=== PATIENT | female | born 1930 | race Caucasian/White ===

== ENCOUNTER 2017-08-22 10:06 | Inpatient (IN) | payer MEDICARE, OTHER ==
--- NOTE | 2017-08-22 10:34 | ED ---
General Adult HPI - General Chief complaint: Weakness Stated complaint: Weakness Time Seen by Provider: 08/22/17 10:16 Source: patient, family, RN notes reviewed Mode of arrival: wheelchair Limitations: no limitations - History of Present Illness Initial comments: Patient is a pleasant 86-year-old female presenting to the emergency department with weakness. Patient has been having right hip problems for the past several weeks and did see a practitioner recently with x-rays concerning for arthritis. This morning daughter found patient lying on the floor. Patient has been unable to get up or bear weight on her own. There is question whether or not patient may have hit her head. Patient does complain of some discomfort in the back of her head and feels that she may have hit it. Patient does have mild bruising left eyebrow. Patient states her right hip only hurts a little bit at this time however during exam states it hurts to lift the right hip. No neck or back pain. No chest or abdominal pain. Patient does have some confusion however daughter states this is normal and unchanged for her. - Related Data Home Medications Medication Instructions Recorded Confirmed ALPRAZolam 0.5 mg PO TID PRN 06/06/15 08/22/17 Donepezil HCl 23 mg PO HS 06/06/15 08/22/17 Mirtazapine 30 mg PO HS 06/06/15 08/22/17 Omeprazole [PriLOSEC] 20 mg PO AC-BRKFST 06/06/15 08/22/17 Pravastatin Sodium 40 mg PO HS 06/06/15 08/22/17 Sertraline HCl 50 mg PO DAILY 06/06/15 08/22/17 traMADol HCL [Ultram] 50 mg PO BID PRN 08/22/17 08/22/17 Allergies Allergy/AdvReac Type Severity Reaction Status Date / Time No Known Allergies Allergy Verified 08/22/17 12:31 Review of Systems ROS Statement: Those systems with pertinent positive or pertinent negative responses have been documented in the HPI. ROS Other: All systems not noted in ROS Statement are negative. Constitutional: Denies: fever Eyes: Denies: eye pain ENT: Denies: ear pain Respiratory: Denies: cough Cardiovascular: Denies: chest pain Endocrine: Reports: fatigue Gastrointestinal: Denies: abdominal pain Genitourinary: Denies: urgency Musculoskeletal: Denies: back pain Skin: Denies: rash Neurological: Reports: weakness (Generalized) Past Medical History Past Medical History: Dementia Additional Past Medical History / Comment(s): stomach ulcer, per 2006 egd:small hiatal hernia ,mild gastritis, poor circulation, past colitis-had bowel resection. PER FAMILY PT'S APPETITE GOES UP AND DOWN CURRENTLY EATING GOOD BUT HAS LOST 30 POUNDS OVER THE COURSE OF A YEAR. History of Any Multi-Drug Resistant Organisms: None Reported Past Surgical History: Bladder Surgery, Hernia Repair, Hysterectomy Additional Past Surgical History / Comment(s): colonoscopy/egd,ileostomy , abd hernia repair Past Anesthesia/Blood Transfusion Reactions: No Reported Reaction Past Psychological History: Anxiety, Depression Smoking Status: Never smoker Past Alcohol Use History: None Reported Past Drug Use History: None Reported - Past Family History Father Additional Family Medical History / Comment(s): IN HIS 80'S NATURAL CAUSES Mother Family Medical History: Myocardial Infarction ([place]) Additional Family Medical History / Comment(s): AT AGE 58 FROM [place] General Exam Limitations: no limitations General appearance: alert, in no apparent distress Head exam: Present: normocephalic, other (Mild ecchymosis left eyebrow. Mild tenderness left posterior scalp without swelling.) Eye exam: Present: normal appearance, PERRL, EOMI ENT exam: Present: normal oropharynx Neck exam: Present: normal inspection. Absent: tenderness Respiratory exam: Present: normal lung sounds bilaterally Cardiovascular Exam: Present: tachycardia GI/Abdominal exam: Present: soft. Absent: tenderness Extremities exam: Present: tenderness (Right hip) Back exam: Present: normal inspection. Absent: tenderness Neurological exam: Present: alert, CN II-XII intact Expanded Patient oriented to: Present: person, place. Absent: time Speech: Present: fluid speech Cranial nerves: EOM's Intact: Normal Motor strength exam: RUE: 5, LUE: 5, RLE: 3 (Limited by right hip pain), LLE: 5 Eye Response: (4) open spontaneously Motor Response: (6) obeys commands Verbal Response: (4) confused conversation Psychiatric exam: Present: normal affect, normal mood Skin exam: Absent: rash Course Vital Signs 08/22/17 08/22/17 08/22/17 10:07 12:13 12:39 Temperature 100.9 F H Pulse Rate 123 H 87 91 Respiratory 20 18 18 Rate Blood Pressure 127/97 89/53 90/59 O2 Sat by Pulse 88 L 99 Oximetry - Reevaluation(s) Reevaluation #1: 08/22/17 12:08 Case was earlier discussed with Dr. Bah and from cardiology who recommends medical treatment including beta james and statins. Patient and family were updated. 08/22/17 13:10 Patient does meet sepsis criteria diagnosed at 1310 based on urinary tract infection. Lactic acid and blood cultures and antibiotics will be ordered. 08/22/17 13:10 Patient had a single episode of blood pressure at 89 and therefore meets criteria for severe sepsis. 30 mL/kg IV fluid bolus will be ordered. EKG Findings - EKG Comments: EKG Findings:: Normal sinus rhythm 96. For screening AV block with a DE of 206. QRS 72. QT 338. QTC 427. Normal axis. Low QRS voltage. Septal Q waves. No acute ST change. Procedures - Sepsis Sepsis Focused Exam #1 Time Sepsis Criteria Met: 13:04 Sepsis Focused Exam Date: 08/22/17 Sepsis Focused Exam Time: 13:16 Sepsis Focused Exam Complete: Yes Vital Signs & RN Notes Reviewed: Yes Capillary Refill: < 2 Seconds: Fingers, Toes Peripheral Pulses: Normal: Radial (R), Radial (L), Posterior Tibialis (R), Posterior Tibialis (L) Skin Color: Normal for Patient Respiratory Exam: normal lung sounds Cardiovascular Exam: regular rate, normal rhythm Medical Decision Making - Lab Data Result diagrams: 08/22/17 10:37 08/22/17 10:37 Lab Results 08/22/17 08/22/17 08/22/17 Range/Units 10:37 10:37 10:37 WBC 13.3 H (3.8-10.6) k/uL RBC 4.26 (3.80-5.40) m/uL Hgb 12.9 (11.4-16.0) gm/dL Hct 40.4 (34.0-46.0) % MCV 94.8 (80.0-100.0) fL MCH 30.3 (25.0-35.0) pg MCHC 31.9 (31.0-37.0) g/dL RDW 13.7 (11.5-15.5) % Plt Count 137 L (150-450) k/uL Neutrophils % (Manual) 75 % Band Neutrophils % 11 % Lymphocytes % (Manual) 6 % Monocytes % (Manual) 3 % Eosinophils % (Manual) 1 % Metamyelocytes % 5 % Neutrophils # (Manual) 11.40 H (1.3-7.7) k/uL Lymphocytes # (Manual) 0.80 L (1.0-4.8) k/uL Monocytes # (Manual) 0.40 (0-1.0) k/uL Eosinophils # (Manual) 0.13 (0-0.7) k/uL Metamyelocytes # (Man) 0.67 H (0) k/uL Nucleated RBCs 0 (0-0) /100 WBC Polychromasia Present PT (9.0-12.0) sec INR (<1.2) APTT (22.0-30.0) sec Sodium 135 L (137-145) mmol/L Potassium 3.9 (3.5-5.1) mmol/L Chloride 108 H (98-107) mmol/L Carbon Dioxide 11 L (22-30) mmol/L Anion Gap 16 mmol/L BUN 51 H (7-17) mg/dL Creatinine 4.96 H (0.52-1.04) mg/dL Est GFR (MDRD) Af Amer 10 (>60 ml/min/1.73 sqM) Est GFR (MDRD) Non-Af 8 (>60 ml/min/1.73 sqM) Glucose 116 H (74-99) mg/dL Calcium 8.7 (8.4-10.2) mg/dL Total Bilirubin 1.3 (0.2-1.3) mg/dL AST 75 H (14-36) U/L ALT 42 (9-52) U/L Alkaline Phosphatase 114 (38-126) U/L Total Creatine Kinase 2196 H (30-135) U/L CK-MB (CK-2) 37.5 H* (0.0-2.4) ng/mL CK-MB (CK-2) Rel Index Troponin I 11.200 H* (0.000-0.034) ng/mL Total Protein 6.9 (6.3-8.2) g/dL Albumin 3.8 (3.5-5.0) g/dL Urine Color Urine Appearance (Clear) Urine pH (5.0-8.0) Ur Specific [place] (1.001-1.035) Urine Protein (Negative) Urine Glucose (UA) (Negative) Urine Ketones (Negative) Urine Blood (Negative) Urine Nitrite (Negative) Urine Bilirubin (Negative) Urine Urobilinogen (<2.0) mg/dL Ur Leukocyte Esterase (Negative) Urine RBC (0-5) /hpf Urine WBC (0-5) /hpf Urine Bacteria (None) /hpf Urine Opiates Screen (NotDetected) Ur Oxycodone Screen (NotDetected) Urine Methadone Screen (NotDetected) Ur Propoxyphene Screen (NotDetected) Ur Barbiturates Screen (NotDetected) U Tricyclic Antidepress (NotDetected) Ur Phencyclidine Scrn (NotDetected) Ur Amphetamines Screen (NotDetected) U Methamphetamines Scrn (NotDetected) U Benzodiazepines Scrn (NotDetected) Urine Cocaine Screen (NotDetected) U Marijuana (THC) Screen (NotDetected) 08/22/17 08/22/17 08/22/17 Range/Units 10:37 12:19 12:19 WBC (3.8-10.6) k/uL RBC (3.80-5.40) m/uL Hgb (11.4-16.0) gm/dL Hct (34.0-46.0) % MCV (80.0-100.0) fL MCH (25.0-35.0) pg MCHC (31.0-37.0) g/dL RDW (11.5-15.5) % Plt Count (150-450) k/uL Neutrophils % (Manual) % Band Neutrophils % % Lymphocytes % (Manual) % Monocytes % (Manual) % Eosinophils % (Manual) % Metamyelocytes % % Neutrophils # (Manual) (1.3-7.7) k/uL Lymphocytes # (Manual) (1.0-4.8) k/uL Monocytes # (Manual) (0-1.0) k/uL Eosinophils # (Manual) (0-0.7) k/uL Metamyelocytes # (Man) (0) k/uL Nucleated RBCs (0-0) /100 WBC Polychromasia PT 12.3 H (9.0-12.0) sec INR 1.2 H (<1.2) APTT 27.3 (22.0-30.0) sec Sodium (137-145) mmol/L Potassium (3.5-5.1) mmol/L Chloride (98-107) mmol/L Carbon Dioxide (22-30) mmol/L Anion Gap mmol/L BUN (7-17) mg/dL Creatinine (0.52-1.04) mg/dL Est GFR (MDRD) Af Amer (>60 ml/min/1.73 sqM) Est GFR (MDRD) Non-Af (>60 ml/min/1.73 sqM) Glucose (74-99) mg/dL Calcium (8.4-10.2) mg/dL Total Bilirubin (0.2-1.3) mg/dL AST (14-36) U/L ALT (9-52) U/L Alkaline Phosphatase (38-126) U/L Total Creatine Kinase (30-135) U/L CK-MB (CK-2) (0.0-2.4) ng/mL CK-MB (CK-2) Rel Index Troponin I (0.000-0.034) ng/mL Total Protein (6.3-8.2) g/dL Albumin (3.5-5.0) g/dL Urine Color Red Urine Appearance Turbid H (Clear) Urine pH 6.0 (5.0-8.0) Ur Specific [place] 1.014 (1.001-1.035) Urine Protein 2+ H (Negative) Urine Glucose (UA) Negative (Negative) Urine Ketones Negative (Negative) Urine Blood Large H (Negative) Urine Nitrite Negative (Negative) Urine Bilirubin Negative (Negative) Urine Urobilinogen <2.0 (<2.0) mg/dL Ur Leukocyte Esterase Large H (Negative) Urine RBC >182 H (0-5) /hpf Urine WBC 109 H (0-5) /hpf Urine Bacteria Rare H (None) /hpf Urine Opiates Screen Detected H (NotDetected) Ur Oxycodone Screen Not Detected (NotDetected) Urine Methadone Screen Not Detected (NotDetected) Ur Propoxyphene Screen Not Detected (NotDetected) Ur Barbiturates Screen Not Detected (NotDetected) U Tricyclic Antidepress Not Detected (NotDetected) Ur Phencyclidine Scrn Not Detected (NotDetected) Ur Amphetamines Screen Not Detected (NotDetected) U Methamphetamines Scrn Not Detected (NotDetected) U Benzodiazepines Scrn Not Detected (NotDetected) Urine Cocaine Screen Not Detected (NotDetected) U Marijuana (THC) Screen Not Detected (NotDetected) Critical Care Time Critical Care Time: Yes Total Critical Care Time: 45 Disposition Clinical Impression: NSTEMI (non-ST elevated myocardial infarction), Urinary tract infection, Severe sepsis, Chronic renal failure Disposition: ADMITTED IP TO THIS HOSP Condition: Serious Referrals: Denise Carmona MD [Primary Care Provider] - 1-2 days Decision Time: 13:15
[2017-08-22 11:05] LABS: Calcium 8.7 mg/dL (8.4-10.2); HCT 40.4 % (34.0-46.0); HGB 12.9 gm/dL (11.4-16.0); Immature Gran Flag Marked; MCH 30.3 pg (25.0-35.0); MCHC 31.9 g/dL (31.0-37.0); MCV 94.8 fL (80.0-100.0); Mean Platelet Volume 7.5; Potassium 3.9 mmol/L (3.5-5.1); RBC 4.26 m/uL (3.80-5.40); RDW 13.7 % (11.5-15.5); Total Bilirubin 1.3 mg/dL (0.2-1.3); Total Protein 6.9 g/dL (6.3-8.2); WBC 13.3 k/uL (3.8-10.6); WBC (Perox) 13.81
[2017-08-22 11:14] LABS: Add Differential Manual Differential
--- NOTE | 2017-08-22 11:14 | CT ---
EXAMINATION TYPE: CT brain nancy wise DATE OF EXAM: 08/22/2017 COMPARISON: NONE HISTORY: confusion/fell this morning CT DLP: 1651.10 mGycm Automated exposure control for dose reduction was used. TECHNIQUE: CT scan of the head and cervical spine are performed without contrast. FINDINGS: BRAIN: There are generalized changes of sulcal prominence and ventriculomegaly, compatible with atrop hy. There is diffuse periventricular white matter lucency, compatible with small vessel ischemic house ge. There is no acute focal lesion, mass effect or midline shift identified. I do not see evidence of intracranial blood. There is mild, chronic mucoperiosteal thickening involving the ethmoid air cells. No depressed skull fracture is seen. IMPRESSION: 1. NO ACUTE INTRACRANIAL ABNORMALITY. 2. ATROPHIC CHANGE. 3. SMALL VESSEL ISCHEMIC CHANGE. 4. MINIMAL, CHRONIC MUCOPERIOSTEAL THICKENING INVOLVING THE ETHMOID SINUSES. CERVICAL SPINE: There are emphysematous changes throughout the visualized portions of the lungs. Prevertebral soft tissues are normal. Vertebral body height and alignment are maintained. Atlantoaxial relationships are normal. There is d iffuse degenerative disc disease, most marked at C5-6 and C6-7. There is mild uncovertebral joint dis ease at this level. There is facet arthropathy at C4-5 and C6-7. There is no definite protrusion iden tified. No fracture is identified. IMPRESSION: 1. NO ACUTE OSSEOUS LESION. 2. DEGENERATIVE CHANGE.
[2017-08-22 11:16] LABS: Band Neutrophils % 11 %; Metamyelocytes % 5 %; Nucleated Red Blood Cells 0 /100 WBC (0-0); Polychromasia Present; Total Cells Counted 200
[2017-08-22 11:22] LABS: INR 1.2 (<1.2); Partial Thromboplastin Time 27.3 sec (22.0-30.0); Prothrombin Time 12.3 sec (9.0-12.0)
[2017-08-22 11:33] LABS: Creatine Kinase MB 37.5 ng/mL (0.0-2.4)
[2017-08-22 11:34] LABS: Troponin I 11.2 ng/mL (0.000-0.034)
--- NOTE | 2017-08-22 11:41 | XR ---
EXAMINATION TYPE: XR Hip RT and AP Pelvis , 3 VIEWS DATE OF EXAM ORDERED: 08/22/2017 HISTORY: Pain. COMPARISON: None. FINDINGS: Osseous structures about the pelvis are normal. No fracture is seen. There are degenerativ e changes within the hips. No hip fracture is seen. IMPRESSION: 1. NO ACUTE OSSEOUS LESION. 2. DEGENERATIVE CHANGE.
--- NOTE | 2017-08-22 11:42 | XR ---
EXAMINATION TYPE: XR chest 2V DATE OF EXAM: 08/22/2017 HISTORY: altered mental status. REFERENCE: NONE. FINDINGS: Lung volumes are mildly prominent. Heart size upper limits of normal. There is atelectatic change present at both lung bases. There is blunting of the left CP angle. I could not exclude a smal l left effusion. IMPRESSION: 1. BORDERLINE CARDIOMEGALY. 2. BIBASILAR ATELECTASIS. 3. I CANNOT EXCLUDE A SMALL, LEFT EFFUSION.
[2017-08-22] MEDS ORDERED: HEPARIN SODIUM,PORCINE 5,000 UNIT/ML 1 ML VIAL IV ONE (12:11)
[2017-08-22] MEDS ORDERED: HEPARIN SODIUM,PORCINE 5,000 UNIT/ML 1 ML VIAL IV PRN (12:11)
[2017-08-22 12:37] LABS: Appearance,Urine Turbid (Clear); Bacteria,Urine Rare /hpf; Bilirubin,Urine Negative (Negative); Glucose,Urine (UA) Negative (Negative); Ketones,Urine Negative (Negative); Leukocyte Esterase,Urine Large (Negative); Nitrite,Urine Negative (Negative); Particle Count 93469; Protein,Urine 2+ (Negative); RBC,Urine >182 /hpf (0-5); Specific Gravity,Urine 1.014 (1.001-1.035); UA Billing (MACRO vs. MICRO) MICRO; Urobilinogen,Urine <2.0 mg/dL (<2.0); WBC,Urine 109 /hpf (0-5)
[2017-08-22] MEDS ORDERED: SODIUM CHLORIDE 0.9% 500 ML IV ONE (12:37)
[2017-08-22] MEDS: HEPARIN SODIUM,PORCINE/D5W PMX 25,000 UNIT in DEXTROSE/WATER 1 500ML.BAG IV SCH (12:37)
[2017-08-22] MEDS ORDERED: METOPROLOL TARTRATE 25 MG TAB PO STA (12:47)
[2017-08-22] MEDS ORDERED: SODIUM BICARBONATE TAB 650 MG TAB PO STA (12:48)
[2017-08-22] MEDS ORDERED: SODIUM CHLORIDE 0.9% 500 ML IV STA (13:11)
[2017-08-22] MEDS ORDERED: SODIUM CHLORIDE 0.9% 250 ML IV STA (13:11)
[2017-08-22] MEDS ORDERED: SODIUM CHLORIDE 0.9% 1,000 ML IV STA (13:11)
[2017-08-22] MEDS ORDERED: cefTRIAXone IN SWFI 1,000 MG/10 ML SYRINGE IVP STA (13:14)
[2017-08-22] MEDS ORDERED: NALOXONE 0.4 MG/ML 1 ML VIAL IV PRN ×2 (13:21→15:51)
[2017-08-22] MEDS ORDERED: ASPIRIN 81 MG PO STA (13:23)
--- NOTE | 2017-08-22 14:39 | P.CNPUL ---
History of Present Illness Consult date: 08/22/17 Chief complaint: Generalized weakness, sepsis History of present illness: This is a very pleasant 86-year-old female patient who was brought into the emergency department after being found on the floor by family members. The patient apparently had fallen at home. The patient states that she had been progressively getting weak over the past few days. She was having some right inguinal/groin pain and increased confusion for which she was taken to the primary care physician and x-ray of the hips and the pelvis was done and showed no osseous lesions and it showed degenerative changes. The patient was released home to come back today with obvious signs of sepsis. Initial investigation here in the emergency department revealed that the patient had an underlying urine checked infection with seems to be the most obvious source of sepsis. Chest x-ray was clear. Troponin was elevated at 11 without any acute ischemic changes and the patient was also ruled in for acute non-ST segment elevation myocardial infarction. She was quite hypotensive at time of arrival systolic in the mid 80s. The patient is currently receiving her second bolus of IV fluids. She was also started on IV heparin. Holman catheter is to be inserted. Her lactic acid level at time of admission was 5.4. She has leukocytosis with a white cell count of 13.3. She has 11% bandemia. She has anion gap metabolic acidosis which is essentially lactic acidosis with a bicarb level of 11. She is also an acute kidney injury with a creatinine of 4.96 in a be on a 51. Note that this is an acute on top of chronic renal injury knowing that the patient's baseline creatinine was around 3.0. The daughter claims that the patient has had previous urinary tract infections all of them have been treated on outpatient basis. Urine drug screen is positive for opiates. The patient is awake. She is lethargic. She occasionally moans. She is able to follow simple commands. There is areas of bruising over the left forehead, right elbow, right upper extremity, lateral acid of the right foot. No obvious joint deformities. No headache. No nausea or vomiting. No abdominal pain. She has a DNR/DNI CODE STATUS. Review of Systems Constitutional: Reports fatigue, Reports fever, Reports lethargy, Reports poor appetite, Reports weakness Eyes: denies blurred vision, denies bulging eye, denies decreased vision Ears: deny: decreased hearing, ear discharge, earache Ears, nose, mouth and throat: Denies headache, Denies sore throat Cardiovascular: Reports decreased exercise tolerance Respiratory: Denies cough Gastrointestinal: Denies abdominal pain, Denies diarrhea, Denies nausea, Denies vomiting Genitourinary: Reports dysuria Menstruation: Reports as per HPI Musculoskeletal: absent: ankle pain, ankle stiffness, ankle swelling Integumentary: Denies pruritus, Denies rash Neurological: Denies numbness, Denies weakness Psychiatric: Denies anxiety, Denies depression Endocrine: Denies fatigue, Denies weight change Past Medical History Past Medical History: Dementia Additional Past Medical History / Comment(s): Chronic renal failure, gastric ulcer, dementia, mild gastritis, small hiatal hernia, peripheral vascular disease, history of ulcerative colitis and the patient has undergone a total colectomy with a diverting ileostomy, History of Any Multi-Drug Resistant Organisms: None Reported Past Surgical History: Bladder Surgery, Hernia Repair, Hysterectomy Additional Past Surgical History / Comment(s): colonoscopy/egd,ileostomy , abd hernia repair Past Anesthesia/Blood Transfusion Reactions: No Reported Reaction Past Psychological History: Anxiety, Depression Smoking Status: Never smoker Past Alcohol Use History: None Reported Past Drug Use History: None Reported - Past Family History Father Additional Family Medical History / Comment(s): IN HIS 80'S NATURAL CAUSES Mother Family Medical History: Myocardial Infarction ([place]) Additional Family Medical History / Comment(s): AT AGE 58 FROM [place] Medications and Allergies Home Medications Medication Instructions Recorded Confirmed Type ALPRAZolam 0.5 mg PO TID PRN 06/06/15 08/22/17 History Donepezil HCl 23 mg PO HS 06/06/15 08/22/17 History Mirtazapine 30 mg PO HS 06/06/15 08/22/17 History Omeprazole [PriLOSEC] 20 mg PO AC-BRKFST 06/06/15 08/22/17 History Pravastatin Sodium 40 mg PO HS 06/06/15 08/22/17 History Sertraline HCl 50 mg PO DAILY 06/06/15 08/22/17 History traMADol HCL [Ultram] 50 mg PO BID PRN 08/22/17 08/22/17 History Allergies Allergy/AdvReac Type Severity Reaction Status Date / Time No Known Allergies Allergy Verified 08/22/17 12:31 Physical Exam Vitals: Vital Signs Temp Pulse Resp BP Pulse Ox 08/22/17 14:24 98.5 F 84 32 H 91/53 92 L 08/22/17 13:59 83 22 81/48 94 L 08/22/17 13:46 100.9 F H 85 20 86/48 96 08/22/17 13:40 99.6 F 88 20 96/54 95 08/22/17 13:26 100.9 F H 86 20 88/55 99 08/22/17 13:11 94 20 81/53 99 08/22/17 12:56 86 20 89/53 94 L 08/22/17 12:39 100.9 F H 91 18 90/59 99 08/22/17 12:13 87 18 89/53 08/22/17 10:07 123 H 20 127/97 88 L Intake and Output 08/21/17 08/22/17 08/22/17 23:59 06:59 14:59 Other: Weight 71.214 kg Patient Weight 08/23/17 06:59 Weight 71.214 kg Patient is lethargic awake, comfortable at times moans yet for the most part she is arousable and she talks and she follows commands and she seems to be appropriate. Daughter is at the bedside.Head exam was generally normal. There was no scleral icterus or corneal arcus. Mucous membranes were moist. Mucous membranes are dry and the patient has dry tongue and there is no thrush. No JVDs. No goiter. No neck masses.Lungs were clear to auscultation and percussion, and with normal diaphragmatic excursion. No wheezes or rales were noted. Cardiac exam revealed the PMI to be normally situated and sized. The rhythm was regular and no extrasystoles were noted during several minutes of auscultation. The first and second heart sounds were normal and physiologic splitting of the second heart sound was noted. There were no murmurs, rubs, clicks, or gallops. Abdomen is soft and there is an ileostomy site which is functional and related fecal material collecting in the ileostomy bag. No direct tenderness. No rebound tenderness. No guarding. Extremities reveal adequate pulses bilaterally and there is no cyanosis or clubbing at this point. Neurologically the patient is awake and alert and the patient is following commands and answering questions and she is moving all 4 extremities without any limitation. No cranial nerve deficits. Examination of the skin shows areas of bruising in the left forehead just above the eye, right elbow, right foot lateral aspect, and the patient has no open wounds or sores or cellulitis at this point. Results - Laboratory Findings CBC and BMP: 08/22/17 10:37 08/22/17 10:37 PT/INR, D-dimer PT 12.3 sec (9.0-12.0) H 08/22/17 10:37 INR 1.2 (<1.2) H 08/22/17 10:37 Abnormal lab findings: Abnormal Labs 08/22/17 08/22/17 08/22/17 10:31 10:37 10:37 WBC 13.3 H Plt Count 137 L Neutrophils # (Manual) 11.40 H Lymphocytes # (Manual) 0.80 L Metamyelocytes # (Man) 0.67 H PT INR Sodium Chloride Carbon Dioxide BUN Creatinine Glucose Plasma Lactic Acid Eric 5.8 H* AST Total Creatine Kinase 2196 H CK-MB (CK-2) 37.5 H* Troponin I 11.200 H* Urine Appearance Urine Protein Urine Blood Ur Leukocyte Esterase Urine RBC Urine WBC Urine Bacteria Urine Opiates Screen 08/22/17 08/22/17 08/22/17 10:37 10:37 12:19 WBC Plt Count Neutrophils # (Manual) Lymphocytes # (Manual) Metamyelocytes # (Man) PT 12.3 H INR 1.2 H Sodium 135 L Chloride 108 H Carbon Dioxide 11 L BUN 51 H Creatinine 4.96 H Glucose 116 H Plasma Lactic Acid Eric AST 75 H Total Creatine Kinase CK-MB (CK-2) Troponin I Urine Appearance Urine Protein Urine Blood Ur Leukocyte Esterase Urine RBC Urine WBC Urine Bacteria Urine Opiates Screen Detected H 08/22/17 12:19 WBC Plt Count Neutrophils # (Manual) Lymphocytes # (Manual) Metamyelocytes # (Man) PT INR Sodium Chloride Carbon Dioxide BUN Creatinine Glucose Plasma Lactic Acid Eric AST Total Creatine Kinase CK-MB (CK-2) Troponin I Urine Appearance Turbid H Urine Protein 2+ H Urine Blood Large H Ur Leukocyte Esterase Large H Urine RBC >182 H Urine WBC 109 H Urine Bacteria Rare H Urine Opiates Screen - Diagnostic Findings Chest x-ray: image reviewed Assessment and Plan Assessment: Assessment 1 acute sepsis secondary to an underlying urine checked infection 2 acute fever, leukocytosis, hypotension and lactic acidosis secondary to urine checked infection/sepsis 3 acute lactic acidosis 4 acute on top of chronic kidney failure. The patient is oliguric and states related to sepsis/hypotension 5 hypotension, currently on no pressors and the patient is being resuscitated IV fluids 6 acute non-ST segment elevation myocardial infarction, no acute changes and the patient is asymptomatic without any chest pain, currently on IV heparin 7 ulcerative colitis with a previous ileostomy, function on 8 dementia 9 peripheral vascular disease 10 small hiatal hernia 11 fall without any obvious injuries Plan Continue fluid resuscitation given the patient total of 3-1/2 L of IV fluids and following that she be maintained on a on 150 mL an hour of normal saline. Urine cultures. 2 sets of blood cultures. Pressors if needed. Move the patient to the intensive care for further monitoring. Continued IV heparin for another 24 hours and request a cardiology consultation. Echocardiogram in the morning. IV Protonix. Initiate sepsis bundle. Monitor the renal function. Continue the antibiotic coverage with a combination of Rocephin and aztreonam. We'll continue to follow and make further recommendations based on her progress. She has a DNR/DNI CODE STATUS.
[2017-08-22 15:03] LABS: Glucose,Whole Blood 75 mg/dL (75-99)
[2017-08-22] MEDS: SODIUM CHLORIDE 0.9% 1,000 ML IV SCH ×2 (15:09→22:19)
[2017-08-22] MEDS: AZTREONAM 1 GM in SODIUM CHLORIDE 0.9% 50 ML IVPB SCH ×2 (15:22→22:16)
--- NOTE | 2017-08-22 17:25 | P.HPIM ---
History of Present Illness pleasant female was found unresponsive at home and has fallen at home was having generalized weakness patient denied any cough denied any dysuria denied any nausea vomiting patient is hypotensive patient is appears to be in shock which appears to be septic chart patient has severe and gap metabolic acidosis which is lactic acidosis with a lactic acid of around 6 patient has significant abnormal urine chest x-ray did not show significant amount of patient denied any cough with blood cultures urine cultures obtain patient's troponin is elevated up to 11 patient does not have any significant EKG changes cardiology was consulted patient is on IV heparin patient baseline creatinine is around 2 now has gone up to 4.96 patient may have had acute blood necrosis with the dark colored urine wasn't leaflets being fluid resuscitated had some hyperchloremia which is definitely a concern. she does have significant leukocytosis with bandemiathe patient at this time is not feeling well is complaining of back pain Review of Systems REVIEW OF SYSTEMS: CONSTITUTIONAL: mentioned in HPI HEENT: No recent visual problems or hearing problems. Denied any sore throat. CARDIOVASCULAR: No chest pain, orthopnea, PND, no palpitations, no syncope. PULMONARY: No shortness of breath, no cough, no hemoptysis. GASTROINTESTINAL: No diarrhea, no nausea, no vomiting, no abdominal pain. Normoactive bowel sounds. NEUROLOGICAL: No headaches, no weakness, no numbness. HEMATOLOGICAL: Denies any bleeding or petechiae. GENITOURINARY: Denies any burning micturition, frequency, or urgency. MUSCULOSKELETAL/RHEUMATOLOGICAL: back pain as mentioned above ENDOCRINE: Denies any polyuria or polydipsia. The rest of the 14-point review of systems is negative. Past Medical History Past Medical History: Dementia, Hyperlipidemia, Hypertension Additional Past Medical History / Comment(s): Chronic renal failure, gastric ulcer, dementia, mild gastritis, small hiatal hernia, peripheral vascular disease, history of ulcerative colitis and the patient has undergone a total colectomy with a diverting ileostomy, History of Any Multi-Drug Resistant Organisms: None Reported Past Surgical History: Bladder Surgery, Hernia Repair, Hysterectomy Additional Past Surgical History / Comment(s): colonoscopy/egd,ileostomy , abd hernia repair Past Anesthesia/Blood Transfusion Reactions: No Reported Reaction Past Psychological History: Anxiety, Depression Additional Psychological History / Comment(s): 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 PT DOES HAVE MILD DEMENTIA BUT ABLE TO CARE FOR SELF AT HOME. SHE CURRENTLY RESIDES WITH HER DAUGHTER URIEL AND HER FAMILY. PT IS ABLE TO AMBULATE ON HER OWN. Smoking Status: Never smoker Past Alcohol Use History: None Reported Past Drug Use History: None Reported - Past Family History Father Additional Family Medical History / Comment(s): IN HIS 80'S NATURAL CAUSES Mother Family Medical History: Myocardial Infarction ([place]) Additional Family Medical History / Comment(s): AT AGE 58 FROM [place] Medications and Allergies Home Medications Medication Instructions Recorded Confirmed Type ALPRAZolam 0.5 mg PO TID PRN 06/06/15 08/22/17 History Donepezil HCl 23 mg PO HS 06/06/15 08/22/17 History Mirtazapine 30 mg PO HS 06/06/15 08/22/17 History Omeprazole [PriLOSEC] 20 mg PO AC-BRKFST 06/06/15 08/22/17 History Pravastatin Sodium 40 mg PO HS 06/06/15 08/22/17 History Sertraline HCl 50 mg PO DAILY 06/06/15 08/22/17 History traMADol HCL [Ultram] 50 mg PO BID PRN 08/22/17 08/22/17 History Allergies Allergy/AdvReac Type Severity Reaction Status Date / Time No Known Allergies Allergy Verified 08/22/17 12:31 Physical Exam Vitals: Vital Signs Temp Pulse Resp BP Pulse Ox 08/22/17 16:30 95 24 79/53 91 L 08/22/17 16:00 95 37 H 76/37 92 L 08/22/17 15:50 91 32 H 85 L 08/22/17 15:40 93 29 H 94 L 08/22/17 15:30 92 30 H 93 L 08/22/17 15:20 99.0 F 93 32 H 82/46 93 L 08/22/17 15:10 86 31 H 82/46 93 L 08/22/17 15:00 96 82/46 08/22/17 14:56 93 08/22/17 14:24 98.5 F 84 32 H 91/53 92 L 08/22/17 13:59 83 22 81/48 94 L 08/22/17 13:46 100.9 F H 85 20 86/48 96 08/22/17 13:40 99.6 F 88 20 96/54 95 08/22/17 13:26 100.9 F H 86 20 88/55 99 08/22/17 13:11 94 20 81/53 99 08/22/17 12:56 86 20 89/53 94 L 08/22/17 12:39 100.9 F H 91 18 90/59 99 08/22/17 12:13 87 18 89/53 08/22/17 10:07 123 H 20 127/97 88 L Intake and Output 08/22/17 08/22/17 08/22/17 06:59 14:59 22:59 Intake Total 3690 Output Total 100 Balance 3590 Intake: Intake, IV Titration 3600 Amount Aztreonam 1 gm In Sodium 100 Chloride 0.9% 50 ml @ 100 mls/hr IVPB Q12HR [facility] Rx #:[id number] Sodium Chloride 0.9% 1, 1000 000 ml @ 150 mls/hr IV . Q6H40M [facility] Rx#:[id number] Sodium Chloride 0.9% 1, 2500 000 ml @ 999 mls/hr IV . Q1H1M [facility] Rx#:[id number] Oral 90 Output: Urine 100 Other: Voiding Method Indwelling Catheter Weight 71.214 kg 71.214 kg Patient Weight 08/23/17 06:59 Weight 71.214 kg PHYSICAL EXAMINATION: GENERAL: The patient is alert and oriented x3, patient appeared to be in some distress which is not a respiratory distress. Well developed, well nourished. HEENT: Pupils are round and equally reacting to light. EOMI. No scleral icterus. No conjunctival pallor. Normocephalic, atraumatic. No pharyngeal erythema. No thyromegaly. CARDIOVASCULAR: S1 and S2 present. No murmurs, rubs, or gallops. PULMONARY: Chest is clear to auscultation, no wheezing or crackles. ABDOMEN: Soft, nontender, nondistended, normoactive bowel sounds. No palpable organomegaly. MUSCULOSKELETAL: No joint swelling or deformity. EXTREMITIES: No cyanosis, clubbing, or pedal edema. NEUROLOGICAL: Gross neurological examination did not reveal any focal deficits. SKIN: No rashes. Results CBC & Chem 7: 08/22/17 10:37 08/22/17 10:37 Labs: Abnormal Lab Results - Last 24 Hours (Table) 08/22/17 08/22/17 08/22/17 Range/Units 10:31 10:37 10:37 WBC 13.3 H (3.8-10.6) k/uL Plt Count 137 L (150-450) k/uL Neutrophils # (Manual) 11.40 H (1.3-7.7) k/uL Lymphocytes # (Manual) 0.80 L (1.0-4.8) k/uL Metamyelocytes # (Man) 0.67 H (0) k/uL PT (9.0-12.0) sec INR (<1.2) Sodium (137-145) mmol/L Chloride (98-107) mmol/L Carbon Dioxide (22-30) mmol/L BUN (7-17) mg/dL Creatinine (0.52-1.04) mg/dL Glucose (74-99) mg/dL Plasma Lactic Acid Eric 5.8 H* (0.7-2.0) mmol/L AST (14-36) U/L Total Creatine Kinase 2196 H (30-135) U/L CK-MB (CK-2) 37.5 H* (0.0-2.4) ng/mL Troponin I 11.200 H* (0.000-0.034) ng/mL Urine Appearance (Clear) Urine Protein (Negative) Urine Blood (Negative) Ur Leukocyte Esterase (Negative) Urine RBC (0-5) /hpf Urine WBC (0-5) /hpf Urine Bacteria (None) /hpf Urine Opiates Screen (NotDetected) 08/22/17 08/22/17 08/22/17 Range/Units 10:37 10:37 12:19 WBC (3.8-10.6) k/uL Plt Count (150-450) k/uL Neutrophils # (Manual) (1.3-7.7) k/uL Lymphocytes # (Manual) (1.0-4.8) k/uL Metamyelocytes # (Man) (0) k/uL PT 12.3 H (9.0-12.0) sec INR 1.2 H (<1.2) Sodium 135 L (137-145) mmol/L Chloride 108 H (98-107) mmol/L Carbon Dioxide 11 L (22-30) mmol/L BUN 51 H (7-17) mg/dL Creatinine 4.96 H (0.52-1.04) mg/dL Glucose 116 H (74-99) mg/dL Plasma Lactic Acid Eric (0.7-2.0) mmol/L AST 75 H (14-36) U/L Total Creatine Kinase (30-135) U/L CK-MB (CK-2) (0.0-2.4) ng/mL Troponin I (0.000-0.034) ng/mL Urine Appearance (Clear) Urine Protein (Negative) Urine Blood (Negative) Ur Leukocyte Esterase (Negative) Urine RBC (0-5) /hpf Urine WBC (0-5) /hpf Urine Bacteria (None) /hpf Urine Opiates Screen Detected H (NotDetected) 08/22/17 Range/Units 12:19 WBC (3.8-10.6) k/uL Plt Count (150-450) k/uL Neutrophils # (Manual) (1.3-7.7) k/uL Lymphocytes # (Manual) (1.0-4.8) k/uL Metamyelocytes # (Man) (0) k/uL PT (9.0-12.0) sec INR (<1.2) Sodium (137-145) mmol/L Chloride (98-107) mmol/L Carbon Dioxide (22-30) mmol/L BUN (7-17) mg/dL Creatinine (0.52-1.04) mg/dL Glucose (74-99) mg/dL Plasma Lactic Acid Eric (0.7-2.0) mmol/L AST (14-36) U/L Total Creatine Kinase (30-135) U/L CK-MB (CK-2) (0.0-2.4) ng/mL Troponin I (0.000-0.034) ng/mL Urine Appearance Turbid H (Clear) Urine Protein 2+ H (Negative) Urine Blood Large H (Negative) Ur Leukocyte Esterase Large H (Negative) Urine RBC >182 H (0-5) /hpf Urine WBC 109 H (0-5) /hpf Urine Bacteria Rare H (None) /hpf Urine Opiates Screen (NotDetected) Microbiology - Last 24 Hours (Table) 08/22/17 10:31 Urine Culture - Preliminary Urine,Clean Catch Thrombosis Risk Factor Assmnt - Choose All That Apply Each Factor Represents 1 point: Obesity (BMI >25), Sepsis (< 1month) Each Risk Factor Represents 2 Points: Patient confined to bed Each Risk Factor Represents 3 Points: Age 75 years or older Thrombosis Risk Factor Assessment Total Risk Factor Score: 7 Thrombosis Risk Factor Assessment Level: High Risk Assessment and Plan Plan: 1 severe sepsis and septic shock:be secondary to urinary tract infection urine cultures, blood cultures were obtained patient is on broad-spectrum antibiotics Rocephin and Azetreonam patient may not require is Azetreonam but will continue for now because of the severity of sepsis. #2 acute kidney injury: Secondary to severe sepsis and possibility of acute tubular necrosis nonoliguric #3 chronic kidney disease stage IV, possibility of hypertensive nephrosclerosis. #4lactic acidosis: Seconded to sepsis and anion gap metabolic acidosis secondary to lactic acidosis #5 elevated troponin, possibility of non-ST elevation microinfarction, cardiology was consulted. #6 ulcerative colitis for which patient has ileostomy. #7peripheral vascular disease #8 hiatal hernia #9 depression #10 hyperlipidemia For above-mentioned chronic medical problems patient will be continued on her appropriate home medications and her clinical condition is guarded Sepsis - Sepsis Sepsis Focused Exam #1 Sepsis Focused Exam Date: 08/22/17 Sepsis Focused Exam Time: 17:24 Capillary Refill: < 2 Seconds: Fingers, Toes Peripheral Pulses: Weak: Radial (R), Radial (L)
[2017-08-22 17:48] LABS: Creatine Kinase MB 38.8 ng/mL (0.0-2.4)
[2017-08-22 17:49] LABS: Troponin I 13.6 ng/mL (0.000-0.034)
[2017-08-22] MEDS ORDERED: METOPROLOL TARTRATE 25 MG TAB PO SCH (21:00)
[2017-08-22] MEDS: PRAVASTATIN SODIUM 40 MG TAB PO SCH (21:40)
[2017-08-22] MEDS: SODIUM BICARBONATE TAB 650 MG TAB PO SCH (21:40)
[2017-08-22] MEDS ORDERED: cefTRIAXone IN SWFI 1,000 MG/10 ML SYRINGE IVP SCH (22:00)
[2017-08-22] MEDS: traMADol 50 MG TAB PO PRN (22:48)
[2017-08-22 23:07] LABS: Creatine Kinase MB 45.4 ng/mL (0.0-2.4); Troponin I 11.5 ng/mL (0.000-0.034)
[2017-08-23 04:46] LABS: CH 30.5; CHCM 32.9; HCT 34.6 % (34.0-46.0); HDW 3.26; Immature Gran Flag Marked; MCH 29.8 pg (25.0-35.0); MCHC 31.9 g/dL (31.0-37.0); MCV 93.3 fL (80.0-100.0); Mean Platelet Volume 7.9; RBC 3.71 m/uL (3.80-5.40); WBC 17.9 k/uL (3.8-10.6); WBC (Perox) 17.87
[2017-08-23 05:49] LABS: Calcium 6.9 mg/dL (8.4-10.2); Magnesium 1.4 mg/dL (1.6-2.3); Phosphorus 4.1 mg/dL (2.5-4.5); Potassium 3.7 mmol/L (3.5-5.1)
[2017-08-23 06:47] LABS: Troponin I 12.8 ng/mL (0.000-0.034)
[2017-08-23] MEDS ORDERED: NON-FORMULARY DRUG (Omeprazole [Prilosec] 20 MG) PO SCH (07:30)
[2017-08-23 07:35] LABS: Add Differential Manual Differential
[2017-08-23 07:38] LABS: Band Neutrophils % 18 %; Manual Review Performed; Metamyelocytes % 5 %; Myelocytes % 4 %; Nucleated Red Blood Cells 0 /100 WBC (0-0); Total Cells Counted 200; Toxic Vacuolation Present
[2017-08-23 07:39] LABS: Toxic Granulation Present
[2017-08-23 07:41] LABS: Dohle Bodies Present
--- NOTE | 2017-08-23 07:42 | P.CRDCN ---
History of Present Illness Consult date: 08/23/17 Chief complaint: Weakness History of present illness: This is a pleasant 86-year-old female patient with no significant past medical history except for mild underlying dementia was brought to the hospital by her family after she was found on the floor by one of her family member. The patient is somewhat poor historian. She stated that she does not follow with any hatch boss as an outpatient and does not have any prior cardiac history of coronary artery disease or congestive heart failure or cardiac arrhythmia. The patient was brought to the emergency room after she was on the floor. She stated that she was feeling progressively weak for the last week. She stated that she did not lose her consciousness. We don't know the duration and for how long the patient was on the floor. In the emergency room the patient was found to be hypotensive and was diagnosed with UTI/sepsis and was found to be in acute renal failure and also she was found to have rhabdomyolysis. The CK is elevated, CK-MB is elevated, and the troponin is elevated as well. The EKG showed only nonspecific changes. The patient stated that she did not have any chest pain or discomfort, no difficulty breathing, and no feeling of heart racing or fluttering and no loss of consciousness. She just was feeling progressively weak as a main complaint. The patient was given IV fluid bolus and her pressure has been above 60 mean. She has been stable hemodynamically. The patient had an echocardiogram a year ago and that revealed normal LV function without any significant valvular abnormalities. Past Medical History Past Medical History: Dementia, Hyperlipidemia, Hypertension Additional Past Medical History / Comment(s): Chronic renal failure, gastric ulcer, dementia, mild gastritis, small hiatal hernia, peripheral vascular disease, history of ulcerative colitis and the patient has undergone a total colectomy with a diverting ileostomy, History of Any Multi-Drug Resistant Organisms: None Reported Past Surgical History: Bladder Surgery, Hernia Repair, Hysterectomy Additional Past Surgical History / Comment(s): colonoscopy/egd,ileostomy , abd hernia repair Past Anesthesia/Blood Transfusion Reactions: No Reported Reaction Past Psychological History: Anxiety, Depression Additional Psychological History / Comment(s): 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 PT DOES HAVE MILD DEMENTIA BUT ABLE TO CARE FOR SELF AT HOME. SHE CURRENTLY RESIDES WITH HER DAUGHTER URIEL AND HER FAMILY. PT IS ABLE TO AMBULATE ON HER OWN. Smoking Status: Never smoker Past Alcohol Use History: None Reported Past Drug Use History: None Reported - Past Family History Father Additional Family Medical History / Comment(s): IN HIS 80'S NATURAL CAUSES Mother Family Medical History: [place] Inf[place] ([place]) Additional Family Medical History / Comment(s): AT AGE 58 [place] Medications and Allergies Home Medications Medication Instructions Recorded Confirmed Type ALPRAZolam 0.5 mg PO TID PRN 06/06/15 08/22/17 History Donepezil HCl 23 mg PO HS 06/06/15 08/22/17 History Mirtazapine 30 mg PO HS 06/06/15 08/22/17 History Omeprazole [PriLOSEC] 20 mg PO AC-BRKFST 06/06/15 08/22/17 History Pravastatin Sodium 40 mg PO HS 06/06/15 08/22/17 History Sertraline HCl 50 mg PO DAILY 06/06/15 08/22/17 History traMADol HCL [Ultram] 50 mg PO BID PRN 08/22/17 08/22/17 History Allergies Allergy/AdvReac Type Severity Reaction Status Date / Time No Known Allergies Allergy Verified 08/22/17 12:31 Physical Exam Vitals: Vital Signs Temp Pulse Resp BP Pulse Ox 08/23/17 06:30 92 18 114/71 93 L 08/23/17 06:00 89 22 103/60 94 L 08/23/17 05:30 88 15 110/66 94 L 08/23/17 05:00 96 17 100/61 95 08/23/17 04:30 89 15 108/59 94 L 08/23/17 04:00 98 F 92 17 98/63 94 L 08/23/17 03:30 102 H 20 101/63 92 L 08/23/17 03:00 89 22 114/66 93 L 08/23/17 02:30 90 21 99/55 92 L 08/23/17 02:00 85 22 102/61 94 L 08/23/17 01:30 88 21 104/61 95 08/23/17 01:00 88 14 95/75 94 L 08/23/17 00:30 90 20 105/62 93 L 08/23/17 00:00 98.5 F 104 H 20 87/61 93 L 08/22/17 23:30 110 H 22 100/61 92 L 08/22/17 23:00 102 H 23 101/60 90 L 08/22/17 22:30 116 H 24 103/64 90 L 08/22/17 22:00 106 H 33 H 110/65 92 L 08/22/17 21:30 105 H 33 H 100/61 92 L 08/22/17 21:00 98.5 F 105 H 32 H 94/59 92 L 08/22/17 20:30 94 33 H 93/58 91 L 08/22/17 20:00 101 H 33 H 89/55 91 L 08/22/17 19:30 86 31 H 85/52 90 L 08/22/17 19:00 93 33 H 87/54 91 L 08/22/17 18:00 96 22 89/52 94 L 08/22/17 17:30 97 24 90/59 91 L 08/22/17 16:30 95 24 79/53 91 L 08/22/17 16:00 95 37 H 76/37 92 L 08/22/17 15:50 91 32 H 85 L 08/22/17 15:40 93 29 H 94 L 08/22/17 15:30 92 30 H 93 L 08/22/17 15:20 99.0 F 93 32 H 82/46 93 L 08/22/17 15:10 86 31 H 82/46 93 L 08/22/17 15:00 96 82/46 08/22/17 14:56 93 08/22/17 14:24 98.5 F 84 32 H 91/53 92 L 08/22/17 13:59 83 22 81/48 94 L 08/22/17 13:46 100.9 F H 85 20 86/48 96 08/22/17 13:40 99.6 F 88 20 96/54 95 08/22/17 13:26 100.9 F H 86 20 88/55 99 08/22/17 13:11 94 20 81/53 99 08/22/17 12:56 86 20 89/53 94 L 08/22/17 12:39 100.9 F H 91 18 90/59 99 08/22/17 12:13 87 18 89/53 08/22/17 10:07 123 H 20 127/97 88 L Intake and Output 08/22/17 08/23/17 08/23/17 22:59 06:59 14:59 Intake Total 4714.705 1300 Output Total 1989 708 Balance 2724.705 592 Intake: IV 450 1300 Aztreonam 1 gm In Sodium 100 Chloride 0.9% 50 ml @ 100 mls/hr IVPB Q12HR [facility] Rx #:[id number] Sodium Chloride 0.9% 1, 450 1200 000 ml @ 150 mls/hr IV . Q6H40M [facility] Rx#:[id number] Intake, IV Titration 4074.705 0 Amount Aztreonam 1 gm In Sodium 100 Chloride 0.9% 50 ml @ 100 mls/hr IVPB Q12HR [facility] Rx #:[id number] Heparin Sodium,Porcine/ 174.705 0 D5w Pmx 25,000 unit In Dextrose/Water 1 500ml. bag @ 12 UNITS/KG/HR 17. 09 mls/hr IV .Q24H [facility] Rx #:[id number] Sodium Chloride 0.9% 1, 1300 000 ml @ 150 mls/hr IV . Q6H40M [facility] Rx#:[id number] Sodium Chloride 0.9% 1, 2500 000 ml @ 999 mls/hr IV . Q1H1M [facility] Rx#:[id number] Oral 190 Output: Urine 290 383 Stool 1700 325 Other: Voiding Method Indwelling Catheter Indwelling Catheter Weight 71.214 kg 78 kg - Constitutional General appearance: no acute distress - Respiratory Respiratory: bilateral: CTA - Cardiovascular Rhythm: regular Heart sounds: normal: S1, S2 Results 08/23/17 04:17 08/23/17 04:17 Cardiac Enzymes 08/22/17 08/22/17 08/22/17 Range/Units 10:37 10:37 16:27 AST 75 H (14-36) U/L CK-MB (CK-2) 37.5 H* 38.8 H* (0.0-2.4) ng/mL Troponin I 11.200 H* 13.600 H* (0.000-0.034) ng/mL 08/22/17 08/23/17 Range/Units 22:05 04:17 AST (14-36) U/L CK-MB (CK-2) 45.4 H* 59.0 H* (0.0-2.4) ng/mL Troponin I 11.500 H* 12.800 H* (0.000-0.034) ng/mL Coagulation 08/22/17 08/22/17 Range/Units 10:37 22:05 PT 12.3 H (9.0-12.0) sec APTT 27.3 114.4 H* (22.0-30.0) sec Lipids 08/23/17 Range/Units 04:17 Triglycerides 97 (<150) mg/dL Cholesterol 80 (<200) mg/dL HDL Cholesterol 43 (40-60) mg/dL CBC 08/22/17 08/23/17 Range/Units 10:37 04:17 WBC 13.3 H 17.9 H (3.8-10.6) k/uL RBC 4.26 3.71 L (3.80-5.40) m/uL Hgb 12.9 11.0 L (11.4-16.0) gm/dL Hct 40.4 34.6 (34.0-46.0) % Plt Count 137 L (150-450) k/uL Comprehensive Metabolic Panel 08/22/17 08/23/17 Range/Units 10:37 04:17 Sodium 135 L 135 L (137-145) mmol/L Potassium 3.9 3.7 (3.5-5.1) mmol/L Chloride 108 H 112 H (98-107) mmol/L Carbon Dioxide 11 L 11 L (22-30) mmol/L BUN 51 H 47 H (7-17) mg/dL Creatinine 4.96 H 3.77 H (0.52-1.04) mg/dL Glucose 116 H 85 (74-99) mg/dL Calcium 8.7 6.9 L (8.4-10.2) mg/dL AST 75 H (14-36) U/L ALT 42 (9-52) U/L Alkaline Phosphatase 114 (38-126) U/L Total Protein 6.9 (6.3-8.2) g/dL Albumin 3.8 (3.5-5.0) g/dL Current Medications Generic Name Dose Route Start Last Admin Trade Name Freq PRN Reason Stop Dose Admin Aspirin 325 mg 08/23/17 09:00 Aspirin PO DAILY [facility] Ceftriaxone Sodium 2,000 mg 08/23/17 09:00 Rocephin IVP DAILY [facility] Heparin Sodium (Porcine) 0 unit 08/22/17 12:11 Heparin IV PER PROTOCOL PRN Low PTT Protocol Heparin Sodium/Dextrose 25,000 500 mls @ 17.09 mls/hr 08/22/17 12:15 00:05 unit/ IV Solution IV 9 units/kg/hr .Q24H [facility] 12.81 mls/hr Protocol Titration 12 UNITS/KG/HR Aztreonam 1 gm/ Sodium 50 mls @ 100 mls/hr 08/22/17 15:00 08/22/17 22:16 Chloride IVPB 100 mls/hr Q12HR [facility] Administration Sodium Chloride 1,000 mls @ 150 mls/hr 08/22/17 14:45 08/22/17 22:19 Saline 0.9% IV 150 mls/hr .Q6H40M [facility] Administration Naloxone HCl 0.2 mg 08/22/17 15:51 Narcan IV Q2M PRN Opioid Reversal Pantoprazole Sodium 40 mg 08/23/17 09:00 Protonix IV DAILY [facility] Pravastatin Sodium 40 mg 08/22/17 21:00 08/22/17 21:40 Pravachol PO 40 mg HS [facility] Administration Sertraline HCl 50 mg 08/23/17 09:00 Zoloft PO DAILY [facility] Sodium Bicarbonate 1,300 mg 08/22/17 21:00 08/22/17 21:40 Sodium Bicarbonate Tab PO 1,300 mg BID [facility] Administration Tramadol HCl 50 mg 08/22/17 16:47 08/22/17 22:48 Ultram PO 50 mg BID PRN Administration Pain Intake and Output 08/22/17 08/23/17 08/23/17 22:59 06:59 14:59 Intake Total 4714.705 1300 Output Total 1989 708 Balance 2724.705 592 Intake: IV 450 1300 Aztreonam 1 gm In Sodium 100 Chloride 0.9% 50 ml @ 100 mls/hr IVPB Q12HR [facility] Rx #:[id number] Sodium Chloride 0.9% 1, 450 1200 000 ml @ 150 mls/hr IV . Q6H40M [facility] Rx#:[id number] Intake, IV Titration 4074.705 0 Amount Aztreonam 1 gm In Sodium 100 Chloride 0.9% 50 ml @ 100 mls/hr IVPB Q12HR [facility] Rx #:[id number] Heparin Sodium,Porcine/ 174.705 0 D5w Pmx 25,000 unit In Dextrose/Water 1 500ml. bag @ 12 UNITS/KG/HR 17. 09 mls/hr IV .Q24H [facility] Rx #:[id number] Sodium Chloride 0.9% 1, 1300 000 ml @ 150 mls/hr IV . Q6H40M [facility] Rx#:[id number] Sodium Chloride 0.9% 1, 2500 000 ml @ 999 mls/hr IV . Q1H1M [facility] Rx#:[id number] Oral 190 Output: Urine 290 383 Stool 1700 325 Other: Voiding Method Indwelling Catheter Indwelling Catheter Weight 71.214 kg 78 kg 08/23/17 04:17 08/23/17 04:17 Assessment and Plan Assessment: This is a pleasant 86-year-old female patient with chronic kidney disease as well as underlying dementia was admitted to the hospital after she was found on the floor for unknown the duration. Did not have any chest pain or chest discomfort nor shortness of breath. The patient was diagnosed with UTI/sepsis and also she was in acute on chronic renal failure. At this point, and in view of the absence of any chest pain or discomfort, as well as in the absence of any ischemic ST changes on the EKG, I recommended a conservative medical approach. Also the patient is in acute on chronic renal failure. She is on aspirin and we'll continue that. Once the blood pressure improved I will start the patient on beta james. I will follow-up with the echocardiogram which was performed earlier today. And will follow-up with the patient.
--- NOTE | 2017-08-23 08:56 | XR ---
EXAMINATION TYPE: XR chest 1V DATE OF EXAM: 08/23/2017 COMPARISON: 08/22/2017 HISTORY: Shortness of breath and altered mental status TECHNIQUE: Single frontal view of the chest is obtained. FINDINGS: Right basilar opacity has increased in the interim with consolidation obscuring the right heart border and right costophrenic angle. There is persistent right hemidiaphragm elevation. Bluntin g of the left costophrenic angle is also present with left basilar airspace disease. Heart is again m ildly enlarged. IMPRESSION: Small left and trace right pleural effusion and bibasilar airspace disease, worsening at the right lung base that may represent atelectasis and/or pneumonia in the appropriate clinical sett ing.
[2017-08-23] MEDS ORDERED: cefTRIAXone IN SWFI 2,000 MG/20 ML SYRINGE IVP SCH (09:00)
[2017-08-23] MEDS ORDERED: DONEPEZIL HCL 23 MG PO SCH (09:00)
[2017-08-23] MEDS: ASPIRIN 325 MG TAB PO SCH (09:02)
[2017-08-23] MEDS: SODIUM BICARBONATE TAB 650 MG TAB PO SCH ×2 (09:02→20:39)
[2017-08-23] MEDS: SERTRALINE 50 MG TAB PO SCH (09:03)
[2017-08-23] MEDS: PANTOPRAZOLE 40 MG/10 ML VIAL IV SCH (09:03)
[2017-08-23] MEDS: AZTREONAM 1 GM in SODIUM CHLORIDE 0.9% 50 ML IVPB SCH ×2 (09:09→20:38)
[2017-08-23] MEDS ORDERED: DEXTROSE 5% IN WATER 1,000 ML with SODIUM BICARB (1 MEQ/ML) 150 ML IV SCH (09:15)
[2017-08-23] MEDS: SODIUM CHLORIDE 0.9% 1,000 ML IV SCH (09:35)
[2017-08-23] MEDS ORDERED: MAGNESIUM SULFATE-D5W PMX 1 GM in DEXTROSE/WATER 1 100ML.BAG IVPB ONE (10:00)
[2017-08-23] MEDS ORDERED: POTASSIUM CHLORIDE 20 MEQ, LIDOCAINE 2% INJ 20 MG in SODIUM CHLORIDE 0.9% 100 ML IVPB ONE (10:00)
--- NOTE | 2017-08-23 10:24 | ECHOF ---
Referral Reason:hypotension MEASUREMENTS -------- HEIGHT: 162.6 cm WEIGHT: 77.6 kg BP: 114/71 RVIDd: 3.0 cm (< 3.3) IVSd: 1.3 cm (0.6 - 1.1) LVIDd: 3.3 cm (3.9 - 5.3) LVPWd: 1.4 cm (0.6 - 1.1) IVSs: 1.8 cm LVIDs: 2.3 cm LVPWs: 1.4 cm LA Diam: 3.1 cm (2.7 - 3.8) LAESV Index (A-L): 26.06 ml/m Ao Diam: 2.7 cm (2.0 - 3.7) AV Cusp: 1.6 cm (1.5 - 2.6) EPSS: 0.3 cm MV E Pipe: 0.93 m/s MV DecT: 179 ms MV A Pipe: 1.09 m/s MV E/A Ratio: 0.86 RAP: 5.00 mmHg RVSP: 38.56 mmHg MV EF SLOPE: 111.63 mm/s (70 - 150) MV EXCURSION: 1.41 cm (> 18.000) FINDINGS -------- Sinus rhythm with extra systolic beats. This was a technically adequate study. The left ventricular size is normal. There is moderate concentric left ventricular hypertrophy. O verall left ventricular systolic function is normal with, an EF between 55 - 60 %. The right ventricle is normal in size and function. Normal LA size by volume 22+/-6 ml/m2. The right atrium is normal in size. Aortic valve is trileaflet and is mildly thickened. The mitral valve is normal. Mild mitral regurgitation is present. Mild tricuspid regurgitation present. There is mild pulmonary hypertension. The right ventricular systolic pressure, as measured by Doppler, is 38.56mmHg. The pulmonic valve was not well visualized. There is no pulmonic regurgitation present. The aortic root size is normal. The inferior vena cava is mildly dilated. There is no pericardial effusion. CONCLUSIONS -------- 1. Sinus rhythm with extra systolic beats. 2. This was a technically adequate study. 3. There is moderate concentric left ventricular hypertrophy. 4. Overall left ventricular systolic function is normal with, an EF between 55 - 60 %. 5. Normal LA size by volume 22+/-6 ml/m2. 6. Aortic valve is trileaflet and is mildly thickened. 7. Mild mitral regurgitation is present. 8. Mild tricuspid regurgitation present. 9. There is mild pulmonary hypertension. 10. The pulmonic valve was not well visualized. 11. There is no pulmonic regurgitation present. 12. The aortic root size is normal. 13. The inferior vena cava is mildly dilated. 14. There is no pericardial effusion. RN INTERN: MARY Nolen
[2017-08-23] MEDS ORDERED: DEXTROSE 5% IN WATER 100 ML with AMIODARONE 150 MG IV ONE (11:11)
--- NOTE | 2017-08-23 14:26 | P.PN ---
Subjective Progress Note Date: 08/23/17 Principal diagnosis: Acute sepsis secondary to urinary tract infection This is a very pleasant 86-year-old female patient who was brought into the emergency department after being found on the floor by family members. The patient apparently had fallen at home. The patient states that she had been progressively getting weak over the past few days. She was having some right inguinal/groin pain and increased confusion for which she was taken to the primary care physician and x-ray of the hips and the pelvis was done and showed no osseous lesions and it showed degenerative changes. The patient was released home to come back today with obvious signs of sepsis. Initial investigation here in the emergency department revealed that the patient had an underlying urine checked infection with seems to be the most obvious source of sepsis. Chest x-ray was clear. Troponin was elevated at 11 without any acute ischemic changes and the patient was also ruled in for acute non-ST segment elevation myocardial infarction. She was quite hypotensive at time of arrival systolic in the mid 80s. The patient is currently receiving her second bolus of IV fluids. She was also started on IV heparin. Holman catheter is to be inserted. Her lactic acid level at time of admission was 5.4. She has leukocytosis with a white cell count of 13.3. She has 11% bandemia. She has anion gap metabolic acidosis which is essentially lactic acidosis with a bicarb level of 11. She is also an acute kidney injury with a creatinine of 4.96 in a be on a 51. Note that this is an acute on top of chronic renal injury knowing that the patient's baseline creatinine was around 3.0. The daughter claims that the patient has had previous urinary tract infections all of them have been treated on outpatient basis. Urine drug screen is positive for opiates. The patient is awake. She is lethargic. She occasionally moans. She is able to follow simple commands. There is areas of bruising over the left forehead, right elbow, right upper extremity, lateral acid of the right foot. No obvious joint deformities. No headache. No nausea or vomiting. No abdominal pain. She has a DNR/DNI CODE STATUS. Patient was reevaluated today on 08/23/2017, seems to be in no form of respiratory distress, doing quite well, asymptomatic, denies any shortness of breath, no cough, no wheezing, patient is presently hemodynamically stable, and her labs are showing steady improvement. CBC continues to show leukocytosis with WBC count of 17.9. Her PTT is 45.1 patient remains on heparin for presumptive acute ND. BUN is 47 creatinine is 3.77 CPK is gradually improving down to 1500. Her creatinine on admission was 4.96. Blood culture is positive for gram-negative rods, final report is pending. In the meantime the patient remains on antibiotics. Objective - Vital Signs Vital signs: Vital Signs Temp 98.0 F 08/23/17 11:30 Pulse 90 08/23/17 14:00 Resp 28 H 08/23/17 14:00 BP 92/62 08/23/17 14:00 Pulse Ox 95 08/23/17 13:23 Intake & Output 08/22/17 08/23/17 08/23/17 18:59 06:59 18:59 Intake Total 3990 2024.705 1745.235 Output Total 160 2538 2650 Balance 3830 -513.295 -904.765 Weight 71.214 kg 78 kg 78 kg Intake: IV 1750 425 Aztreonam 1 gm In Sodium 100 50 Chloride 0.9% 50 ml @ 100 mls/hr IVPB Q12HR [facility] Rx #:[id number] Sodium Chloride 0.9% 1, 1650 375 000 ml @ 150 mls/hr IV . Q6H40M [facility] Rx#:[id number] Intake, IV Titration 3900 174.705 840.235 Amount Aztreonam 1 gm In Sodium 100 Chloride 0.9% 50 ml @ 100 mls/hr IVPB Q12HR [facility] Rx #:[id number] Dextrose 5% in Water 1, 500 000 ml @ 100 mls/hr IV . [id number] [facility] with Sodium Bicarb (1 Meq/ml) 150 ml Rx#:[id number] Heparin Sodium,Porcine/ 174.705 130.235 D5w Pmx 25,000 unit In Dextrose/Water 1 500ml. bag @ 12 UNITS/KG/HR 17. 09 mls/hr IV .Q24H [facility] Rx #:[id number] Magnesium Sulfate-D5w Pmx 100 1 gm In Dextrose/Water 1 100ml.bag @ 100 mls/hr IVPB ONCE ONE Rx#: [id number] Potassium Chloride 20 meq 110 Lidocaine 2% Inj 20 mg In Sodium Chloride 0.9% 100 ml @ 55.5 mls/hr IVPB ONCE ONE Rx#:[id number] Sodium Chloride 0.9% 1, 1300 000 ml @ 150 mls/hr IV . Q6H40M [facility] Rx#:[id number] Sodium Chloride 0.9% 1, 2500 000 ml @ 999 mls/hr IV . Q1H1M [facility] Rx#:[id number] Oral 90 100 480 Output: Urine 160 513 550 Stool 2024 2099 Other: Voiding Method Indwelling Catheter Indwelling Catheter Indwelling Catheter - Exam Physical Exam revealed an 86-year-old female in no distress, daughter is at bedside. HEENT:[Neck is supple.] [No neck masses.] [No thyromegaly.] [No JVD.] Bruising is noted in the left periorbital area and forehead. Chest: [Clear throughout, no crackles, no rhonchi, no wheezes.] Cardiac Exam: [Normal S1 and S2, no S3 gallop, no murmur.] Abdomen: [Soft, nontender, no megaly, no rebound, no guarding, normal bowel sounds. Positive ileostomy bag is noted, patient had previous ulcerative colitis surgery. Ileostomy is functioning well.] Extremities: [No clubbing, no edema, no cyanosis.] Neurological Exam: [No focal neurologic deficit.] Psychiatric: Normal mood and affect, normal mental status examination. Lymphatics: No lymphadenopathy. Psychiatric: Normal mood and affect and mental status examination - Labs CBC & Chem 7: 08/23/17 04:17 08/23/17 04:17 Labs: Abnormal Lab Results - Last 24 Hours (Table) 08/22/17 08/22/17 08/22/17 Range/Units 16:27 16:27 22:05 WBC (3.8-10.6) k/uL RBC (3.80-5.40) m/uL Hgb (11.4-16.0) gm/dL Plt Count (150-450) k/uL Neutrophils # (Manual) (1.3-7.7) k/uL Lymphocytes # (Manual) (1.0-4.8) k/uL Metamyelocytes # (Man) (0) k/uL Myelocytes # (Manual) (0) k/uL APTT 114.4 H* (22.0-30.0) sec Sodium (137-145) mmol/L Chloride (98-107) mmol/L Carbon Dioxide (22-30) mmol/L BUN (7-17) mg/dL Creatinine (0.52-1.04) mg/dL Plasma Lactic Acid Eric 2.7 H* (0.7-2.0) mmol/L Calcium (8.4-10.2) mg/dL Magnesium (1.6-2.3) mg/dL Total Creatine Kinase 2231 H (30-135) U/L CK-MB (CK-2) 38.8 H* (0.0-2.4) ng/mL Troponin I 13.600 H* (0.000-0.034) ng/mL 08/22/17 08/23/17 08/23/17 Range/Units 22:05 04:17 04:17 WBC 17.9 H (3.8-10.6) k/uL RBC 3.71 L (3.80-5.40) m/uL Hgb 11.0 L (11.4-16.0) gm/dL Plt Count 98 L (150-450) k/uL Neutrophils # (Manual) 14.80 H (1.3-7.7) k/uL Lymphocytes # (Manual) 0.90 L (1.0-4.8) k/uL Metamyelocytes # (Man) 0.90 H (0) k/uL Myelocytes # (Manual) 0.72 H (0) k/uL APTT (22.0-30.0) sec Sodium 135 L (137-145) mmol/L Chloride 112 H (98-107) mmol/L Carbon Dioxide 11 L (22-30) mmol/L BUN 47 H (7-17) mg/dL Creatinine 3.77 H (0.52-1.04) mg/dL Plasma Lactic Acid Eric (0.7-2.0) mmol/L Calcium 6.9 L (8.4-10.2) mg/dL Magnesium 1.4 L (1.6-2.3) mg/dL Total Creatine Kinase 2117 H (30-135) U/L CK-MB (CK-2) 45.4 H* (0.0-2.4) ng/mL Troponin I 11.500 H* (0.000-0.034) ng/mL 11/06/17 11/06/17 Range/Units 04:17 08:58 WBC (3.8-10.6) k/uL RBC (3.80-5.40) m/uL Hgb (11.4-16.0) gm/dL Plt Count (150-450) k/uL Neutrophils # (Manual) (1.3-7.7) k/uL Lymphocytes # (Manual) (1.0-4.8) k/uL Metamyelocytes # (Man) (0) k/uL Myelocytes # (Manual) (0) k/uL APTT 45.1 H (22.0-30.0) sec Sodium (137-145) mmol/L Chloride (98-107) mmol/L Carbon Dioxide (22-30) mmol/L BUN (7-17) mg/dL Creatinine (0.52-1.04) mg/dL Plasma Lactic Acid Eric (0.7-2.0) mmol/L Calcium (8.4-10.2) mg/dL Magnesium (1.6-2.3) mg/dL Total Creatine Kinase 1500 H (30-135) U/L CK-MB (CK-2) 59.0 H* (0.0-2.4) ng/mL Troponin I 12.800 H* (0.000-0.034) ng/mL Microbiology - Last 24 Hours (Table) 08/22/17 13:35 Blood Culture Gram Stain - Preliminary Blood 08/22/17 10:31 Blood Culture Gram Stain - Preliminary Blood 08/22/17 10:31 Blood Culture - Final Blood 08/22/17 13:35 Blood Culture - Final Blood 08/22/17 10:31 Urine Culture - Preliminary Urine,Clean Catch Assessment and Plan Plan: 1 acute sepsis secondary to an underlying urine tract infection 2 acute fever, leukocytosis, hypotension and lactic acidosis secondary to urine checked infection/sepsis 3 acute lactic acidosis 4 acute on top of chronic kidney failure. The patient is oliguric and states related to sepsis/hypotension 5 hypotension, secondary to sepsis responded to fluid boluses, did not require any pressors 6 acute non-ST segment elevation myocardial infarction, no acute changes and the patient is asymptomatic without any chest pain, currently on IV heparin 7 ulcerative colitis with a previous ileostomy, function on 8 dementia 9 peripheral vascular disease 10 small hiatal hernia 11 fall without any obvious major injuries Recommendation: Continue fluid resuscitation, continue antibiotics, blood culture report was noted, continue GI and DVT prophylaxis, continue IV heparin for elevated troponin, patient most likely had acute non-ST elevation myocardial infarction. Patient is presently on Rocephin and a studio an amp for urinary tract infection and sepsis. Patient will remain in the ICU, and we' ll continue to follow closely, CODE STATUS remains DO NOT RESUSCITATE. Time with Patient: Less than 30
--- NOTE | 2017-08-23 14:47 | P.PN ---
Subjective Patient is admitted for severe sepsis and septic shock secondary to possible urinary tract infection patient has already highly elevated troponin for which cardiology evaluated the patient patient is on IV heparin cardiac catheterization is not being planned because of multiple medical problems including renal dysfunction with creatinine of 5. Patient does have good urine output patient really looks much better today. Constitutional: Denied any fatigue denied any fever. Cardio vascular: denied any chest pain, palpitations Gastrointestinal denied any nausea vomiting Pulmonary: Denied any shortness of breath cough Neurologic denied any new focal deficits Objective - Vital Signs Vital signs: Vital Signs Temp 98.0 F 08/23/17 11:30 Pulse 90 08/23/17 14:00 Resp 28 H 08/23/17 14:00 BP 92/62 08/23/17 14:00 Pulse Ox 95 08/23/17 13:23 Intake & Output 08/22/17 08/23/17 08/23/17 18:59 06:59 18:59 Intake Total 3990 2024.705 1745.235 Output Total 160 2538 2650 Balance 3830 -513.295 -904.765 Weight 71.214 kg 78 kg 78 kg Intake: IV 1750 425 Aztreonam 1 gm In Sodium 100 50 Chloride 0.9% 50 ml @ 100 mls/hr IVPB Q12HR [facility] Rx #:[id number] Sodium Chloride 0.9% 1, 1650 375 000 ml @ 150 mls/hr IV . Q6H40M [facility] Rx#:[id number] Intake, IV Titration 3900 174.705 840.235 Amount Aztreonam 1 gm In Sodium 100 Chloride 0.9% 50 ml @ 100 mls/hr IVPB Q12HR [facility] Rx #:[id number] Dextrose 5% in Water 1, 500 000 ml @ 100 mls/hr IV . [id number] [facility] with Sodium Bicarb (1 Meq/ml) 150 ml Rx#:[id number] Heparin Sodium,Porcine/ 174.705 130.235 D5w Pmx 25,000 unit In Dextrose/Water 1 500ml. bag @ 12 UNITS/KG/HR 17. 09 mls/hr IV .Q24H [facility] Rx #:[id number] Magnesium Sulfate-D5w Pmx 100 1 gm In Dextrose/Water 1 100ml.bag @ 100 mls/hr IVPB ONCE ONE Rx#: [id number] Potassium Chloride 20 meq 110 Lidocaine 2% Inj 20 mg In Sodium Chloride 0.9% 100 ml @ 55.5 mls/hr IVPB ONCE ONE Rx#:[id number] Sodium Chloride 0.9% 1, 1300 000 ml @ 150 mls/hr IV . Q6H40M [facility] Rx#:[id number] Sodium Chloride 0.9% 1, 2500 000 ml @ 999 mls/hr IV . Q1H1M [facility] Rx#:[id number] Oral 90 100 480 Output: Urine 160 513 550 Stool 2024 2099 Other: Voiding Method Indwelling Catheter Indwelling Catheter Indwelling Catheter - Exam GENERAL: The patient is alert and oriented x3, is not in respiratory distress patient looks much better today. Well developed, well nourished. HEENT: Pupils are round and equally reacting to light. EOMI. No scleral icterus. No conjunctival pallor. Normocephalic, atraumatic. No pharyngeal erythema. No thyromegaly. CARDIOVASCULAR: S1 and S2 present. No murmurs, rubs, or gallops. PULMONARY: Chest is clear to auscultation, no wheezing or crackles. ABDOMEN: Soft, nontender, nondistended, normoactive bowel sounds. No palpable organomegaly. MUSCULOSKELETAL: No joint swelling or deformity. EXTREMITIES: No cyanosis, clubbing, or pedal edema. NEUROLOGICAL: Gross neurological examination did not reveal any focal deficits. SKIN: No rashes. - Labs CBC & Chem 7: 08/23/17 04:17 08/23/17 04:17 Labs: Abnormal Lab Results - Last 24 Hours (Table) 08/22/17 08/22/17 08/22/17 Range/Units 16:27 16:27 22:05 WBC (3.8-10.6) k/uL RBC (3.80-5.40) m/uL Hgb (11.4-16.0) gm/dL Plt Count (150-450) k/uL Neutrophils # (Manual) (1.3-7.7) k/uL Lymphocytes # (Manual) (1.0-4.8) k/uL Metamyelocytes # (Man) (0) k/uL Myelocytes # (Manual) (0) k/uL APTT 114.4 H* (22.0-30.0) sec Sodium (137-145) mmol/L Chloride (98-107) mmol/L Carbon Dioxide (22-30) mmol/L BUN (7-17) mg/dL Creatinine (0.52-1.04) mg/dL Plasma Lactic Acid Eric 2.7 H* (0.7-2.0) mmol/L Calcium (8.4-10.2) mg/dL Magnesium (1.6-2.3) mg/dL Total Creatine Kinase 2231 H (30-135) U/L CK-MB (CK-2) 38.8 H* (0.0-2.4) ng/mL Troponin I 13.600 H* (0.000-0.034) ng/mL 08/22/17 08/23/17 08/23/17 Range/Units 22:05 04:17 04:17 WBC 17.9 H (3.8-10.6) k/uL RBC 3.71 L (3.80-5.40) m/uL Hgb 11.0 L (11.4-16.0) gm/dL Plt Count 98 L (150-450) k/uL Neutrophils # (Manual) 14.80 H (1.3-7.7) k/uL Lymphocytes # (Manual) 0.90 L (1.0-4.8) k/uL Metamyelocytes # (Man) 0.90 H (0) k/uL Myelocytes # (Manual) 0.72 H (0) k/uL APTT (22.0-30.0) sec Sodium 135 L (137-145) mmol/L Chloride 112 H (98-107) mmol/L Carbon Dioxide 11 L (22-30) mmol/L BUN 47 H (7-17) mg/dL Creatinine 3.77 H (0.52-1.04) mg/dL Plasma Lactic Acid Eric (0.7-2.0) mmol/L Calcium 6.9 L (8.4-10.2) mg/dL Magnesium 1.4 L (1.6-2.3) mg/dL Total Creatine Kinase 2117 H (30-135) U/L CK-MB (CK-2) 45.4 H* (0.0-2.4) ng/mL Troponin I 11.500 H* (0.000-0.034) ng/mL 08/23/17 08/23/17 Range/Units 04:17 08:58 WBC (3.8-10.6) k/uL RBC (3.80-5.40) m/uL Hgb (11.4-16.0) gm/dL Plt Count (150-450) k/uL Neutrophils # (Manual) (1.3-7.7) k/uL Lymphocytes # (Manual) (1.0-4.8) k/uL Metamyelocytes # (Man) (0) k/uL Myelocytes # (Manual) (0) k/uL APTT 45.1 H (22.0-30.0) sec Sodium (137-145) mmol/L Chloride (98-107) mmol/L Carbon Dioxide (22-30) mmol/L BUN (7-17) mg/dL Creatinine (0.52-1.04) mg/dL Plasma Lactic Acid Eric (0.7-2.0) mmol/L Calcium (8.4-10.2) mg/dL Magnesium (1.6-2.3) mg/dL Total Creatine Kinase 1500 H (30-135) U/L CK-MB (CK-2) 59.0 H* (0.0-2.4) ng/mL Troponin I 12.800 H* (0.000-0.034) ng/mL Microbiology - Last 24 Hours (Table) 08/22/17 10:31 Urine Culture - Preliminary Urine,Clean Catch Gram Neg Bacilli 08/22/17 13:35 Blood Culture Gram Stain - Preliminary Blood 08/22/17 10:31 Blood Culture Gram Stain - Preliminary Blood 08/22/17 10:31 Blood Culture - Final Blood 08/22/17 13:35 Blood Culture - Final Blood Assessment and Plan Plan: 1 severe sepsis and septic shock:be secondary to urinary tract infection urine cultures, blood cultures were obtained patient is on broad-spectrum antibiotics Rocephin and Azetreonam patient may not require is Azetreonam but will continue for now because of the severity of sepsis. Rocephin dose will be switched back to 1 g due to poor renal function #2 acute kidney injury: Secondary to severe sepsis and possibility of acute tubular necrosis nonoliguric #3 chronic kidney disease stage IV, possibility of hypertensive nephrosclerosis. #4lactic acidosis: Seconded to sepsis and anion gap metabolic acidosis secondary to lactic acidosis improved now patient's IV fluids were switched to D5 water due to hyper chloremia and hyponatremia #5 elevated troponin, possibility of non-ST elevation microinfarction, cardiology was consulted. #6 ulcerative colitis for which patient has ileostomy. #7peripheral vascular disease #8 hiatal hernia #9 depression #10 hyperlipidemia For above-mentioned chronic medical problems patient will be continued on her appropriate home medications and her clinical condition is guarded
[2017-08-23] MEDS: AMIODARONE 450 MG in DEXTROSE 5% IN WATER 250 ML IV SCH ×4 (18:54→23:56)
[2017-08-23] MEDS: HEPARIN SODIUM,PORCINE/D5W PMX 25,000 UNIT in DEXTROSE/WATER 1 500ML.BAG IV SCH (20:38)
[2017-08-23] MEDS: PRAVASTATIN SODIUM 40 MG TAB PO SCH (20:39)
[2017-08-24 04:25] LABS: Basophils % (A) 0 %; CH 30.6; CHCM 33.6; Eosinophils # (A) 0.1 k/uL (0-0.7); Eosinophils % (A) 1 %; HCT 32.2 % (34.0-46.0); HDW 3.13; HGB 10.6 gm/dL (11.4-16.0); Luc # (Auto) 0.18; Luc % (Auto) 1; Lymphocytes # (A) 0.9 k/uL (1.0-4.8); Lymphocytes % (A) 5 %; MCH 30.1 pg (25.0-35.0); MCHC 32.9 g/dL (31.0-37.0); MCV 91.6 fL (80.0-100.0); Monocytes # (A) 0.5 k/uL (0-1.0); Monocytes % (A) 3 %; Neutrophils % (A) 90 %; RBC 3.51 m/uL (3.80-5.40); RDW 15.1 % (11.5-15.5); WBC 17.7 k/uL (3.8-10.6); WBC (Perox) 18.82
[2017-08-24 04:43] LABS: Calcium 7.2 mg/dL (8.4-10.2); Magnesium 1.6 mg/dL (1.6-2.3); Phosphorus 3.7 mg/dL (2.5-4.5)
[2017-08-24 05:10] LABS: Potassium 2.6 mmol/L (3.5-5.1)
[2017-08-24 07:26] LABS: CH 30.4; CHCM 31.8; HCT 32.5 % (34.0-46.0); HDW 3.28; HGB 10.1 gm/dL (11.4-16.0); Hypochromasia Slight; Immature Gran Flag Marked; MCH 29.8 pg (25.0-35.0); MCV 96.4 fL (80.0-100.0); Mean Platelet Volume 8.1; RBC 3.37 m/uL (3.80-5.40); RDW 14.1 % (11.5-15.5); WBC (Perox) 18.12
--- NOTE | 2017-08-24 07:40 | CONS ---
CONSULTATION DATE OF CONSULTATION: August 23, 2017. REASON FOR CONSULT: Renal failure. HISTORY OF PRESENT ILLNESS: Patient is an 86-year-old female who was admitted to the hospital with complaints of weakness not feeling well. The patient had pain in her hip for a few days prior to admission. She also fell and was found by her daughter and brought into the hospital. The patient was quite hypotensive. She has received 4-5 L of fluid boluses and resuscitation. Her serum creatinine is at 3.7 mg/dL. It was at 4.96 yesterday and previous creatinine was noted to be at about 3.2 in 2014. We do not have any other labs available for comparison. There is no history of use of NSAIDs at home prior to admission. The patient was not on any MELYSSA inhibitors as well. PAST MEDICAL HISTORY: Hiatal hernia, a history of colitis and bowel resection, dementia. PAST SURGICAL HISTORY: Hernia repair, hysterectomy, colonoscopy, and bowel resection with ileostomy. SOCIAL HISTORY: Negative for smoking, drug abuse or alcohol abuse. MEDICATIONS: Medications at home prior to admission included Xanax, Prilosec, pravastatin, sertraline, Ultram. ALLERGIES: None. EXAMINATION: Patient is comfortable, awake. She is not in any acute distress. She answers questions appropriately. Blood pressure is 105/64, heart rate 75 per minute. She is afebrile. Examination of the heart: S1, S2. Examination lungs: Bilateral breath sounds are heard. Abdomen is soft, nontender. Exam of lower extremity shows no significant edema. FRAME FEEDER exam shows patient moving all 4 extremities. Otherwise detailed exam is not done. LAB: Show sodium 135, potassium 3.7, chloride 112, CO2 11, anion gap 12, BUN 47, serum creatinine 3.7, phosphorus 4.1, magnesium 1.4. Troponin was elevated at 11.5 and 12.8. UA shows 2+ protein, more than 182 RBCs and WBCs of 109. Urine culture and blood cultures are growing gram-negative bacilli. ASSESSMENT: 1. Acute kidney injury secondary to sepsis, hypotension, hypoperfusion currently improving. Continue with IV fluids and antibiotics. No nephrotoxic agents on board at this time. 2. Severe metabolic acidosis secondary to renal failure, maintained on oral sodium bicarb, which we will continue. I will also add IV bicarb for about 24 hours. 3. Sepsis with the gram-negative bacteremia and urinary tract infection, maintained on Rocephin and aztreonam. 4. Rule out chronic kidney disease. Previous creatinine was about 3 in 2015. We will the need to see any other labs available during this time that may have been another episode of acute kidney injury in 2015. 5. Elevated troponins, status post evaluation by Cardiology. 6. Mild rhabdomyolysis with a total CK of 2231 at peak. PLAN: Continue with IV fluids. Continue antibiotics. Repeat labs in a.m. and start IV bicarb. Continue with oral sodium bicarb as well. We will try to obtain previous labs between 2014 and 2017. Thank you for this consultation. We will continue to follow the patient with you during her hospitalization. MMODL / IJN: [id number] /
[2017-08-24 07:45] LABS: Calcium 6.8 mg/dL (8.4-10.2); Magnesium 1.6 mg/dL (1.6-2.3); Total Bilirubin 0.5 mg/dL (0.2-1.3); Total Protein 5.1 g/dL (6.3-8.2)
[2017-08-24 07:47] LABS: Potassium 3.9 mmol/L (3.5-5.1)
[2017-08-24 07:51] LABS: Add Differential Manual Differential
[2017-08-24 07:54] LABS: Band Neutrophils % 3 %; Manual Review Performed; Nucleated Red Blood Cells 0 /100 WBC (0-0); Total Cells Counted 100; Toxic Granulation Present; Toxic Vacuolation Present
--- NOTE | 2017-08-24 08:16 | XR ---
EXAMINATION TYPE: XR chest 1V DATE OF EXAM: 08/24/2017 COMPARISON: NONE INDICATION: Shortness of breath TECHNIQUE: Single frontal view of the chest is obtained. FINDINGS: The heart size is normal. The pulmonary vasculature is normal. There is a subtle infiltrate in the right perihilar region. There is silhouetting of the left diaphra gm. Small right pleural effusion is present. IMPRESSION: 1. Right perihilar and left basilar infiltrates. 2. Small bilateral pleural effusions may have slight improvement. 3. Continued follow-up is recommended.
[2017-08-24] MEDS: PANTOPRAZOLE 40 MG/10 ML VIAL IV SCH (09:19)
[2017-08-24] MEDS: cefTRIAXone IN SWFI 1,000 MG/10 ML SYRINGE IVP SCH (09:20)
[2017-08-24] MEDS: SERTRALINE 50 MG TAB PO SCH (09:21)
[2017-08-24] MEDS: ASPIRIN 325 MG TAB PO SCH (09:21)
[2017-08-24] MEDS: SODIUM BICARBONATE TAB 650 MG TAB PO SCH ×2 (09:21→21:22)
[2017-08-24] MEDS: SODIUM CHLORIDE 0.9% 1,000 ML IV SCH (09:22)
[2017-08-24] MEDS: AZTREONAM 1 GM in SODIUM CHLORIDE 0.9% 50 ML IVPB SCH ×2 (10:06→21:21)
--- NOTE | 2017-08-24 11:30 | P.PN ---
Subjective Progress Note Date: 08/24/17 Principal diagnosis: non-STEMI This is a pleasant 86-year-old female patient with no significant past medical history except for mild underlying dementia was brought to the hospital by her family after she was found on the floor by one of her family member. The patient is somewhat poor historian. She stated that she does not follow with any fish drier as an outpatient and does not have any prior cardiac history of coronary artery disease or congestive heart failure or cardiac arrhythmia. The patient was brought to the emergency room after she was on the floor. She stated that she was feeling progressively weak for the last week. She stated that she did not lose her consciousness. We don't know the duration and for how long the patient was on the floor. In the emergency room the patient was found to be hypotensive and was diagnosed with UTI/sepsis and was found to be in acute renal failure and also she was found to have rhabdomyolysis. The CK is elevated, CK-MB is elevated, and the troponin is elevated as well. The EKG showed only nonspecific changes. The patient stated that she did not have any chest pain or discomfort, no difficulty breathing, and no feeling of heart racing or fluttering and no loss of consciousness. She just was feeling progressively weak as a main complaint. On follow-up with the patient today on 08/24/2017, she seems to be doing slightly better. Her mentation is definitely better she is awake, alert, and oriented 3. Does not complain of any chest pain but she is in mild respiratory distress. She went into an A. fib and she was converted to normal sinus mechanism. the creatinine has been trending down. the platelets are on the low side and I will DC the heparin. the echocardiogram revealed normal LV function without any significant valvular abnormalities. I will consider oral anticoagulation using small dose of Eliquis once the thrombocytopenia improved. Objective - Vital Signs Vital signs: Vital Signs Temp 98.0 F 08/24/17 04:00 Pulse 64 08/24/17 10:00 Resp 19 08/24/17 10:00 BP 111/67 08/24/17 10:00 Pulse Ox 96 08/24/17 10:00 Intake & Output 08/23/17 08/24/17 08/24/17 18:59 06:59 18:59 Intake Total 2700.295 645.859 200 Output Total 3200 755 525 Balance -499.705 -109.141 -325 Weight 78 kg 78.5 kg Intake: IV 425 50 200 Aztreonam 1 gm In Sodium 50 Chloride 0.9% 50 ml @ 100 mls/hr IVPB Q12HR [facility] Rx #:[id number] Sodium Chloride 0.9% 1, 375 000 ml @ 150 mls/hr IV . Q6H40M [facility] Rx#:[id number] Sodium Chloride 0.9% 1, 50 200 000 ml @ 50 mls/hr IV . Q20H [facility] Rx#:[id number] Intake, IV Titration 1435.295 595.859 Amount Amiodarone 450 mg In 211.784 Dextrose 5% in Water 250 ml @ 1 MG/MIN 34.53 mls/ hr IV .Q7H31M [facility] Rx#: [id number] Dextrose 5% in Water 1, 900 200 000 ml @ 100 mls/hr IV . [id number] [facility] with Sodium Bicarb (1 Meq/ml) 150 ml Rx#:[id number] Heparin Sodium,Porcine/ 325.295 184.075 D5w Pmx 25,000 unit In Dextrose/Water 1 500ml. bag @ 12 UNITS/KG/HR 17. 09 mls/hr IV .Q24H [facility] Rx #:[id number] Magnesium Sulfate-D5w Pmx 100 1 gm In Dextrose/Water 1 100ml.bag @ 100 mls/hr IVPB ONCE ONE Rx#: [id number] Potassium Chloride 20 meq 110 Lidocaine 2% Inj 20 mg In Sodium Chloride 0.9% 100 ml @ 55.5 mls/hr IVPB ONCE ONE Rx#:[id number] Oral 840 0 Output: Urine 750 605 225 Stool 2450 150 300 Other: Voiding Method Indwelling Catheter Indwelling Catheter Indwelling Catheter - Constitutional General appearance: Present: no acute distress - Respiratory Respiratory: bilateral: diminished - Cardiovascular Rhythm: regular Heart sounds: normal: S1, S2 - Labs CBC & Chem 7: 08/24/17 07:11 08/24/17 07:11 Labs: Abnormal Lab Results - Last 24 Hours (Table) 08/23/17 08/24/17 08/24/17 Range/Units 18:00 01:15 04:10 WBC 17.7 H (3.8-10.6) k/uL RBC 3.51 L (3.80-5.40) m/uL Hgb 10.6 L (11.4-16.0) gm/dL Hct 32.2 L (34.0-46.0) % Plt Count 98 L (150-450) k/uL Neutrophils # 16.0 H (1.3-7.7) k/uL Neutrophils # (Manual) (1.3-7.7) k/uL Lymphocytes # 0.9 L (1.0-4.8) k/uL Lymphocytes # (Manual) (1.0-4.8) k/uL APTT 39.8 H 48.0 H (22.0-30.0) sec Sodium (137-145) mmol/L Potassium (3.5-5.1) mmol/L Carbon Dioxide (22-30) mmol/L BUN (7-17) mg/dL Creatinine (0.52-1.04) mg/dL Glucose (74-99) mg/dL Calcium (8.4-10.2) mg/dL AST (14-36) U/L Total Protein (6.3-8.2) g/dL Albumin (3.5-5.0) g/dL 08/24/17 08/24/17 08/24/17 Range/Units 04:10 04:10 05:33 WBC (3.8-10.6) k/uL RBC (3.80-5.40) m/uL Hgb (11.4-16.0) gm/dL Hct (34.0-46.0) % Plt Count (150-450) k/uL Neutrophils # (1.3-7.7) k/uL Neutrophils # (Manual) (1.3-7.7) k/uL Lymphocytes # (1.0-4.8) k/uL Lymphocytes # (Manual) (1.0-4.8) k/uL APTT 179.5 H* 46.8 H (22.0-30.0) sec Sodium 124 L (137-145) mmol/L Potassium 2.6 L* (3.5-5.1) mmol/L Carbon Dioxide 15 L (22-30) mmol/L BUN 43 H (7-17) mg/dL Creatinine 3.10 H (0.52-1.04) mg/dL Glucose 131 H (74-99) mg/dL Calcium 7.2 L (8.4-10.2) mg/dL AST (14-36) U/L Total Protein (6.3-8.2) g/dL Albumin (3.5-5.0) g/dL 08/24/17 08/24/17 Range/Units 07:11 07:11 WBC 18.0 H (3.8-10.6) k/uL RBC 3.37 L (3.80-5.40) m/uL Hgb 10.1 L (11.4-16.0) gm/dL Hct 32.5 L (34.0-46.0) % Plt Count 98 L (150-450) k/uL Neutrophils # (1.3-7.7) k/uL Neutrophils # (Manual) 17.10 H (1.3-7.7) k/uL Lymphocytes # (1.0-4.8) k/uL Lymphocytes # (Manual) 0.18 L (1.0-4.8) k/uL APTT (22.0-30.0) sec Sodium 124 L (137-145) mmol/L Potassium (3.5-5.1) mmol/L Carbon Dioxide 11 L (22-30) mmol/L BUN 45 H (7-17) mg/dL Creatinine 2.99 H (0.52-1.04) mg/dL Glucose (74-99) mg/dL Calcium 6.8 L (8.4-10.2) mg/dL AST 73 H (14-36) U/L Total Protein 5.1 L (6.3-8.2) g/dL Albumin 2.3 L (3.5-5.0) g/dL Microbiology - Last 24 Hours (Table) 08/22/17 10:31 Urine Culture - Final Urine,Clean Catch Klebsiella pneumoniae 08/22/17 13:35 Blood Culture Gram Stain - Final Blood Blood Culture - Final Klebsiella pneumoniae 08/22/17 10:31 Blood Culture Gram Stain - Final Blood Blood Culture - Final Klebsiella pneumoniae Assessment and Plan Assessment: This is a pleasant 86-year-old female patient with chronic kidney disease as well as underlying dementia was admitted to the hospital after she was found on the floor for unknown the duration. Did not have any chest pain or chest discomfort nor shortness of breath. The patient was diagnosed with UTI/sepsis and also she was in acute on chronic renal failure secondary to rhabdomyolysis. At this point, and in view of the absence of any chest pain or discomfort, as well as in the absence of any ischemic ST changes on the EKG, I recommended a conservative medical approach. Also the patient is in acute on chronic renal failure. She is on aspirin and we'll continue that. switch the patient from amiodarone IV to amiodarone by mouth. DC the heparin in view of the thrombocytopenia. consider oral anticoagulation down the line once the thrombocytopenia improved. Follow-up with the patient
--- NOTE | 2017-08-24 11:33 | P.PN ---
Subjective Progress Note Date: 08/24/17 Principal diagnosis: Acute sepsis secondary to urinary tract infection This is a very pleasant 86-year-old female patient who was brought into the emergency department after being found on the floor by family members. The patient apparently had fallen at home. The patient states that she had been progressively getting weak over the past few days. She was having some right inguinal/groin pain and increased confusion for which she was taken to the primary care physician and x-ray of the hips and the pelvis was done and showed no osseous lesions and it showed degenerative changes. The patient was released home to come back today with obvious signs of sepsis. Initial investigation here in the emergency department revealed that the patient had an underlying urine checked infection with seems to be the most obvious source of sepsis. Chest x-ray was clear. Troponin was elevated at 11 without any acute ischemic changes and the patient was also ruled in for acute non-ST segment elevation myocardial infarction. She was quite hypotensive at time of arrival systolic in the mid 80s. The patient is currently receiving her second bolus of IV fluids. She was also started on IV heparin. Holman catheter is to be inserted. Her lactic acid level at time of admission was 5.4. She has leukocytosis with a white cell count of 13.3. She has 11% bandemia. She has anion gap metabolic acidosis which is essentially lactic acidosis with a bicarb level of 11. She is also an acute kidney injury with a creatinine of 4.96 in a be on a 51. Note that this is an acute on top of chronic renal injury knowing that the patient's baseline creatinine was around 3.0. The daughter claims that the patient has had previous urinary tract infections all of them have been treated on outpatient basis. Urine drug screen is positive for opiates. The patient is awake. She is lethargic. She occasionally moans. She is able to follow simple commands. There is areas of bruising over the left forehead, right elbow, right upper extremity, lateral acid of the right foot. No obvious joint deformities. No headache. No nausea or vomiting. No abdominal pain. She has a DNR/DNI CODE STATUS. Patient was reevaluated today on 08/23/2017, seems to be in no form of respiratory distress, doing quite well, asymptomatic, denies any shortness of breath, no cough, no wheezing, patient is presently hemodynamically stable, and her labs are showing steady improvement. CBC continues to show leukocytosis with WBC count of 17.9. Her PTT is 45.1 patient remains on heparin for presumptive acute KS. BUN is 47 creatinine is 3.77 CPK is gradually improving down to 1500. Her creatinine on admission was 4.96. Blood culture is positive for gram-negative rods, final report is pending. In the meantime the patient remains on antibiotics. Agent was reevaluated today on 08/24/2017, continues to do well, not in any form of respiratory distress, hemodynamically stable. WBC count remains elevated at 18.0. PTT is therapeutic at 46.8, sodium remains low at 124 BUN is 45 creatinine is 2.99 slightly improved. Patient denies being in any distress, denies any aches and pains, no shortness of breath, no nausea no vomiting no abdominal pain. Objective - Vital Signs Vital signs: Vital Signs Temp 98.0 F 08/24/17 04:00 Pulse 64 08/24/17 10:00 Resp 19 08/24/17 10:00 BP 111/67 08/24/17 10:00 Pulse Ox 96 08/24/17 10:00 Intake & Output 08/23/17 08/24/17 08/24/17 18:59 06:59 18:59 Intake Total 2700.295 645.859 200 Output Total 3200 755 525 Balance -499.705 -109.141 -325 Weight 78 kg 78.5 kg Intake: IV 425 50 200 Aztreonam 1 gm In Sodium 50 Chloride 0.9% 50 ml @ 100 mls/hr IVPB Q12HR [facility] Rx #:[id number] Sodium Chloride 0.9% 1, 375 000 ml @ 150 mls/hr IV . Q6H40M [facility] Rx#:[id number] Sodium Chloride 0.9% 1, 50 200 000 ml @ 50 mls/hr IV . Q20H [facility] Rx#:[id number] Intake, IV Titration 1435.295 595.859 Amount Amiodarone 450 mg In 211.784 Dextrose 5% in Water 250 ml @ 1 MG/MIN 34.53 mls/ hr IV .Q7H31M [facility] Rx#: [id number] Dextrose 5% in Water 1, 900 200 000 ml @ 100 mls/hr IV . [id number] [facility] with Sodium Bicarb (1 Meq/ml) 150 ml Rx#:[id number] Heparin Sodium,Porcine/ 325.295 184.075 D5w Pmx 25,000 unit In Dextrose/Water 1 500ml. bag @ 12 UNITS/KG/HR 17. 09 mls/hr IV .Q24H [facility] Rx #:[id number] Magnesium Sulfate-D5w Pmx 100 1 gm In Dextrose/Water 1 100ml.bag @ 100 mls/hr IVPB ONCE ONE Rx#: [id number] Potassium Chloride 20 meq 110 Lidocaine 2% Inj 20 mg In Sodium Chloride 0.9% 100 ml @ 55.5 mls/hr IVPB ONCE ONE Rx#:[id number] Oral 840 0 Output: Urine 750 605 225 Stool 2450 150 300 Other: Voiding Method Indwelling Catheter Indwelling Catheter Indwelling Catheter - Exam Physical Exam revealed an 86-year-old female in no distress, daughter is at bedside. HEENT:[Neck is supple.] [No neck masses.] [No thyromegaly.] [No JVD.] Bruising is noted in the left periorbital area and forehead. Chest: [Clear throughout, no crackles, no rhonchi, no wheezes.] Cardiac Exam: [Normal S1 and S2, no S3 gallop, no murmur.] Abdomen: [Soft, nontender, no megaly, no rebound, no guarding, normal bowel sounds. Positive ileostomy bag is noted, patient had previous ulcerative colitis surgery. Ileostomy is functioning well.] Extremities: [No clubbing, no edema, no cyanosis.] Neurological Exam: [No focal neurologic deficit.] Psychiatric: Normal mood and affect, normal mental status examination. Lymphatics: No lymphadenopathy. Psychiatric: Normal mood and affect and mental status examination - Labs CBC & Chem 7: 08/24/17 07:11 08/24/17 07:11 Labs: Abnormal Lab Results - Last 24 Hours (Table) 08/23/17 08/24/17 08/24/17 Range/Units 18:00 01:15 04:10 WBC 17.7 H (3.8-10.6) k/uL RBC 3.51 L (3.80-5.40) m/uL Hgb 10.6 L (11.4-16.0) gm/dL Hct 32.2 L (34.0-46.0) % Plt Count 98 L (150-450) k/uL Neutrophils # 16.0 H (1.3-7.7) k/uL Neutrophils # (Manual) (1.3-7.7) k/uL Lymphocytes # 0.9 L (1.0-4.8) k/uL Lymphocytes # (Manual) (1.0-4.8) k/uL APTT 39.8 H 48.0 H (22.0-30.0) sec Sodium (137-145) mmol/L Potassium (3.5-5.1) mmol/L Carbon Dioxide (22-30) mmol/L BUN (7-17) mg/dL Creatinine (0.52-1.04) mg/dL Glucose (74-99) mg/dL Calcium (8.4-10.2) mg/dL AST (14-36) U/L Total Protein (6.3-8.2) g/dL Albumin (3.5-5.0) g/dL 08/24/17 08/24/17 08/24/17 Range/Units 04:10 04:10 05:33 WBC (3.8-10.6) k/uL RBC (3.80-5.40) m/uL Hgb (11.4-16.0) gm/dL Hct (34.0-46.0) % Plt Count (150-450) k/uL Neutrophils # (1.3-7.7) k/uL Neutrophils # (Manual) (1.3-7.7) k/uL Lymphocytes # (1.0-4.8) k/uL Lymphocytes # (Manual) (1.0-4.8) k/uL APTT 179.5 H* 46.8 H (22.0-30.0) sec Sodium 124 L (137-145) mmol/L Potassium 2.6 L* (3.5-5.1) mmol/L Carbon Dioxide 15 L (22-30) mmol/L BUN 43 H (7-17) mg/dL Creatinine 3.10 H (0.52-1.04) mg/dL Glucose 131 H (74-99) mg/dL Calcium 7.2 L (8.4-10.2) mg/dL AST (14-36) U/L Total Protein (6.3-8.2) g/dL Albumin (3.5-5.0) g/dL 08/24/17 08/24/17 Range/Units 07:11 07:11 WBC 18.0 H (3.8-10.6) k/uL RBC 3.37 L (3.80-5.40) m/uL Hgb 10.1 L (11.4-16.0) gm/dL Hct 32.5 L (34.0-46.0) % Plt Count 98 L (150-450) k/uL Neutrophils # (1.3-7.7) k/uL Neutrophils # (Manual) 17.10 H (1.3-7.7) k/uL Lymphocytes # (1.0-4.8) k/uL Lymphocytes # (Manual) 0.18 L (1.0-4.8) k/uL APTT (22.0-30.0) sec Sodium 124 L (137-145) mmol/L Potassium (3.5-5.1) mmol/L Carbon Dioxide 11 L (22-30) mmol/L BUN 45 H (7-17) mg/dL Creatinine 2.99 H (0.52-1.04) mg/dL Glucose (74-99) mg/dL Calcium 6.8 L (8.4-10.2) mg/dL AST 73 H (14-36) U/L Total Protein 5.1 L (6.3-8.2) g/dL Albumin 2.3 L (3.5-5.0) g/dL Microbiology - Last 24 Hours (Table) 08/22/17 10:31 Urine Culture - Final Urine,Clean Catch Klebsiella pneumoniae 08/22/17 13:35 Blood Culture Gram Stain - Final Blood Blood Culture - Final Klebsiella pneumoniae 08/22/17 10:31 Blood Culture Gram Stain - Final Blood Blood Culture - Final Klebsiella pneumoniae Assessment and Plan Plan: 1 acute sepsis secondary to an underlying urine tract infection 2 acute fever, leukocytosis, hypotension and lactic acidosis secondary to urine checked infection/sepsis 3 acute lactic acidosis 4 acute on top of chronic kidney failure. The patient is oliguric and states related to sepsis/hypotension 5 hypotension, secondary to sepsis responded to fluid boluses, did not require any pressors 6 acute non-ST segment elevation myocardial infarction, no acute changes and the patient is asymptomatic without any chest pain, currently on IV heparin 7 ulcerative colitis with a previous ileostomy, function on 8 dementia 9 peripheral vascular disease 10 small hiatal hernia 11 fall without any obvious major injuries Recommendation: Continue fluid resuscitation, continue antibiotics, blood culture report was noted, continue GI and DVT prophylaxis, continue IV heparin for elevated troponin, patient most likely had acute non-ST elevation myocardial infarction. Patient is presently on Rocephin and aztreonam. We'll possibly transfer the patient out of the ICU to a monitor bed in the next 24 hours. Time with Patient: Less than 30
[2017-08-24] MEDS: AMIODARONE 450 MG in DEXTROSE 5% IN WATER 250 ML IV SCH ×2 (12:45)
--- NOTE | 2017-08-24 12:49 | CDI ---
In responding to this query, please exercise your independent professional judgment. The [facility] Coding Staff and Clinical Documentation Specialists appreciate your assistance in clarifying documentation, maintaining compliance with coding guidelines, accurately documenting patients condition and capturing severity of illness. The fact that a question is asked does not imply that any particular answer is desired or expected. Communication forms are a method of clarifying documentation and are not made part of the Legal Health Record. Thank you in advance for your clarification. Last Revision, August 2015 Jacquelyn Krishna [address] [facility] [place] [address] Documentation Clarification Form Date: 08/24/2017 12:42:00 PM From: Meri Coker, CCS, CCDS Admit Date: 08/22/2017 1:21:00 PM Patient Name: Ramona Acosta Visit Number: [id number] Discharge Date: Dr. Michelle Davidson: History/Risk Factors: Admitted after fall at home, diagnosed with Gm neg Sepsis d/t UTI, Acute renal failure w/ATN & NSTEMI. Per nephrology consult: r/o CKD. Current BUN/CR/GFR: 51 - 47 / 4.96 - 3.77 / 8 - 11 Patients Baseline: BUN/CR/GFR: 3.0 approximately Clinical Indicators: as above. Treatment: IV fluid boluses, IV abx, Heparin drip, IV fluid rate 150, O2 2Lnc. In order to capture the severity of condition, please clarify if the condition signifies: CKD Stage 1 (GFR > 90) CKD Stage 2 (GFR 60-89) CKD Stage 3 (GFR 30-59) CKD Stage 4 (GFR 15-29) CKD Stage 5 (GFR <15) ESRD Unable to determine Other condition, please specify Please document in your progress notes and discharge summary in order to capture severity of illness and risk of mortality. Include clinical findings that support your diagnosis. FYI: Press F11 to launch patient chart. CAREN
[2017-08-24] MEDS: SOD BICARB IV SCH ×2 (14:42)
[2017-08-24] MEDS: SODIUM CHLORIDE IV SCH ×2 (14:42)
--- NOTE | 2017-08-24 16:00 | P.PN ---
Subjective Progress Note Date: 08/24/17 Principal diagnosis: UTI with Septic shock, NSTEMI type 2, Patient seen bedside no acute events overnight per nursing staff. Patient seen lying comfortably in bed she awakens to verbal stimuli she states that she feels somewhat improving from the day prior however feels weak she denies any chest pain or shortness of breath no dizziness or lightheadedness patient does complain of lower back pain bilaterally with no radiation to the feet she had nausea vomiting did state that she has slight chills but no fever patient was seen by cardiology and which her amiodarone was discontinued his IV in place and by mouth twice a day her heparin drip was also discontinued Objective - Vital Signs Vital signs: Vital Signs Temp 98.0 F 08/24/17 04:00 Pulse 71 08/24/17 14:00 Resp 22 08/24/17 14:00 BP 113/71 08/24/17 14:00 Pulse Ox 91 L 08/24/17 14:00 Intake & Output 08/23/17 08/24/17 08/24/17 18:59 06:59 18:59 Intake Total 2700.295 645.859 541.575 Output Total 3200 755 720 Balance -499.705 -109.141 -178.425 Weight 78 kg 78.5 kg Intake: IV 425 50 450 Aztreonam 1 gm In Sodium 50 50 Chloride 0.9% 50 ml @ 100 mls/hr IVPB Q12HR [facility] Rx #:[id number] Sodium Chloride 0.9% 1, 375 000 ml @ 150 mls/hr IV . Q6H40M [facility] Rx#:[id number] Sodium Chloride 0.9% 1, 50 400 000 ml @ 50 mls/hr IV . Q20H [facility] Rx#:[id number] Intake, IV Titration 1435.295 595.859 91.575 Amount Amiodarone 450 mg In 211.784 Dextrose 5% in Water 250 ml @ 1 MG/MIN 34.53 mls/ hr IV .Q7H31M [facility] Rx#: [id number] Dextrose 5% in Water 1, 900 200 000 ml @ 100 mls/hr IV . [id number] [facility] with Sodium Bicarb (1 Meq/ml) 150 ml Rx#:[id number] Heparin Sodium,Porcine/ 325.295 184.075 91.575 D5w Pmx 25,000 unit In Dextrose/Water 1 500ml. bag @ 12 UNITS/KG/HR 17. 09 mls/hr IV .Q24H [facility] Rx #:[id number] Magnesium Sulfate-D5w Pmx 100 1 gm In Dextrose/Water 1 100ml.bag @ 100 mls/hr IVPB ONCE ONE Rx#: [id number] Potassium Chloride 20 meq 110 Lidocaine 2% Inj 20 mg In Sodium Chloride 0.9% 100 ml @ 55.5 mls/hr IVPB ONCE ONE Rx#:[id number] Oral 840 0 Output: Urine 750 605 420 Stool 2450 150 300 Other: Voiding Method Indwelling Catheter Indwelling Catheter Indwelling Catheter - Exam Objectives: GENERAL: Lying comfortably in bed in NAD, AOx3, calm and cooperative, nontoxic appearing no diaphoresis drowsy HEENT: NCAT, PERRLA, EOMI, Anicteric conjunctiva pale, no drainage per ears or nose oral mucosa pink moist free of any lesions NECK: Enlarged neck circumference Supple with no Mass, no lymphadenopathy no JVD Lungs: CTA bilateral, No wheezes, No rales, no Rhonchi. No use of Accessory muscle of respiration. Symmetrical chest wall expansion no chest wall tenderness CVS: Normal S1/S2, RRR, no mrg, no jvd, 1+ bilateral LE pitting Edema. 2+ pedal pulses. GI:, soft nontender, no distention, there is evidence of multiple abdominal scars from prior surgeries there is a colostomy bag in the right quadrant that' s has watery stools no hsp, no cvat b. No rebound, no Rovsing sign. no gaurding. Positive bowel sounds in all 4 quadrants MSK: KAPLAN, Full ROM, diminished handgrip bilaterally there is paraspinal tenderness bilaterally lower region SKIN: +decrease skin turgor. Cap refill <2sec NEURO: CN 2-12 intact, no focal deficits, speech is fluent and contextual, no dysarthria, face is symmetrical. No droop diminished DTRs in lower extremity PSY: Depressed mood however no anxiety or clinical depression appreciated - Constitutional General appearance: Present: obese - Labs CBC & Chem 7: 08/24/17 07:11 08/24/17 07:11 Labs: Abnormal Lab Results - Last 24 Hours (Table) 08/23/17 08/24/17 08/24/17 Range/Units 18:00 01:15 04:10 WBC 17.7 H (3.8-10.6) k/uL RBC 3.51 L (3.80-5.40) m/uL Hgb 10.6 L (11.4-16.0) gm/dL Hct 32.2 L (34.0-46.0) % Plt Count 98 L (150-450) k/uL Neutrophils # 16.0 H (1.3-7.7) k/uL Neutrophils # (Manual) (1.3-7.7) k/uL Lymphocytes # 0.9 L (1.0-4.8) k/uL Lymphocytes # (Manual) (1.0-4.8) k/uL APTT 39.8 H 48.0 H (22.0-30.0) sec Sodium (137-145) mmol/L Potassium (3.5-5.1) mmol/L Carbon Dioxide (22-30) mmol/L BUN (7-17) mg/dL Creatinine (0.52-1.04) mg/dL Glucose (74-99) mg/dL Calcium (8.4-10.2) mg/dL AST (14-36) U/L Total Protein (6.3-8.2) g/dL Albumin (3.5-5.0) g/dL 08/24/17 08/24/17 08/24/17 Range/Units 04:10 04:10 05:33 WBC (3.8-10.6) k/uL RBC (3.80-5.40) m/uL Hgb (11.4-16.0) gm/dL Hct (34.0-46.0) % Plt Count (150-450) k/uL Neutrophils # (1.3-7.7) k/uL Neutrophils # (Manual) (1.3-7.7) k/uL Lymphocytes # (1.0-4.8) k/uL Lymphocytes # (Manual) (1.0-4.8) k/uL APTT 179.5 H* 46.8 H (22.0-30.0) sec Sodium 124 L (137-145) mmol/L Potassium 2.6 L* (3.5-5.1) mmol/L Carbon Dioxide 15 L (22-30) mmol/L BUN 43 H (7-17) mg/dL Creatinine 3.10 H (0.52-1.04) mg/dL Glucose 131 H (74-99) mg/dL Calcium 7.2 L (8.4-10.2) mg/dL AST (14-36) U/L Total Protein (6.3-8.2) g/dL Albumin (3.5-5.0) g/dL 08/24/17 08/24/17 Range/Units 07:11 07:11 WBC 18.0 H (3.8-10.6) k/uL RBC 3.37 L (3.80-5.40) m/uL Hgb 10.1 L (11.4-16.0) gm/dL Hct 32.5 L (34.0-46.0) % Plt Count 98 L (150-450) k/uL Neutrophils # (1.3-7.7) k/uL Neutrophils # (Manual) 17.10 H (1.3-7.7) k/uL Lymphocytes # (1.0-4.8) k/uL Lymphocytes # (Manual) 0.18 L (1.0-4.8) k/uL APTT (22.0-30.0) sec Sodium 124 L (137-145) mmol/L Potassium (3.5-5.1) mmol/L Carbon Dioxide 11 L (22-30) mmol/L BUN 45 H (7-17) mg/dL Creatinine 2.99 H (0.52-1.04) mg/dL Glucose (74-99) mg/dL Calcium 6.8 L (8.4-10.2) mg/dL AST 73 H (14-36) U/L Total Protein 5.1 L (6.3-8.2) g/dL Albumin 2.3 L (3.5-5.0) g/dL Microbiology - Last 24 Hours (Table) 08/22/17 10:31 Urine Culture - Final Urine,Clean Catch Klebsiella pneumoniae 08/22/17 13:35 Blood Culture Gram Stain - Final Blood Blood Culture - Final Klebsiella pneumoniae 08/22/17 10:31 Blood Culture Gram Stain - Final Blood Blood Culture - Final Klebsiella pneumoniae - Imaging and Cardiology Chest x-ray: report reviewed Abdominal x-ray: report reviewed Assessment and Plan Assessment: #1 urinary tract infection with septic shock present presentation. Blood and urine Cultures obtained in 08/22/2017 grew Klebsiella pneumonia. Patient will continue with broad-spectrum antibiotics patient's white count was noted to be elevated today 18 itself was 17.9 yesterday despite broad-spectrum coverage will repeat the urine and blood cultures tomorrow by signs and signs and symptoms of fever at this time will consults infectious disease will obtain morning labs #[address] kidney injury on CT D stage IV multifactorial likely secondary to 2 hypoperfusion state during her shock, also prerenal from dehydration with tearful hydration avoiding of toxic agents #3 left acidosis. This secondary to sepsis and anion gap metabolic acidosis, lactic acid was improved however patient is still showing metabolic acidosis her bicarbonate on morning lab was 11 #4 elevated troponin in the setting of an STEMI type II cardiology was consult and no intervention at this time heparin drip was discontinued due to thrombocytopenia patient will likely require anticoagulation once hearse clinical symptoms improve and labs improved 5 ulcerative colitis status post ileostomy. #7 peripheral vascular disease. #8 hiatal hernia. (History depression. #10 hyper-lipidemia . For the above-mentioned clinical chronic medical conditions patient will be continued on appropriate home medications and her clinical condition is guarded further up initial follow-up probable progress anticipate discharge of the units within the next 24-48 hrs. pending her clinical state Time with Patient: Greater than 30
[2017-08-24 20:53] LABS: Potassium 2.9 mmol/L (3.5-5.1)
--- NOTE | 2017-08-24 20:58 | PN ---
PROGRESS NOTE Patient is seen for followup for acute kidney injury secondary to hypotension and hypoperfusion. Her renal function has been slowly improving with creatinine down to 2.9 from 4.96 on initial admission. Patient was maintained on D5W with 3 amps of bicarb for IV fluids yesterday. This morning, her sodium is noted to be low at 124. Serum potassium was also low at 2.6 and CO2 was 11. The patient does have an ileostomy and has had a fair amount of liquid stools. EXAMINATION: Blood pressure is 112/67, heart rate 68 per minute. She is afebrile. HEART: S1, S2. LUNGS: Bilateral breath sounds are heard. ABDOMEN: Soft, nontender. Lower extremities show no edema bilaterally. LABS: Show sodium 124, potassium 3.9, chloride 104, CO2 is 11, BUN 45, serum creatinine 2.9. Hemoglobin 10.1 g/dL. ASSESSMENT: 1. Acute kidney injury secondary to hypotension and hypoperfusion, currently improving. Good urine output. Continue with IV fluids. 2. Severe metabolic acidosis, non gap secondary to increased gastrointestinal fluid loss as well as renal failure. Will resume bicarbonate drip. 3. Hyponatremia, possibly hypovolemic. I will change the IV fluids to half-normal saline with 3 amps of bicarb. Random urine sodium and urine osmolality will also be ordered. 4. Hypokalemia, currently being replaced. 5. Mild rhabdomyolysis. Total CK of 2231 at peak. 6. Possible chronic kidney disease with previous creatinine at 3 in 2015. No laboratories available between 2014 and 2017. Again, this may not be her actual baseline and may have been another episode of acute kidney injury. At this time, I am unable to determine the stage of her chronic kidney disease. We need more recent labs prior to this admission. MMODL / IJN: [id number] /
[2017-08-24] MEDS: PRAVASTATIN SODIUM 40 MG TAB PO SCH (21:21)
[2017-08-24] MEDS: AMIODARONE 200 MG TAB PO SCH (21:21)
[2017-08-24] MEDS ORDERED: POTASSIUM CHLORIDE ER 20 MEQ TAB.ER PO STA (21:48)
[2017-08-24] MEDS: POTASSIUM CHLORIDE 10 MEQ, LIDOCAINE 2% INJ 10 MG in SODIUM CHLORIDE 0.9% 100 ML IVPB SCH (22:50)
[2017-08-25] MEDS: POTASSIUM CHLORIDE 10 MEQ, LIDOCAINE 2% INJ 10 MG in SODIUM CHLORIDE 0.9% 100 ML IVPB SCH ×7 (00:36→14:00)
[2017-08-25 04:15] LABS: Basophils % (A) 0 %; CH 30.1; CHCM 32.8; Eosinophils # (A) 0.1 k/uL (0-0.7); Eosinophils % (A) 1 %; HCT 34.5 % (34.0-46.0); HDW 3.18; HGB 11.1 gm/dL (11.4-16.0); Luc # (Auto) 0.26; Luc % (Auto) 1; Lymphocytes # (A) 0.7 k/uL (1.0-4.8); Lymphocytes % (A) 4 %; MCH 29.9 pg (25.0-35.0); MCHC 32.3 g/dL (31.0-37.0); MCV 92.4 fL (80.0-100.0); Mean Platelet Volume 8.6; Monocytes # (A) 0.5 k/uL (0-1.0); Monocytes % (A) 3 %; Neutrophils # (A) 17.3 k/uL (1.3-7.7); Neutrophils % (A) 91 %; RBC 3.73 m/uL (3.80-5.40); RDW 14.9 % (11.5-15.5); WBC (Perox) 21.35
[2017-08-25] MEDS: SODIUM CHLORIDE 0.9% 1,000 ML IV SCH (04:48)
[2017-08-25 04:56] LABS: Calcium 7.5 mg/dL (8.4-10.2); Magnesium 1.5 mg/dL (1.6-2.3); Total Bilirubin 0.2 mg/dL (0.2-1.3); Total Protein 4.8 g/dL (6.3-8.2)
[2017-08-25] MEDS: SODIUM CHLORIDE IV SCH ×2 (07:56)
[2017-08-25] MEDS: SOD BICARB IV SCH ×2 (07:56)
--- NOTE | 2017-08-25 08:12 | XR ---
EXAMINATION TYPE: XR chest 1V DATE OF EXAM: 08/25/2017 HISTORY: Shortness of breath. COMPARISON: 08/24/2017 TECHNIQUE: Single view of the chest is submitted. FINDINGS: Demonstrated are scattered senescent parenchymal change. Stable perihilar and basilar infiltrates of pulmonary venous congestion and small effusions. The heart is stable. Hilar and mediastinal structures are within normal limits. Degenerative changes are seen of the dorsal spine. IMPRESSION: 1. Stable perihilar and basilar infiltrates of pulmonary venous congestion and small effusions.
--- NOTE | 2017-08-25 08:43 | P.PN ---
Subjective Progress Note Date: 08/25/17 Patient seen bedside no acute events overnight per nursing staff. Patient leukocytosis slighty worsen this a.m. she is reported to have increased output in her ostomy bag black watery stools patient still complaining of weakness and fatigue however she denies any shortness of breath no dizziness or lightheadedness or chest pain she still complaining of bilateral paraspinal tenderness nonradiating Objective - Vital Signs Vital signs: Vital Signs Temp 98.3 F 08/25/17 04:00 Pulse 87 08/25/17 07:00 Resp 22 08/25/17 07:00 BP 104/54 08/25/17 07:00 Pulse Ox 94 L 08/25/17 07:50 Intake & Output 08/24/17 08/25/17 08/25/17 18:59 06:59 18:59 Intake Total 922.075 7867 70 Output Total 1190 1710 150 Balance -298.425 -540 -80 Weight 78.5 kg Intake: IV 450 1170 70 Aztreonam 1 gm In Sodium 50 Chloride 0.9% 50 ml @ 100 mls/hr IVPB Q12HR [facility] Rx #:[id number] Potassium Chloride 10 meq 400 Lidocaine 2% Inj 10 mg In Sodium Chloride 0.9% 100 ml @ 100 mls/hr IVPB Q1HR [facility] Rx#:[id number] Sodium Chloride 0.45% 1, 770 70 000 ml @ 70 mls/hr IV . [id number] [facility] with Sod Bicarb Syr 8.4% (1 Meq/ml ) 150 ml Rx#:[id number] Sodium Chloride 0.9% 1, 400 000 ml @ 50 mls/hr IV . Q20H [facility] Rx#:[id number] Intake, IV Titration 441.575 Amount Heparin Sodium,Porcine/ 91.575 D5w Pmx 25,000 unit In Dextrose/Water 1 500ml. bag @ 12 UNITS/KG/HR 17. 09 mls/hr IV .Q24H [facility] Rx #:[id number] Sodium Chloride 0.45% 1, 350 000 ml @ 70 mls/hr IV . [id number] [facility] with Sod Bicarb Syr 8.4% (1 Meq/ml ) 150 ml Rx#:[id number] Output: Urine 690 1460 150 Stool 500 250 Other: Voiding Method Indwelling Catheter Indwelling Catheter - Exam GENERAL: Lying comfortably in bed in NAD, awake and alert she's oriented to place over does not know the year she does know who the president is, she is calm and cooperative, nontoxic appearing no diaphoresis slightly more drowsy than previous HEENT: NCAT, PERRLA, EOMI, Anicteric conjunctiva pale, no drainage per ears or nose oral mucosa pink moist free of any lesions NECK: Enlarged neck circumference Supple with no Mass, no lymphadenopathy no JVD Lungs: CTA bilateral, No wheezes, No rales, no Rhonchi. No use of Accessory muscle of respiration. Symmetrical chest wall expansion no chest wall tenderness on 4L supplemental O2 CVS: Normal S1/S2, RRR, no mrg, no jvd, 1+ bilateral LE pitting Edema. 2+ pedal pulses. GI:, soft nontender, no distention, there is evidence of multiple abdominal scars from prior surgeries there is a colostomy bag in the right quadrant that' s has watery black stools no hsp, no cvat b. No rebound, no Rovsing sign. no gaurding. Positive bowel sounds in all 4 quadrants MSK: KAPLAN, Full ROM, diminished handgrip bilaterally there is paraspinal tenderness bilaterally lower region SKIN: +decrease skin turgor. Cap refill <2sec NEURO: CN 2-12 intact, no focal deficits, speech is fluent and contextual, no dysarthria, face is symmetrical. No droop diminished DTRs in lower extremity PSY: Depressed mood however no anxiety or clinical depression appreciated - Labs CBC & Chem 7: 08/25/17 04:02 08/25/17 04:02 Labs: Abnormal Lab Results - Last 24 Hours (Table) 08/24/17 08/25/17 08/25/17 Range/Units 20:13 04:02 04:02 WBC 19.0 H (3.8-10.6) k/uL RBC 3.73 L (3.80-5.40) m/uL Hgb 11.1 L (11.4-16.0) gm/dL Plt Count 99 L (150-450) k/uL Neutrophils # 17.3 H (1.3-7.7) k/uL Lymphocytes # 0.7 L (1.0-4.8) k/uL Sodium 125 L 128 L (137-145) mmol/L Potassium 2.9 L* 3.0 L* (3.5-5.1) mmol/L Carbon Dioxide 16 L 17 L (22-30) mmol/L BUN 46 H (7-17) mg/dL Creatinine 2.70 H (0.52-1.04) mg/dL Glucose 70 L (74-99) mg/dL Calcium 7.5 L (8.4-10.2) mg/dL Magnesium 1.5 L (1.6-2.3) mg/dL AST 39 H (14-36) U/L Total Protein 4.8 L (6.3-8.2) g/dL Albumin 2.4 L (3.5-5.0) g/dL Microbiology - Last 24 Hours (Table) 08/22/17 10:31 Urine Culture - Final Urine,Clean Catch Klebsiella pneumoniae 08/22/17 13:35 Blood Culture Gram Stain - Final Blood Blood Culture - Final Klebsiella pneumoniae 08/22/17 10:31 Blood Culture Gram Stain - Final Blood Blood Culture - Final Klebsiella pneumoniae Assessment and Plan Assessment: Assessment: #1 urinary tract infection with septic shock present on admission. Blood and urine Cultures obtained in 08/22/2017 grew Klebsiella pneumonia. Patient will continue with broad-spectrum antibiotics patient's white count was noted to be elevated today 19 was 18 yesterday, no reported fevers. she is on rochepin 1gm daily and Aztreonam 1gm q12h will repeat the urine and blood cultures tomorrow by signs and signs and symptoms of fever at this time will consults infectious disease will obtain morning labs #[address] acute kidney injury on CT D stage IV multifactorial likely secondary to 2 hypoperfusion state during her shock, also prerenal from dehydration avoiding of toxic agents -improving Cr today 2.7<---3.10--<3.77. #3 AG Metabolic Acidosis with lactic acidosis. This secondary to sepsis and anion gap metabolic acidosis, lactic acid was improved however patient is still showing metabolic acidosis her bicarbonate on morning lab was 11. there is slight improvement, Given that patient continues to have Acidosis coupled with increasing white count along with increased output from ostomy bag and been on abx will need to r/o Cdiff as her acidosis can be a result of Gi loss from diarrhea due to C. Diff. also will obtain a Ct of Abd/Pelvis with out contrast to r/o pyelonephritis in which her abx will need to be adjusted. #4 elevated troponin in the setting of an STEMI type II cardiology was consult and no intervention at this time heparin drip was discontinued due to thrombocytopenia patient will likely require anticoagulation once her clinical symptoms improve and labs improved 5 ulcerative colitis status post ileostomy. #7 peripheral vascular disease. #8 hiatal hernia. #9 (History depression. 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 #12 hypokalemia patient potassiums morning is 3.0 up from 2.6 this is also likely from GI loss due to increased output will supplement her potassium will recheck in a.m. . For the above-mentioned clinical chronic medical conditions patient will be continued on appropriate home medications and her clinical condition is guarded further up initial follow-up probable progress anticipate discharge of the units within the next 24-48 hrs. pending her clinical state Time with Patient: Greater than 30
[2017-08-25] MEDS: AMIODARONE 200 MG TAB PO SCH ×2 (08:52→20:34)
[2017-08-25] MEDS: PANTOPRAZOLE 40 MG/10 ML VIAL IV SCH (08:52)
[2017-08-25] MEDS: SERTRALINE 50 MG TAB PO SCH (08:52)
[2017-08-25] MEDS: cefTRIAXone IN SWFI 1,000 MG/10 ML SYRINGE IVP SCH (08:52)
[2017-08-25] MEDS: ASPIRIN 325 MG TAB PO SCH (08:52)
[2017-08-25] MEDS: SODIUM BICARBONATE TAB 650 MG TAB PO SCH ×3 (08:53→23:46)
[2017-08-25] MEDS: AZTREONAM 1 GM in SODIUM CHLORIDE 0.9% 50 ML IVPB SCH ×2 (08:53→20:34)
--- NOTE | 2017-08-25 11:12 | P.PN ---
Subjective Progress Note Date: 08/25/17 Principal diagnosis: Acute sepsis secondary to urinary tract infection This is a very pleasant 86-year-old female patient who was brought into the emergency department after being found on the floor by family members. The patient apparently had fallen at home. The patient states that she had been progressively getting weak over the past few days. She was having some right inguinal/groin pain and increased confusion for which she was taken to the primary care physician and x-ray of the hips and the pelvis was done and showed no osseous lesions and it showed degenerative changes. The patient was released home to come back today with obvious signs of sepsis. Initial investigation here in the emergency department revealed that the patient had an underlying urine checked infection with seems to be the most obvious source of sepsis. Chest x-ray was clear. Troponin was elevated at 11 without any acute ischemic changes and the patient was also ruled in for acute non-ST segment elevation myocardial infarction. She was quite hypotensive at time of arrival systolic in the mid 80s. The patient is currently receiving her second bolus of IV fluids. She was also started on IV heparin. Holman catheter is to be inserted. Her lactic acid level at time of admission was 5.4. She has leukocytosis with a white cell count of 13.3. She has 11% bandemia. She has anion gap metabolic acidosis which is essentially lactic acidosis with a bicarb level of 11. She is also an acute kidney injury with a creatinine of 4.96 in a be on a 51. Note that this is an acute on top of chronic renal injury knowing that the patient's baseline creatinine was around 3.0. The daughter claims that the patient has had previous urinary tract infections all of them have been treated on outpatient basis. Urine drug screen is positive for opiates. The patient is awake. She is lethargic. She occasionally moans. She is able to follow simple commands. There is areas of bruising over the left forehead, right elbow, right upper extremity, lateral acid of the right foot. No obvious joint deformities. No headache. No nausea or vomiting. No abdominal pain. She has a DNR/DNI CODE STATUS. Patient was reevaluated today on 08/23/2017, seems to be in no form of respiratory distress, doing quite well, asymptomatic, denies any shortness of breath, no cough, no wheezing, patient is presently hemodynamically stable, and her labs are showing steady improvement. CBC continues to show leukocytosis with WBC count of 17.9. Her PTT is 45.1 patient remains on heparin for presumptive acute NM. BUN is 47 creatinine is 3.77 CPK is gradually improving down to 1500. Her creatinine on admission was 4.96. Blood culture is positive for gram-negative rods, final report is pending. In the meantime the patient remains on antibiotics. Patient was reevaluated today on 08/24/2017, continues to do well, not in any form of respiratory distress, hemodynamically stable. WBC count remains elevated at 18.0. PTT is therapeutic at 46.8, sodium remains low at 124 BUN is 45 creatinine is 2.99 slightly improved. Patient denies being in any distress, denies any aches and pains, no shortness of breath, no nausea no vomiting no abdominal pain. Patient was reevaluated on 08/25/2017, she seems to be very comfortable, in no form of any distress, patient has been gradually improving over the last few days. Asymptomatic, no cough no wheezing no shortness of breath no chest pain no nausea no vomiting no abdominal pain, and her labs are showing steady improvement. Her blood cultures and urine cultures came back positive for Klebsiella pneumonia, and the patient is on appropriate antibiotics in the form of Rocephin and aztreonam. The Klebsiella is sensitive to both. Continues to have a bit of leukocytosis with WBC count of 19.0, hemoglobin is 11.1. Electrolytes were abnormal with a sodium of 128 but improving. Potassium of 3.0 bicarb is 17 patient will have the sodium bicarb drip discontinued, and increase the oral bicarb. Renal functioning is improving, BUN is 46 creatinine is 2.70 steady improvement has been noted over the last few days. Patient was supposed to go for a CT of the abdomen and pelvis however considering the clinical improvement, no need for CT of the abdomen and pelvis at this point, discussed this issue with the canvas marker on the case, and we both felt on ultrasound would be more appropriate at this point. No matter what the findings would be, no major changes will be made in the present treatment plan on this patient. And that's mostly because she is gradually improving over the last few days. And antibiotics are very appropriate for the Klebsiella pneumoniae infection that she has in the blood and in the urine. Chest x-ray is suggestive of mild pulmonary venous congestion and small bilateral pleural effusions, reluctant at this point to start any Lasix but that would be considered depending on the overall clinical status and urine output as well as renal profile. Patient remains on amiodarone dose may have to be readjusted presently at 400 mg by mouth twice a day, and that being addressed by cardiology. Her A. fib seems to be better controlled at this point. Heparin is being addressed by cardiology, Objective - Vital Signs Vital signs: Vital Signs Temp 98.3 F 08/25/17 04:00 Pulse 87 08/25/17 07:00 Resp 22 08/25/17 07:00 BP 104/54 08/25/17 07:00 Pulse Ox 94 L 08/25/17 07:50 Intake & Output 08/24/17 08/25/17 08/25/17 18:59 06:59 18:59 Intake Total 438.136 3141 330 Output Total 1190 1710 660 Balance -298.425 -540 -330 Weight 78.5 kg 83.7 kg Intake: IV 450 1170 330 Aztreonam 1 gm In Sodium 50 Chloride 0.9% 50 ml @ 100 mls/hr IVPB Q12HR [facility] Rx #:[id number] Potassium Chloride 10 meq 400 100 Lidocaine 2% Inj 10 mg In Sodium Chloride 0.9% 100 ml @ 100 mls/hr IVPB Q1HR [facility] Rx#:[id number] Sodium Chloride 0.45% 1, 770 70 000 ml @ 70 mls/hr IV . [id number] [facility] with Sod Bicarb Syr 8.4% (1 Meq/ml ) 150 ml Rx#:[id number] Sodium Chloride 0.9% 1, 400 160 000 ml @ 50 mls/hr IV . Q20H [facility] Rx#:[id number] Intake, IV Titration 441.575 Amount Heparin Sodium,Porcine/ 91.575 D5w Pmx 25,000 unit In Dextrose/Water 1 500ml. bag @ 12 UNITS/KG/HR 17. 09 mls/hr IV .Q24H [facility] Rx #:[id number] Sodium Chloride 0.45% 1, 350 000 ml @ 70 mls/hr IV . [id number] [facility] with Sod Bicarb Syr 8.4% (1 Meq/ml ) 150 ml Rx#:[id number] Output: Urine 690 1460 420 Stool 500 250 240 Other: Voiding Method Indwelling Catheter Indwelling Catheter - Exam Physical Exam revealed an 86-year-old female in no distress, asymptomatic. HEENT:[Neck is supple.] [No neck masses.] [No thyromegaly.] [No JVD.] Bruising is noted in the left periorbital area and forehead. Chest: [Clear throughout, no crackles, no rhonchi, no wheezes.] Cardiac Exam: [Normal S1 and S2, no S3 gallop, no murmur.] Abdomen: [Soft, nontender, no megaly, no rebound, no guarding, normal bowel sounds. Positive ileostomy bag is noted, patient had previous ulcerative colitis surgery. Ileostomy is functioning well.] Extremities: [No clubbing, no edema, no cyanosis.] Neurological Exam: [No focal neurologic deficit.] Psychiatric: Normal mood and affect, normal mental status examination. Lymphatics: No lymphadenopathy. Psychiatric: Normal mood and affect and mental status examination - Labs CBC & Chem 7: 08/25/17 04:02 08/25/17 04:02 Labs: Abnormal Lab Results - Last 24 Hours (Table) 08/24/17 08/25/17 08/25/17 Range/Units 20:13 04:02 04:02 WBC 19.0 H (3.8-10.6) k/uL RBC 3.73 L (3.80-5.40) m/uL Hgb 11.1 L (11.4-16.0) gm/dL Plt Count 99 L (150-450) k/uL Neutrophils # 17.3 H (1.3-7.7) k/uL Lymphocytes # 0.7 L (1.0-4.8) k/uL Sodium 125 L 128 L (137-145) mmol/L Potassium 2.9 L* 3.0 L* (3.5-5.1) mmol/L Carbon Dioxide 16 L 17 L (22-30) mmol/L BUN 46 H (7-17) mg/dL Creatinine 2.70 H (0.52-1.04) mg/dL Glucose 70 L (74-99) mg/dL Calcium 7.5 L (8.4-10.2) mg/dL Magnesium 1.5 L (1.6-2.3) mg/dL AST 39 H (14-36) U/L Total Protein 4.8 L (6.3-8.2) g/dL Albumin 2.4 L (3.5-5.0) g/dL Microbiology - Last 24 Hours (Table) 08/22/17 10:31 Urine Culture - Final Urine,Clean Catch Klebsiella pneumoniae 08/22/17 13:35 Blood Culture Gram Stain - Final Blood Blood Culture - Final Klebsiella pneumoniae 08/22/17 10:31 Blood Culture Gram Stain - Final Blood Blood Culture - Final Klebsiella pneumoniae Assessment and Plan Plan: 1 acute sepsis secondary to an underlying urine tract infection 2 acute fever, leukocytosis, hypotension and lactic acidosis secondary to urine tract infection/sepsis 3 acute lactic acidosis secondary to sepsis 4 acute on top of chronic kidney failure. Improving steadily over the last few days, 5 hypotension, secondary to sepsis responded to fluid boluses, did not require any pressors 6 acute non-ST segment elevation myocardial infarction, no acute changes and the patient is asymptomatic without any chest pain, being addressed by cardiology on the case. 7 ulcerative colitis with a previous ileostomy, functioning well 8 dementia 9 peripheral vascular disease 10 small hiatal hernia 11 fall without any obvious major injuries Recommendation: Continue present supportive care measures, discontinued her IV bicarb, increased the dose of oral bicarb, discussed her condition with the canvas marker on the case, canceled CT of the abdomen and pelvis, renal ultrasound was ordered, reviewed her labs and her microbiology will keep the patient on Rocephin and aztreonam for now, we will arrange for the patient to be transferred to a monitored bed on [facility]. Over the last few days, the patient has been improving actually better than expected. She has multiple medical problems but she is not critically ill at this point. Time with Patient: Less than 30
--- NOTE | 2017-08-25 12:17 | P.PN ---
Subjective Principal diagnosis: non-STEMI This is a pleasant 86-year-old female patient with no significant past medical history except for mild underlying dementia was brought to the hospital by her family after she was found on the floor by one of her family member. The patient is somewhat poor historian. She stated that she does not follow with any certified retinal angiographer as an outpatient and does not have any prior cardiac history of coronary artery disease or congestive heart failure or cardiac arrhythmia. The patient was brought to the emergency room after she was on the floor. She stated that she was feeling progressively weak for the last week. She stated that she did not lose her consciousness. We don't know the duration and for how long the patient was on the floor. In the emergency room the patient was found to be hypotensive and was diagnosed with UTI/sepsis and was found to be in acute renal failure and also she was found to have rhabdomyolysis. The CK is elevated, CK-MB is elevated, and the troponin is elevated as well. The EKG showed only nonspecific changes. The patient stated that she did not have any chest pain or discomfort, no difficulty breathing, and no feeling of heart racing or fluttering and no loss of consciousness. She just was feeling progressively weak as a main complaint. On follow-up with the patient today on 08/25/2017, she seems to be doing better. Her mentation is definitely better she is awake, alert, and oriented 3. Does not complain of any chest pain but she is in mild respiratory distress. She went into an A. fib and she was converted to normal sinus mechanism. The creatinine has been trending down. We'll continue holding any anticoagulation in view of the thrombocytopenia. The echocardiogram revealed normal LV function without any significant valvular abnormalities. I will consider oral anticoagulation using small dose of Eliquis once the thrombocytopenia improved. Objective - Vital Signs Vital signs: Vital Signs Temp 98.1 F 08/25/17 08:00 Pulse 80 08/25/17 11:00 Resp 24 08/25/17 11:00 BP 105/59 08/25/17 11:00 Pulse Ox 95 08/25/17 11:00 Intake & Output 08/24/17 08/25/17 08/25/17 18:59 06:59 18:59 Intake Total 961.544 3436 480 Output Total 1190 1710 720 Balance -298.425 -540 -240 Weight 78.5 kg 83.7 kg Intake: IV 450 1170 480 Aztreonam 1 gm In Sodium 50 Chloride 0.9% 50 ml @ 100 mls/hr IVPB Q12HR [facility] Rx #:[id number] Potassium Chloride 10 meq 400 200 Lidocaine 2% Inj 10 mg In Sodium Chloride 0.9% 100 ml @ 100 mls/hr IVPB Q1HR [facility] Rx#:[id number] Sodium Chloride 0.45% 1, 770 70 000 ml @ 70 mls/hr IV . [id number] [facility] with Sod Bicarb Syr 8.4% (1 Meq/ml ) 150 ml Rx#:[id number] Sodium Chloride 0.9% 1, 400 210 000 ml @ 50 mls/hr IV . Q20H [facility] Rx#:[id number] Intake, IV Titration 441.575 Amount Heparin Sodium,Porcine/ 91.575 D5w Pmx 25,000 unit In Dextrose/Water 1 500ml. bag @ 12 UNITS/KG/HR 17. 09 mls/hr IV .Q24H [facility] Rx #:[id number] Sodium Chloride 0.45% 1, 350 000 ml @ 70 mls/hr IV . [id number] [facility] with Sod Bicarb Syr 8.4% (1 Meq/ml ) 150 ml Rx#:[id number] Output: Urine 690 1460 480 Stool 500 250 240 Other: Voiding Method Indwelling Catheter Indwelling Catheter - Constitutional General appearance: Present: no acute distress - Respiratory Respiratory: bilateral: CTA - Cardiovascular Rhythm: regular Heart sounds: normal: S1, S2 - Labs CBC & Chem 7: 08/25/17 04:02 08/25/17 04:02 Labs: Abnormal Lab Results - Last 24 Hours (Table) 08/24/17 08/25/17 08/25/17 Range/Units 20:13 04:02 04:02 WBC 19.0 H (3.8-10.6) k/uL RBC 3.73 L (3.80-5.40) m/uL Hgb 11.1 L (11.4-16.0) gm/dL Plt Count 99 L (150-450) k/uL Neutrophils # 17.3 H (1.3-7.7) k/uL Lymphocytes # 0.7 L (1.0-4.8) k/uL Sodium 125 L 128 L (137-145) mmol/L Potassium 2.9 L* 3.0 L* (3.5-5.1) mmol/L Carbon Dioxide 16 L 17 L (22-30) mmol/L BUN 46 H (7-17) mg/dL Creatinine 2.70 H (0.52-1.04) mg/dL Glucose 70 L (74-99) mg/dL Calcium 7.5 L (8.4-10.2) mg/dL Magnesium 1.5 L (1.6-2.3) mg/dL AST 39 H (14-36) U/L Total Protein 4.8 L (6.3-8.2) g/dL Albumin 2.4 L (3.5-5.0) g/dL Stool Occult Blood (Negative) 08/25/17 Range/Units 08:37 WBC (3.8-10.6) k/uL RBC (3.80-5.40) m/uL Hgb (11.4-16.0) gm/dL Plt Count (150-450) k/uL Neutrophils # (1.3-7.7) k/uL Lymphocytes # (1.0-4.8) k/uL Sodium (137-145) mmol/L Potassium (3.5-5.1) mmol/L Carbon Dioxide (22-30) mmol/L BUN (7-17) mg/dL Creatinine (0.52-1.04) mg/dL Glucose (74-99) mg/dL Calcium (8.4-10.2) mg/dL Magnesium (1.6-2.3) mg/dL AST (14-36) U/L Total Protein (6.3-8.2) g/dL Albumin (3.5-5.0) g/dL Stool Occult Blood Positive H (Negative) Microbiology - Last 24 Hours (Table) 08/22/17 10:31 Urine Culture - Final Urine,Clean Catch Klebsiella pneumoniae 08/22/17 13:35 Blood Culture Gram Stain - Final Blood Blood Culture - Final Klebsiella pneumoniae 08/22/17 10:31 Blood Culture Gram Stain - Final Blood Blood Culture - Final Klebsiella pneumoniae Assessment and Plan Assessment: This is a pleasant 86-year-old female patient with chronic kidney disease as well as underlying dementia was admitted to the hospital after she was found on the floor for unknown the duration. Did not have any chest pain or chest discomfort nor shortness of breath. The patient was diagnosed with UTI/sepsis and also she was in acute on chronic renal failure secondary to rhabdomyolysis. At this point, and in view of the absence of any chest pain or discomfort, as well as in the absence of any ischemic ST changes on the EKG, I recommended a conservative medical approach. Also the patient is in acute on chronic renal failure. We'll continue the aspirin and amiodarone. Continue holding any anticoagulation at this point. Continue monitor the platelet and consider low- dose oral anticoagulation once the platelet improved. Follow-up with the patient.
--- NOTE | 2017-08-25 13:25 | US ---
EXAMINATION TYPE: US kidneys/renal and bladder DATE OF EXAM: 08/25/2017 COMPARISON: NONE CLINICAL HISTORY: RENAL FAILURE/UTI/SEPSIS. EXAM MEASUREMENTS: Right Kidney: 7.4 x 3.6 x 4.0 cm Left Kidney: 9.0 x 4.4. x 4.5 cm ICU patient, large body habitus, colostomy bag on right, patient unable to move or take a breath to h old, technically difficult and limited study Right Kidney: limited views, atrophied Left Kidney: limited views, cyst measuring 2.0 x 1.4 x 1.7cm Bladder: not seen, riojas There is no evidence for hydronephrosis at this point in time. No nephrolithiasis is seen. The urina ry bladder is anechoic. Bilateral ureteral jets are seen. IMPRESSION: Atrophic changes noted. Overall limited study. Left renal cyst.
[2017-08-25] MEDS ORDERED: FUROSEMIDE 10 MG/ML 10 ML VIAL IV STA (13:33)
[2017-08-25] MEDS ORDERED: SODIUM CHLORIDE 0.9% 1,000 ML IV SCH (13:45)
--- NOTE | 2017-08-25 15:16 | PN ---
PROGRESS NOTE The patient is seen for followup for acute kidney injury. Her renal function has been improving. The patient was also quite acidotic and was started on a bicarb drip yesterday. She has had good urine output. Her sodium had dropped to 124 from 135 yesterday while she had been on a bicarb drip with D5W and this has now improved to about 128 mEq/L. The patient is currently sitting up in bed. She is comfortable. She is not in any acute distress. She appears to be mildly short of breath. EXAMINATION: Blood pressure is 107/62, heart rate 88 per minute. She is afebrile. Examination of the heart S1, S2. Examination of the lungs bilateral breath sounds are heard. Abdomen is soft, nontender. Ileostomy is noted. Examination of the lower extremities shows no evidence of edema. LATHE SETUP OPERATOR exam is grossly intact. Patient moving all 4 extremities. LAB: Show sodium 128, potassium 3.0, chloride 102, CO2 17, BUN 46, serum creatinine 2.7, hemoglobin 11.1 g/dL, magnesium 1.5, phosphorus 4.0, calcium 7.5. ASSESSMENT: 1. Acute kidney injury, acute tubular necrosis, currently nonoliguric and improving. 2. Chronic kidney disease with unknown baseline with previous creatinine at 3, which was most likely an acute kidney injury as well as patient denies any prior history of kidney diseases. 3. Hypokalemia currently being replaced. 4. Severe metabolic acidosis, non gap secondary to gastrointestinal fluid loss through the ostomy as well as renal failure, currently improved. Oral sodium bicarb will be increased and with that bicarb drip will be discontinued. 5. Hypokalemia, being replaced. 6. Urinary tract infection with urine culture growing Klebsiella pneumonia and blood culture growing Klebsiella pneumonia. An ultrasound of the kidneys has been ordered. PLAN: 1. Okay to DC bicarb drip. Change to normal saline. 2. Replace potassium. 3. Repeat labs in a.m.. MMODL / IJN: [id number] /
[2017-08-25] MEDS: PRAVASTATIN SODIUM 40 MG TAB PO SCH (20:34)
[2017-08-25] MEDS ORDERED: Potassium Replacement Protocol 1 EACH MISC MISCELLANE PRN (22:27)
[2017-08-25] MEDS ORDERED: POTASSIUM CHLORIDE ER 20 MEQ TAB.ER PO SCH (23:00)
[2017-08-25] MEDS: POTASSIUM CHLORIDE 10 MEQ, LIDOCAINE 2% INJ 10 MG in SODIUM CHLORIDE 0.9% 100 ML IV SCH (23:46)
[2017-08-25] MEDS: MAGNESIUM SULFATE-D5W PMX 1 GM in DEXTROSE/WATER 1 100ML.BAG IVPB SCH (23:46)
[2017-08-25] MEDS: POTASSIUM CHLORIDE ER 20 MEQ TAB.ER PO SCH (23:59)
[2017-08-26] MEDS: POTASSIUM CHLORIDE 10 MEQ, LIDOCAINE 2% INJ 10 MG in SODIUM CHLORIDE 0.9% 100 ML IV SCH (00:47)
[2017-08-26] MEDS: MAGNESIUM SULFATE-D5W PMX 1 GM in DEXTROSE/WATER 1 100ML.BAG IVPB SCH (00:47)
[2017-08-26] MEDS: POTASSIUM CHLORIDE ER 20 MEQ TAB.ER PO SCH ×3 (00:47→02:49)
[2017-08-26 04:59] LABS: Basophils # (A) 0.1 k/uL (0-0.2); Basophils % (A) 0 %; CH 30.1; CHCM 32.6; Eosinophils # (A) 0.2 k/uL (0-0.7); Eosinophils % (A) 2 %; HCT 34.4 % (34.0-46.0); HDW 3.06; HGB 11.1 gm/dL (11.4-16.0); Luc # (Auto) 0.37; Luc % (Auto) 3; Lymphocytes % (A) 7 %; MCH 30.1 pg (25.0-35.0); MCHC 32.4 g/dL (31.0-37.0); MCV 92.9 fL (80.0-100.0); Mean Platelet Volume 8.6; Monocytes # (A) 0.9 k/uL (0-1.0); Monocytes % (A) 7 %; Neutrophils # (A) 11.4 k/uL (1.3-7.7); Neutrophils % (A) 82 %; RDW 14.8 % (11.5-15.5); WBC 13.9 k/uL (3.8-10.6); WBC (Perox) 14.86
[2017-08-26 05:14] LABS: Calcium 7.4 mg/dL (8.4-10.2); Magnesium 2.2 mg/dL (1.6-2.3); Potassium 3.8 mmol/L (3.5-5.1); Total Bilirubin 0.2 mg/dL (0.2-1.3)
[2017-08-26] MEDS ORDERED: POTASSIUM CHLORIDE ER 20 MEQ TAB.ER PO STA (07:04)
[2017-08-26] MEDS: AMIODARONE 200 MG TAB PO SCH ×2 (08:17→19:40)
[2017-08-26] MEDS: PANTOPRAZOLE 40 MG/10 ML VIAL IV SCH (08:17)
[2017-08-26] MEDS: cefTRIAXone IN SWFI 1,000 MG/10 ML SYRINGE IVP SCH (08:17)
[2017-08-26] MEDS: AZTREONAM 1 GM in SODIUM CHLORIDE 0.9% 50 ML IVPB SCH ×2 (08:18→19:43)
[2017-08-26] MEDS: ASPIRIN 325 MG TAB PO SCH (08:18)
[2017-08-26] MEDS: SERTRALINE 50 MG TAB PO SCH (08:19)
[2017-08-26] MEDS: SODIUM BICARBONATE TAB 650 MG TAB PO SCH ×3 (08:19→22:08)
--- NOTE | 2017-08-26 08:28 | XR ---
EXAMINATION TYPE: XR chest 1V DATE OF EXAM: 08/26/2017 COMPARISON: 08/25/2017 HISTORY: 86 year-old female shortness of breath TECHNIQUE: Single frontal view of the chest is obtained. FINDINGS: Heart remains mildly enlarged. Limited kyphotic positioning. Small pleural effusions persist with bib asilar opacities and diffuse interstitial and vascular prominence. No sniffing change from prior. IMPRESSION: Overall stable findings suggesting moderate CHF with interstitial edema. Small pleural effusions with adjacent atelectasis and/or consolidation.
--- NOTE | 2017-08-26 10:07 | P.PN ---
Subjective Progress Note Date: 08/26/17 Principal diagnosis: UTI with Septic shock, NSTEMI type 2, Patient seen bedside no acute events overnight per nursing staff. Patient seen sitting upright in bed eating breakfast. Daughter at bedside patient is more awake and interactive patient states that she is feeling overall fatigued however has more energy than she has in the past few days she currently denies any chest pain no shortness of breath no dizziness or lightheadedness. Objective - Vital Signs Vital signs: Vital Signs Temp 98.3 F 08/26/17 08:00 Pulse 64 08/26/17 08:00 Resp 18 08/26/17 08:00 BP 109/62 08/26/17 08:00 Pulse Ox 96 08/26/17 08:00 Intake & Output 08/25/17 08/26/17 08/26/17 18:59 06:59 18:59 Intake Total 850 1050 40 Output Total 2110 1926 295 Balance -1260 -876 -255 Weight 82.2 kg Intake: IV 850 550 40 Aztreonam 1 gm In Sodium 50 Chloride 0.9% 50 ml @ 100 mls/hr IVPB Q12HR [facility] Rx #:[id number] Potassium Chloride 10 meq 400 300 Lidocaine 2% Inj 10 mg In Sodium Chloride 0.9% 100 ml @ 100 mls/hr IVPB Q1HR [facility] Rx#:[id number] Sodium Chloride 0.45% 1, 70 000 ml @ 70 mls/hr IV . [id number] [facility] with Sod Bicarb Syr 8.4% (1 Meq/ml ) 150 ml Rx#:[id number] Sodium Chloride 0.9% 1, 380 200 40 000 ml @ 50 mls/hr IV . Q20H [facility] Rx#:[id number] Intake, IV Titration 100 Amount Magnesium Sulfate-D5w Pmx 100 1 gm In Dextrose/Water 1 100ml.bag @ 100 mls/hr IVPB Q1H [facility] Rx#: [id number] Oral 400 0 Output: Urine 1470 1751 245 Stool 640 175 50 Other: Voiding Method Indwelling Catheter Indwelling Catheter Indwelling Catheter # Bowel Movements 1 - Exam GENERAL: Sitting upright in bed eating breakfast in NAD and tolerating it well, awake and alert she's oriented to place \ she is calm and cooperative, nontoxic appearing no diaphoresis slightly more drowsy than previous HEENT: NCAT, PERRLA, EOMI, Anicteric conjunctiva pale, no drainage per ears or nose oral mucosa pink moist free of any lesions NECK: Enlarged neck circumference Supple with no Mass, no lymphadenopathy no JVD Lungs: CTA bilateral, No wheezes, No rales, no Rhonchi. No use of Accessory muscle of respiration. Symmetrical chest wall expansion no chest wall tenderness on 4L supplemental O2 CVS: Normal S1/S2, RRR, no mrg, no jvd, 1+ bilateral LE pitting Edema. 2+ pedal pulses. GI:, soft nontender, no distention, there is evidence of multiple abdominal scars from prior surgeries there is a colostomy bag in the right quadrant that' s has watery black stools however has some increase consistency than prior no hsp, no cvat b. No rebound, no Rovsing sign. no gaurding. Positive bowel sounds in all 4 quadrants MSK: KAPLAN, Full ROM, diminished handgrip bilaterally overall strength is diminished SKIN: +decrease skin turgor. Cap refill <2sec NEURO: CN 2-12 intact, no focal deficits, speech is fluent and contextual, no dysarthria, face is symmetrical. No droop diminished DTRs in lower extremity PSY: No depression or anxiety noted - Labs CBC & Chem 7: 08/26/17 04:48 08/26/17 04:48 Labs: Abnormal Lab Results - Last 24 Hours (Table) 08/25/17 08/25/17 08/25/17 Range/Units 08:37 11:00 19:59 WBC (3.8-10.6) k/uL RBC (3.80-5.40) m/uL Hgb (11.4-16.0) gm/dL Plt Count (150-450) k/uL Neutrophils # (1.3-7.7) k/uL Sodium (137-145) mmol/L Potassium 3.3 L (3.5-5.1) mmol/L Carbon Dioxide (22-30) mmol/L BUN (7-17) mg/dL Creatinine (0.52-1.04) mg/dL Calcium (8.4-10.2) mg/dL Total Protein (6.3-8.2) g/dL Albumin (3.5-5.0) g/dL Ur Random Sodium 23 L (30-90) mmol/L Stool Occult Blood Positive H (Negative) 08/26/17 08/26/17 Range/Units 04:48 04:48 WBC 13.9 H (3.8-10.6) k/uL RBC 3.70 L (3.80-5.40) m/uL Hgb 11.1 L (11.4-16.0) gm/dL Plt Count 106 L (150-450) k/uL Neutrophils # 11.4 H (1.3-7.7) k/uL Sodium 135 L (137-145) mmol/L Potassium (3.5-5.1) mmol/L Carbon Dioxide 17 L (22-30) mmol/L BUN 46 H (7-17) mg/dL Creatinine 2.56 H (0.52-1.04) mg/dL Calcium 7.4 L (8.4-10.2) mg/dL Total Protein 5.0 L (6.3-8.2) g/dL Albumin 2.5 L (3.5-5.0) g/dL Ur Random Sodium (30-90) mmol/L Stool Occult Blood (Negative) Microbiology - Last 24 Hours (Table) 08/24/17 17:04 Blood Culture - Preliminary Blood No Growth after 24 hours Assessment and Plan Assessment: Assessment: #1 urinary tract infection with septic shock present on admission. Blood and urine Cultures obtained in 08/22/2017 grew Klebsiella pneumonia. Patient will continue with broad-spectrum antibiotics patient's white count was noted to have decreased from 19.0 to 13.9 and this morning, no reported fevers. she is on rochepin 1gm daily and Aztreonam 1gm q12h best to continue #[address] kidney injury on CT D stage IV multifactorial likely secondary to 2 hypoperfusion state during her shock, also prerenal from dehydration avoiding of toxic agents -improving Cr today 2.56<--- 2.7<---3.10--<3.77. #3 AG Metabolic Acidosis with lactic acidosis. This secondary to sepsis and anion gap metabolic acidosis, lactic acid was improved however patient is still showing metabolic acidosis her bicarbonate on morning lab was 11. there is slight improvement, Given that patient continues to have Acidosis coupled with increasing white count along with increased output from ostomy bag. C. diff was obtained on august and that was negative an patient on oral bicarbonate that is to continue #4 elevated troponin in the setting of an STEMI type II cardiology was consult and no intervention at this time heparin drip was discontinued due to thrombocytopenia patient will likely require anticoagulation once her clinical symptoms improve and labs improved 5 ulcerative colitis status post ileostomy. #7 peripheral vascular disease. #8 hiatal hernia. #9 (History depression. 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 Patient goal to get in the bedside chair this afternoon #12 hypokalemia resolved with supplementation . Disposition: Patient discharged goal is to return home and where her daughter is her caregiver. She'll likely require home care
--- NOTE | 2017-08-26 11:21 | P.PN ---
Subjective Patient is seen in follow-up for acute kidney injury. Creatinine was 4.96 on admission and is down to 2.56 today. She is currently being treated for Klebsiella bacteremia as well as urinary tract infection. Her oral intake is good. She is nonoliguric with urine output over 100 mL an hour. Denies chest pain or shortness of breath. She does have a dry cough. No vomiting or diarrhea. Vital signs are stable. General: The patient appeared well nourished and normally developed. HEENT: Head exam is unremarkable. Neck is without jugular venous distension. LUNGS: Lungs are clear to auscultation and percussion. Breath sounds decreased. HEART: Rate and Rhythm are regular. First and second heart sounds normal. No murmurs, rubs or gallops. ABDOMEN: Abdominal exam reveals normal bowel sounds. Non-tender and non- distended. No evidence of peritonitis. EXTREMITITES: No clubbing, cyanosis, or edema. Objective - Vital Signs Vital signs: Vital Signs Temp 98.3 F 08/26/17 08:00 Pulse 71 08/26/17 11:00 Resp 26 H 08/26/17 11:00 BP 109/63 08/26/17 11:00 Pulse Ox 95 08/26/17 11:00 Intake & Output 08/25/17 08/26/17 08/26/17 18:59 06:59 18:59 Intake Total 850 1050 100 Output Total 2110 1926 830 Balance -1260 -876 -730 Weight 82.2 kg Intake: IV 850 550 100 Aztreonam 1 gm In Sodium 50 Chloride 0.9% 50 ml @ 100 mls/hr IVPB Q12HR [facility] Rx #:[id number] Potassium Chloride 10 meq 400 300 Lidocaine 2% Inj 10 mg In Sodium Chloride 0.9% 100 ml @ 100 mls/hr IVPB Q1HR [facility] Rx#:[id number] Sodium Chloride 0.45% 1, 70 000 ml @ 70 mls/hr IV . [id number] [facility] with Sod Bicarb Syr 8.4% (1 Meq/ml ) 150 ml Rx#:[id number] Sodium Chloride 0.9% 1, 380 200 100 000 ml @ 50 mls/hr IV . Q20H [facility] Rx#:[id number] Intake, IV Titration 100 Amount Magnesium Sulfate-D5w Pmx 100 1 gm In Dextrose/Water 1 100ml.bag @ 100 mls/hr IVPB Q1H [facility] Rx#: [id number] Oral 400 0 Output: Urine 1470 1751 640 Stool 640 175 190 Other: Voiding Method Indwelling Catheter Indwelling Catheter Indwelling Catheter # Bowel Movements 1 - Labs CBC & Chem 7: 08/26/17 04:48 08/26/17 04:48 Labs: Abnormal Lab Results - Last 24 Hours (Table) 08/25/17 08/25/17 08/25/17 Range/Units 08:37 11:00 19:59 WBC (3.8-10.6) k/uL RBC (3.80-5.40) m/uL Hgb (11.4-16.0) gm/dL Plt Count (150-450) k/uL Neutrophils # (1.3-7.7) k/uL Sodium (137-145) mmol/L Potassium 3.3 L (3.5-5.1) mmol/L Carbon Dioxide (22-30) mmol/L BUN (7-17) mg/dL Creatinine (0.52-1.04) mg/dL Calcium (8.4-10.2) mg/dL Total Protein (6.3-8.2) g/dL Albumin (3.5-5.0) g/dL Ur Random Sodium 23 L (30-90) mmol/L Stool Occult Blood Positive H (Negative) 08/26/17 08/26/17 Range/Units 04:48 04:48 WBC 13.9 H (3.8-10.6) k/uL RBC 3.70 L (3.80-5.40) m/uL Hgb 11.1 L (11.4-16.0) gm/dL Plt Count 106 L (150-450) k/uL Neutrophils # 11.4 H (1.3-7.7) k/uL Sodium 135 L (137-145) mmol/L Potassium (3.5-5.1) mmol/L Carbon Dioxide 17 L (22-30) mmol/L BUN 46 H (7-17) mg/dL Creatinine 2.56 H (0.52-1.04) mg/dL Calcium 7.4 L (8.4-10.2) mg/dL Total Protein 5.0 L (6.3-8.2) g/dL Albumin 2.5 L (3.5-5.0) g/dL Ur Random Sodium (30-90) mmol/L Stool Occult Blood (Negative) Microbiology - Last 24 Hours (Table) 08/24/17 17:04 Blood Culture - Preliminary Blood No Growth after 24 hours Assessment and Plan Plan: Assessment: #1. Nonoliguric acute kidney injury secondary to ischemic ATN secondary to severe sepsis. Renal function improving with creatinine down to 2.56 today. #2. Metabolic acidosis secondary to acute kidney injury. #3. Rule out chronic kidney disease. Unclear as to what her baseline renal function is. Renal ultrasound revealed atrophic right kidney. #4. Sepsis secondary to Klebsiella bacteremia and UTI, maintained on antibiotics. Plan: She remains off all IV fluids. Hold off on Lasix for now as her urine output is over 100 mL an hour. Maintain oral sodium bicarbonate. Avoid nephrotoxic agents and hypotensive episodes. Encouraged oral intake. Repeat electrolytes in the morning.
--- NOTE | 2017-08-26 12:12 | P.PN ---
Subjective Principal diagnosis: non-STEMI This is a pleasant 86-year-old female patient with no significant past medical history except for mild underlying dementia was brought to the hospital by her family after she was found on the floor by one of her family member. The patient is somewhat poor historian. 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 The patient was brought to the emergency room after she was on the floor. She stated that she was feeling progressively weak for the last week. She stated that she did not lose her consciousness. We don't know the duration and for how long the patient was on the floor. In the emergency room the patient was found to be hypotensive and was diagnosed with UTI/sepsis and was found to be in acute renal failure and also she was found to have rhabdomyolysis. The CK is elevated, CK-MB is elevated, and the troponin is elevated as well. The EKG showed only nonspecific changes. The patient stated that she did not have any chest pain or discomfort, no difficulty breathing, and no feeling of heart racing or fluttering and no loss of consciousness. She just was feeling progressively weak as a main complaint. On follow-up with the patient today on 08/26/2017, she seems to be doing better. Her mentation is definitely better she is awake, alert, and oriented 3. Does not complain of any chest pain but she is in mild respiratory distress. She went into an A. fib and she was converted to normal sinus mechanism. We'll continue holding any anticoagulation in view of the thrombocytopenia. The echocardiogram revealed normal LV function without any significant valvular abnormalities. I will consider oral anticoagulation using small dose of Eliquis once the thrombocytopenia improved. Objective - Vital Signs Vital signs: Vital Signs Temp 98.3 F 08/26/17 08:00 Pulse 71 08/26/17 11:00 Resp 26 H 08/26/17 11:00 BP 109/63 08/26/17 11:00 Pulse Ox 95 08/26/17 11:00 Intake & Output 08/25/17 08/26/17 08/26/17 18:59 06:59 18:59 Intake Total 850 1050 100 Output Total 2110 4156 830 Balance -1260 -876 -730 Weight 82.2 kg Intake: IV 850 550 100 Aztreonam 1 gm In Sodium 50 Chloride 0.9% 50 ml @ 100 mls/hr IVPB Q12HR [facility] Rx #:[id number] Potassium Chloride 10 meq 400 300 Lidocaine 2% Inj 10 mg In Sodium Chloride 0.9% 100 ml @ 100 mls/hr IVPB Q1HR [facility] Rx#:[id number] Sodium Chloride 0.45% 1, 70 000 ml @ 70 mls/hr IV . [id number] [facility] with Sod Bicarb Syr 8.4% (1 Meq/ml ) 150 ml Rx#:[id number] Sodium Chloride 0.9% 1, 380 200 100 000 ml @ 50 mls/hr IV . Q20H [facility] Rx#:[id number] Intake, IV Titration 100 Amount Magnesium Sulfate-D5w Pmx 100 1 gm In Dextrose/Water 1 100ml.bag @ 100 mls/hr IVPB Q1H [facility] Rx#: [id number] Oral 400 0 Output: Urine 1470 1751 640 Stool 640 175 190 Other: Voiding Method Indwelling Catheter Indwelling Catheter Indwelling Catheter # Bowel Movements 1 - Constitutional General appearance: Present: no acute distress - Respiratory Respiratory: right: CTA, left: rales - Cardiovascular Rhythm: regular Heart sounds: normal: S1, S2 - Labs CBC & Chem 7: 08/26/17 04:48 08/26/17 04:48 Labs: Abnormal Lab Results - Last 24 Hours (Table) 08/25/17 08/25/17 08/26/17 Range/Units 11:00 19:59 04:48 WBC 13.9 H (3.8-10.6) k/uL RBC 3.70 L (3.80-5.40) m/uL Hgb 11.1 L (11.4-16.0) gm/dL Plt Count 106 L (150-450) k/uL Neutrophils # 11.4 H (1.3-7.7) k/uL Sodium (137-145) mmol/L Potassium 3.3 L (3.5-5.1) mmol/L Carbon Dioxide (22-30) mmol/L BUN (7-17) mg/dL Creatinine (0.52-1.04) mg/dL Calcium (8.4-10.2) mg/dL Total Protein (6.3-8.2) g/dL Albumin (3.5-5.0) g/dL Ur Random Sodium 23 L (30-90) mmol/L 08/26/17 Range/Units 04:48 WBC (3.8-10.6) k/uL RBC (3.80-5.40) m/uL Hgb (11.4-16.0) gm/dL Plt Count (150-450) k/uL Neutrophils # (1.3-7.7) k/uL Sodium 135 L (137-145) mmol/L Potassium (3.5-5.1) mmol/L Carbon Dioxide 17 L (22-30) mmol/L BUN 46 H (7-17) mg/dL Creatinine 2.56 H (0.52-1.04) mg/dL Calcium 7.4 L (8.4-10.2) mg/dL Total Protein 5.0 L (6.3-8.2) g/dL Albumin 2.5 L (3.5-5.0) g/dL Ur Random Sodium (30-90) mmol/L Microbiology - Last 24 Hours (Table) 08/24/17 17:04 Blood Culture - Preliminary Blood No Growth after 24 hours Assessment and Plan Assessment: This is a pleasant 86-year-old female patient with chronic kidney disease as well as underlying dementia was admitted to the hospital after she was found on the floor for unknown the duration. Did not have any chest pain or chest discomfort nor shortness of breath. The patient was diagnosed with UTI/sepsis and also she was in acute on chronic renal failure secondary to rhabdomyolysis. At this point, and in view of the absence of any chest pain or discomfort, as well as in the absence of any ischemic ST changes on the EKG, I recommended a conservative medical approach. Also the patient is in acute on chronic renal failure. We'll continue the aspirin and amiodarone. Continue holding any anticoagulation at this point. Continue monitor the platelet and consider low- dose oral anticoagulation once the platelet improved. Follow-up with the patient.
[2017-08-26] MEDS ORDERED: POTASSIUM CHLORIDE ER 20 MEQ TAB.ER PO SCH (14:00)
--- NOTE | 2017-08-26 15:16 | P.PN ---
Subjective Progress Note Date: 08/26/17 Principal diagnosis: Acute sepsis secondary to urinary tract infection This is a very pleasant 86-year-old female patient who was brought into the emergency department after being found on the floor by family members. The patient apparently had fallen at home. The patient states that she had been progressively getting weak over the past few days. She was having some right inguinal/groin pain and increased confusion for which she was taken to the primary care physician and x-ray of the hips and the pelvis was done and showed no osseous lesions and it showed degenerative changes. The patient was released home to come back today with obvious signs of sepsis. Initial investigation here in the emergency department revealed that the patient had an underlying urine checked infection with seems to be the most obvious source of sepsis. Chest x-ray was clear. Troponin was elevated at 11 without any acute ischemic changes and the patient was also ruled in for acute non-ST segment elevation myocardial infarction. She was quite hypotensive at time of arrival systolic in the mid 80s. The patient is currently receiving her second bolus of IV fluids. She was also started on IV heparin. Holman catheter is to be inserted. Her lactic acid level at time of admission was 5.4. She has leukocytosis with a white cell count of 13.3. She has 11% bandemia. She has anion gap metabolic acidosis which is essentially lactic acidosis with a bicarb level of 11. She is also an acute kidney injury with a creatinine of 4.96 in a be on a 51. Note that this is an acute on top of chronic renal injury knowing that the patient's baseline creatinine was around 3.0. The daughter claims that the patient has had previous urinary tract infections all of them have been treated on outpatient basis. Urine drug screen is positive for opiates. The patient is awake. She is lethargic. She occasionally moans. She is able to follow simple commands. There is areas of bruising over the left forehead, right elbow, right upper extremity, lateral acid of the right foot. No obvious joint deformities. No headache. No nausea or vomiting. No abdominal pain. She has a DNR/DNI CODE STATUS. Patient was reevaluated today on 08/23/2017, seems to be in no form of respiratory distress, doing quite well, asymptomatic, denies any shortness of breath, no cough, no wheezing, patient is presently hemodynamically stable, and her labs are showing steady improvement. CBC continues to show leukocytosis with WBC count of 17.9. Her PTT is 45.1 patient remains on heparin for presumptive acute TX. BUN is 47 creatinine is 3.77 CPK is gradually improving down to 1500. Her creatinine on admission was 4.96. Blood culture is positive for gram-negative rods, final report is pending. In the meantime the patient remains on antibiotics. Patient was reevaluated today on 08/24/2017, continues to do well, not in any form of respiratory distress, hemodynamically stable. WBC count remains elevated at 18.0. PTT is therapeutic at 46.8, sodium remains low at 124 BUN is 45 creatinine is 2.99 slightly improved. Patient denies being in any distress, denies any aches and pains, no shortness of breath, no nausea no vomiting no abdominal pain. Patient was reevaluated on 08/25/2017, she seems to be very comfortable, in no form of any distress, patient has been gradually improving over the last few days. Asymptomatic, no cough no wheezing no shortness of breath no chest pain no nausea no vomiting no abdominal pain, and her labs are showing steady improvement. Her blood cultures and urine cultures came back positive for Klebsiella pneumonia, and the patient is on appropriate antibiotics in the form of Rocephin and aztreonam. The Klebsiella is sensitive to both. Continues to have a bit of leukocytosis with WBC count of 19.0, hemoglobin is 11.1. Electrolytes were abnormal with a sodium of 128 but improving. Potassium of 3.0 bicarb is 17 patient will have the sodium bicarb drip discontinued, and increase the oral bicarb. Renal functioning is improving, BUN is 46 creatinine is 2.70 steady improvement has been noted over the last few days. Patient was supposed to go for a CT of the abdomen and pelvis however considering the clinical improvement, no need for CT of the abdomen and pelvis at this point, discussed this issue with the career technical education instructor on the case, and we both felt on ultrasound would be more appropriate at this point. No matter what the findings would be, no major changes will be made in the present treatment plan on this patient. And that's mostly because she is gradually improving over the last few days. And antibiotics are very appropriate for the Klebsiella pneumoniae infection that she has in the blood and in the urine. Chest x-ray is suggestive of mild pulmonary venous congestion and small bilateral pleural effusions, reluctant at this point to start any Lasix but that would be considered depending on the overall clinical status and urine output as well as renal profile. Patient remains on amiodarone dose may have to be readjusted presently at 400 mg by mouth twice a day, and that being addressed by cardiology. Her A. fib seems to be better controlled at this point. Heparin is being addressed by cardiology, Reevaluated today on 08/26/2017, patient continues to do relatively well, she did develop some component of fluid overload yesterday, however she responded well to a dose of Lasix given 60 mg IV push 1. Clinically the patient felt much better, chest x-ray this morning continues to show some interstitial edema , and small effusions, however considering the patient is in negative balance over the last 24 hours and continues to have good urine output, and a bit reluctant to give Lasix again today. However if she doesn't develop any worsening shortness of breath Lasix will be restarted again. Testing for C. difficile colitis was negative. Ration is being treated for Klebsiella pneumoniae in the blood and in the urine. WBC count is already improving compared to yesterday. Renal function continues to improve, BUN is 46 creatinine is 2.56 today for Objective - Vital Signs Vital signs: Vital Signs Temp 97.8 F 08/26/17 12:00 Pulse 73 08/26/17 13:00 Resp 26 H 08/26/17 13:00 BP 109/63 08/26/17 13:00 Pulse Ox 96 08/26/17 13:00 Intake & Output 08/25/17 08/26/17 08/26/17 18:59 06:59 18:59 Intake Total 850 1050 140 Output Total 6087 0415 713 Balance -1260 -876 -805 Weight 82.2 kg Intake: IV 850 550 140 Aztreonam 1 gm In Sodium 50 Chloride 0.9% 50 ml @ 100 mls/hr IVPB Q12HR [facility] Rx #:[id number] Potassium Chloride 10 meq 400 300 Lidocaine 2% Inj 10 mg In Sodium Chloride 0.9% 100 ml @ 100 mls/hr IVPB Q1HR [facility] Rx#:[id number] Sodium Chloride 0.45% 1, 70 000 ml @ 70 mls/hr IV . [id number] [facility] with Sod Bicarb Syr 8.4% (1 Meq/ml ) 150 ml Rx#:[id number] Sodium Chloride 0.9% 1, 380 200 140 000 ml @ 50 mls/hr IV . Q20H [facility] Rx#:[id number] Intake, IV Titration 100 Amount Magnesium Sulfate-D5w Pmx 100 1 gm In Dextrose/Water 1 100ml.bag @ 100 mls/hr IVPB Q1H [facility] Rx#: [id number] Oral 400 0 Output: Urine 1470 1751 755 Stool 640 175 190 Other: Voiding Method Indwelling Catheter Indwelling Catheter Indwelling Catheter # Bowel Movements 1 - Exam Physical Exam revealed an 86-year-old female in no distress, asymptomatic. HEENT:[Neck is supple.] [No neck masses.] [No thyromegaly.] [No JVD.] Chest: [Clear throughout, no crackles, no rhonchi, no wheezes.] Cardiac Exam: [Normal S1 and S2, no S3 gallop, no murmur.] Abdomen: [Soft, nontender, no megaly, no rebound, no guarding, normal bowel sounds. Positive ileostomy bag is noted, patient had previous ulcerative colitis surgery. Ileostomy is functioning well.] Extremities: [No clubbing, no edema, no cyanosis.] Neurological Exam: [No focal neurologic deficit.] Psychiatric: Normal mood and affect, normal mental status examination. Lymphatics: No lymphadenopathy. Psychiatric: Normal mood and affect and mental status examination - Labs CBC & Chem 7: 08/26/17 04:48 08/26/17 11:22 Labs: Abnormal Lab Results - Last 24 Hours (Table) 08/25/17 08/26/17 08/26/17 Range/Units 19:59 04:48 04:48 WBC 13.9 H (3.8-10.6) k/uL RBC 3.70 L (3.80-5.40) m/uL Hgb 11.1 L (11.4-16.0) gm/dL Plt Count 106 L (150-450) k/uL Neutrophils # 11.4 H (1.3-7.7) k/uL Sodium 135 L (137-145) mmol/L Potassium 3.3 L (3.5-5.1) mmol/L Carbon Dioxide 17 L (22-30) mmol/L BUN 46 H (7-17) mg/dL Creatinine 2.56 H (0.52-1.04) mg/dL Calcium 7.4 L (8.4-10.2) mg/dL Total Protein 5.0 L (6.3-8.2) g/dL Albumin 2.5 L (3.5-5.0) g/dL Microbiology - Last 24 Hours (Table) 08/24/17 17:04 Blood Culture - Preliminary Blood No Growth after 24 hours Assessment and Plan Plan: 1 acute sepsis secondary to an underlying urine tract infection secondary to Klebsiella pneumonia 2 acute fever, leukocytosis, hypotension and lactic acidosis secondary to urine tract infection/sepsis 3 acute lactic acidosis secondary to sepsis 4 acute on top of chronic kidney failure. Improving steadily since admission 5 hypotension, secondary to sepsis responded to fluid boluses, did not require any pressors 6 acute non-ST segment elevation myocardial infarction, no acute changes and the patient is asymptomatic without any chest pain, being addressed by cardiology on the case. 7 ulcerative colitis with a previous ileostomy, functioning well 8 dementia 9 peripheral vascular disease 10 small hiatal hernia 11 fall without any obvious major injuries 12 acute fluid overload and congestive heart failure most likely systolic in nature, not to mention the patient has been receiving lots of fluid since admission. However the patient seems to respond well to diuretics, received Lasix at 60 mg IV push 1 yesterday on 08/25/2017, and the response was excellent. Recommendation: Continue present supportive care measures, patient is presently overflow from [facility], we'll likely transfer to [facility] as a bed becomes available. We will continue to follow closely. Discussed her condition with daughter at bedside. Reviewed chest x-ray and at this point I would hold on diuresis unless the patient develops any worsening symptoms. Time with Patient: Less than 30
[2017-08-26] MEDS: traMADol 50 MG TAB PO PRN ×2 (16:01→19:47)
[2017-08-26] MEDS: PRAVASTATIN SODIUM 40 MG TAB PO SCH (19:40)
[2017-08-27 04:45] LABS: Basophils # (A) 0.1 k/uL (0-0.2); Basophils % (A) 1 %; CH 29.5; CHCM 32.7; Eosinophils # (A) 0.3 k/uL (0-0.7); Eosinophils % (A) 3 %; HCT 33.7 % (34.0-46.0); HDW 3.05; Luc # (Auto) 0.35; Luc % (Auto) 4; Lymphocytes % (A) 10 %; MCH 29.6 pg (25.0-35.0); MCHC 32.5 g/dL (31.0-37.0); MCV 90.8 fL (80.0-100.0); Mean Platelet Volume 8.6; Monocytes # (A) 0.8 k/uL (0-1.0); Monocytes % (A) 8 %; Neutrophils # (A) 7.4 k/uL (1.3-7.7); Neutrophils % (A) 75 %; RBC 3.71 m/uL (3.80-5.40); RDW 14.8 % (11.5-15.5); WBC (Perox) 10.89
[2017-08-27 05:06] LABS: Calcium 7.8 mg/dL (8.4-10.2); Magnesium 1.8 mg/dL (1.6-2.3); Phosphorus 2.9 mg/dL (2.5-4.5); Potassium 4.2 mmol/L (3.5-5.1)
[2017-08-27] MEDS ORDERED: MAGNESIUM SULFATE-D5W PMX 1 GM in DEXTROSE/WATER 1 100ML.BAG IVPB ONE (05:45)
--- NOTE | 2017-08-27 08:23 | XR ---
EXAMINATION TYPE: XR chest 1V DATE OF EXAM: 08/27/2017 COMPARISON: 07/26/2017 HISTORY: Shortness of breath TECHNIQUE: Single frontal view of the chest is obtained. FINDINGS: There are similar layering bilateral small pleural effusions and associated bibasilar airs pace disease. Degree of pulmonary vascular congestion has improved from the prior. Patient's chin aga in obscures the lung apices. Cardiac silhouette is unchanged and mildly enlarged. IMPRESSION: Improving pulmonary vascular congestion in the setting of congestive heart failure with persistent small layering pleural effusions and associated bibasilar airspace disease, likely atelect asis.
[2017-08-27] MEDS: FUROSEMIDE 10 MG/ML 4 ML VIAL IV SCH (08:31)
[2017-08-27] MEDS: AMIODARONE 200 MG TAB PO SCH ×2 (08:31→09:55)
[2017-08-27] MEDS: ASPIRIN 325 MG TAB PO SCH (08:31)
[2017-08-27] MEDS: SODIUM BICARBONATE TAB 650 MG TAB PO SCH ×2 (08:32→22:19)
[2017-08-27] MEDS: SERTRALINE 50 MG TAB PO SCH (08:32)
[2017-08-27] MEDS: PANTOPRAZOLE 40 MG TABLET PO SCH (08:32)
[2017-08-27] MEDS: cefTRIAXone IN SWFI 1,000 MG/10 ML SYRINGE IVP SCH (08:35)
[2017-08-27] MEDS: AZTREONAM 1 GM in SODIUM CHLORIDE 0.9% 50 ML IVPB SCH ×2 (08:35→22:18)
[2017-08-27] MEDS: traMADol 50 MG TAB PO PRN (11:00)
--- NOTE | 2017-08-27 11:02 | P.PN ---
Subjective Principal diagnosis: non-STEMI This is a pleasant 86-year-old female patient with no significant past medical history except for mild underlying dementia was brought to the hospital by her family after she was found on the floor by one of her family member. The patient is somewhat poor historian. She stated that she does not follow with any registered dental assistant rda as an outpatient and does not have any prior cardiac history of coronary artery disease or congestive heart failure or cardiac arrhythmia. The patient was brought to the emergency room after she was on the floor. She stated that she was feeling progressively weak for the last week. She stated that she did not lose her consciousness. We don't know the duration and for how long the patient was on the floor. In the emergency room the patient was found to be hypotensive and was diagnosed with UTI/sepsis and was found to be in acute renal failure and also she was found to have rhabdomyolysis. The CK is elevated, CK-MB is elevated, and the troponin is elevated as well. The EKG showed only nonspecific changes. The patient stated that she did not have any chest pain or discomfort, no difficulty breathing, and no feeling of heart racing or fluttering and no loss of consciousness. She just was feeling progressively weak as a main complaint. On follow-up with the patient today on 08/27/2017, she seems to be doing better. Her mentation is definitely better she is awake, alert, and oriented 3. Does not complain of any chest pain. She is sitting comfortably in her chair. She has been maintaining normal sinus mechanism. The dose of amiodarone was lowered we will continue that. Also I will start the patient on oral anticoagulation because her platelets has improved. She was not on any anticoagulation since she was admitted because of thrombocytopenia which has recovered. Objective - Vital Signs Vital signs: Vital Signs Temp 98.7 F 08/27/17 03:36 Pulse 68 08/27/17 03:36 Resp 16 08/27/17 03:36 BP 100/58 08/27/17 03:36 Pulse Ox 96 08/27/17 03:36 Intake & Output 08/26/17 08/27/17 08/27/17 18:59 06:59 18:59 Intake Total 180 710 Output Total 1105 2910 100 Balance -925 -2200 -100 Weight 83.5 kg 83.5 kg Intake: IV 180 210 Aztreonam 1 gm In Sodium 50 Chloride 0.9% 50 ml @ 100 mls/hr IVPB Q12HR [facility] Rx #:[id number] Sodium Chloride 0.9% 1, 180 160 000 ml @ 50 mls/hr IV . Q20H [facility] Rx#:[id number] Oral 0 500 Output: Urine 915 1410 Stool 190 1500 100 Other: Voiding Method Indwelling Catheter Indwelling Catheter Indwelling Catheter # Bowel Movements 300 - Constitutional General appearance: Present: no acute distress - Respiratory Respiratory: bilateral: CTA - Cardiovascular Rhythm: regular Heart sounds: normal: S1, S2 - Labs CBC & Chem 7: 08/27/17 04:12 08/27/17 04:12 Labs: Abnormal Lab Results - Last 24 Hours (Table) 08/27/17 08/27/17 Range/Units 04:12 04:12 RBC 3.71 L (3.80-5.40) m/uL Hgb 11.0 L (11.4-16.0) gm/dL Hct 33.7 L (34.0-46.0) % Plt Count 138 L (150-450) k/uL Sodium 130 L (137-145) mmol/L BUN 50 H (7-17) mg/dL Creatinine 2.50 H (0.52-1.04) mg/dL Calcium 7.8 L (8.4-10.2) mg/dL Microbiology - Last 24 Hours (Table) 08/24/17 17:04 Blood Culture - Preliminary Blood No Growth after 48 hours Assessment and Plan Assessment: This is a pleasant 86-year-old female patient with chronic kidney disease as well as underlying dementia was admitted to the hospital after she was found on the floor for unknown the duration. Did not have any chest pain or chest discomfort nor shortness of breath. The patient was diagnosed with UTI/sepsis and also she was in acute on chronic renal failure secondary to rhabdomyolysis. At this point, and in view of the absence of any chest pain or discomfort, as well as in the absence of any ischemic ST changes on the EKG, I recommended a conservative medical approach. Also the patient is in acute on chronic renal failure. We'll continue the aspirin and amiodarone. Start oral anticoagulation.
--- NOTE | 2017-08-27 12:24 | PN ---
PROGRESS NOTE Patient is seen for followup for acute kidney injury. She is currently sitting up in bed, comfortable, not in any acute distress. She has had excellent urine output, serum creatinine staying at about 2.5 mg/dL now. Patient is not in any IV fluids. She has been eating somewhat. PHYSICAL EXAMINATION: Blood pressure is 100/58, heart rate 68 per minute. She is afebrile. Examination of the heart S1, S2. Examination of the lungs, decreased breath sounds at the bases. Bilateral basal crackles are heard. Abdomen is soft, nontender. Ileostomy is noted. Examination of the lower extremities shows edema 1+ bilaterally. LABS: Sodium 130, potassium 4.2, chloride 101, CO2 is 24, BUN 50, serum creatinine 2.5, hemoglobin 11.0 g/dL. ASSESSMENT: 1. Acute kidney injury, acute tubular necrosis, currently improved with serum creatinine going down from 4.9 to about 2.5 mg/dL. 2. Chronic kidney disease NKF stage IV with baseline creatinine, possibly around 2.5. Previous creatinine was 3 in 2015. We do not have any other labs. That may also have been an acute kidney injury in 2015. 3. Hyponatremia, currently improved. It was most likely hypervolemic as patient responded well to diuresis. 4. Mild volume overload. Will give her 1 dose of IV Lasix and repeat in a.m. This can be adjusted depending on her volume status. 5. Metabolic acidosis, currently improved. Patient is maintained on oral sodium bicarb. We can likely decrease the dose of sodium bicarb by tomorrow depending on her labs. This is also adding sodium load. 6. Sepsis with Klebsiella urinary tract infection and bacteremia. Maintained on aztreonam. PLAN: Lasix IV x1, 40 mg. Repeat in a.m. Monitor electrolytes. MMODL / IJN: [id number] /
--- NOTE | 2017-08-27 12:55 | P.PN ---
Subjective Progress Note Date: 08/27/17 Principal diagnosis: Acute sepsis secondary to urinary tract infection This is a very pleasant 86-year-old female patient who was brought into the emergency department after being found on the floor by family members. The patient apparently had fallen at home. The patient states that she had been progressively getting weak over the past few days. She was having some right inguinal/groin pain and increased confusion for which she was taken to the primary care physician and x-ray of the hips and the pelvis was done and showed no osseous lesions and it showed degenerative changes. The patient was released home to come back today with obvious signs of sepsis. Initial investigation here in the emergency department revealed that the patient had an underlying urine checked infection with seems to be the most obvious source of sepsis. Chest x-ray was clear. Troponin was elevated at 11 without any acute ischemic changes and the patient was also ruled in for acute non-ST segment elevation myocardial infarction. She was quite hypotensive at time of arrival systolic in the mid 80s. The patient is currently receiving her second bolus of IV fluids. She was also started on IV heparin. Holman catheter is to be inserted. Her lactic acid level at time of admission was 5.4. She has leukocytosis with a white cell count of 13.3. She has 11% bandemia. She has anion gap metabolic acidosis which is essentially lactic acidosis with a bicarb level of 11. She is also an acute kidney injury with a creatinine of 4.96 in a be on a 51. Note that this is an acute on top of chronic renal injury knowing that the patient's baseline creatinine was around 3.0. The daughter claims that the patient has had previous urinary tract infections all of them have been treated on outpatient basis. Urine drug screen is positive for opiates. The patient is awake. She is lethargic. She occasionally moans. She is able to follow simple commands. There is areas of bruising over the left forehead, right elbow, right upper extremity, lateral acid of the right foot. No obvious joint deformities. No headache. No nausea or vomiting. No abdominal pain. She has a DNR/DNI CODE STATUS. Patient was reevaluated today on 08/23/2017, seems to be in no form of respiratory distress, doing quite well, asymptomatic, denies any shortness of breath, no cough, no wheezing, patient is presently hemodynamically stable, and her labs are showing steady improvement. CBC continues to show leukocytosis with WBC count of 17.9. Her PTT is 45.1 patient remains on heparin for presumptive acute MD. BUN is 47 creatinine is 3.77 CPK is gradually improving down to 1500. Her creatinine on admission was 4.96. Blood culture is positive for gram-negative rods, final report is pending. In the meantime the patient remains on antibiotics. Patient was reevaluated today on 08/24/2017, continues to do well, not in any form of respiratory distress, hemodynamically stable. WBC count remains elevated at 18.0. PTT is therapeutic at 46.8, sodium remains low at 124 BUN is 45 creatinine is 2.99 slightly improved. Patient denies being in any distress, denies any aches and pains, no shortness of breath, no nausea no vomiting no abdominal pain. Patient was reevaluated on 08/25/2017, she seems to be very comfortable, in no form of any distress, patient has been gradually improving over the last few days. Asymptomatic, no cough no wheezing no shortness of breath no chest pain no nausea no vomiting no abdominal pain, and her labs are showing steady improvement. Her blood cultures and urine cultures came back positive for Klebsiella pneumonia, and the patient is on appropriate antibiotics in the form of Rocephin and aztreonam. The Klebsiella is sensitive to both. Continues to have a bit of leukocytosis with WBC count of 19.0, hemoglobin is 11.1. Electrolytes were abnormal with a sodium of 128 but improving. Potassium of 3.0 bicarb is 17 patient will have the sodium bicarb drip discontinued, and increase the oral bicarb. Renal functioning is improving, BUN is 46 creatinine is 2.70 steady improvement has been noted over the last few days. Patient was supposed to go for a CT of the abdomen and pelvis however considering the clinical improvement, no need for CT of the abdomen and pelvis at this point, discussed this issue with the cloud systems architect on the case, and we both felt on ultrasound would be more appropriate at this point. No matter what the findings would be, no major changes will be made in the present treatment plan on this patient. And that's mostly because she is gradually improving over the last few days. And antibiotics are very appropriate for the Klebsiella pneumoniae infection that she has in the blood and in the urine. Chest x-ray is suggestive of mild pulmonary venous congestion and small bilateral pleural effusions, reluctant at this point to start any Lasix but that would be considered depending on the overall clinical status and urine output as well as renal profile. Patient remains on amiodarone dose may have to be readjusted presently at 400 mg by mouth twice a day, and that being addressed by cardiology. Her A. fib seems to be better controlled at this point. Heparin is being addressed by cardiology, Reevaluated today on 08/26/2017, patient continues to do relatively well, she did develop some component of fluid overload yesterday, however she responded well to a dose of Lasix given 60 mg IV push 1. Clinically the patient felt much better, chest x-ray this morning continues to show some interstitial edema , and small effusions, however considering the patient is in negative balance over the last 24 hours and continues to have good urine output, and a bit reluctant to give Lasix again today. However if she doesn't develop any worsening shortness of breath Lasix will be restarted again. Testing for C. difficile colitis was negative. Ration is being treated for Klebsiella pneumoniae in the blood and in the urine. WBC count is already improving compared to yesterday. Renal function continues to improve, BUN is 46 creatinine is 2.56 today Reevaluated today on 08/27/2017, patient remains in the ICU as an overflow. Presently asymptomatic, no cough no wheezing no shortness of breath. Patient remains hemodynamically stable, mentation seems to be steadily improving. Her urine output is excellent, patient was given another dose of Lasix by nephrology today. Amiodarone dose was lowered to 200 mg twice a day instead of 400 twice a day. Thrombocytopenia seems to be improving. Platelets are 1 78, 007 present. Renal profile continues to improve. BUN is 50 creatinine is 2.50. WBC count is down to 10 hemoglobin is 11.0. Objective - Vital Signs Vital signs: Vital Signs Temp 98.2 F 08/27/17 12:00 Pulse 66 08/27/17 12:00 Resp 16 08/27/17 12:00 BP 99/55 08/27/17 12:00 Pulse Ox 96 08/27/17 08:00 Intake & Output 08/26/17 08/27/17 08/27/17 18:59 06:59 18:59 Intake Total 180 710 Output Total 1105 2910 100 Balance -925 -2200 -100 Weight 83.5 kg 83.5 kg Intake: IV 180 210 Aztreonam 1 gm In Sodium 50 Chloride 0.9% 50 ml @ 100 mls/hr IVPB Q12HR [facility] Rx #:[id number] Sodium Chloride 0.9% 1, 180 160 000 ml @ 50 mls/hr IV . Q20H [facility] Rx#:[id number] Oral 0 500 Output: Urine 915 1410 Stool 190 1500 100 Other: Voiding Method Indwelling Catheter Indwelling Catheter Indwelling Catheter # Bowel Movements 300 - Exam Physical Exam revealed an 86-year-old female in no distress, asymptomatic. HEENT:[Neck is supple.] [No neck masses.] [No thyromegaly.] [No JVD.] Chest: [Clear throughout, no crackles, no rhonchi, no wheezes.] Cardiac Exam: [Normal S1 and S2, no S3 gallop, no murmur.] Abdomen: [Soft, nontender, no megaly, no rebound, no guarding, normal bowel sounds. Positive ileostomy bag is noted, Extremities: [No clubbing, no edema, no cyanosis.] Neurological Exam: [No focal neurologic deficit.] Psychiatric: Normal mood and affect, normal mental status examination. Lymphatics: No lymphadenopathy. Psychiatric: Normal mood and affect and mental status examination - Labs CBC & Chem 7: 08/27/17 04:12 08/27/17 04:12 Labs: Abnormal Lab Results - Last 24 Hours (Table) 08/27/17 08/27/17 Range/Units 04:12 04:12 RBC 3.71 L (3.80-5.40) m/uL Hgb 11.0 L (11.4-16.0) gm/dL Hct 33.7 L (34.0-46.0) % Plt Count 138 L (150-450) k/uL Sodium 130 L (137-145) mmol/L BUN 50 H (7-17) mg/dL Creatinine 2.50 H (0.52-1.04) mg/dL Calcium 7.8 L (8.4-10.2) mg/dL Microbiology - Last 24 Hours (Table) 08/24/17 17:04 Blood Culture - Preliminary Blood No Growth after 48 hours Assessment and Plan Plan: 1 acute sepsis secondary to an underlying urine tract infection secondary to Klebsiella pneumonia 2 acute fever, leukocytosis, hypotension and lactic acidosis secondary to urine tract infection/sepsis 3 acute lactic acidosis secondary to sepsis 4 acute on top of chronic kidney failure. Improving steadily since admission 5 hypotension, secondary to sepsis responded to fluid boluses, did not require any pressors 6 acute non-ST segment elevation myocardial infarction, no acute changes and the patient is asymptomatic without any chest pain, being addressed by cardiology on the case. 7 ulcerative colitis with a previous ileostomy, functioning well 8 dementia 9 peripheral vascular disease 10 small hiatal hernia 11 fall without any obvious major injuries 12 acute fluid overload and congestive heart failure most likely systolic in nature, not to mention the patient has been receiving lots of fluid since admission. However the patient seems to respond well to diuretics, received Lasix at 60 mg IV push 1 yesterday on 08/25/2017, and the response was excellent. Received Lasix again today as ordered by nephrology, and she seems to be in a negative balance over the last 24 hours. Recommendation: Continue present supportive care measures, patient is presently overflow from [facility], we'll likely transfer to [facility] as a bed becomes available. We will continue to follow closely. Discussed her condition with daughter at bedside. Time with Patient: Less than 30
[2017-08-27] MEDS ORDERED: METOPROLOL TARTRATE 25 MG TAB PO STA (14:47)
--- NOTE | 2017-08-27 19:46 | PN ---
PROGRESS NOTE DATE OF SERVICE: 08/27/2017 This 86-year-old woman was admitted with UTI, sepsis, also septic shock. Patient also had non-ST segment elevation myocardial infarction type 2. The patient has been closely monitored along with multiple consultants. White count is 10, sodium is 130, creatinine is 2.50. The patient closely monitored and the culture showed Klebsiella pneumoniae in the blood and urine, which was rather poly sensitive. PAST MEDICAL HISTORY: Reviewed. REVIEW OF SYSTEMS: CARDIOVASCULAR: No angina. RESPIRATORY: As mentioned earlier. GI: As mentioned. : No dysuria. NERVOUS SYSTEM: Diffusely weak. CURRENT MEDICATIONS: Reviewed and include: 1. Cordarone 200 mg p.o. b.i.d. 2. Eliquis 2.5 mg b.i.d. 3. Aspirin 325 mg. 4. Aztreonam 1 g IV b.i.d. 5. Rocephin 1 g daily. 6. Lasix 40 mg. 7. Lopressor 25 mg p.o. b.i.d. 8. Narcan 0.2 q.2h p.r.n. 9. Protonix 40 mg daily. 10.Pravachol 40 mg q.h.s. 11.Zoloft 50 mg p.o. 12.Sodium bicarb 1300 mg p.o. b.i.d. 13.Ultram 50 mg b.i.d. p.r.n. PHYSICAL EXAM: Patient is alert, oriented x2. Pulse 66, blood pressure 99/52, respiration 16, temperature 98.2, pulse ox 97% on 2 L. HEENT: Conjunctivae normal. Oral mucosa moist. NECK: No jugular venous distention. No carotid bruit. No lymph node enlargement. CARDIOVASCULAR: S1, S2. RESPIRATORY: Breath sounds diminished in the bases. A few scattered rhonchi and crackles. ABDOMEN: Soft, nontender. No mass palpable. LEGS: No edema, no cyanosis. NERVOUS SYSTEM: Diffusely weak. LAB: WBC 10, hemoglobin 11, sodium 130, potassium 4.2, and creatinine is 2.50. ASSESSMENT: 1. Urinary tract infection with sepsis with septic shock and severe sepsis and hypotension secondary to Klebsiella pneumoniae. 2. Acute kidney injury with multifactorial. 3. Chronic kidney disease stage III, baseline possibly. 4. Acute lactic acidosis. 5. Elevated troponin, possibly acute non-ST segment elevation myocardial infarction type 2 demand ischemia. 6. Ulcerative colitis. 7. Peripheral vascular disease. 8. Hiatal hernia. 9. Hyperlipidemia. RECOMMENDATIONS AND DISCUSSION: I recommend to continue with current medications. Continue symptomatic treatment. Otherwise at this time I recommend repeat labs. Monitor creatinine closely. Continue the antibiotics, cultures are noted. Guarded prognosis. Further recommendations to follow. MMPAWELL / KEITHN: [id number] /
[2017-08-27] MEDS: APIXABAN 2.5 MG TABLET PO SCH (22:18)
[2017-08-27] MEDS: PRAVASTATIN SODIUM 40 MG TAB PO SCH (22:18)
[2017-08-27] MEDS: METOPROLOL TARTRATE 25 MG TAB PO SCH (22:18)
[2017-08-28 06:22] LABS: Basophils % (A) 0 %; CH 30.3; CHCM 32.5; Eosinophils # (A) 0.3 k/uL (0-0.7); Eosinophils % (A) 3 %; HCT 34.2 % (34.0-46.0); Luc # (Auto) 0.36; Luc % (Auto) 4; Lymphocytes # (A) 1.2 k/uL (1.0-4.8); Lymphocytes % (A) 12 %; MCH 30.3 pg (25.0-35.0); MCHC 32.3 g/dL (31.0-37.0); MCV 93.9 fL (80.0-100.0); Mean Platelet Volume 8.2; Monocytes # (A) 0.5 k/uL (0-1.0); Monocytes % (A) 5 %; Neutrophils # (A) 7.6 k/uL (1.3-7.7); Neutrophils % (A) 76 %; RBC 3.64 m/uL (3.80-5.40); WBC 10.1 k/uL (3.8-10.6); WBC (Perox) 10.53
[2017-08-28] MEDS: AMIODARONE 200 MG TAB PO SCH ×2 (08:53→20:35)
[2017-08-28] MEDS: APIXABAN 2.5 MG TABLET PO SCH ×2 (08:53→20:35)
[2017-08-28] MEDS: FUROSEMIDE 10 MG/ML 4 ML VIAL IV SCH (08:54)
[2017-08-28] MEDS: PANTOPRAZOLE 40 MG TABLET PO SCH (08:54)
[2017-08-28] MEDS: ASPIRIN 325 MG TAB PO SCH (08:54)
[2017-08-28] MEDS: METOPROLOL TARTRATE 25 MG TAB PO SCH ×2 (08:54→20:35)
[2017-08-28] MEDS: SERTRALINE 50 MG TAB PO SCH (08:55)
[2017-08-28] MEDS: SODIUM BICARBONATE TAB 650 MG TAB PO SCH ×2 (08:55→20:35)
[2017-08-28] MEDS: cefTRIAXone IN SWFI 1,000 MG/10 ML SYRINGE IVP SCH (09:06)
--- NOTE | 2017-08-28 09:40 | P.PN ---
Subjective Patient is seen in follow-up for acute kidney injury. Creatinine was 4.96 on admission and is stable at 2.5 the last 2 days. She is currently being treated for Klebsiella bacteremia as well as urinary tract infection. Her oral intake is good. She is nonoliguric with urine output over 4 L in the last 24 hours. Denies chest pain or shortness of breath. No vomiting or diarrhea. Vital signs are stable. General: The patient appeared well nourished and normally developed. HEENT: Head exam is unremarkable. Neck is without jugular venous distension. LUNGS: Lungs are clear to auscultation and percussion. Breath sounds decreased. HEART: Rate and Rhythm are regular. First and second heart sounds normal. No murmurs, rubs or gallops. ABDOMEN: Abdominal exam reveals normal bowel sounds. Non-tender and non- distended. No evidence of peritonitis. EXTREMITITES: No clubbing, cyanosis, or edema. Objective - Vital Signs Vital signs: Vital Signs Temp 98 F 08/28/17 03:51 Pulse 68 08/28/17 03:51 Resp 16 08/28/17 03:51 BP 118/67 08/28/17 03:51 Pulse Ox 93 L 08/28/17 03:51 Intake & Output 08/27/17 08/28/17 08/28/17 18:59 06:59 18:59 Intake Total 880 118 Output Total 1950 2089 Balance -1070 -209 118 Weight 83.5 kg 69.9 kg Intake: IV 160 Sodium Chloride 0.9% 1, 160 000 ml @ 50 mls/hr IV . Q20H [facility] Rx#:[id number] Oral 720 118 Output: Urine 1000 1650 Uretheral (Holman) 1200 Stool 950 440 Other: Voiding Method Indwelling Catheter Indwelling Catheter # Voids 0 - Labs CBC & Chem 7: 08/28/17 05:38 08/27/17 04:12 Labs: Abnormal Lab Results - Last 24 Hours (Table) 08/28/17 Range/Units 05:38 RBC 3.64 L (3.80-5.40) m/uL Hgb 11.0 L (11.4-16.0) gm/dL Microbiology - Last 24 Hours (Table) 08/24/17 17:04 Blood Culture - Preliminary Blood No Growth after 72 hours Assessment and Plan Plan: Assessment: #1. Nonoliguric acute kidney injury secondary to ischemic ATN secondary to severe sepsis. Renal function improved since admission with creatinine now stabilizing near 2.5. #2. Metabolic acidosis secondary to acute kidney injury. Improved. #3. Rule out chronic kidney disease. Unclear as to what her baseline renal function is. Renal ultrasound revealed atrophic right kidney. Etiology is likely nephrosclerosis. #4. Sepsis secondary to Klebsiella bacteremia and UTI, maintained on antibiotics. #5. Hypervolemic hyponatremia. Plan: She remains off all IV fluids. Continue with Lasix 40 mg once daily. Maintain 1500 mL fluid restriction. Maintain oral sodium bicarbonate. Avoid nephrotoxic agents and hypotensive episodes. Encouraged oral intake. Follow-up labs and repeat again in the morning.
[2017-08-28] MEDS: AZTREONAM 1 GM in SODIUM CHLORIDE 0.9% 50 ML IVPB SCH ×2 (09:47→20:34)
[2017-08-28 10:02] LABS: Calcium 8.1 mg/dL (8.4-10.2); Potassium 3.9 mmol/L (3.5-5.1)
--- NOTE | 2017-08-28 10:58 | P.PN ---
Subjective Progress Note Date: 08/28/17 Principal diagnosis: Acute sepsis secondary to urinary tract infection This is a very pleasant 86-year-old female patient who was brought into the emergency department after being found on the floor by family members. The patient apparently had fallen at home. The patient states that she had been progressively getting weak over the past few days. She was having some right inguinal/groin pain and increased confusion for which she was taken to the primary care physician and x-ray of the hips and the pelvis was done and showed no osseous lesions and it showed degenerative changes. The patient was released home to come back today with obvious signs of sepsis. Initial investigation here in the emergency department revealed that the patient had an underlying urine checked infection with seems to be the most obvious source of sepsis. Chest x-ray was clear. Troponin was elevated at 11 without any acute ischemic changes and the patient was also ruled in for acute non-ST segment elevation myocardial infarction. She was quite hypotensive at time of arrival systolic in the mid 80s. The patient is currently receiving her second bolus of IV fluids. She was also started on IV heparin. Holman catheter is to be inserted. Her lactic acid level at time of admission was 5.4. She has leukocytosis with a white cell count of 13.3. She has 11% bandemia. She has anion gap metabolic acidosis which is essentially lactic acidosis with a bicarb level of 11. She is also an acute kidney injury with a creatinine of 4.96 in a be on a 51. Note that this is an acute on top of chronic renal injury knowing that the patient's baseline creatinine was around 3.0. The daughter claims that the patient has had previous urinary tract infections all of them have been treated on outpatient basis. Urine drug screen is positive for opiates. The patient is awake. She is lethargic. She occasionally moans. She is able to follow simple commands. There is areas of bruising over the left forehead, right elbow, right upper extremity, lateral acid of the right foot. No obvious joint deformities. No headache. No nausea or vomiting. No abdominal pain. She has a DNR/DNI CODE STATUS. Patient was reevaluated today on 08/23/2017, seems to be in no form of respiratory distress, doing quite well, asymptomatic, denies any shortness of breath, no cough, no wheezing, patient is presently hemodynamically stable, and her labs are showing steady improvement. CBC continues to show leukocytosis with WBC count of 17.9. Her PTT is 45.1 patient remains on heparin for presumptive acute SD. BUN is 47 creatinine is 3.77 CPK is gradually improving down to 1500. Her creatinine on admission was 4.96. Blood culture is positive for gram-negative rods, final report is pending. In the meantime the patient remains on antibiotics. Patient was reevaluated today on 08/24/2017, continues to do well, not in any form of respiratory distress, hemodynamically stable. WBC count remains elevated at 18.0. PTT is therapeutic at 46.8, sodium remains low at 124 BUN is 45 creatinine is 2.99 slightly improved. Patient denies being in any distress, denies any aches and pains, no shortness of breath, no nausea no vomiting no abdominal pain. Patient was reevaluated on 08/25/2017, she seems to be very comfortable, in no form of any distress, patient has been gradually improving over the last few days. Asymptomatic, no cough no wheezing no shortness of breath no chest pain no nausea no vomiting no abdominal pain, and her labs are showing steady improvement. Her blood cultures and urine cultures came back positive for Klebsiella pneumonia, and the patient is on appropriate antibiotics in the form of Rocephin and aztreonam. The Klebsiella is sensitive to both. Continues to have a bit of leukocytosis with WBC count of 19.0, hemoglobin is 11.1. Electrolytes were abnormal with a sodium of 128 but improving. Potassium of 3.0 bicarb is 17 patient will have the sodium bicarb drip discontinued, and increase the oral bicarb. Renal functioning is improving, BUN is 46 creatinine is 2.70 steady improvement has been noted over the last few days. Patient was supposed to go for a CT of the abdomen and pelvis however considering the clinical improvement, no need for CT of the abdomen and pelvis at this point, discussed this issue with the glove printer on the case, and we both felt on ultrasound would be more appropriate at this point. No matter what the findings would be, no major changes will be made in the present treatment plan on this patient. And that's mostly because she is gradually improving over the last few days. And antibiotics are very appropriate for the Klebsiella pneumoniae infection that she has in the blood and in the urine. Chest x-ray is suggestive of mild pulmonary venous congestion and small bilateral pleural effusions, reluctant at this point to start any Lasix but that would be considered depending on the overall clinical status and urine output as well as renal profile. Patient remains on amiodarone dose may have to be readjusted presently at 400 mg by mouth twice a day, and that being addressed by cardiology. Her A. fib seems to be better controlled at this point. Heparin is being addressed by cardiology, Reevaluated today on 08/26/2017, patient continues to do relatively well, she did develop some component of fluid overload yesterday, however she responded well to a dose of Lasix given 60 mg IV push 1. Clinically the patient felt much better, chest x-ray this morning continues to show some interstitial edema , and small effusions, however considering the patient is in negative balance over the last 24 hours and continues to have good urine output, and a bit reluctant to give Lasix again today. However if she doesn't develop any worsening shortness of breath Lasix will be restarted again. Testing for C. difficile colitis was negative. Ration is being treated for Klebsiella pneumoniae in the blood and in the urine. WBC count is already improving compared to yesterday. Renal function continues to improve, BUN is 46 creatinine is 2.56 today Reevaluated today on 08/27/2017, patient remains in the ICU as an overflow. Presently asymptomatic, no cough no wheezing no shortness of breath. Patient remains hemodynamically stable, mentation seems to be steadily improving. Her urine output is excellent, patient was given another dose of Lasix by nephrology today. Amiodarone dose was lowered to 200 mg twice a day instead of 400 twice a day. Thrombocytopenia seems to be improving. Platelets are 1 78, 007 present. Renal profile continues to improve. BUN is 50 creatinine is 2.50. WBC count is down to 10 hemoglobin is 11.0. Reevaluated today on 08/28/2017, patient is now on the medical floor, doing well , asymptomatic. No cough no wheezing no shortness of breath no chest pain no nausea no vomiting no abdominal pain. Labs were reviewed she has a relatively normal CBC and normal electrolytes her BUN is 58 and creatinine is 2.39 still gradually improving. All her meds and labs were reviewed. And I discussed the condition at bedside with her daughter. Objective - Vital Signs Vital signs: Vital Signs Temp 97.2 F L 08/28/17 08:00 Pulse 69 08/28/17 08:00 Resp 17 08/28/17 08:00 BP 103/68 08/28/17 08:00 Pulse Ox 96 08/28/17 08:00 Intake & Output 08/27/17 08/28/17 08/28/17 18:59 06:59 18:59 Intake Total 880 118 Output Total 1950 2089 Balance -107 -2089 118 Weight 83.5 kg 69.9 kg Intake: IV 160 Sodium Chloride 0.9% 1, 160 000 ml @ 50 mls/hr IV . Q20H [facility] Rx#:[id number] Oral 720 118 Output: Urine 1000 1650 Uretheral (Holman) 1200 Stool 950 440 Other: Voiding Method Indwelling Catheter Indwelling Catheter Indwelling Catheter # Voids 0 - Exam Physical Exam revealed an 86-year-old female in no distress, asymptomatic. HEENT:[Neck is supple.] [No neck masses.] [No thyromegaly.] [No JVD.] Chest: [Clear throughout, no crackles, no rhonchi, no wheezes.] Cardiac Exam: [Normal S1 and S2, no S3 gallop, no murmur.] Abdomen: [Soft, nontender, no megaly, no rebound, no guarding, normal bowel sounds. Positive ileostomy bag is noted, Extremities: [No clubbing, no edema, no cyanosis.] Neurological Exam: [No focal neurologic deficit.] Psychiatric: Normal mood and affect, normal mental status examination. Lymphatics: No lymphadenopathy. Psychiatric: Normal mood and affect and mental status examination - Labs CBC & Chem 7: 08/28/17 05:38 08/28/17 05:38 Labs: Abnormal Lab Results - Last 24 Hours (Table) 08/28/17 08/28/17 Range/Units 05:38 05:38 RBC 3.64 L (3.80-5.40) m/uL Hgb 11.0 L (11.4-16.0) gm/dL Sodium 133 L (137-145) mmol/L BUN 58 H (7-17) mg/dL Creatinine 2.39 H (0.52-1.04) mg/dL Calcium 8.1 L (8.4-10.2) mg/dL Microbiology - Last 24 Hours (Table) 08/24/17 17:04 Blood Culture - Preliminary Blood No Growth after 72 hours Assessment and Plan Plan: 1 acute sepsis secondary to an underlying urine tract infection secondary to Klebsiella pneumonia 2 acute fever, leukocytosis, hypotension and lactic acidosis secondary to urine tract infection/sepsis 3 acute lactic acidosis secondary to sepsis 4 acute on top of chronic kidney failure. Improving steadily since admission 5 hypotension, secondary to sepsis responded to fluid boluses, did not require any pressors 6 acute non-ST segment elevation myocardial infarction, no acute changes and the patient is asymptomatic without any chest pain, being addressed by cardiology on the case. 7 ulcerative colitis with a previous ileostomy, functioning well 8 dementia 9 peripheral vascular disease 10 small hiatal hernia 11 fall without any obvious major injuries 12 acute fluid overload and congestive heart failure most likely systolic in nature, responding well to intermittent doses of diuretics/Lasix Recommendation: Continue present supportive care measures, consider discharge planning in the next 24-48 hours, may benefit from rehab referral. Time with Patient: Less than 30
--- NOTE | 2017-08-28 12:37 | P.PN ---
Subjective Progress Note Date: 08/28/17 This is an 86-year-old female who was brought to the emergency room after being found on the floor. She apparently had been having symptoms of progressive weakness. In the emergency room patient was found to be hypotensive , she was also diagnosed with UTI and sepsis as well as acute renal failure and rhabdomyolysis. EKG only revealed nonspecific changes at that time. Patient does have paroxysmal atrial fibrillation has been remaining in normal sinus rhythm. He initiated on anticoagulation yesterday. Objective - Vital Signs Vital signs: Vital Signs Temp 97.2 F L 08/28/17 08:00 Pulse 69 08/28/17 08:00 Resp 17 08/28/17 08:00 BP 103/68 08/28/17 08:00 Pulse Ox 96 08/28/17 08:00 Intake & Output 08/27/17 08/28/17 08/28/17 18:59 06:59 18:59 Intake Total 880 348 Output Total 1950 2090 950 Balance -1070 -2090 -602 Weight 83.5 kg 69.9 kg Intake: IV 160 50 Aztreonam 1 gm In Sodium 50 Chloride 0.9% 50 ml @ 100 mls/hr IVPB Q12HR [facility] Rx #:[id number] Sodium Chloride 0.9% 1, 160 000 ml @ 50 mls/hr IV . Q20H [facility] Rx#:[id number] Oral 720 298 Output: Urine 1000 1650 800 Uretheral (Holman) 1200 Stool 950 440 150 Other: Voiding Method Indwelling Catheter Indwelling Catheter Indwelling Catheter # Voids 0 - Exam PHYSICAL EXAMINATION: HEENT: Head is atraumatic, normocephalic. Pupils equal, round. Neck is supple. There is no elevated jugular venous pressure. HEART EXAMINATION: Heart S1, S2 normal. No murmur or gallop heard. CHEST EXAMINATION: Lungs are clear to auscultation and precussion. No chest wall tenderness is noted on palpation or with deep breathing. ABDOMEN: Soft, nontender. Bowel sounds are heard. No organomegaly noted. EXTREMITIES: 2+ peripheral pulses with no evidence of peripheral edema and no calf tenderness noted. NEUROLOGIC patient is awake, alert and oriented -3. . - Labs CBC & Chem 7: 08/28/17 05:38 08/28/17 05:38 Labs: Abnormal Lab Results - Last 24 Hours (Table) 08/28/17 08/28/17 Range/Units 05:38 05:38 RBC 3.64 L (3.80-5.40) m/uL Hgb 11.0 L (11.4-16.0) gm/dL Sodium 133 L (137-145) mmol/L BUN 58 H (7-17) mg/dL Creatinine 2.39 H (0.52-1.04) mg/dL Calcium 8.1 L (8.4-10.2) mg/dL Microbiology - Last 24 Hours (Table) 08/24/17 17:04 Blood Culture - Preliminary Blood No Growth after 72 hours Assessment and Plan Plan: Assessment and plan 1 sepsis with evidence of UTI, positive Klebsiella pneumonia #2 acute on chronic kidney failure #3 paroxysmal atrial fibrillation #4 hypotension #5 peripheral vascular disease Plan We'll continue amiodarone along with Eliquis. Continue other supportive measures. Discharge planning in place for possible rehab. DNP note has been reviewed, I agree with a documented findings and plan of care. Patient was seen and examined.
[2017-08-28] MEDS: traMADol 50 MG TAB PO PRN (14:51)
--- NOTE | 2017-08-28 20:26 | PN ---
PROGRESS NOTE DATE OF SERVICE: 08/28/2017 This 86-year-old woman who was admitted with UTI and sepsis also had septic shock. Also the patient has PA. The patient is being closely monitored. Sensorium is definitely improved, but still confused. PT/OT are evaluating the patient for possible ECF rehab. PAST MEDICAL HISTORY, REVIEW OF SYSTEMS: Could not be taken because of the change in mental status. CURRENT MEDICATIONS: Reviewed, include: 1. Cordarone 200 mg p.o. b.i.d. 2. Eliquis 2.5 mg b.i.d. 3. Aztreonam 1 g b.i.d. 4. Rocephin 1 g daily. 5. Lasix 40 mg IV daily. 6. Lopressor 25 mg b.i.d. 7. Potassium replacement. 8. Narcan 0.2 q.2h p.r.n. 9. Protonix 40 mg daily. 10.Pravachol 40 mg q.h.s. 11.Zoloft. 12.Ultram. PHYSICAL EXAM: Patient is alert and oriented x3. Pulse is 63, blood pressure 101/53, respirations 17, temperature 99 degrees, pulse ox 98% on room air. HEENT: Conjunctivae normal. NECK: No jugular venous distention. CARDIOVASCULAR: S1, S2 muffled. RESPIRATORY: Breath sounds diminished in the bases. No rhonchi. No crackles. ABDOMEN: Soft, nontender. No mass palpable. LEGS: No edema. NERVOUS SYSTEM: Diffusely weak. LAB STUDIES: WBC is 10.1, hemoglobin is 11. Sodium is 133. ASSESSMENT: 1. Urinary tract infection with sepsis with septic shock and severe sepsis and hypotension secondary to Klebsiella pneumoniae. 2. Acute kidney injury, multifactorial. 3. Chronic kidney disease stage 3, baseline possibly. 4. Acute lactic acidosis. 5. Elevated troponin, possible acute non ST-segment elevation myocardial infarction with a type 2 demand ischemia. 6. Ulcerative colitis. 7. Peripheral vascular disease. 8. Hiatal hernia. 9. Hyperlipidemia. 10.Gait dysfunction. 11.NO CODE, NO CARDIOPULMONARY RESUSCITATION, NO VENTILATOR. RECOMMENDATIONS AND DISCUSSION: In this 86-year-old woman who presented with multiple complex medical issues, will monitor the patient closely, continue with the current medications and symptomatic treatment. Creatinine is improving significantly. PT/OT evaluation, possible ECF rehab. Continue the rest of medications at this time, including antibiotics. Cultures are noted. Guarded prognosis. Further recommendations to follow. MMODL / IJN: [id number] / CAREN
[2017-08-28] MEDS: PRAVASTATIN SODIUM 40 MG TAB PO SCH (20:35)
[2017-08-28] MEDS ORDERED: Magnesium Replacement Protocol 1 EACH MISC MISCELLANE PRN (20:37)
[2017-08-28] MEDS ORDERED: Potassium Replacement Protocol 1 EACH MISC MISCELLANE PRN (20:39)
[2017-08-28] MEDS ORDERED: POTASSIUM CHLORIDE 10 MEQ in WATER FOR INJECTION 1 100ML.BAG IVPB SCH (20:45)
[2017-08-28] MEDS: POTASSIUM CHLORIDE 10 MEQ, LIDOCAINE 2% INJ 10 MG in SODIUM CHLORIDE 0.9% 100 ML IV SCH ×2 (21:27→22:51)
[2017-08-29] MEDS: MAGNESIUM SULFATE-D5W PMX 1 GM in DEXTROSE/WATER 1 100ML.BAG IVPB SCH ×2 (00:36→02:09)
[2017-08-29 06:28] LABS: Calcium 8.1 mg/dL (8.4-10.2); Magnesium 2.4 mg/dL (1.6-2.3)
[2017-08-29] MEDS: AMIODARONE 200 MG TAB PO SCH ×2 (08:16→20:54)
[2017-08-29] MEDS: APIXABAN 2.5 MG TABLET PO SCH ×2 (08:17→20:54)
[2017-08-29] MEDS: AZTREONAM 1 GM in SODIUM CHLORIDE 0.9% 50 ML IVPB SCH (08:17)
[2017-08-29] MEDS: FUROSEMIDE 10 MG/ML 4 ML VIAL IV SCH (08:18)
[2017-08-29] MEDS: METOPROLOL TARTRATE 25 MG TAB PO SCH ×2 (08:18→20:54)
[2017-08-29] MEDS: PANTOPRAZOLE 40 MG TABLET PO SCH (08:19)
[2017-08-29] MEDS: SODIUM BICARBONATE TAB 650 MG TAB PO SCH ×2 (08:19→20:54)
[2017-08-29] MEDS: SERTRALINE 50 MG TAB PO SCH (08:19)
--- NOTE | 2017-08-29 09:15 | P.PN ---
Subjective Patient is seen in follow-up for acute kidney injury. Creatinine was 4.96 on admission and is stable at 2.46 today. She is currently being treated for Klebsiella bacteremia as well as urinary tract infection. Her oral intake is good. She is nonoliguric. Holman catheter has been discontinued. Denies chest pain or shortness of breath. No vomiting or diarrhea. Vital signs are stable. General: The patient appeared well nourished and normally developed. HEENT: Head exam is unremarkable. Neck is without jugular venous distension. LUNGS: Lungs are clear to auscultation and percussion. Breath sounds decreased. HEART: Rate and Rhythm are regular. First and second heart sounds normal. No murmurs, rubs or gallops. ABDOMEN: Abdominal exam reveals normal bowel sounds. Non-tender and non- distended. No evidence of peritonitis. EXTREMITITES: No clubbing, cyanosis, or edema. Objective - Vital Signs Vital signs: Vital Signs Temp 97.3 F L 08/29/17 08:00 Pulse 77 08/29/17 08:00 Resp 16 08/29/17 08:00 BP 103/50 08/29/17 08:00 Pulse Ox 90 L 08/29/17 08:00 Intake & Output 08/28/17 08/29/17 08/29/17 18:59 06:59 18:59 Intake Total 528 50 200 Output Total 950 450 Balance -422 -400 200 Weight 70.5 kg Intake: IV 50 50 Aztreonam 1 gm In Sodium 50 50 Chloride 0.9% 50 ml @ 100 mls/hr IVPB Q12HR [facility] Rx #:[id number] Oral 478 200 Output: Urine 800 Stool 150 450 Other: Voiding Method Indwelling Catheter # Voids 3 1 1 - Labs CBC & Chem 7: 08/28/17 05:38 08/29/17 06:02 Labs: Abnormal Lab Results - Last 24 Hours (Table) 08/28/17 08/29/17 Range/Units 05:38 06:02 Sodium 133 L 135 L (137-145) mmol/L BUN 58 H 61 H (7-17) mg/dL Creatinine 2.39 H 2.46 H (0.52-1.04) mg/dL Calcium 8.1 L 8.1 L (8.4-10.2) mg/dL Magnesium 2.4 H (1.6-2.3) mg/dL Microbiology - Last 24 Hours (Table) 08/24/17 17:04 Blood Culture - Preliminary Blood No Growth after 96 hours Assessment and Plan Plan: Assessment: #1. Nonoliguric acute kidney injury secondary to ischemic ATN secondary to severe sepsis. Renal function improved since admission with creatinine now stabilizing near 2.4-2.5. #2. Metabolic acidosis secondary to acute kidney injury. Improved. #3. Rule out chronic kidney disease. Unclear as to what her baseline renal function is. Renal ultrasound revealed atrophic right kidney. Etiology is likely nephrosclerosis. #4. Sepsis secondary to Klebsiella bacteremia and UTI, maintained on antibiotics. #5. Hypervolemic hyponatremia. Improved with diuresis. Plan: She remains off all IV fluids and diuretics at this time. Maintain 1500 mL fluid restriction. Maintain oral sodium bicarbonate. Avoid nephrotoxic agents and hypotensive episodes. Encouraged oral intake. Monitor volume status.
[2017-08-29] MEDS: cefTRIAXone IN SWFI 1,000 MG/10 ML SYRINGE IVP SCH (09:22)
[2017-08-29] MEDS: traMADol 50 MG TAB PO PRN (09:31)
--- NOTE | 2017-08-29 10:29 | P.PN ---
Subjective Progress Note Date: 08/29/17 Principal diagnosis: Acute sepsis secondary to urinary tract infection, and acute non-ST elevation myocardial infarction. This is a very pleasant 86-year-old female patient who was brought into the emergency department after being found on the floor by family members. The patient apparently had fallen at home. The patient states that she had been progressively getting weak over the past few days. She was having some right inguinal/groin pain and increased confusion for which she was taken to the primary care physician and x-ray of the hips and the pelvis was done and showed no osseous lesions and it showed degenerative changes. The patient was released home to come back today with obvious signs of sepsis. Initial investigation here in the emergency department revealed that the patient had an underlying urine checked infection with seems to be the most obvious source of sepsis. Chest x-ray was clear. Troponin was elevated at 11 without any acute ischemic changes and the patient was also ruled in for acute non-ST segment elevation myocardial infarction. She was quite hypotensive at time of arrival systolic in the mid 80s. The patient is currently receiving her second bolus of IV fluids. She was also started on IV heparin. Holman catheter is to be inserted. Her lactic acid level at time of admission was 5.4. She has leukocytosis with a white cell count of 13.3. She has 11% bandemia. She has anion gap metabolic acidosis which is essentially lactic acidosis with a bicarb level of 11. She is also an acute kidney injury with a creatinine of 4.96 in a be on a 51. Note that this is an acute on top of chronic renal injury knowing that the patient's baseline creatinine was around 3.0. The daughter claims that the patient has had previous urinary tract infections all of them have been treated on outpatient basis. Urine drug screen is positive for opiates. The patient is awake. She is lethargic. She occasionally moans. She is able to follow simple commands. There is areas of bruising over the left forehead, right elbow, right upper extremity, lateral acid of the right foot. No obvious joint deformities. No headache. No nausea or vomiting. No abdominal pain. She has a DNR/DNI CODE STATUS. Patient was reevaluated today on 08/23/2017, seems to be in no form of respiratory distress, doing quite well, asymptomatic, denies any shortness of breath, no cough, no wheezing, patient is presently hemodynamically stable, and her labs are showing steady improvement. CBC continues to show leukocytosis with WBC count of 17.9. Her PTT is 45.1 patient remains on heparin for presumptive acute MO. BUN is 47 creatinine is 3.77 CPK is gradually improving down to 1500. Her creatinine on admission was 4.96. Blood culture is positive for gram-negative rods, final report is pending. In the meantime the patient remains on antibiotics. Patient was reevaluated today on 08/24/2017, continues to do well, not in any form of respiratory distress, hemodynamically stable. WBC count remains elevated at 18.0. PTT is therapeutic at 46.8, sodium remains low at 124 BUN is 45 creatinine is 2.99 slightly improved. Patient denies being in any distress, denies any aches and pains, no shortness of breath, no nausea no vomiting no abdominal pain. Patient was reevaluated on 08/25/2017, she seems to be very comfortable, in no form of any distress, patient has been gradually improving over the last few days. Asymptomatic, no cough no wheezing no shortness of breath no chest pain no nausea no vomiting no abdominal pain, and her labs are showing steady improvement. Her blood cultures and urine cultures came back positive for Klebsiella pneumonia, and the patient is on appropriate antibiotics in the form of Rocephin and aztreonam. The Klebsiella is sensitive to both. Continues to have a bit of leukocytosis with WBC count of 19.0, hemoglobin is 11.1. Electrolytes were abnormal with a sodium of 128 but improving. Potassium of 3.0 bicarb is 17 patient will have the sodium bicarb drip discontinued, and increase the oral bicarb. Renal functioning is improving, BUN is 46 creatinine is 2.70 steady improvement has been noted over the last few days. Patient was supposed to go for a CT of the abdomen and pelvis however considering the clinical improvement, no need for CT of the abdomen and pelvis at this point, discussed this issue with the information services assistant on the case, and we both felt on ultrasound would be more appropriate at this point. No matter what the findings would be, no major changes will be made in the present treatment plan on this patient. And that's mostly because she is gradually improving over the last few days. And antibiotics are very appropriate for the Klebsiella pneumoniae infection that she has in the blood and in the urine. Chest x-ray is suggestive of mild pulmonary venous congestion and small bilateral pleural effusions, reluctant at this point to start any Lasix but that would be considered depending on the overall clinical status and urine output as well as renal profile. Patient remains on amiodarone dose may have to be readjusted presently at 400 mg by mouth twice a day, and that being addressed by cardiology. Her A. fib seems to be better controlled at this point. Heparin is being addressed by cardiology, Reevaluated today on 08/26/2017, patient continues to do relatively well, she did develop some component of fluid overload yesterday, however she responded well to a dose of Lasix given 60 mg IV push 1. Clinically the patient felt much better, chest x-ray this morning continues to show some interstitial edema , and small effusions, however considering the patient is in negative balance over the last 24 hours and continues to have good urine output, and a bit reluctant to give Lasix again today. However if she doesn't develop any worsening shortness of breath Lasix will be restarted again. Testing for C. difficile colitis was negative. Ration is being treated for Klebsiella pneumoniae in the blood and in the urine. WBC count is already improving compared to yesterday. Renal function continues to improve, BUN is 46 creatinine is 2.56 today Reevaluated today on 08/27/2017, patient remains in the ICU as an overflow. Presently asymptomatic, no cough no wheezing no shortness of breath. Patient remains hemodynamically stable, mentation seems to be steadily improving. Her urine output is excellent, patient was given another dose of Lasix by nephrology today. Amiodarone dose was lowered to 200 mg twice a day instead of 400 twice a day. Thrombocytopenia seems to be improving. Platelets are 1 78, 007 present. Renal profile continues to improve. BUN is 50 creatinine is 2.50. WBC count is down to 10 hemoglobin is 11.0. Reevaluated today on 08/28/2017, patient is now on the medical floor, doing well , asymptomatic. No cough no wheezing no shortness of breath no chest pain no nausea no vomiting no abdominal pain. Labs were reviewed she has a relatively normal CBC and normal electrolytes her BUN is 58 and creatinine is 2.39 still gradually improving. All her meds and labs were reviewed. And I discussed the condition at bedside with her daughter. On 08/29/2017, patient continues to be basically about the same, asymptomatic, no cough no wheezing no shortness of breath no chest pain no nausea no vomiting no abdominal pain. Labs were reviewed, and her renal profile seems to be slightly worse today, hence I discontinued Lasix today. BUN is up to 61 creatinine is up to 2.46. CBC is relatively unremarkable. Last chest x-ray 2 days ago showed mild congestive changes, hence a follow-up chest x-ray will be ordered to be done in a.m. Objective - Vital Signs Vital signs: Vital Signs Temp 97.3 F L 08/29/17 08:00 Pulse 77 08/29/17 08:00 Resp 16 08/29/17 08:00 BP 103/50 08/29/17 08:00 Pulse Ox 90 L 08/29/17 08:00 Intake & Output 08/28/17 08/29/17 08/29/17 18:59 06:59 18:59 Intake Total 528 50 200 Output Total 950 450 Balance -422 -400 200 Weight 70.5 kg Intake: IV 50 50 Aztreonam 1 gm In Sodium 50 50 Chloride 0.9% 50 ml @ 100 mls/hr IVPB Q12HR [facility] Rx #:[id number] Oral 478 200 Output: Urine 800 Stool 150 450 Other: Voiding Method Indwelling Catheter # Voids 3 1 1 - Exam Physical Exam revealed an 86-year-old female in no distress, asymptomatic. HEENT:[Neck is supple.] [No neck masses.] [No thyromegaly.] [No JVD.] Chest: [Clear throughout, no crackles, no rhonchi, no wheezes.] Cardiac Exam: [Normal S1 and S2, no S3 gallop, no murmur.] Abdomen: [Soft, nontender, no megaly, no rebound, no guarding, normal bowel sounds. Positive ileostomy bag is noted, Extremities: [No clubbing, no edema, no cyanosis.] Neurological Exam: [No focal neurologic deficit.] Psychiatric: Normal mood and affect, normal mental status examination. Lymphatics: No lymphadenopathy. Psychiatric: Normal mood and affect and mental status examination - Labs CBC & Chem 7: 08/28/17 05:38 08/29/17 06:02 Labs: Abnormal Lab Results - Last 24 Hours (Table) 11/12/17 Range/Units 06:02 Sodium 135 L (137-145) mmol/L BUN 61 H (7-17) mg/dL Creatinine 2.46 H (0.52-1.04) mg/dL Calcium 8.1 L (8.4-10.2) mg/dL Magnesium 2.4 H (1.6-2.3) mg/dL Microbiology - Last 24 Hours (Table) 08/24/17 17:04 Blood Culture - Preliminary Blood No Growth after 96 hours Assessment and Plan Plan: 1 acute sepsis secondary to an underlying urine tract infection secondary to Klebsiella pneumonia 2 acute fever, leukocytosis, hypotension and lactic acidosis secondary to urine tract infection/sepsis 3 acute lactic acidosis secondary to sepsis 4 acute on top of chronic kidney failure. Improving steadily since admission 5 hypotension, secondary to sepsis responded to fluid boluses, did not require any pressors 6 acute non-ST segment elevation myocardial infarction, no acute changes and the patient is asymptomatic without any chest pain, being addressed by cardiology on the case. 7 ulcerative colitis with a previous ileostomy, functioning well 8 dementia 9 peripheral vascular disease 10 small hiatal hernia 11 fall without any obvious major injuries 12 acute fluid overload and congestive heart failure most likely systolic in nature, responded well to diuretics initially, however I will go ahead and recommend holding diuretics since the renal profile seems to be slightly worse today. Follow-up chest x-ray in a.m. Recommendation: Continue present supportive care measures, consider discharge planning in the next 24-48 hours, may benefit from rehab referral. Time with Patient: Less than 30
--- NOTE | 2017-08-29 12:44 | PN ---
PROGRESS NOTE This lady has sepsis and atrial fib. She has been on Eliquis, doing well. She is now actually sitting up and appears much more stable and she is actually in a sinus rhythm most of the time with intermittent atrial fibrillation and tolerating amiodarone orally very well. Plan is to continue current medical regimen. VITAL SIGNS: Stable S1, S2 heard normally. Short systolic murmur noted. Heart rate and rhythm appears to be regular. Abdomen and lower exam is unchanged. Cardiac-rhodes she is stable. We will continue current medications and I will see her as needed. MMODL / IJN: [id number] /
--- NOTE | 2017-08-29 16:45 | PN ---
PROGRESS NOTE DATE OF SERVICE: 08/29/2017 INTERVAL HISTORY: This 86-year-old woman who was admitted with UTI with sepsis and septic shock is being closely monitored. There is no chest pain. No palpitations. PT, OT evaluating the patient. PHYSICAL EXAM: Alert and oriented x3. Pulse is 65, blood pressure 90/48, respiration 16, temperature 97.9, pulse ox 98% room air. HEENT: Conjunctivae normal. NECK: No jugular venous distention. CARDIOVASCULAR: S1, S2. RESPIRATORY: Breath sounds diminished at the bases. A few scattered rhonchi. ABDOMEN: Soft. Nontender. LEGS: No edema. NERVOUS SYSTEM: Diffusely weak. LABS: Creatinine 2.46, hemoglobin is 11. ASSESSMENT: 1. Urinary tract infection with sepsis with septic shock and severe sepsis and hypotension secondary to Klebsiella pneumonia. 2. Acute kidney injury, multifactorial, with acute renal failure. 3. Chronic kidney disease stage 3, baseline possibly. 4. Acute lactic acidosis secondary to sepsis. 5. Elevated troponin, possible acute non ST-segment elevation myocardial infarction with a type 2 demand ischemia. 6. Ulcerative colitis history. 7. Peripheral vascular disease. 8. Hiatal hernia. 9. Hyperlipidemia. 10.Gait dysfunction. 11.NO CODE, NO CPR, NO VENT. RECOMMENDATIONS AND DISCUSSION: I recommend to continue current management, symptomatic treatment. Continue the current medication. Continue with broad-spectrum IV antibiotics. The patient is on aztreonam. Currently PT, OT evaluation. Possible ECF rehab. Guarded prognosis because of multiple complex medical issues and we will monitor the creatinine closely. Further recommendations recommendations to follow. MMODL / IJN: [id number] /
[2017-08-29] MEDS ORDERED: LEVOFLOXACIN 500 MG TAB PO SCH (18:00)
[2017-08-29] MEDS: OXYBUTYNIN CHLORIDE 5 MG TAB PO SCH (18:24)
[2017-08-29] MEDS: PRAVASTATIN SODIUM 40 MG TAB PO SCH (20:54)
[2017-08-30 06:20] LABS: Calcium 8.1 mg/dL (8.4-10.2)
--- NOTE | 2017-08-30 08:17 | XR ---
EXAMINATION TYPE: XR chest 1V portable DATE OF EXAM: 08/30/2017 HISTORY: Shortness of breath. COMPARISON: 08/27/2017 TECHNIQUE: Single view of the chest is submitted. FINDINGS: Demonstrated are scattered senescent parenchymal change. Patchy basilar infiltrates with small effusions persist. Continued pulmonary venous congestion. The heart is stable. Hilar and mediastinal structures are within normal limits. Degenerative changes are seen of the dorsal spine. IMPRESSION: 1. Patchy basilar infiltrates with small effusions persist. Continued pulmonary venous congestion.
[2017-08-30] MEDS ORDERED: LEVOFLOXACIN 500 MG TAB PO SCH ×2 (09:00)
[2017-08-30] MEDS ORDERED: METOPROLOL TARTRATE 12.5 MG TAB PO SCH (09:15)
[2017-08-30] MEDS: SODIUM BICARBONATE TAB 650 MG TAB PO SCH (09:20)
[2017-08-30] MEDS: PANTOPRAZOLE 40 MG TABLET PO SCH (09:20)
[2017-08-30] MEDS: APIXABAN 2.5 MG TABLET PO SCH (09:20)
[2017-08-30] MEDS: OXYBUTYNIN CHLORIDE 5 MG TAB PO SCH (09:20)
[2017-08-30] MEDS: SERTRALINE 50 MG TAB PO SCH (09:21)
[2017-08-30] MEDS ORDERED: AMIODARONE 200 MG TAB PO STA (09:28)
[2017-08-30] MEDS ORDERED: FUROSEMIDE 10 MG/ML 4 ML VIAL IV STA (11:13)
--- NOTE | 2017-08-30 11:18 | P.PN ---
Subjective Progress Note Date: 08/30/17 This is an 86-year-old female who was brought to the emergency room after being found on the floor. She apparently had been having symptoms of progressive weakness. In the emergency room patient was found to be hypotensive , she was also diagnosed with UTI and sepsis as well as acute renal failure and rhabdomyolysis. EKG only revealed nonspecific changes at that time. Patient does have paroxysmal atrial fibrillation has been remaining in normal sinus rhythm. Initiated on anticoagulation yesterday. 08/30/2017 Patient seen and examined this morning, feeling much better overall. Blood pressure 114/60 with a heart rate in the 60s. We will decrease her dose of amiodarone to 200 mg daily, decrease beta james to 12-1/2 mg one tablet by mouth twice a day. Patient is remaining in normal sinus rhythm. Objective - Vital Signs Vital signs: Vital Signs Temp 98 F 08/30/17 09:14 Pulse 67 08/30/17 09:14 Resp 20 08/30/17 09:14 BP 95/55 08/30/17 09:14 Pulse Ox 91 L 08/30/17 09:14 Intake & Output 08/29/17 08/30/17 08/30/17 18:59 06:59 18:59 Intake Total 250 200 Output Total 250 500 75 Balance 0 -500 125 Weight 71 kg Intake: IV 50 Aztreonam 1 gm In Sodium 50 Chloride 0.9% 50 ml @ 100 mls/hr IVPB Q12HR [facility] Rx #:[id number] Oral 200 200 Output: Stool 250 500 75 Other: Voiding Method Indwelling Catheter # Voids 2 1 - Exam PHYSICAL EXAMINATION: HEENT: Head is atraumatic, normocephalic. Pupils equal, round. Neck is supple. There is no elevated jugular venous pressure. HEART EXAMINATION: Heart S1, S2 normal. No murmur or gallop heard. CHEST EXAMINATION: Lungs are clear to auscultation and precussion. No chest wall tenderness is noted on palpation or with deep breathing. ABDOMEN: Soft, nontender. Bowel sounds are heard. No organomegaly noted. EXTREMITIES: 2+ peripheral pulses with no evidence of peripheral edema and no calf tenderness noted. NEUROLOGIC patient is awake, alert and oriented -3. . - Labs CBC & Chem 7: 08/28/17 05:38 08/30/17 05:50 Labs: Abnormal Lab Results - Last 24 Hours (Table) 08/30/17 Range/Units 05:50 Sodium 132 L (137-145) mmol/L BUN 59 H (7-17) mg/dL Creatinine 2.40 H (0.52-1.04) mg/dL Calcium 8.1 L (8.4-10.2) mg/dL Microbiology - Last 24 Hours (Table) 08/24/17 17:04 Blood Culture - Preliminary Blood No Growth after 120 hours Assessment and Plan Plan: Assessment and plan 1 sepsis with evidence of UTI, positive Klebsiella pneumonia #2 acute on chronic kidney failure #3 paroxysmal atrial fibrillation #4 hypotension #5 peripheral vascular disease Plan From cardiology's perspective, we'll decrease amiodarone to 200 mg one tablet by mouth daily, decrease beta james to 12-1/2 mg one tablet by mouth twice a day. We will follow this patient with you now on an as-needed basis only, please don't hesitate to call with any questions. DNP note has been reviewed, I agree with a documented findings and plan of care. Patient was seen and examined.
--- NOTE | 2017-08-30 13:37 | P.PN ---
Subjective Progress Note Date: 08/30/17 Principal diagnosis: Acute sepsis secondary to urinary tract infection, and acute non-ST elevated myocardial infarction. This is a very pleasant 86-year-old female patient who was brought into the emergency department after being found on the floor by family members. The patient apparently had fallen at home. The patient states that she had been progressively getting weak over the past few days. She was having some right inguinal/groin pain and increased confusion for which she was taken to the primary care physician and x-ray of the hips and the pelvis was done and showed no osseous lesions and it showed degenerative changes. The patient was released home to come back today with obvious signs of sepsis. Initial investigation here in the emergency department revealed that the patient had an underlying urine checked infection with seems to be the most obvious source of sepsis. Chest x-ray was clear. Troponin was elevated at 11 without any acute ischemic changes and the patient was also ruled in for acute non-ST segment elevation myocardial infarction. She was quite hypotensive at time of arrival systolic in the mid 80s. The patient is currently receiving her second bolus of IV fluids. She was also started on IV heparin. Holman catheter is to be inserted. Her lactic acid level at time of admission was 5.4. She has leukocytosis with a white cell count of 13.3. She has 11% bandemia. She has anion gap metabolic acidosis which is essentially lactic acidosis with a bicarb level of 11. She is also an acute kidney injury with a creatinine of 4.96 in a be on a 51. Note that this is an acute on top of chronic renal injury knowing that the patient's baseline creatinine was around 3.0. The daughter claims that the patient has had previous urinary tract infections all of them have been treated on outpatient basis. Urine drug screen is positive for opiates. The patient is awake. She is lethargic. She occasionally moans. She is able to follow simple commands. There is areas of bruising over the left forehead, right elbow, right upper extremity, lateral acid of the right foot. No obvious joint deformities. No headache. No nausea or vomiting. No abdominal pain. She has a DNR/DNI CODE STATUS. Patient was reevaluated today on 08/23/2017, seems to be in no form of respiratory distress, doing quite well, asymptomatic, denies any shortness of breath, no cough, no wheezing, patient is presently hemodynamically stable, and her labs are showing steady improvement. CBC continues to show leukocytosis with WBC count of 17.9. Her PTT is 45.1 patient remains on heparin for presumptive acute MS. BUN is 47 creatinine is 3.77 CPK is gradually improving down to 1500. Her creatinine on admission was 4.96. Blood culture is positive for gram-negative rods, final report is pending. In the meantime the patient remains on antibiotics. Patient was reevaluated today on 08/24/2017, continues to do well, not in any form of respiratory distress, hemodynamically stable. WBC count remains elevated at 18.0. PTT is therapeutic at 46.8, sodium remains low at 124 BUN is 45 creatinine is 2.99 slightly improved. Patient denies being in any distress, denies any aches and pains, no shortness of breath, no nausea no vomiting no abdominal pain. Patient was reevaluated on 08/25/2017, she seems to be very comfortable, in no form of any distress, patient has been gradually improving over the last few days. Asymptomatic, no cough no wheezing no shortness of breath no chest pain no nausea no vomiting no abdominal pain, and her labs are showing steady improvement. Her blood cultures and urine cultures came back positive for Klebsiella pneumonia, and the patient is on appropriate antibiotics in the form of Rocephin and aztreonam. The Klebsiella is sensitive to both. Continues to have a bit of leukocytosis with WBC count of 19.0, hemoglobin is 11.1. Electrolytes were abnormal with a sodium of 128 but improving. Potassium of 3.0 bicarb is 17 patient will have the sodium bicarb drip discontinued, and increase the oral bicarb. Renal functioning is improving, BUN is 46 creatinine is 2.70 steady improvement has been noted over the last few days. Patient was supposed to go for a CT of the abdomen and pelvis however considering the clinical improvement, no need for CT of the abdomen and pelvis at this point, discussed this issue with the quarry supervisor open pit on the case, and we both felt on ultrasound would be more appropriate at this point. No matter what the findings would be, no major changes will be made in the present treatment plan on this patient. And that's mostly because she is gradually improving over the last few days. And antibiotics are very appropriate for the Klebsiella pneumoniae infection that she has in the blood and in the urine. Chest x-ray is suggestive of mild pulmonary venous congestion and small bilateral pleural effusions, reluctant at this point to start any Lasix but that would be considered depending on the overall clinical status and urine output as well as renal profile. Patient remains on amiodarone dose may have to be readjusted presently at 400 mg by mouth twice a day, and that being addressed by cardiology. Her A. fib seems to be better controlled at this point. Heparin is being addressed by cardiology, Reevaluated today on 08/26/2017, patient continues to do relatively well, she did develop some component of fluid overload yesterday, however she responded well to a dose of Lasix given 60 mg IV push 1. Clinically the patient felt much better, chest x-ray this morning continues to show some interstitial edema , and small effusions, however considering the patient is in negative balance over the last 24 hours and continues to have good urine output, and a bit reluctant to give Lasix again today. However if she doesn't develop any worsening shortness of breath Lasix will be restarted again. Testing for C. difficile colitis was negative. Ration is being treated for Klebsiella pneumoniae in the blood and in the urine. WBC count is already improving compared to yesterday. Renal function continues to improve, BUN is 46 creatinine is 2.56 today Reevaluated today on 08/27/2017, patient remains in the ICU as an overflow. Presently asymptomatic, no cough no wheezing no shortness of breath. Patient remains hemodynamically stable, mentation seems to be steadily improving. Her urine output is excellent, patient was given another dose of Lasix by nephrology today. Amiodarone dose was lowered to 200 mg twice a day instead of 400 twice a day. Thrombocytopenia seems to be improving. Platelets are 1 78, 007 present. Renal profile continues to improve. BUN is 50 creatinine is 2.50. WBC count is down to 10 hemoglobin is 11.0. Reevaluated today on 08/28/2017, patient is now on the medical floor, doing well , asymptomatic. No cough no wheezing no shortness of breath no chest pain no nausea no vomiting no abdominal pain. Labs were reviewed she has a relatively normal CBC and normal electrolytes her BUN is 58 and creatinine is 2.39 still gradually improving. All her meds and labs were reviewed. And I discussed the condition at bedside with her daughter. On 08/29/2017, patient continues to be basically about the same, asymptomatic, no cough no wheezing no shortness of breath no chest pain no nausea no vomiting no abdominal pain. Labs were reviewed, and her renal profile seems to be slightly worse today, hence I discontinued Lasix today. BUN is up to 61 creatinine is up to 2.46. CBC is relatively unremarkable. Last chest x-ray 2 days ago showed mild congestive changes, hence a follow-up chest x-ray will be ordered to be done in a.m. On 08/30/2017 patient is seen in follow-up on [facility]. Her oxygenation remained stable on room air, O2 sat is 91-92%. She is afebrile. She is awake alert, resting in bed in no acute distress. Her blood and urine culture were positive for Klebsiella pneumoniae with sensitivity to Levaquin. She has been hemodynamically stable. No specific respiratory complaints. Her BMP results has been reviewed, creatinine is slightly better at 2.40, with BUN at 59. Sodium is 132. Chest x-ray from 08/30/2017 has been reviewed by Dr. Xie shows stable patchy basilar infiltrates with small effusions and pulmonary venous congestion. Objective - Vital Signs Vital signs: Vital Signs Temp 97.9 F 08/30/17 11:26 Pulse 75 08/30/17 11:26 Resp 20 08/30/17 11:26 BP 100/56 08/30/17 11:26 Pulse Ox 92 L 08/30/17 11:26 Intake & Output 08/29/17 08/30/17 08/30/17 18:59 06:59 18:59 Intake Total 250 200 Output Total 250 500 75 Balance 0 -500 125 Weight 71 kg Intake: IV 50 Aztreonam 1 gm In Sodium 50 Chloride 0.9% 50 ml @ 100 mls/hr IVPB Q12HR [facility] Rx #:[id number] Oral 200 200 Output: Stool 250 500 75 Other: Voiding Method Indwelling Catheter # Voids 2 1 - Exam Physical Exam revealed an 86-year-old female in no distress, asymptomatic. HEENT:[Neck is supple.] [No neck masses.] [No thyromegaly.] [No JVD.] Chest: [Lung sounds show good air entry bilaterally, with a few bibasilar rales Cardiac Exam: [Normal S1 and S2, no S3 gallop, no murmur.] Abdomen: [Soft, nontender, no megaly, no rebound, no guarding, normal bowel sounds. Positive ileostomy bag is noted, Extremities: [No clubbing, no edema, no cyanosis.] Neurological Exam: [No focal neurologic deficit.] Psychiatric: Normal mood and affect, normal mental status examination. Lymphatics: No lymphadenopathy. Psychiatric: Normal mood and affect and mental status examination - Labs CBC & Chem 7: 08/28/17 05:38 08/30/17 05:50 Labs: Abnormal Lab Results - Last 24 Hours (Table) 08/30/17 Range/Units 05:50 Sodium 132 L (137-145) mmol/L BUN 59 H (7-17) mg/dL Creatinine 2.40 H (0.52-1.04) mg/dL Calcium 8.1 L (8.4-10.2) mg/dL Microbiology - Last 24 Hours (Table) 08/24/17 17:04 Blood Culture - Preliminary Blood No Growth after 120 hours Assessment and Plan Plan: Plan: 1 acute sepsis secondary to an underlying urine tract infection secondary to Klebsiella pneumonia 2 acute fever, leukocytosis, hypotension and lactic acidosis secondary to urine tract infection/sepsis 3 acute lactic acidosis secondary to sepsis 4 acute on top of chronic kidney failure. Improving steadily since admission 5 hypotension, secondary to sepsis responded to fluid boluses, did not require any pressors 6 acute non-ST segment elevation myocardial infarction, no acute changes and the patient is asymptomatic without any chest pain, being addressed by cardiology on the case. 7 ulcerative colitis with a previous ileostomy, functioning well 8 dementia 9 peripheral vascular disease 10 small hiatal hernia 11 fall without any obvious major injuries 12 acute fluid overload and congestive heart failure most likely systolic in nature, responded well to diuretics initially, however I will go ahead and recommend holding diuretics since the renal profile seems to be slightly worse today. Follow-up chest x-ray in a.m. Recommendation: Repeat chest x-ray shows patchy basilar infiltrates with small effusions which is unchanged from previous exam. But clinically patient is on room air and maintaining stable oxygenation. Denies any specific respiratory complaints. No signs of chest congestion, no wheezing, no rhonchi. Few scattered rales at posterior bases. Continue present supportive care measures, patient will benefit from rehab referral. She is stable for discharge from pulmonary standpoint. I performed a history & physical examination of the patient and discussed their management with my nurse practitioner, Carmen Isaac. I reviewed the nurse practitioner's note and agree with the documented findings and plan of care. Lung sounds are positive for a few bibasilar crackles. From pulmonary standpoint she is stable for discharge. The findings and the impression was discussed with the patient. I attest to the documentation by the nurse practitioner. Time with Patient: Less than 30
[2017-08-30 13:48] VITALS: BMI 26.9
--- NOTE | 2017-08-30 14:53 | P.DS ---
Providers Date of admission: 08/22/17 13:21 Attending physician: Jania Atwood Consults: 08/22/17 13:21 Consult Physician Urgent Consulting Provider: Timothy Martinez Consult Reason/Comments: nstemi Do you want consulting provider notified?: Yes Consult Physician Urgent Consulting Provider: Michelle Davidson Consult Reason/Comments: renal failure Do you want consulting provider notified?: Yes 08/22/17 13:50 Consult Physician Urgent Consulting Provider: Regina Graves Consult Reason/Comments: critical care Do you want consulting provider notified?: Already Contacted Primary care physician: [facility] Course: This 86-year-old woman with a past medical history multiple medical problems was admitted with the UTI with sepsis. Patient also has septic shock and severe sepsis. Klebsiella pneumonia was grown from the cultures. Patient also had a renal failure and other multiple medical issues also. Patient treated symptomatically. Patient improved significantly. Gait dysfunction snorted. Patient is recommended ECF rehab. However at this time the patient and family would like to go home with the Homecare at this time. Patient is stable for discharge but overall prognosis is guarded. Discussed with the rn case management. This patient be discharged in a stable condition guarded prognosis. Total time taken 35 minutes. On exam vitals and normal. Cardio S1 and S2 normal. Abdomen soft nontender. Nervous system no focal deficit. Mild diffuse weakness. Chest few rhonchi. Final diagnosis 1. UTI with sepsis and septic shock and severe sepsis and hypotension secondary to Klebsiella pneumonia. 2. Acute kidney injury multifactorial with acute renal failure. 3. Chronic kidney disease stage III baseline possibly. 4. Acute lactic acidosis secondary to sepsis. 5. Elevated troponin possible acute non-ST segment elevation myocardial infarction with type II demand ischemia. 6. Ulcerative colitis history. 7. Peripheral vascular disease. 8. hiatal Hernia. 9. Hyperlipidemia. 10. Gait dysfunction. 11. No code no CPR no vent Patient Condition at Discharge: Serious Plan - Discharge Summary Discharge Rx Participant: Yes New Discharge Prescriptions: New Amiodarone [Cordarone] 200 mg PO DAILY tab Apixaban [Eliquis] 2.5 mg PO BID tablet Levofloxacin [Levaquin] 500 mg PO Q48H #5 tab Metoprolol Tartrate [Lopressor] 12.5 mg PO BID tab Oxybutynin Chloride [Ditropan] 5 mg PO DAILY tab Sodium Bicarbonate Tab 1,300 mg PO BID tab Folic Acid 1 mg PO DAILY #1 tablet Multivitamins, Thera [Multivitamin (formulary)] 1 tab PO DAILY #1 tablet Thiamine [Vitamin B-1] 100 mg PO DAILY #1 tablet Continue Sertraline HCl 50 mg PO DAILY Omeprazole [PriLOSEC] 20 mg PO AC-BRKFST Pravastatin Sodium 40 mg PO HS Donepezil HCl 23 mg PO HS traMADol HCL [Ultram] 50 mg PO BID PRN #10 tablet PRN Reason: Pain Discontinued Mirtazapine 30 mg PO HS ALPRAZolam 0.5 mg PO TID PRN PRN Reason: Anxiety Discharge Medication List Donepezil HCl 23 mg PO HS 06/06/15 [History] Omeprazole [PriLOSEC] 20 mg PO AC-BRKFST 06/06/15 [History] Pravastatin Sodium 40 mg PO HS 06/06/15 [History] Sertraline HCl 50 mg PO DAILY 06/06/15 [History] Amiodarone [Cordarone] 200 mg PO DAILY tab 08/30/17 [Rx] Apixaban [Eliquis] 2.5 mg PO BID tablet 08/30/17 [Rx] Folic Acid 1 mg PO DAILY #1 tablet 08/30/17 [Rx] Levofloxacin [Levaquin] 500 mg PO Q48H #5 tab 08/30/17 [Rx] Metoprolol Tartrate [Lopressor] 12.5 mg PO BID tab 08/30/17 [Rx] Multivitamins, Thera [Multivitamin (formulary)] 1 tab PO DAILY #1 tablet [Rx] Oxybutynin Chloride [Ditropan] 5 mg PO DAILY tab 08/30/17 [Rx] Sodium Bicarbonate Tab 1,300 mg PO BID tab 08/30/17 [Rx] Thiamine [Vitamin B-1] 100 mg PO DAILY #1 tablet 08/30/17 [Rx] traMADol HCL [Ultram] 50 mg PO BID PRN #10 tablet 08/30/17 [Rx] Follow up Appointment(s)/Referral(s): Pool Glover MD [STAFF PHYSICIAN] - 09/13/17 4:00 pm Denise Carmona MD [Primary Care Provider] - 3 Days (DAUGHTER, URIEL, WILL MAKE APPOINTMENT) Sonny Bremudez DO [STAFF PHYSICIAN] - 1 Week (OFFICE WILL CALL WITH APPOINTMENT TIME) [facility] Visiting Nurse, [NON-STAFF] - Ambulatory/Diagnostic Orders: Basic Metabolic Panel [LAB.AMB] Time Frame: 3 Days, Location: Determined By Patient Patient Instructions/Handouts: Urinary Tract Infection in Women (DC), Sepsis ( GEN) Activity/Diet/Wound Care/Special Instructions: Hospital Bed - to be delivered by [facility] - [phone] Diet: Cardiac, fluid restriction 1500ml/24hr, BRAULIO Activity: As tolerated CBC, BMP in 3 days Discharge Disposition: TRANSFER TO SNF/ECF
[2017-08-30 15:57] VITALS: BP 95/48; PULSE 64; RESP 16; TEMP 98.1
--- NOTE | 2017-08-30 23:52 | PN ---
PROGRESS NOTE The patient is seen for followup for acute kidney injury on top of chronic kidney disease. Her renal function has been stable lately with serum creatinine staying at about 2.4 mg/dL. There are plans for discharge today. Patient is awake comfortable. She is not in any acute distress. Blood pressure was 100/56, heart rate 75 per minute patient is afebrile. Examination of the heart S1, S2. Examination lungs bilateral breath sounds are heard. Abdomen is soft, nontender. Examination lower extremities shows no significant edema. LAB: Show sodium 132, potassium 4.0, BUN 59, serum creatinine 2.4. Hemoglobin was 11.0 on 08/28/2017. ASSESSMENT: 1. Acute kidney injury associated with hypotension hypoperfusion, currently improved. 2. Chronic kidney disease, NKF stage IV with baseline creatinine appearing to be around 2.4 mg/dL. The patient will need outpatient followup. 3. Severe metabolic acidosis, currently resolved. 4. Gram-negative sepsis with Klebsiella pneumonia, urine tract infection and bacteremia, now improved, maintained on Levaquin. PLAN: Patient is stable for discharge. She will need to follow up as outpatient. MMODL / IJN: [id number] /
[2017-08-31] MEDS ORDERED: AMIODARONE 200 MG TAB PO SCH (09:00)
--- NOTE | 2017-09-01 14:00 | P.ARTDOP ---
Arterial Doppler LOWER EXTREMITY ARTERIAL DOPPLER: DATE OF SERVICE: 08/30/2017 Reason for study: Bilateral foot discoloration. Doppler waveforms: Multiphasic bilaterally throughout including pedal vessels. Pulse volume recording: Normal configuration. Pressure gradients: Only at the foot level. Ankle-brachial indices: Greater than 1 bilaterally. Toe pressures: 45 on the right, 59 on the left Impression: Normal proximal flow. Lower toe pressures most likely related to vasospastic phenomenon. Poor cardiac output a possibility. Very distal disease less likely. Clinical correlation recommended..
== END 2017-08-30 18:39 | DRG 871 ==
LOC: EC 10:06 → 6ICU 13:21 → 6SEL 08-27 16:24
PROVIDERS: ADMIT Internal Medicine; ATTEND Internal Medicine
DX: A41.59 Other Gram-negative sepsis (principal); R65.21 Severe sepsis with septic shock; N17.0 Acute kidney failure with tubular necrosis; I21.4 Non-ST elevation (NSTEMI) myocardial infarction; E87.2 Acidosis; N18.4 Chronic kidney disease, stage 4 (severe); D69.6 Thrombocytopenia, unspecified; F03.90 Unspecified dementia, unspecified severity, without behavioral disturbance, psychotic disturbance, mood disturbance, and anxiety; K51.90 Ulcerative colitis, unspecified, without complications; N39.0 Urinary tract infection, site not specified; E87.1 Hypo-osmolality and hyponatremia; M62.82 Rhabdomyolysis; I48.0 Paroxysmal atrial fibrillation; E86.0 Dehydration; I12.9 Hypertensive chronic kidney disease with stage 1 through stage 4 chronic kidney disease, or unspecified chronic kidney disease; I73.9 Peripheral vascular disease, unspecified; K44.9 Diaphragmatic hernia without obstruction or gangrene; F32.9 Major depressive disorder, single episode, unspecified; E78.5 Hyperlipidemia, unspecified; F41.9 Anxiety disorder, unspecified; R26.9 Unspecified abnormalities of gait and mobility; Z66 Do not resuscitate; E87.70 Fluid overload, unspecified; S50.01XA Contusion of right elbow, initial encounter; S00.83XA Contusion of other part of head, initial encounter; E87.6 Hypokalemia; Z87.11 Personal history of peptic ulcer disease; Z79.82 Long term (current) use of aspirin; Z90.49 Acquired absence of other specified parts of digestive tract; Z79.899 Other long term (current) drug therapy; Z82.49 Family history of ischemic heart disease and other diseases of the circulatory system; Z87.19 Personal history of other diseases of the digestive system; Z93.2 Ileostomy status; Z90.710 Acquired absence of both cervix and uterus; Y92.009 Unspecified place in unspecified non-institutional (private) residence as the place of occurrence of the external cause; W19.XXXA Unspecified fall, initial encounter
CPT/HCPCS: 36415; 70450; 71010; 71020; 72125; 73502; 76770; 80048; 80051; 80053; 80061; 80306; 81001; 82272; 82550; 82553; 83605; 83735; 83935; 84100; 84132; 84300; 84484; 85025; 85610; 85730; 87040; 87077; 87086; 87186; 87324; 93005; 93306; 93923; 94760; 96365; 96366; 96375; 96376; 99291

== ENCOUNTER 2017-10-15 17:54 | Emergency (ER) | payer MEDICARE, OTHER ==
[2017-10-15 18:02] VITALS: RESP 18
[2017-10-15] MEDS ORDERED: HYDROmorphone 1 MG/ML 1 ML SYRINGE IM STA (18:13)
[2017-10-15] MEDS ORDERED: ONDANSETRON ODT 4 MG TAB PO STA (18:14)
--- NOTE | 2017-10-15 18:18 | ED ---
General Adult HPI - General Chief complaint: Fall Stated complaint: Fall Time Seen by Provider: 10/15/17 18:00 Source: patient, family, RN notes reviewed Mode of arrival: wheelchair Limitations: no limitations - History of Present Illness Initial comments: This is an 86-year-old female presents emergency department after having fallen while walking to the bedroom. Patient complains of right-sided rib pain after she had fallen. Patient denies any headache or head pain or hematomas. Patient denies any neck pain patient denies any numbness weakness. Patient denies any upper extremity pain. Patient denies any abdominal pain. Patient denies any back pain. Patient denies any shortness of breath or difficulty breathing. Patient denies any hip pain or lower family pain. Patient denies any sites of bleeding. - Related Data Home Medications Medication Instructions Recorded Confirmed Donepezil HCl 23 mg PO HS 06/06/15 10/15/17 Omeprazole [PriLOSEC] 20 mg PO AC-BRKFST 06/06/15 10/15/17 Pravastatin Sodium 40 mg PO HS 06/06/15 10/15/17 Sertraline HCl 50 mg PO DAILY 06/06/15 10/15/17 Metoprolol Tartrate [Lopressor] 12.5 mg PO HS 10/15/17 10/15/17 Sodium Bicarbonate Tab 1,300 mg PO HS 10/15/17 10/15/17 Previous Rx's Medication Instructions Recorded Amiodarone [Cordarone] 200 mg PO DAILY tab 08/30/17 Apixaban [Eliquis] 2.5 mg PO BID #60 tab 08/30/17 Folic Acid 1 mg PO DAILY #1 tablet 08/30/17 Thiamine [Vitamin B-1] 100 mg PO DAILY #1 tablet 08/30/17 traMADol HCl [Ultram] 50 mg PO BID PRN #20 tab 08/30/17 Hydrocodone/Acetaminophen [[place] 0.5 each PO Q4HR PRN #20 tab 10/15/17 5-325] Ibuprofen [Motrin] 400 mg PO Q6HR #20 tab 10/15/17 Allergies Allergy/AdvReac Type Severity Reaction Status Date / Time No Known Allergies Allergy Verified 10/15/17 18:01 Review of Systems ROS Statement: Those systems with pertinent positive or pertinent negative responses have been documented in the HPI. ROS Other: All systems not noted in ROS Statement are negative. Past Medical History Past Medical History: Dementia, Hyperlipidemia, Hypertension Additional Past Medical History / Comment(s): Chronic renal failure, gastric ulcer, dementia, mild gastritis, small hiatal hernia, peripheral vascular disease, history of ulcerative colitis and the patient has undergone a total colectomy with a diverting ileostomy, History of Any Multi-Drug Resistant Organisms: None Reported Past Surgical History: Bladder Surgery, Hernia Repair, Hysterectomy Additional Past Surgical History / Comment(s): colonoscopy/egd,ileostomy , abd hernia repair Past Anesthesia/Blood Transfusion Reactions: No Reported Reaction Past Psychological History: Anxiety, Depression Smoking Status: Never smoker Past Alcohol Use History: None Reported Past Drug Use History: None Reported - Past Family History Father Additional Family Medical History / Comment(s): IN HIS 80'S NATURAL CAUSES Mother Family Medical History: Myocardial Infarction ([place]) Additional Family Medical History / Comment(s): AT AGE 58 FROM [place] General Exam - General Exam Comments Initial Comments: GENERAL: Patient is well-developed and well-nourished. Patient is nontoxic and well- hydrated and is in mild distress. ENT: Neck is soft and supple. No significant lymphadenopathy is noted. Oropharynx is clear. Moist mucous membranes. Neck has full range of motion without eliciting any pain. EYES: The sclera were anicteric and conjunctiva were pink and moist. Extraocular movements were intact and pupils were equal round and reactive to light. Eyelids were unremarkable. PULMONARY: Unlabored respirations. Good breath sounds bilaterally. No audible rales rhonchi or wheezing was noted. CARDIOVASCULAR: There is a regular rate and rhythm without any murmurs gallops or rubs. Patient has tenderness in the right lateral rib cage. ABDOMEN: Soft and nontender with normal bowel sounds. No palpable organomegaly was noted. There is no palpable pulsatile mass. SKIN: Skin is clear with no lesions or rashes and otherwise unremarkable. NEUROLOGIC: Patient is alert and oriented 2. Cranial nerves II through XII are grossly intact. Motor and sensory are also intact. Normal speech, volume and content. Symmetrical smile. MUSCULOSKELETAL: Normal extremities with adequate strength and full range of motion. No lower extremity swelling or edema. No calf tenderness. LYMPHATICS: No significant lymphadenopathy is noted PSYCHIATRIC: Normal psychiatric evaluation. Normal interpersonal interactions appears functionally intact in deals appropriately with others. No signs of depression. No signs of anxiety. Limitations: no limitations Course Vital Signs 10/15/17 17:59 Temperature 98.2 F Pulse Rate 79 Respiratory 18 Rate Blood Pressure 142/88 O2 Sat by Pulse 98 Oximetry Medical Decision Making - Medical Decision Making X-ray shows a rib fracture on the eighth rib on the right Disposition Clinical Impression: Rib fracture Disposition: HOME SELF-CARE Instructions: Fall Prevention for Older Adults (ED), Rib Fracture (ED) Prescriptions: Hydrocodone/Acetaminophen [[place] 5-325] 0.5 each PO Q4HR PRN #20 tab PRN Reason: Pain Ibuprofen [Motrin] 400 mg PO Q6HR #20 tab Referrals: Denise Carmona MD [Primary Care Provider] - 1-2 days Time of Disposition: 19:45
--- NOTE | 2017-10-15 19:31 | XR ---
EXAMINATION TYPE: XR ribs RT w pa chest xray DATE OF EXAM: 10/15/2017 CLINICAL HISTORY: Right rib pain following a fall TECHNIQUE: Single frontal view of the chest is obtained. Right lateral and oblique images of the ribs were also obtained. COMPARISON: 08/30/2017 FINDINGS: There is no pneumothorax seen. The cardiac silhouette size is within normal limits. There is a nondisplaced lateral fracture of right rib 8. There is hypoplasia of the 12th ribs. Surgical cl ips are noted within the right mid abdomen. Multilevel moderate degenerative changes of the visualize d thoracolumbar spine are noted. Trace left pleural effusion blunts the costophrenic angle and retroc ardiac airspace disease likely relates to left basilar subsegmental atelectasis. IMPRESSION: 1. Nondisplaced lateral right rib 8 fracture. No pneumothorax. 2. Trace left pleural effusion and left basilar consolidation, likely atelectasis.
[2017-10-15 20:16] VITALS: BP 132/67; PULSE 72; TEMP 97.4
== END 2017-10-15 20:16 | disposition home or self-care (01) ==
LOC: EC 17:54
DX: S22.31XA Fracture of one rib, right side, initial encounter for closed fracture (principal); E78.5 Hyperlipidemia, unspecified; I10 Essential (primary) hypertension; F03.90 Unspecified dementia, unspecified severity, without behavioral disturbance, psychotic disturbance, mood disturbance, and anxiety; F32.9 Major depressive disorder, single episode, unspecified; F41.9 Anxiety disorder, unspecified; Z79.899 Other long term (current) drug therapy; W19.XXXA Unspecified fall, initial encounter
CPT/HCPCS: 71101; 99283; 96372; J1170

== ENCOUNTER → 2017-12-30 | Outpatient (CLI) | payer MEDICARE, OTHER ==
--- NOTE | 2017-12-30 10:31 | XR ---
EXAMINATION TYPE: XR chest 2V DATE OF EXAM: 12/30/2017 COMPARISON: 10/15/2017 HISTORY: 87-year-old female cough and essential hypertension TECHNIQUE: Frontal and lateral views FINDINGS: Heart upper limits of normal in size. Mild elongation of the thoracic aorta. Mild interstitial promin ence with hyperinflation and flattening of the hemidiaphragms. There are patchy bibasilar densities d emonstrated. No pleural effusion on the lateral view. Accentuated mid thoracic kyphosis. IMPRESSION: 1. COPD. 2. Patchy bibasilar areas of atelectasis or early infiltrates. Correlate with white blood cell count and for any infectious signs/symptoms to exclude early developing pneumonia. Follow-up may be helpful .
== END | disposition home or self-care (01) ==
LOC: RADXRMAIN 10:06
PROVIDERS: ATTEND Family Medicine
DX: J44.9 Chronic obstructive pulmonary disease, unspecified (principal); J98.11 Atelectasis; I10 Essential (primary) hypertension
CPT/HCPCS: 71046

== ENCOUNTER 2019-07-01 14:23 | Inpatient (IN) | payer MEDICARE, OTHER ==
[2019-07-01] MEDS ORDERED: Acetaminophen-Codeine 300-30mg TAB PO STA (15:55)
--- NOTE | 2019-07-01 16:48 | CT ---
EXAMINATION TYPE: CT brain nancy wo con DATE OF EXAM: 07/01/2019 COMPARISON: 08/22/2017 HISTORY: 88-year-old female fall and pain with injury CT DLP: 1276.4 mGycm Automated exposure control for dose reduction was used. Technique: Examination of the head was done in axial plane without intravenous contrast. Coronal and sagittal reconstructions performed. CT of the cervical spine was obtained in axial plane without intravenous injection of contrast mater ial. Coronal and sagittal reformatted images were obtained from the axial views for evaluation of f ractures, spinal alignment and canal. FINDINGS: Head: There is no evidence of acute intracranial hemorrhage, acute ischemic changes, mass, mass-effect, or extra-axial fluid collection. There is no effacement of cerebral sulci or basal subarachnoid cister ns. Mild ventriculomegaly secondary to central atrophy. Moderate confluent white matter hypodensities unchanged. There is no midline shift. Eaton-white matter distinction is preserved. Paranasal sinuses and mastoid air cells well pneumatized. Orbits and globes are intact. Cervical spine: No craniocervical junction abnormality, predental space widening, or prevertebral soft tissue swellin g. Degenerative changes of the C1 dens articulation. Hypertrophic facet and uncovertebral joint arthropathy throughout. Grade 1 anterolisthesis at C4-C5, C5-C6, C6-C7, and C7-T1 was also present back in 2017. No acute fracture of the cervical spine. Moderate spondylotic change mid to lower cervical spine. Stable minimal anterior wedging of T4 as compared to 2017. Sagittal and coronal reformatted images confirm above findings. COMBINED IMPRESSION: 1. No acute intracranial abnormality seen. Stable mild generalized atrophy and moderate consolidative changes of chronic small vessel ischemic disease. 2. No acute fracture of the cervical spine. Stable grade 1 anterolisthesis from C4 through T1 levels. Moderate spondylotic change. Mild anterior wedging of T4 is stable from 2017.
--- NOTE | 2019-07-01 17:19 | XR ---
EXAMINATION TYPE: XR chest 2V DATE OF EXAM: 07/01/2019 COMPARISON: 12/30/2017 HISTORY: 88-year-old female fall right paraspinal pain TECHNIQUE: AP and lateral views FINDINGS: Very kyphotic positioning and low lung volumes limiting assessment. Heart mildly enlarged. Diffuse in terstitial prominence. Focal posterior basilar opacity partially silhouetting the hemidiaphragms. Mul tiple right-sided rib fractures including the right lateral fifth, sixth, seventh, and probably eight h RIBS. These show variable displacement up to three-quarter shaft's width. No appreciable pneumothor ax. IMPRESSION: Very limited exam due to kyphotic positioning and low lung volumes. Unable to exclude bibasilar atelectasis/infiltrates or effusion. Fractures of the right lateral fifth through eighth ribs with very variable displacement up to 3/4 sh aft's width.
[2019-07-01] MEDS ORDERED: NALOXONE 0.4 MG/ML 1 ML VIAL IV PRN (18:06)
[2019-07-01] MEDS ORDERED: ONDANSETRON 4 MG/2 ML VIAL IVP PRN (18:06)
[2019-07-01] MEDS ORDERED: SODIUM CHLORIDE 0.9% 1,000 ML IV STA (18:08)
[2019-07-01] MEDS ORDERED: MORPHINE SULFATE 4 MG/ML SYRINGE IVP STA (18:10)
--- NOTE | 2019-07-01 18:19 | ED ---
Fall HPI - General Source: patient Mode of arrival: ambulatory <Jeffrey Cronin - Last Filed: 07/01/19 18:11> <Jamel Couch - Last Filed: 07/01/19 18:28> - General Chief Complaint: Fall Stated Complaint: Fall Time Seen by Provider: 07/01/19 15:49 - History of Present Illness Initial Comments: Patient is an 88-year-old female presenting to emergency Department with a chief complaint of a fall. Patient reports incident occurred approximately 1 hour ago prior to the arrival. Patient reports she tripped over a 2 day and landing on the right side of her body. Patient reports pain in the right flank region and the right paraspinal region in the thoracic area. Patient reports pain with left and right rotation. Patient denies any numbness or tingling. Patient denies loss of consciousness at time of incident. Patient does report mild head trauma. Patient is on blood thinners. (Jeffrey Cronin) - Related Data Home Medications Medication Instructions Recorded Confirmed Donepezil HCl 23 mg PO HS 06/06/15 07/01/19 Omeprazole [PriLOSEC] 20 mg PO AC-BRKFST 06/06/15 07/01/19 Pravastatin Sodium 40 mg PO HS 06/06/15 07/01/19 Sertraline HCl 50 mg PO DAILY 06/06/15 07/01/19 Sodium Bicarbonate Tab 650 mg PO TID 10/15/17 07/01/19 Amiodarone [Cordarone] 100 mg PO DAILY 12/21/18 07/01/19 Apixaban [Eliquis] 2.5 mg PO HS 07/01/19 07/01/19 Vitamin B-1 250mg 250 mg PO DAILY 07/01/19 07/01/19 Vitamin D3(Unknown Dose) Chew Tab 2 tab PO DAILY 07/01/19 07/01/19 Previous Rx's Medication Instructions Recorded Folic Acid 1 mg PO DAILY #1 tablet 08/30/17 Allergies Allergy/AdvReac Type Severity Reaction Status Date / Time No Known Allergies Allergy Verified 07/01/19 17:56 Review of Systems ROS Other: All systems not noted in ROS Statement are negative. <Jeffrey Cronin - Last Filed: 07/01/19 18:11> ROS Other: All systems not noted in ROS Statement are negative. <Jamel Couch - Last Filed: 07/01/19 18:28> ROS Statement: Those systems with pertinent positive or pertinent negative responses have been documented in the HPI. Past Medical History Past Medical History: Dementia, Hyperlipidemia, Hypertension Additional Past Medical History / Comment(s): Chronic renal failure, gastric ulcer, dementia, mild gastritis, small hiatal hernia, peripheral vascular disease, history of ulcerative colitis and the patient has undergone a total colectomy with a diverting ileostomy, History of Any Multi-Drug Resistant Organisms: None Reported Past Surgical History: Bladder Surgery, Hernia Repair, Hysterectomy Additional Past Surgical History / Comment(s): colonoscopy/egd,ileostomy , abd hernia repair Past Anesthesia/Blood Transfusion Reactions: No Reported Reaction Past Psychological History: Anxiety, Depression Smoking Status: Never smoker Past Alcohol Use History: None Reported Past Drug Use History: None Reported - Past Family History Father Additional Family Medical History / Comment(s): IN HIS 80'S NATURAL CAUSES Mother Family Medical History: Myocardial Infarction ([place]) Additional Family Medical History / Comment(s): AT AGE 58 FROM [place] <Jeffrey Cronin - Last Filed: 07/01/19 18:11> General Exam Limitations: no limitations General appearance: alert, in no apparent distress Head exam: Present: atraumatic, normocephalic, normal inspection. Absent: other (Negative periorbital ecchymosis, negative Deleon sign, negative hemotympanum) Eye exam: Present: normal appearance, PERRL, EOMI. Absent: conjunctival injection Pupils: Present: normal accommodation ENT exam: Present: normal exam, normal oropharynx (Normal trauma), mucous membranes moist, TM's normal bilaterally, normal external ear exam Neck exam: Present: normal inspection, full ROM. Absent: tenderness Respiratory exam: Present: normal lung sounds bilaterally. Absent: wheezes, decreased breath sounds Cardiovascular Exam: Present: regular rate, normal rhythm, normal heart sounds GI/Abdominal exam: Present: soft. Absent: tenderness, guarding Extremities exam: Present: full ROM, normal capillary refill, other (+2 ulnar and radial pulses bilaterally.). Absent: normal inspection (Ecchymosis on the lateral aspect of her right arm), tenderness Back exam: Present: normal inspection, tenderness, paraspinal tenderness (Paraspinal tenderness in the right thoracic region). Absent: full ROM (limited range of motion due to pain.), CVA tenderness (R), CVA tenderness (L), vertebral tenderness Neurological exam: Present: alert, oriented X3 Psychiatric exam: Present: normal affect, normal mood Skin exam: Present: warm, intact, normal color <Jeffrey Cronin - Last Filed: 07/01/19 18:11> Course <Jamel Couch - Last Filed: 07/01/19 18:28> Vital Signs 07/01/19 14:58 Temperature 98.8 F Pulse Rate 55 L Respiratory 18 Rate Blood Pressure 138/62 O2 Sat by Pulse 98 Oximetry - Reevaluation(s) Reevaluation #1: 07/01/19 18:22 Patient reexamined and reevaluated by myself, Dr. Couch. Patient resting comfortably in bed. Patient states she did have a slip and fall. Patient states only discomfort at this point is right lateral ribs. There is tenderness on exam. Lung sounds are clear. Heart regular rate and rhythm without murmur. No focal deficits. No abdominal tenderness or extremity tenderness. Results and reports reviewed. Case was discussed in detail with Dr. Newman, who will admit for trauma surgery. Case also discussed with Dr. Nunes who will consult on patient. Admission orders written. Family and patient are updated. (Jamel Couch) Medical Decision Making <Jeffrey Cronin - Last Filed: 07/01/19 18:11> - Medical Decision Making Patient is an 88-year-old female presenting to the emergency department with chief complaint of a fall. Patient tripped and fell on the right side. Patient has pain in the right paraspinal region or thoracic area. No vertebral tenderness. Patient does have a trauma and also consciousness. Patient is on Eliquis. CT of brain and C-spine is unremarkable. Chest x-ray is indicative of multiple rib fractures. Unable to exclude basilar atelectasis or effusion. Fractures of the right lateral fifth to eighth ribs with variable displacement. Dr. Couch examine the patient and will be admitted to ICU. Patient given morphine for pain. (Jeffrey Cronin) Disposition Is patient prescribed a controlled substance at d/c from ED?: No Time of Disposition: 18:19 <Jeffrey Cronin - Last Filed: 07/01/19 18:11> <Jamel Couch - Last Filed: 07/01/19 18:28> Clinical Impression: Rib fractures Disposition: ADMITTED IP TO THIS HOSP Condition: Stable Instructions (If sedation given, give patient instructions): Fall Prevention (ED) Additional Instructions: Patient will be admitted Referrals: Denise Carmona MD [Primary Care Provider] - 1-2 days
[2019-07-01 19:07] LABS: Basophils % (A) 0 %; Eosinophils % (A) 0 %; HCT 36.9 % (34.0-46.0); HGB 12.3 gm/dL (11.4-16.0); Lymphocytes % (A) 13 %; MCH 31.6 pg (25.0-35.0); MCHC 33.4 g/dL (31.0-37.0); MCV 94.6 fL (80.0-100.0); Mean Platelet Volume 6.9; Monocytes # (A) 0.4 k/uL (0-1.0); Monocytes % (A) 5 %; Neutrophils # (A) 6.3 k/uL (1.3-7.7); Neutrophils % (A) 81 %; Platelet Count 192 k/uL (150-450); RDW 13.5 % (11.5-15.5); WBC 7.8 k/uL (3.8-10.6)
[2019-07-01 19:18] LABS: Calcium 9.1 mg/dL (8.4-10.2); INR 0.9 (<1.2); Partial Thromboplastin Time 22.2 sec (22.0-30.0); Potassium 4.2 mmol/L (3.5-5.1); Prothrombin Time 9.8 sec (9.0-12.0); Total Bilirubin 0.5 mg/dL (0.2-1.3); Total Protein 6.6 g/dL (6.3-8.2)
[2019-07-01 20:21] LABS: Glucose,Whole Blood 119 mg/dL (75-99)
--- NOTE | 2019-07-01 22:47 | CT ---
EXAM: CT Chest Without Intravenous Contrast CLINICAL HISTORY: ITS.REASON CT Reason: multiple rib fractures TECHNIQUE: Axial computed tomography images of the chest without intravenous contrast. CTDI is 7 mGy and DLP is 227 mGy-cm. This CT exam was performed using one or more of the following dose reduction techniques: automated exposure control, adjustment of the mA and/or kV according to patient size, and/or use of iterative reconstruction technique. COMPARISON: No relevant prior studies available. FINDINGS: Lungs: 8 x 4 mm nodule in the left upper lobe. Pleural space: Small medial pneumothorax (10-20%). Moderate right and mild left pleural effusions with compressive atelectasis. Heart: Enlarged heart size. No pericardial effusion. Bones/joints: No spinal fracture. Fractured right fifth through eighth ribs. Soft tissues: Unremarkable. Vasculature: Unremarkable. No thoracic aortic aneurysm. Lymph nodes: No enlarged lymph nodes. Upper abdomen: Unremarkable. IMPRESSION: 1. Multiple right-sided rib fractures with small pneumothorax. 2. Bilateral pleural effusions. 3. 8 mm nodule in the left upper lobe of the lung, recommend follow-up in 6-12 months and further follow-up at 18-24 months.
--- NOTE | 2019-07-01 23:33 | P.GSHP ---
History of Present Illness H&P Date: 07/01/19 CHIEF COMPLAINT: Status post fall ground-level HISTORY OF PRESENT ILLNESS: The patient is a 88-year-old female with chronic stage III renal insufficiency as well as blood thinners reports tripping and falling onto her right side onto the ground. She reports right-sided moderate chest pain. In the emergency room, chest x-ray was obtained demonstrating multiple right-sided rib fractures. She reports moderate to severe right-sided chest pain from her rib fractures as a result she has been admitted. No reports of previous rib fractures. PAST MEDICAL HISTORY: See list. PAST SURGICAL HISTORY: See list. MEDICATIONS: See list. ALLERGIES: See list. SOCIAL HISTORY: See list. FAMILY HISTORY: See list. REVIEW OF ORGAN SYSTEMS: CONSTITUTIONAL: No fevers or chills. No recent weight loss. EYES: Denies any trouble with vision. No glasses. HEENT: No difficulties with hearing. No nosebleeds. No difficulty swallowing. RESPIRATORY: Denies pneumonia. Denies any troubles with breathing or dyspnea on exertion. CARDIOVASCULAR: Hypertensive cardiomyopathy. Has heart arrhythmia GASTROINTESTINAL: Denies fatty food intolerance. Denies change in bowel habits and gas bloat. Has gastroesophageal reflux disease GENITOURINARY: Has chronic renal insufficiency NEUROLOGICAL: Denies any numbness or tingling along the distal extremities. No seizure disorders or headaches. MUSCULOSKELETAL: Has any back pain, stiffness or joint arthritis. SKIN: No current skin cancer. No rash. PSYCHIATRIC: Has depression. Has anxiety Has memory impairment ENDOCRINE: Denies current thyroid disorders. Denies any blood sugar glucose intolerance. HEME/LYMPHATIC: On chronic blood thinners ALLERGY/IMMUNOLOGY: No immunoglobulin therapy. No immune deficiencies. BREAST: Denies current breast lumps, pain or nipple discharge. PHYSICAL EXAM: VITALS: Reviewed CONSTITUTIONAL: Well developed and in no acute distress. EYES: Conjuctivae without sclera icterus. Pupils are equally round and reactive to light. Extraocular movements grossly intact. HEAD, EARS, NOSE, THROAT: Moist buccal mucosa. Head is atraumatic, normocephalic. Hears conversational speech. No nasal drainage. NECK: Supple. No JV distention. No thyroidomegaly. RESPIRATORY: Non-labored respirations and equal bilateral excursions. Tender along her right chest wall. CARDIOVASCULAR: Irregular rate and rhythm. Palpable 2+ radial pulses. ABDOMEN: No hepatomegaly. Soft. Non-tender. Nondistended. LYMPH: No neck lymphadenopathy. No axillary lymphadenopathy. MUSCULOSKELETAL: Nail and fingers with good capillary refill. SKIN: Warm and well perfused with good skin turgor. NEUROLOGIC: Cranial nerves I through XII grossly intact. Sensation upper and extremities intact. No focal or lateralizing signs. PSYCH: Appropriate affect. Alert and oriented to person. CLINCAL LABS: Reviewed. White blood cell count and hemoglobin normal. Creatinine elevated 2.5. Prior baseline of 2.9. RADIOLOGY: Report reviewed confirming multiple right-sided rib fractures. IMAGING: Independently reviewed by me check x-ray demonstrates subcutaneous air along the left chest wall highly suspicious for pneumothorax along the right chest wall ASSESSMENT: 1. Status post fall ground-level 2. Multiple right-sided rib fractures 3. Chronic renal insufficiency 4. Chronic anticoagulant use PLAN: 1. Recommend placement in the ICU with age over 55 including multiple fractures 2. Pain management multimodality which may include thoracic or epidural block 3. Pulmonary consultation also advised for optimal management 4. Recommend CT chest as subcutaneous air highly suspicious for underlying pneumothorax 5. Full inpatient hospitalization over 2 nights anticipated 6. Consultation to nephrology for management of renal disease 7. Consultation to medicine hospitalist for overall medical management, high risk 8. DVT prophylaxis Critical care time over 31 minutes ADDENDUM: Stat CT chest order by me confirms pneumothorax on right side between 10-20% per radiologist Past Medical History Past Medical History: Dementia, Hyperlipidemia, Hypertension Additional Past Medical History / Comment(s): Chronic renal failure, gastric ulcer, dementia, mild gastritis, small hiatal hernia, peripheral vascular disease, history of ulcerative colitis and the patient has undergone a total colectomy with a diverting ileostomy, History of Any Multi-Drug Resistant Organisms: None Reported Past Surgical History: Bladder Surgery, Hernia Repair, Hysterectomy Additional Past Surgical History / Comment(s): colonoscopy/egd,ileostomy , abd hernia repair Past Anesthesia/Blood Transfusion Reactions: No Reported Reaction Past Psychological History: Anxiety, Depression Additional Psychological History / Comment(s): 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 PT DOES HAVE MILD DEMENTIA BUT ABLE TO CARE FOR SELF AT HOME. SHE CURRENTLY RESIDES WITH HER DAUGHTER URIEL AND HER FAMILY. PT IS ABLE TO AMBULATE ON HER OWN. Smoking Status: Never smoker Past Alcohol Use History: None Reported Past Drug Use History: None Reported - Past Family History Father Additional Family Medical History / Comment(s): IN HIS 80'S NATURAL CAUSES Mother Family Medical History: Myocardial Infarction ([place]) Additional Family Medical History / Comment(s): AT AGE 58 FROM [place] Medications and Allergies Home Medications Medication Instructions Recorded Confirmed Type Donepezil HCl 23 mg PO HS 06/06/15 07/01/19 History Omeprazole [PriLOSEC] 20 mg PO AC-BRKFST 06/06/15 07/01/19 History Pravastatin Sodium 40 mg PO HS 06/06/15 07/01/19 History Sertraline HCl 50 mg PO DAILY 06/06/15 07/01/19 History Folic Acid 1 mg PO DAILY #1 tablet 08/30/17 07/01/19 Rx Sodium Bicarbonate Tab 650 mg PO TID 10/15/17 07/01/19 History Amiodarone [Cordarone] 100 mg PO DAILY 12/21/18 07/01/19 History Apixaban [Eliquis] 2.5 mg PO HS 07/01/19 07/01/19 History Vitamin B-1 250mg 250 mg PO DAILY 07/01/19 07/01/19 History Vitamin D3(Unknown Dose) Chew Tab 2 tab PO DAILY 07/01/19 07/01/19 History Allergies Allergy/AdvReac Type Severity Reaction Status Date / Time No Known Allergies Allergy Verified 07/01/19 17:56 Surgical - Exam Vital Signs Temp Pulse Resp BP Pulse Ox 98.8 F 55 L 18 138/62 98 07/01/19 14:58 07/01/19 14:58 07/01/19 14:58 07/01/19 14:58 07/01/19 14:58 Results - Labs 07/01/19 18:35 07/01/19 18:35 Abnormal Lab Results - Last 24 Hours (Table) 07/01/19 07/01/19 Range/Units 18:35 20:18 Chloride 108 H (98-107) mmol/L Carbon Dioxide 20 L (22-30) mmol/L BUN 43 H (7-17) mg/dL Creatinine 2.56 H (0.52-1.04) mg/dL Glucose 117 H (74-99) mg/dL POC Glucose (mg/dL) 119 H (75-99) mg/dL Diabetes panel 07/01/19 Range/Units 18:35 Sodium 139 (137-145) mmol/L Potassium 4.2 (3.5-5.1) mmol/L Chloride 108 H (98-107) mmol/L Carbon Dioxide 20 L (22-30) mmol/L BUN 43 H (7-17) mg/dL Creatinine 2.56 H (0.52-1.04) mg/dL Glucose 117 H (74-99) mg/dL Calcium 9.1 (8.4-10.2) mg/dL AST 25 (14-36) U/L ALT 22 (9-52) U/L Alkaline Phosphatase 72 (38-126) U/L Total Protein 6.6 (6.3-8.2) g/dL Albumin 4.0 (3.5-5.0) g/dL Calcium panel 07/01/19 Range/Units 18:35 Calcium 9.1 (8.4-10.2) mg/dL Albumin 4.0 (3.5-5.0) g/dL Pituitary panel 07/01/19 Range/Units 18:35 Sodium 139 (137-145) mmol/L Potassium 4.2 (3.5-5.1) mmol/L Chloride 108 H (98-107) mmol/L Carbon Dioxide 20 L (22-30) mmol/L BUN 43 H (7-17) mg/dL Creatinine 2.56 H (0.52-1.04) mg/dL Glucose 117 H (74-99) mg/dL Calcium 9.1 (8.4-10.2) mg/dL Adrenal panel 07/01/19 Range/Units 18:35 Sodium 139 (137-145) mmol/L Potassium 4.2 (3.5-5.1) mmol/L Chloride 108 H (98-107) mmol/L Carbon Dioxide 20 L (22-30) mmol/L BUN 43 H (7-17) mg/dL Creatinine 2.56 H (0.52-1.04) mg/dL Glucose 117 H (74-99) mg/dL Calcium 9.1 (8.4-10.2) mg/dL Total Bilirubin 0.5 (0.2-1.3) mg/dL AST 25 (14-36) U/L ALT 22 (9-52) U/L Alkaline Phosphatase 72 (38-126) U/L Total Protein 6.6 (6.3-8.2) g/dL Albumin 4.0 (3.5-5.0) g/dL Assessment and Plan (1) Rib fractures Current Visit: Yes Status: Acute Code(s): S22.39XA - FRACTURE OF ONE RIB, UNSP SIDE, INIT FOR CLOS FX SNOMED Code(s): 82628417 (2) CHF (congestive heart failure) Current Visit: No Status: Acute Code(s): I50.9 - HEART FAILURE, UNSPECIFIED SNOMED Code(s): 37021535 (3) Chronic renal failure Current Visit: No Status: Acute Code(s): N18.9 - CHRONIC KIDNEY DISEASE, UNSPECIFIED SNOMED Code(s): 95187106 (4) Anticoagulant long-term use Current Visit: Yes Status: Acute Code(s): Z79.01 - ANALYTICS CONSULTANT (CURRENT) USE OF ANTICOAGULANTS SNOMED Code(s): 064050609
--- NOTE | 2019-07-01 23:39 | P.PN ---
Progress Note - Text Progress Note Date: 07/01/19 Further discussion, patient recently took Eliquis less than 24 hours. We'll conservatively manage pneumothorax with nonrebreather mask. We'll evaluate with chest x-rays following half life of Eliquis with kidney disease.
[2019-07-01] MEDS: HYDROcodone/APAP 5-325MG 1 EACH TAB PO PRN (23:40)
[2019-07-02] MEDS: ACETAMINOPHEN TAB 325 MG TAB PO PRN (03:31)
[2019-07-02 04:51] LABS: Basophils % (A) 0 %; Eosinophils # (A) 0.1 k/uL (0-0.7); Eosinophils % (A) 1 %; HCT 36.6 % (34.0-46.0); HGB 11.9 gm/dL (11.4-16.0); Lymphocytes # (A) 1.7 k/uL (1.0-4.8); Lymphocytes % (A) 24 %; MCH 31.1 pg (25.0-35.0); MCHC 32.4 g/dL (31.0-37.0); MCV 95.9 fL (80.0-100.0); Mean Platelet Volume 7.6; Monocytes # (A) 0.5 k/uL (0-1.0); Monocytes % (A) 7 %; Neutrophils # (A) 4.7 k/uL (1.3-7.7); Neutrophils % (A) 67 %; Platelet Count 191 k/uL (150-450); RBC 3.82 m/uL (3.80-5.40); RDW 14.2 % (11.5-15.5); WBC 7.1 k/uL (3.8-10.6)
[2019-07-02 04:54] LABS: Appearance,Urine Clear (Clear); Bacteria,Urine Many /hpf; Bilirubin,Urine Negative (Negative); Blood,Urine Trace (Negative); Color,Urine Yellow; Glucose,Urine (UA) Negative (Negative); Ketones,Urine Negative (Negative); Leukocyte Esterase,Urine Large (Negative); Mucus,Urine Rare /hpf; Nitrite,Urine Negative (Negative); PH, Urine 6.5 (5.0-8.0); Protein,Urine 1+ (Negative); RBC,Urine 1 /hpf (0-5); Specific Gravity,Urine 1.022 (1.001-1.035); Squamous Epithelial Cell,Urine <1 /hpf (0-4); Urobilinogen,Urine <2.0 mg/dL (<2.0)
[2019-07-02 04:58] LABS: INR 0.9 (<1.2); Partial Thromboplastin Time 25.1 sec (22.0-30.0)
[2019-07-02 05:26] LABS: Albumin 3.5 g/dL (3.5-5.0); Calcium 8.9 mg/dL (8.4-10.2); Magnesium 1.9 mg/dL (1.6-2.3); Phosphorus 4.7 mg/dL (2.5-4.5); Total Bilirubin 0.5 mg/dL (0.2-1.3); Total Protein 6.1 g/dL (6.3-8.2)
[2019-07-02] MEDS: PANTOPRAZOLE 40 MG TABLET PO SCH (06:43)
--- NOTE | 2019-07-02 07:05 | XR ---
EXAMINATION TYPE: XR chest 1V DATE OF EXAM: 07/02/2019 HISTORY: Pneumothorax. REFERENCE: Previous study dated 07/01/2019. FINDINGS: The heart is enlarged. The patient's right-sided rib fractures are less clearly visualized on today's examination. There is a 20-30% by volume right apical pneumothorax. There is atelectatic c hange of both lung bases. I suspect small effusions. IMPRESSION: 1. THE PATIENT'S RIGHT-SIDED RIB FRACTURES ARE LESS CLEARLY DEMONSTRATED ON TODAY'S EXAMINATION. 2. 20-30% BY VOLUME RIGHT APICAL PNEUMOTHORAX. 3. MILD CARDIOMEGALY. 4. BIBASILAR ATELECTASIS. 5. SMALL, BILATERAL EFFUSIONS.
[2019-07-02] MEDS ORDERED: NON FORMULARY DRUG (Omeprazole [Prilosec] 20 MG) PO SCH (07:30)
[2019-07-02] MEDS: HYDROcodone/APAP 5-325MG 1 EACH TAB PO PRN ×2 (08:17→12:50)
[2019-07-02] MEDS: FOLIC ACID 1 MG TAB PO SCH (08:17)
[2019-07-02] MEDS: HEPARIN SODIUM,PORCINE 5,000 UNIT/ML 1 ML VIAL SQ SCH ×2 (08:18→19:57)
[2019-07-02] MEDS: SODIUM BICARBONATE TAB 650 MG TAB PO SCH ×3 (08:18→19:58)
[2019-07-02] MEDS: SERTRALINE 50 MG TAB PO SCH (08:19)
[2019-07-02] MEDS: AMIODARONE 200 MG TAB PO SCH (08:23)
--- NOTE | 2019-07-02 09:55 | P.NPCON ---
History of Present Illness - Reason for Consult Consult date: 07/02/19 acute renal failure, chronic renal failure - Chief Complaint Chronic kidney disease, fall and fracture and pneumothorax - History of Present Illness This is an 88-year-old female known to us with chronic kidney disease stage III- IV, secondary to nephrosclerosis, chronic volume depletion because of chronic history of ulcerative colitis with total colectomy and ileostomy. In the past she's been on IV fluids as an outpatient but more recently in March when she was seen she refused it because of chronic infiltrations from the IV fluids. She is now admitted after she fell from her bed and has fracture of ribs with a right pneumothorax. Fair amount of pain. She is awake and alert. Her baseline creatinine has been around 3 mg. Past Medical History Past Medical History: Dementia, Hyperlipidemia, Hypertension Additional Past Medical History / Comment(s): Chronic renal failure, gastric ulcer, dementia, mild gastritis, small hiatal hernia, peripheral vascular disease, history of ulcerative colitis and the patient has undergone a total colectomy with a diverting ileostomy, History of Any Multi-Drug Resistant Organisms: None Reported Past Surgical History: Bladder Surgery, Hernia Repair, Hysterectomy Additional Past Surgical History / Comment(s): colonoscopy/egd,ileostomy , abd hernia repair Past Anesthesia/Blood Transfusion Reactions: No Reported Reaction Past Psychological History: Anxiety, Depression Additional Psychological History / Comment(s): 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 PT DOES HAVE MILD DEMENTIA BUT ABLE TO CARE FOR SELF AT HOME. SHE CURRENTLY RESIDES WITH HER DAUGHTER URIEL AND HER FAMILY. PT IS ABLE TO AMBULATE ON HER OWN. Smoking Status: Never smoker Past Alcohol Use History: None Reported Past Drug Use History: None Reported - Past Family History Father Additional Family Medical History / Comment(s): IN HIS 80'S NATURAL CAUSES Mother Family Medical History: Myocardial Infarction ([place]) Additional Family Medical History / Comment(s): AT AGE 58 FROM [place] Medications and Allergies Home Medications Medication Instructions Recorded Confirmed Type Donepezil HCl 23 mg PO HS 06/06/15 07/01/19 History Omeprazole [PriLOSEC] 20 mg PO AC-BRKFST 06/06/15 07/01/19 History Pravastatin Sodium 40 mg PO HS 06/06/15 07/01/19 History Sertraline HCl 50 mg PO DAILY 06/06/15 07/01/19 History Folic Acid 1 mg PO DAILY #1 tablet 08/30/17 07/01/19 Rx Sodium Bicarbonate Tab 650 mg PO TID 10/15/17 07/01/19 History Amiodarone [Cordarone] 100 mg PO DAILY 12/21/18 07/01/19 History Apixaban [Eliquis] 2.5 mg PO HS 07/01/19 07/01/19 History Vitamin B-1 250mg 250 mg PO DAILY 07/01/19 07/01/19 History Vitamin D3(Unknown Dose) Chew Tab 2 tab PO DAILY 07/01/19 07/01/19 History Allergies Allergy/AdvReac Type Severity Reaction Status Date / Time No Known Allergies Allergy Verified 07/01/19 17:56 Physical Exam Vitals: Vital Signs Temp Pulse Resp BP Pulse Ox 07/02/19 09:00 55 L 18 140/86 98 07/02/19 08:00 99.0 F 55 L 20 126/55 98 07/02/19 07:00 60 18 127/61 100 07/02/19 06:00 59 L 18 126/63 100 07/02/19 05:00 61 16 126/63 95 07/02/19 04:00 97.5 F L 56 L 18 110/79 100 07/02/19 03:00 63 16 134/64 98 07/02/19 02:00 58 L 20 135/90 99 07/02/19 01:00 62 18 130/90 99 07/02/19 00:00 98.0 F 58 L 18 161/60 99 07/01/19 23:00 71 20 150/55 95 07/01/19 22:21 56 L 16 140/85 94 L 07/01/19 22:00 66 16 145/80 95 07/01/19 21:30 58 L 20 165/80 94 L 07/01/19 21:00 62 19 134/64 93 L 07/01/19 20:30 63 20 149/66 95 07/01/19 20:19 99.3 F 63 18 129/88 95 07/01/19 19:21 99 07/01/19 18:26 98.5 F 67 18 123/68 94 L 07/01/19 14:58 98.8 F 55 L 18 138/62 98 Intake and Output 07/01/19 07/02/19 07/02/19 22:59 06:59 14:59 Intake Total 75 245 Output Total 500 350 0 Balance -425 -105 0 Intake: IV 75 245 Sodium Chloride 0.9% 1, 75 245 000 ml @ 75 mls/hr IV . [id number] STA Rx#:[id number] Output: Urine 400 350 0 Stool 100 Other: Voiding Method Toilet Weight 71.2 kg On examination she is awake alert and seems to be oriented. She is in fair amount of pain She is on O2 with a mask HEENT exam no JVP neck is supple no facial asymmetry pupils are equal Heart sounds are unremarkable for any murmur rub gallop Lung exams are clear to auscultation fair air entry bilaterally. Abdomen soft nontender no organomegaly ascites masses Extremity exam reveals no edema Neurologically awake alert oriented but in pain Results - Lab Results Most recent lab results Calcium 8.9 mg/dL (8.4-10.2) 07/02/19 04:39 Phosphorus 4.7 mg/dL (2.5-4.5) H 07/02/19 04:39 Magnesium 1.9 mg/dL (1.6-2.3) 07/02/19 04:39 07/02/19 04:39 07/02/19 04:39 Assessment and Plan Assessment: Impression 1. Chronic kidney disease secondary to nephrosclerosis and chronic dehydrated state with volume depletion secondary to ulcerative colitis with total colectomy and ileostomy. Currently her creatinine is 2.54 at baseline. 2. 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 Controlled with bicarbonate. Currently her bicarb is 23 3. History of fall from bed and fracture right 5th, 6, 7 8 ribs and pneumothorax on the right. 4. Likely severe osteoporosis 5. Anemia of chronic kidney disease hemoglobin is about target 11.9 6. History of ulcerative colitis. 7. On the computed tomography scan of the chest that the 8 mm noted in the right upper lobe that needs to be followed up Recommendation 1. Maintain hydration, currently at 75 mL of normal saline. 2. Maintain serum bicarbonate 6 and 50 3 times a day. 3. We'll obtain vitamin D 25 level and vitamin D 125 level and PTH to see if there is any possibility of improving her osteoporosis
[2019-07-02] MEDS: SODIUM CHLORIDE 0.9% 1,000 ML IV SCH (10:30)
[2019-07-02] MEDS: HYDROmorphone 1 MG/ML 1 ML SYRINGE IVP PRN ×3 (10:35→20:09)
--- NOTE | 2019-07-02 11:47 | P.PN ---
Subjective Progress Note Date: 07/02/19 CHIEF COMPLAINT: Status post fall ground-level HISTORY OF PRESENT ILLNESS: The patient is a 88-year-old female with chronic stage III renal insufficiency as well as blood thinners reports tripping and f alling onto her right side onto the ground 07/01/2019. She has multiple right- sided rib fractures including right pneumothorax. Daughter is at bedside. No reports of active chest pain. She has low appetite. She is on non-rebreather mask which is okay with pulmonary per discussion with her nurse. ROS: No increased shortness of breath. No fevers or chills. No productive sputum. PHYSICAL EXAM: VITALS: Reviewed CONSTITUTIONAL: Well developed and in no acute distress. EYES: Conjuctivae without sclera icterus. Pupils are equally round and reactive to light. Extraocular movements grossly intact. HEAD, EARS, NOSE, THROAT: Moist buccal mucosa. Head is atraumatic, normocephalic. Hears conversational speech. No nasal drainage. RESPIRATORY: Non-labored respirations and equal bilateral excursions. Tender along her right chest wall. CARDIOVASCULAR: Irregular rate and rhythm. Palpable 2+ radial pulses. ABDOMEN: No hepatomegaly. Soft. Non-tender. Nondistended. MUSCULOSKELETAL: Nail and fingers with good capillary refill. SKIN: Warm and well perfused with good skin turgor. Finger tips blue and toes which is chronic per discussion with her daughter. NEUROLOGIC: Cranial nerves I through XII grossly intact. Sensation upper and extremities intact. No focal or lateralizing signs. PSYCH: Appropriate affect. Alert and oriented to person. CLINCAL LABS: Reviewed. White blood cell count and hemoglobin normal. Creatinine stable at 2.54 RADIOLOGY: Report reviewed confirming at least 20% right pneumothorax IMAGING: Independently reviewed by me multiple right-sided rib fractures now right pneumothorax present compared to 07/01/2019 chest x-ray ASSESSMENT: 1. Status post fall ground-level 2. Multiple right-sided rib fractures 3. Chronic renal insufficiency 4. Chronic anticoagulant use 5. Right pneumothorax 6. Raynaud's PLAN: 1. I had discussion with her daughter and patient for possible need for chest tube as notable size of pneumothorax compared to yesterday's film. Will repeat chest xray today to determine urgent chest thoracostomy versus thoravent placeme nt per thoracic tem. 2. Appreciate nephrology consultation regarding chronic kidney disease, stage III 3. Will avoid nephrotoxic agents 4. Medical consultation for overall general medical management 5. Renal diet adjustment 6. Consultation to thoracic team pending repeat chest xray Objective - Vital Signs Vital signs: Vital Signs Temp 99.0 F 07/02/19 08:00 Pulse 55 L 07/02/19 09:00 Resp 18 07/02/19 09:00 BP 140/86 07/02/19 09:00 Pulse Ox 98 07/02/19 09:00 Intake & Output 07/01/19 07/02/19 07/02/19 18:59 06:59 18:59 Intake Total 320 Output Total 850 0 Balance -530 0 Weight 70.76 kg 71.2 kg Intake: IV 320 Sodium Chloride 0.9% 1, 320 000 ml @ 75 mls/hr IV . [id number] STA Rx#:[id number] Output: Urine 750 0 Stool 100 Other: Voiding Method Toilet - Labs CBC & Chem 7: 07/02/19 04:39 07/02/19 04:39 Labs: Abnormal Lab Results - Last 24 Hours (Table) 07/01/19 07/01/19 07/01/19 Range/Units 04:37 18:35 20:18 Chloride 108 H (98-107) mmol/L Carbon Dioxide 20 L (22-30) mmol/L BUN 43 H (7-17) mg/dL Creatinine 2.56 H (0.52-1.04) mg/dL Glucose 117 H (74-99) mg/dL POC Glucose (mg/dL) 119 H (75-99) mg/dL Phosphorus (2.5-4.5) mg/dL Total Protein (6.3-8.2) g/dL Urine Protein 1+ H (Negative) Urine Blood Trace H (Negative) Ur Leukocyte Esterase Large H (Negative) Urine WBC 46 H (0-5) /hpf Urine Bacteria Many H (None) /hpf Urine Mucus Rare H (None) /hpf 07/02/19 Range/Units 04:39 Chloride 108 H (98-107) mmol/L Carbon Dioxide (22-30) mmol/L BUN 41 H (7-17) mg/dL Creatinine 2.54 H (0.52-1.04) mg/dL Glucose 107 H (74-99) mg/dL POC Glucose (mg/dL) (75-99) mg/dL Phosphorus 4.7 H (2.5-4.5) mg/dL Total Protein 6.1 L (6.3-8.2) g/dL Urine Protein (Negative) Urine Blood (Negative) Ur Leukocyte Esterase (Negative) Urine WBC (0-5) /hpf Urine Bacteria (None) /hpf Urine Mucus (None) /hpf Assessment and Plan (1) Rib fractures Current Visit: Yes Status: Acute Code(s): S22.39XA - FRACTURE OF ONE RIB, UNSP SIDE, INIT FOR CLOS FX SNOMED Code(s): 43450864 (2) CHF (congestive heart failure) Current Visit: No Status: Acute Code(s): I50.9 - HEART FAILURE, UNSPECIFIED SNOMED Code(s): 88254826 (3) Chronic renal failure Current Visit: No Status: Acute Code(s): N18.9 - CHRONIC KIDNEY DISEASE, UNSPECIFIED SNOMED Code(s): 18367509 (4) Anticoagulant long-term use Current Visit: Yes Status: Acute Code(s): Z79.01 - HALF-WAY (CURRENT) USE OF ANTICOAGULANTS SNOMED Code(s): 648477073 (5) Traumatic pneumothorax Current Visit: Yes Status: Acute Code(s): S27.0XXA - TRAUMATIC PNEUMOTHORAX, INITIAL ENCOUNTER SNOMED Code(s): 92375379 (6) Pneumothorax, right Current Visit: Yes Status: Acute Code(s): J93.9 - PNEUMOTHORAX, UNSPECIFIED SNOMED Code(s): 502009983
--- NOTE | 2019-07-02 12:08 | XR ---
EXAMINATION TYPE: XR chest 1V portable DATE OF EXAM: 07/02/2019 HISTORY: eval of pneumothorax. REFERENCE: Previous study of earlier today. FINDINGS: Right apical pneumothorax persists, unchanged in appearance from the previous examination a nd represents approximately a 20-30% by volume pneumothorax. There are multiple right-sided rib fract ures identified. There is developing bibasilar atelectasis. There are small effusions. IMPRESSION: 1. PERSISTENT RIGHT APICAL PNEUMOTHORAX, UNCHANGED IN APPEARANCE. 2. BIBASILAR AIRSPACE DISEASE. 3. SMALL, BILATERAL EFFUSIONS
--- NOTE | 2019-07-02 12:23 | P.CNPUL ---
History of Present Illness Consult date: 07/02/19 Requesting physician: Breonna Willard Reason for consult: other (Multiple rib fractures and right-sided pneumothorax) Chief complaint: Status post fall and right-sided chest pain History of present illness: This is an 88-year-old female who is a poor historian, patient was admitted to the ICU yesterday after she sustained multiple rib fractures secondary to falling when she tripped over a toy. Patient apparently landed on her right side of the chest, and she came into the ER mostly complaining of pain in the right flank region, right paraspinal region and thoracic area. Workup was done in the ER, and her workup revealed a 20% right-sided pneumothorax, it also revealed multiple rib fractures on the right side, fifth through eighth ribs were noted to have fractures. CT of the head and cervical spine showed no acute abnormality. Follow-up chest x-ray this morning showed a 20% right-sided pneumothorax, unchanged much from an earlier chest x-ray done a few hours ago. Patient denies any significant shortness of breath, she does have mostly right sided chest wall pain. Patient was admitted to the ICU and I was asked to see her on consultation. Review of Systems CONSTITUTIONAL: Denies fever chills, or weight loss. EYES: Denies blurred vision, and denies any photophobia or eye pain. HEENT: Denies any sore throat, denies any earache, denies any vertigo. Denies any dizziness. RESPIRATORY: Right-sided chest pain, denies any shortness of breath cough or wheezing. CARDIOVASCULAR: Denies any chest pain, no palpitations, no diaphoresis GASTROINTESTINAL: Denies nausea vomiting abdominal pain melena or hematemesis. GENITOURINARY: Denies any dysuria frequency urgency or hematuria NEUROLOGICAL: Denies any headache blurred vision or dizziness. MUSCULOSKELETAL: Has symptoms of osteoarthritis, chronic back pain, and right- sided chest wall pain. SKIN: Denies any rashes or pruritus be PSYCHIATRIC: Denies any symptoms of active depression ENDOCRINE: Denies any heat or cold intolerance HEME/LYMPHATIC: Denies any clotting bleeding or bruising Past Medical History Past Medical History: Dementia, Hyperlipidemia, Hypertension Additional Past Medical History / Comment(s): Chronic renal failure, gastric ulcer, dementia, mild gastritis, small hiatal hernia, peripheral vascular disease, history of ulcerative colitis and the patient has undergone a total colectomy with a diverting ileostomy, History of Any Multi-Drug Resistant Organisms: None Reported Past Surgical History: Bladder Surgery, Hernia Repair, Hysterectomy Additional Past Surgical History / Comment(s): colonoscopy/egd,ileostomy , abd hernia repair Past Anesthesia/Blood Transfusion Reactions: No Reported Reaction Past Psychological History: Anxiety, Depression Additional Psychological History / Comment(s): 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 PT DOES HAVE MILD DEMENTIA BUT ABLE TO CARE FOR SELF AT HOME. SHE CURRENTLY RESIDES WITH HER DAUGHTER BREONNA AND HER FAMILY. PT IS ABLE TO AMBULATE ON HER OWN. Smoking Status: Never smoker Past Alcohol Use History: None Reported Past Drug Use History: None Reported - Past Family History Father Additional Family Medical History / Comment(s): IN HIS 80'S NATURAL CAUSES Mother Family Medical History: Myocardial Infarction ([place]) Additional Family Medical History / Comment(s): AT AGE 58 FROM [place] Medications and Allergies Home Medications Medication Instructions Recorded Confirmed Type Donepezil HCl 23 mg PO HS 06/06/15 07/01/19 History Omeprazole [PriLOSEC] 20 mg PO AC-BRKFST 06/06/15 07/01/19 History Pravastatin Sodium 40 mg PO HS 06/06/15 07/01/19 History Sertraline HCl 50 mg PO DAILY 06/06/15 07/01/19 History Folic Acid 1 mg PO DAILY #1 tablet 08/30/17 07/01/19 Rx Sodium Bicarbonate Tab 650 mg PO TID 10/15/17 07/01/19 History Amiodarone [Cordarone] 100 mg PO DAILY 12/21/18 07/01/19 History Apixaban [Eliquis] 2.5 mg PO HS 07/01/19 07/01/19 History Vitamin B-1 250mg 250 mg PO DAILY 07/01/19 07/01/19 History Vitamin D3(Unknown Dose) Chew Tab 2 tab PO DAILY 07/01/19 07/01/19 History Allergies Allergy/AdvReac Type Severity Reaction Status Date / Time No Known Allergies Allergy Verified 07/01/19 17:56 Physical Exam Vitals: Vital Signs Temp Pulse Resp BP Pulse Ox 07/02/19 11:00 57 L 17 134/63 99 07/02/19 10:00 56 L 18 133/67 100 07/02/19 09:00 55 L 18 140/86 98 07/02/19 08:00 99.0 F 55 L 20 126/55 98 07/02/19 07:00 60 18 127/61 100 07/02/19 06:00 59 L 18 126/63 100 07/02/19 05:00 61 16 126/63 95 07/02/19 04:00 97.5 F L 56 L 18 110/79 100 07/02/19 03:00 63 16 134/64 98 07/02/19 02:00 58 L 20 135/90 99 07/02/19 01:00 62 18 130/90 99 07/02/19 00:00 98.0 F 58 L 18 161/60 99 07/01/19 23:00 71 20 150/55 95 07/01/19 22:21 56 L 16 140/85 94 L 07/01/19 22:00 66 16 145/80 95 07/01/19 21:30 58 L 20 165/80 94 L 07/01/19 21:00 62 19 134/64 93 L 07/01/19 20:30 63 20 149/66 95 07/01/19 20:19 99.3 F 63 18 129/88 95 07/01/19 19:21 99 07/01/19 18:26 98.5 F 67 18 123/68 94 L 07/01/19 14:58 98.8 F 55 L 18 138/62 98 Intake and Output 07/01/19 07/02/19 07/02/19 22:59 06:59 14:59 Intake Total 75 245 150 Output Total 500 350 80 Balance -425 -105 70 Intake: IV 75 245 150 Sodium Chloride 0.9% 1, 75 245 150 000 ml @ 75 mls/hr IV . [id number] STA Rx#:[id number] Output: Urine 400 350 80 Stool 100 Other: Voiding Method Toilet Weight 71.2 kg Gen.: Revealed 88-year-old female in no distress. EYES: PERRLA, EOMI, no icterus. No lid lagging noted. HEAD, atraumatic, normocephalic. NECK: Supple. No JV distention. No thyroidomegaly. RESPIRATORY: Symmetrical chest expansion, diminished breath sounds on the right side, tenderness over the anterior chest wall right side. CARDIOVASCULAR: Irregular irregular rhythm, no S3 gallop, 2/6 systolic murmur thought the precordium. ABDOMEN: Soft nontender no megaly no rebound no guarding. LYMPH: No cervical lymphadenopathy. SKIN: Good skin turgor, no cyanosis. NEUROLOGIC: Alert and oriented to person, and place,, no gross focal deficits. PSYCH: Normal mood, affect. Questionable mental status. Results - Laboratory Findings CBC and BMP: 07/02/19 04:39 07/02/19 04:39 PT/INR, D-dimer PT 10.0 sec (9.0-12.0) 07/02/19 04:39 INR 0.9 (<1.2) 07/02/19 04:39 Abnormal lab findings: Abnormal Labs 07/01/19 07/01/19 07/01/19 04:37 18:35 20:18 Chloride 108 H Carbon Dioxide 20 L BUN 43 H Creatinine 2.56 H Glucose 117 H POC Glucose (mg/dL) 119 H Phosphorus Total Protein Urine Protein 1+ H Urine Blood Trace H Ur Leukocyte Esterase Large H Urine WBC 46 H Urine Bacteria Many H Urine Mucus Rare H 07/02/19 04:39 Chloride 108 H Carbon Dioxide BUN 41 H Creatinine 2.54 H Glucose 107 H POC Glucose (mg/dL) Phosphorus 4.7 H Total Protein 6.1 L Urine Protein Urine Blood Ur Leukocyte Esterase Urine WBC Urine Bacteria Urine Mucus - Diagnostic Findings Chest x-ray: image reviewed CT scan - chest: image reviewed (As noted in HPI.) Assessment and Plan Assessment: Impression: 1 status post fall and multiple right-sided rib fractures including rib 5,6,7 and 8 2 right sided pneumothorax secondary to trauma and rib fractures presently about 20-30%. 3 chronic atrial fibrillation 4 chronic kidney disease stage III 5 history of ileostomy 6 suspect underlying osteoporosis 7 history of mild dementia 8 history of benign essential hypertension 9 history of total colectomy and diverting ileostomy secondary to ulcerative colitis 10 history of hiatal hernia 11 history of peripheral vessel occlusive disease/lower extremities. Recommendation: Continue to monitor the patient in the ICU, reviewed and disc ussed her chest x-ray with the patient and with the nurses at bedside, at this point, patient does not require chest tube placement, however if there is any further expansion of the pneumothorax, a chest tube or possibly a thoravent can be placed in the right upper anterior chest, and that's yet to be determined. We'll repeat her chest x-ray in a.m., will repeat her chest x-ray if she develops any worsening shortness of breath, and if we could document further expansion of the right-sided pneumothorax, will place thoravent, recommend holding anticoagulation therapy for now. We'll continue to follow. Time with Patient: Greater than 30
--- NOTE | 2019-07-02 17:16 | CONS ---
CONSULTATION DATE OF SERVICE: 07/02/2019 I am covering for Dr. Denise Carmona. REASON FOR CONSULTATION: Advice regarding GERD, hypertension, hyperlipidemia, multiple medical issues requested by Dr. Willard. HISTORY: This 88-year-old woman with a past medical history of dementia, hypertension, hyperlipidemia, chronic recurrent gastric ulcer, mild gastritis, anxiety, depression, being followed by Dr. Denise Carmona in the outpatient setting, was brought to the hospital with chief complaints of fall which happened about 1 hour prior to the arrival in the ER. The patient tripped over and landed on the right side of the body. The patient complaining of right flank pain and paraspinal area. The patient was found to have multiple rib fractures on the right side. The patient also had a 20% right-sided pneumothorax. Follow up chest x-ray confirmed the 20% right-sided pneumothorax, unchanged from the previous one. The patient does not have any shortness of breath. The patient is complaining of some pain. The patient was on Eliquis prior to admission. Currently the patient is being managed medically at this time. Patient being closely monitored in ICU. There is no history of any palpitation, any hematochezia, melena at this time. PAST MEDICAL HISTORY: History of dementia, hypertension, hyperlipidemia, chronic kidney disease, bladder surgery, anxiety, depression. MEDICATIONS: Prior to admission include home medications are: 1. Vitamin D3 2 tablets p.o. daily. 2. Vitamin B1 250 mg b.i.d. 3. Sodium bicarb 650 mg p.o. t.i.d. 4. Sertraline that is Zoloft 50 mg p.o. daily. 5. Pravastatin 40 mg q.h.s. 6. Prilosec 20 mg a.c. breakfast. 7. Folic acid 1 mg p.o. daily. 8. Donepezil 23 mg q.h.s. 9. Eliquis 2.5 mg q.h.s. 10.Cordarone 100 mg p.o. daily. ALLERGIES: None. FAMILY HISTORY: History of myocardial infarction in the family. SOCIAL HISTORY: No history of smoking. No history of alcohol intake. REVIEW OF SYSTEMS: Review of systems could not be taken. The patient has significant dementia. PHYSICAL EXAM: Patient is conscious, confused. Pulse 58, Blood pressure 132/60, respiration 14, temperature 98.4, pulse ox 97% on 15 L non- rebreather mask. HEENT are conjunctivae normal. Oral mucosa moist. NECK is no jugular venous distention. No carotid bruit. No lymph node enlargement. CARDIOVASCULAR SYSTEM: S1, S2 muffled. RESPIRATORY SYSTEM: Breath sounds diminished at the bases. Bilateral scattered rhonchi and crackles. Expiratory wheezing also present. ABDOMEN: Soft, nontender. LEGS: No edema. No swelling. CENTRAL NERVOUS SYSTEM: No focal deficits. LABORATORY DATA: CBC within normal limits. Creatinine is 2.54, otherwise UA showed possible UTI. ASSESSMENT: 1. Fall and right-sided multiple rib fractures as well as right-sided pneumothorax about 20-30 percent which is stable. Multiple rib fractures 5, 6, 7 and 8. 2. Chronic atrial fibrillation. 3. Chronic kidney stage 3 possibly. 4. Acute urinary tract infection possibly. 5. Metabolic encephalopathy, acute on chronic. 6. Higher dementia. 7. Hyperlipidemia. 8. Hypertension. 9. Gait dysfunction. 10.History of gastric ulcer. 11.History of mild gastritis. 12.Small hiatal hernia. 13.History of peripheral vascular disease. 14.History of ulcerative colitis. 15.History of total colectomy with diverting ileostomy. 16.History of bladder surgery. 17.History of hernia surgery. 18.History of anxiety, depression. RECOMMENDATIONS AND DISCUSSION: In this 88-year-old woman who presented with multiple medical issues, at this time, I recommend continue the current medications, management and symptomatic treatment. Otherwise, I recommend a course of antibiotics. Closely follow the cultures. Closely follow with the proton pump inhibitors. DVT prophylaxis. Monitor closely and as mentioned earlier, pneumothorax seems to be stable at this time. I would recommend to follow the patient closely with Dr. Nunes and the patient may be asked to follow up with Dr. Denise Carmona in the outpatient setting after discharge. Thank you, Dr. Willard, for letting us participate in the care of this patient. MMODL / IJN: [id number] / CAREN
[2019-07-02] MEDS: DONEPEZIL 10 MG TAB PO SCH (19:58)
[2019-07-02] MEDS: PRAVASTATIN SODIUM 40 MG TAB PO SCH (19:58)
[2019-07-03] MEDS: HYDROmorphone 1 MG/ML 1 ML SYRINGE IVP PRN ×3 (03:41→14:37)
[2019-07-03] MEDS: SODIUM CHLORIDE 0.9% 1,000 ML IV SCH ×2 (03:41→15:08)
[2019-07-03 04:43] LABS: Basophils # (A) 0.1 k/uL (0-0.2); Basophils % (A) 2 %; Eosinophils # (A) 0.1 k/uL (0-0.7); Eosinophils % (A) 1 %; HGB 11.4 gm/dL (11.4-16.0); Lymphocytes % (A) 17 %; MCH 31.4 pg (25.0-35.0); MCHC 32.4 g/dL (31.0-37.0); MCV 96.7 fL (80.0-100.0); Mean Platelet Volume 7.7; Monocytes # (A) 0.5 k/uL (0-1.0); Monocytes % (A) 8 %; Neutrophils # (A) 4.4 k/uL (1.3-7.7); Neutrophils % (A) 72 %; Platelet Count 179 k/uL (150-450); RBC 3.62 m/uL (3.80-5.40); RDW 14.2 % (11.5-15.5); WBC 6.2 k/uL (3.8-10.6)
[2019-07-03 04:51] LABS: Calcium 8.2 mg/dL (8.4-10.2); Magnesium 1.7 mg/dL (1.6-2.3); Phosphorus 4.2 mg/dL (2.5-4.5); Potassium 4.2 mmol/L (3.5-5.1)
[2019-07-03] MEDS: PANTOPRAZOLE 40 MG TABLET PO SCH (07:00)
--- NOTE | 2019-07-03 07:53 | XR ---
EXAMINATION TYPE: XR chest 1V portable DATE OF EXAM: 07/03/2019 CLINICAL HISTORY: Difficulty breathing pneumothorax progress study. TECHNIQUE: Single AP portable upright view of the chest is obtained. COMPARISON: Chest x-ray from one day earlier and older x-rays. Chest CT from 2 days ago. FINDINGS: Persistent small right apical pneumothorax slightly improved from prior. Persistent bibasi lar opacities and cardiomegaly with atherosclerotic and ectatic thoracic aorta. Stable right-sided tr acheal deviation at level of aortic knob. Multiple right-sided displaced rib fractures are redemonstr ated. IMPRESSION: Small right apical pneumothorax is felt slightly diminished in size from prior. Persisten t cardiomegaly with small bilateral pleural effusions and associated bibasilar atelectasis and/or inf iltrate is thought more prominent versus prior particularly right lung base.
[2019-07-03] MEDS: AMIODARONE 200 MG TAB PO SCH (08:43)
[2019-07-03] MEDS: SERTRALINE 50 MG TAB PO SCH (08:43)
[2019-07-03] MEDS: SODIUM BICARBONATE TAB 650 MG TAB PO SCH ×3 (08:43→20:33)
[2019-07-03] MEDS: HYDROcodone/APAP 5-325MG 1 EACH TAB PO PRN (08:43)
[2019-07-03] MEDS: HEPARIN SODIUM,PORCINE 5,000 UNIT/ML 1 ML VIAL SQ SCH ×2 (08:45→20:31)
[2019-07-03] MEDS: FOLIC ACID 1 MG TAB PO SCH (08:45)
--- NOTE | 2019-07-03 11:18 | P.PN ---
Subjective Progress Note Date: 07/03/19 Principal diagnosis: Fall, trauma, multiple rib fractures and right-sided pneumothorax This is an 88-year-old female who is a poor historian, patient was admitted to the ICU yesterday after she sustained multiple rib fractures secondary to falling when she tripped over a toy. Patient apparently landed on her right side of the chest, and she came into the ER mostly complaining of pain in the right flank region, right paraspinal region and thoracic area. Workup was done in the ER, and her workup revealed a 20% right-sided pneumothorax, it also revealed multiple rib fractures on the right side, fifth through eighth ribs were noted to have fractures. CT of the head and cervical spine showed no acute abnormality. Follow-up chest x-ray this morning showed a 20% right-sided pneumothorax, unchanged much from an earlier chest x-ray done a few hours ago. Patient denies any significant shortness of breath, she does have mostly right sided chest wall pain. Patient was admitted to the ICU and I was asked to see her on consultation. On oh 2018 patient seen in follow-up in intensive care unit, she is currently awake and alert, in no acute distress, she is answering questions appropriately, she is on her percent nonrebreather mask pulse ox of 98%, low grade fever T-max of 99.2, hemodynamic patient is stable, IV maintenance fluids 0.9 normal saline at a rate of 75 ML per hour, patient is unable to deep breathing cough related to right-sided chest wall discomfort related to multiple rib fractures on the right, today's chest x-ray has been reviewed showing small right apical pneumothorax Florinda slightly diminished in size from prior, and cardiomegaly and small bilateral pleural effusions and associated atelectasis. Her labs have been reviewed, showing white blood cell count of 6.2, hemoglobin of 11.4, sodium of 137, potassium is 4.2, chloride is 109, CO2 21, B1 is 37, and creatinine is 2.40. Urinalysis showed evidence of urinary tract infection, culture is pending. Antibiotic coverage is in the form of Rocephin. Sounds reveal diminished air entry bilateral lower lobes. No wheezing, no rhonchi, patient does have difficulty with deep breathing and coughing, we will hold her oral anticoagulation request anesthesia consultation for possible placement of epidural catheter for pain management. Objective - Vital Signs Vital signs: Vital Signs Temp 99.2 F 07/03/19 08:00 Pulse 61 07/03/19 10:00 Resp 16 07/03/19 10:00 BP 96/50 07/03/19 10:00 Pulse Ox 97 07/03/19 10:00 Intake & Output 07/02/19 07/03/19 07/03/19 18:59 06:59 18:59 Intake Total 1370 900 315 Output Total 225 700 0 Balance 1145 200 315 Weight 72.1 kg Intake: IV 650 900 125 Sodium Chloride 0.9% 1, 600 900 75 000 ml @ 75 mls/hr IV . [id number] [facility] Rx#:[id number] cefTRIAXone 1 gm In 50 50 Sodium Chloride 0.9% 50 ml @ 100 mls/hr IVPB Q24HR [facility] Rx#:[id number] Intake, IV Titration 190 Amount Sodium Chloride 0.9% 1, 190 000 ml @ 75 mls/hr IV . [id number] [facility] Rx#:[id number] Oral 720 Output: Urine 225 500 0 Stool 200 - Exam GENERAL EXAM: Alert, pleasant, 88-year-old white female, 100% nonrebreather, with a pulse ox of 98%, comfortable in no apparent distress. HEAD: Normocephalic/atraumatic. EYES: Normal reaction of pupils, equal size. Conjunctiva pink, sclera white. NOSE: Clear with pink turbinates. THROAT: No erythema or exudates. NECK: No masses, no JVD, no thyroid enlargement, no adenopathy. CHEST: No chest wall deformity. Symmetrical expansion. LUNGS: Equal air entry with no crackles, wheeze, rhonchi or dullness. CVS: Regular rate and rhythm, normal S1 and S2, no gallops, no murmurs, no rubs ABDOMEN: Soft, nontender. No hepatosplenomegaly, normal bowel sounds, no guarding or rigidity. EXTREMITIES: No clubbing, no edema, no cyanosis, 2+ pulses and upper and lower extremities. MUSCULOSKELETAL: Muscle strength and tone normal. SPINE: No scoliosis or deformity SKIN: No rashes CENTRAL NERVOUS SYSTEM: Alert and oriented -3. No focal deficits, tone is normal in all 4 extremities. PSYCHIATRIC: Alert and oriented -3. Appropriate affect. Intact judgment and insight. - Labs CBC & Chem 7: 07/03/19 03:59 07/03/19 03:58 Labs: Abnormal Lab Results - Last 24 Hours (Table) 07/03/19 07/03/19 Range/Units 03:58 03:59 RBC 3.62 L (3.80-5.40) m/uL Chloride 109 H (98-107) mmol/L Carbon Dioxide 21 L (22-30) mmol/L BUN 37 H (7-17) mg/dL Creatinine 2.40 H (0.52-1.04) mg/dL Glucose 106 H (74-99) mg/dL Calcium 8.2 L (8.4-10.2) mg/dL Microbiology - Last 24 Hours (Table) 07/01/19 04:37 Urine Culture - Preliminary Urine,Voided Assessment and Plan Plan: Assessment: 1 status post fall and multiple right-sided rib fractures including rib 5,6,7 and 8 2 right sided pneumothorax secondary to trauma and rib fractures presently about 20-30%. 3 chronic atrial fibrillation 4 chronic kidney disease stage III 5 history of ileostomy 6 suspect underlying osteoporosis 7 history of mild dementia 8 history of benign essential hypertension 9 history of total colectomy and diverting ileostomy secondary to ulcerative c olitis 10 history of hiatal hernia 11 history of peripheral vessel occlusive disease/lower extremities. Plan: Switch the patient to high flow nasal cannula, encourage deep breathing and coughing, we will consult anesthesia services for possibility of placement of epidural catheter for pain management, patient has difficulty with keeping and coughing related to pain control. Hold oral anticoagulation for possible epidural insertion, continue daily chest x-rays. Continue bronchodilators, tod ay chest x-ray has been reviewed, showing stable although slightly diminished apical pneumothorax. I performed a history & physical examination of the patient and discussed their management with my nurse practitioner, Carmen Isaac. I reviewed the nurse practitioner's note and agree with the documented findings and plan of care. Lung sounds are positive for diminished breath sounds. The findings and the impression was discussed with the patient. I attest to the documentation by the nurse practitioner. Time with Patient: Less than 30
--- NOTE | 2019-07-03 11:28 | P.PN ---
Subjective Patient is seen in follow-up for chronic kidney disease. Patient has chronic kidney disease stage IV secondary to nephrosclerosis. Renal function is improving. Creatinine 2.4 today. Currently maintained on IV fluids. Does get dyspneic with even minimal exertion. Vital signs are stable. General: The patient appeared well nourished and normally developed. HEENT: Head exam is unremarkable. Neck is without jugular venous distension. LUNGS: Lungs are clear to auscultation and percussion. Breath sounds decreased. HEART: Rate and Rhythm are regular. First and second heart sounds normal. No murmurs, rubs or gallops. ABDOMEN: Abdominal exam reveals normal bowel sounds. Non-tender and non- distended. No evidence of peritonitis. EXTREMITITES: No clubbing, cyanosis, or edema. Objective - Vital Signs Vital signs: Vital Signs Temp 99.2 F 07/03/19 08:00 Pulse 61 07/03/19 10:00 Resp 16 07/03/19 10:00 BP 96/50 07/03/19 10:00 Pulse Ox 97 07/03/19 10:00 Intake & Output 07/02/19 07/03/19 07/03/19 18:59 06:59 18:59 Intake Total 1370 900 315 Output Total 225 700 0 Balance 1145 200 315 Weight 72.1 kg Intake: IV 650 900 125 Sodium Chloride 0.9% 1, 600 900 75 000 ml @ 75 mls/hr IV . [id number] [facility] Rx#:[id number] cefTRIAXone 1 gm In 50 50 Sodium Chloride 0.9% 50 ml @ 100 mls/hr IVPB Q24HR [facility] Rx#:[id number] Intake, IV Titration 190 Amount Sodium Chloride 0.9% 1, 190 000 ml @ 75 mls/hr IV . [id number] [facility] Rx#:[id number] Oral 720 Output: Urine 225 500 0 Stool 200 - Labs CBC & Chem 7: 07/03/19 03:59 07/03/19 03:58 Labs: Abnormal Lab Results - Last 24 Hours (Table) 07/03/19 07/03/19 Range/Units 03:58 03:59 RBC 3.62 L (3.80-5.40) m/uL Chloride 109 H (98-107) mmol/L Carbon Dioxide 21 L (22-30) mmol/L BUN 37 H (7-17) mg/dL Creatinine 2.40 H (0.52-1.04) mg/dL Glucose 106 H (74-99) mg/dL Calcium 8.2 L (8.4-10.2) mg/dL Microbiology - Last 24 Hours (Table) 07/01/19 04:37 Urine Culture - Preliminary Urine,Voided Assessment and Plan Plan: Assessment: 1. Chronic kidney disease stage IV secondary to nephrosclerosis with baseline creatinine near 2.5. GFR at baseline. 2. 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 Also component of IV fluids. Maintained on oral sodium bicarbonate. 3. Status post fall with right-sided rib fractures and pneumothorax. No surgical intervention planned. 4. History of Foster colitis status post colectomy. Has ileostomy. Plan: Maintain normal saline at 75 mL an hour. Continue to monitor renal function and urine output. No urgent need for renal replacement therapy at this time. Patient has refused renal replacement therapy in the past.
--- NOTE | 2019-07-03 12:00 | XR ---
EXAMINATION TYPE: XR forearm RT, XR wrist complete RT, XR hand limited RT DATE OF EXAM: 07/03/2019 CLINICAL HISTORY: Pain after fall injury. TECHNIQUE: Two views of the right forearm are obtained. Four views of right wrist. 2 views right hand . COMPARISON: None. FINDINGS: Demineralization is present. There is no acute fracture or dislocation seen in the right r adius or ulna. Suboptimal evaluation palpable without dedicated lateral view. Overlying clothing mate rial is present. Images of the right wrist show severe triscaphe degenerative change and moderate to severe degenerati ve change with subchondral cystic change and narrowing at base of first metacarpal overlying clothing material is present. Images of right hand show moderate degenerative change throughout the phalanges involving PIP and PIP joints with narrowing and spurring. No acute fracture or dislocation is evident. IMPRESSION: There is no acute fracture or dislocation clearly seen in the right forearm, wrist, or h and.
--- NOTE | 2019-07-03 14:02 | P.PN ---
Subjective Progress Note Date: 07/03/19 CHIEF COMPLAINT: Fall HISTORY OF PRESENT ILLNESS: 88 year old female is admitted secondary to a fall. Patient examined this morning in the ICU. No family present. She is on a non- rebreather mask. Oxygen saturation 98%. Per nursing, patient was very uncomfortable this morning and having a lot of pain. WBC 6.2. Hemoglobin 11.4. Vital signs stable. Temp 99.2 this morning. PHYSICAL EXAM: VITAL SIGNS: Reviewed. GENERAL: Well-developed in no acute distress. HEENT: No sclera icterus. Extraocular movements grossly intact. Moist buccal mucosa. Head is atraumatic, normocephalic. Hears conversational speech. No nasal drainage. NECK: Supple without lymphadenopathy. CHEST: Non-labored respirations and equal bilateral excursions. CARDIOVASCULAR: Irregular rhythm. Palpable 2+ radial pulses. ABDOMEN: Soft. Nondistended. Ileostomy noted. MUSCULOSKELETAL: No clubbing. Patient has chronic discoloration to extremities secondary to Raynauds. NEUROLOGIC: No focal or lateralizing signs. Cranial nerves II through XII grossly intact. PSYCH: Appropriate affect. Alert and oriented to person, place and time. SKIN: Well perfused. Good skin turgor. ASSESSMENT: 1. Status post fall ground-level 2. Multiple right-sided rib fractures 3. Chronic renal insufficiency 4. Chronic anticoagulant use 5. Right pneumothorax 6. Raynaud's PLAN: 1. Pulmonary on consult. Repeat CXR ordered for tomorrow AM. 2. Anesthesia consulted for possible epidural catheter for pain management. 3. Continue to hold Eliquis 4. Incentive spirometry 5. Nephrology on consult. Input appreciated. Nurse practitioner note has been reviewed by physician. Signing provider agrees with the documented findings, assessment, and plan of care. Objective - Vital Signs Vital signs: Vital Signs Temp 98.9 F 07/03/19 12:00 Pulse 80 07/03/19 13:00 Resp 15 07/03/19 13:00 BP 106/68 07/03/19 13:00 Pulse Ox 94 L 07/03/19 13:00 Intake & Output 07/02/19 07/03/19 07/03/19 18:59 06:59 18:59 Intake Total 1370 900 665 Output Total 225 700 100 Balance 1145 200 565 Weight 72.1 kg Intake: IV 650 900 125 Sodium Chloride 0.9% 1, 600 900 75 000 ml @ 75 mls/hr IV . [id number] [facility] Rx#:[id number] cefTRIAXone 1 gm In 50 50 Sodium Chloride 0.9% 50 ml @ 100 mls/hr IVPB Q24HR [facility] Rx#:[id number] Intake, IV Titration 340 Amount Sodium Chloride 0.9% 1, 340 000 ml @ 75 mls/hr IV . [id number] [facility] Rx#:[id number] Oral 720 200 Output: Urine 225 500 100 Stool 200 Other: # Bowel Movements 1 - Labs CBC & Chem 7: 07/03/19 03:59 07/03/19 03:58 Labs: Abnormal Lab Results - Last 24 Hours (Table) 07/03/19 07/03/19 Range/Units 03:58 03:59 RBC 3.62 L (3.80-5.40) m/uL Chloride 109 H (98-107) mmol/L Carbon Dioxide 21 L (22-30) mmol/L BUN 37 H (7-17) mg/dL Creatinine 2.40 H (0.52-1.04) mg/dL Glucose 106 H (74-99) mg/dL Calcium 8.2 L (8.4-10.2) mg/dL Microbiology - Last 24 Hours (Table) 07/01/19 04:37 Urine Culture - Preliminary Urine,Voided Gram Neg Bacilli Assessment and Plan (1) Anticoagulant long-term use Current Visit: Yes Status: Acute Code(s): Z79.01 - [employer] (CURRENT) USE OF ANTICOAGULANTS SNOMED Code(s): 600535640 (2) Pneumothorax, right Current Visit: Yes Status: Acute Code(s): J93.9 - PNEUMOTHORAX, UNSPECIFIED SNOMED Code(s): 839308987 (3) Rib fractures Current Visit: Yes Status: Acute Code(s): S22.39XA - FRACTURE OF ONE RIB, UNSP SIDE, INIT FOR CLOS FX SNOMED Code(s): 68152780 (4) Traumatic pneumothorax Current Visit: Yes Status: Acute Code(s): S27.0XXA - TRAUMATIC PNEUMOTHORAX, INITIAL ENCOUNTER SNOMED Code(s): 20795636
[2019-07-03] MEDS ORDERED: NALOXONE 0.4 MG/ML 1 ML VIAL IV PRN (14:58)
[2019-07-03] MEDS ORDERED: ROPIVACAINE 250 MG, fentaNYL (PF) 625 MCG in SODIUM CHLORIDE 0.9% 188 ML EPIDURAL PRN (14:58)
[2019-07-03] MEDS ORDERED: ONDANSETRON 4 MG/2 ML VIAL IVP PRN (14:58)
--- NOTE | 2019-07-03 15:15 | P.PCN ---
Date of Procedure: 07/03/19 Procedure(s) Performed: this is 88 years old female had multiple rib fractures, from T5 to T8, right side, patient had severe pain not controlled with oral opioid chanda E Dilaudid, patient was good candidate to her thoracic epidural acetyl placed, procedure risk and benefits discussed with the patient and her daughter and they agreed with the preceding, last dose of the Elliquis was 3 days ago, procedure= thoracic epidural catheter placement. Preop diagnosis= chest wall pain/multiple rib fracture for right-sided T5 to T8 Postoperative diagnoses= the same as preoperative diagnoses. condition= critical. Complications= none. Description of the procedure= the back of the patient prepped with Betadine 3 then under sterile technique, at T5 interlaminal space , then the 18-gauge Touhy needle advanced slowly, a T5 level, there was positive loss of resistance to saline ,no heme ,no paresthesia, no cerebrospinal fluid, then after negative aspiration ,the catheter threaded easily , then test dose given that was negative, the patient tolerated the procedure well, catheter secured well with Tegaderm, patient will be started on continuous infusion of fentanyl/bupivacaine 5 mL per hour
--- NOTE | 2019-07-03 16:59 | PN ---
PROGRESS NOTE DATE OF SERVICE: 07/03/2019. This 88-year-old woman who was admitted with a fall and right-sided multiple rib fractures as well as right pneumothorax is being closely monitored at this time. The most recent chest x-ray, which was personally reviewed by me, showed a small right apical pneumothorax. No chest tube is being planned at this time. Patient is also complaining of some right arm bluish discoloration this morning, probably secondary to Raynaud's phenomenon. X-rays showed no dislocation or fracture in the right forearm distal hand. The patient is being closely monitored. No chest pain. No palpitations. No fever. PHYSICAL EXAMINATION: Alert and oriented x3. Pulse 67, blood pressure 110/60, respiration 13, temperature 98.9, pulse ox 94% on 15 L. HEENT: Conjunctivae normal. NECK: No jugular venous distention. CARDIOVASCULAR SYSTEM: S1, S2 muffled. RESPIRATORY SYSTEM: Breath sounds diminished at the bases. A few scattered rhonchi and crackles. ABDOMEN: Soft, non-tender. LEGS: No edema. No swelling. NERVOUS SYSTEM: No focal deficit. LABS: Hemoglobin 11.4, white count 6.2. Creatinine is 2.40. ASSESSMENT: 1. Fall and right-sided multiple rib fractures as well as right-sided pneumothorax, about 20% to 30%, which is stable. 2. Multiple rib fractures, 5, 6, 7 and 8. 3. Severe chest pain secondary to rib fractures. 4. Acute hypoxic respiratory failure secondary to rib fractures. 5. Chronic atrial fibrillation. 6. Chronic kidney disease, stage III possibly. 7. Acute urinary tract infection, present on admission. 8. Metabolic encephalopathy, acute on chronic. 9. History of dementia. 10.Hyperlipidemia. 11.Hypertension. 12.History of gait dysfunction. 13.History of gastric ulcer. 14.History of mild gastritis. 15.History of small hiatal hernia. 16.History of peripheral vascular disease. 17.History of ulcerative colitis. 18.History of total colectomy with diverting ileostomy. 19.History of bladder surgery. 20.Hernia surgery. 21.History of anxiety, depression. RECOMMENDATIONS AND DISCUSSION: I recommend to continue current medications, continue with the monitoring, symptomatic treatment. Continue with pain management cautiously. Monitor creatinine closely, which is rather stable at this time. We will also continue the antibiotics. Continue the rest of the medications. The patient does not need any chest tube so far. We will continue to monitor along with Surgery. Further recommendations to follow. I would also recommend possible PT/OT evaluation and possible ECF rehab once the patient is improving and able to be weaned off the high-flow oxygen which the patient is currently on. Further recommendations to follow. MMODL / IJN: [id number] /
[2019-07-03] MEDS: diphenhydrAMINE 50 MG/ML 1 ML VIAL IVP PRN (20:29)
[2019-07-03] MEDS: ACETAMINOPHEN TAB 325 MG TAB PO PRN (20:30)
[2019-07-03] MEDS: DONEPEZIL 10 MG TAB PO SCH (20:31)
[2019-07-03] MEDS: PRAVASTATIN SODIUM 40 MG TAB PO SCH (20:31)
[2019-07-04] MEDS: SODIUM CHLORIDE 0.9% 1,000 ML IV SCH ×2 (03:03→17:45)
[2019-07-04 04:54] LABS: Calcium 8.2 mg/dL (8.4-10.2)
[2019-07-04 05:30] LABS: Basophils # (A) 0.2 k/uL (0-0.2); Basophils % (A) 3 %; Eosinophils # (A) 0.1 k/uL (0-0.7); Eosinophils % (A) 1 %; HCT 35.1 % (34.0-46.0); HGB 10.8 gm/dL (11.4-16.0); Lymphocytes # (A) 1.1 k/uL (1.0-4.8); Lymphocytes % (A) 19 %; MCH 29.9 pg (25.0-35.0); MCHC 30.7 g/dL (31.0-37.0); MCV 97.3 fL (80.0-100.0); Mean Platelet Volume 7.8; Monocytes # (A) 0.4 k/uL (0-1.0); Monocytes % (A) 7 %; Neutrophils # (A) 4.1 k/uL (1.3-7.7); Neutrophils % (A) 68 %; Platelet Count 158 k/uL (150-450); RBC 3.61 m/uL (3.80-5.40); RDW 13.2 % (11.5-15.5)
--- NOTE | 2019-07-04 07:50 | P.PN ---
Progress Note - Text Progress Note Date: 07/04/19 Pt w/ c/o back pain, but rib pain is much improved compared to before. Denies headache or extremity weakness. Thoracic epidural @ 5 ml/hr VSS Back - epidural site clean and dry A/P POD#1 s/p thoracic epidural for rib fractures. - increase epidural rate to 7 ml/hr
--- NOTE | 2019-07-04 08:22 | XR ---
EXAMINATION TYPE: XR chest 1V portable DATE OF EXAM: 07/04/2019 Comparison: 07/03/2019 Clinical History: 88-year-old female follow-up pneumothorax Findings: Heart remains mildly enlarged. There are small bilateral pleural effusions with adjacent bibasilar op acities persist. Small right apical and right lateral pneumothorax measuring approximately 1.2 cm sup eriorly and 5 mm laterally. The lateral component is better seen now. Multiple right-sided rib fractu res. Impression: 1. Multiple right-sided rib fractures with underlying small right pneumothorax redemonstrated, relati vely unchanged from prior. 2. Continued small bilateral pleural effusions with prominent adjacent atelectasis and/or consolidati on.
[2019-07-04] MEDS ORDERED: ROPIVACAINE 250 MG, fentaNYL (PF) 625 MCG in SODIUM CHLORIDE 0.9% 188 ML EPIDURAL PRN (08:30)
[2019-07-04] MEDS: PANTOPRAZOLE 40 MG TABLET PO SCH (08:43)
[2019-07-04] MEDS: SODIUM BICARBONATE TAB 650 MG TAB PO SCH ×3 (08:43→20:22)
[2019-07-04] MEDS: HEPARIN SODIUM,PORCINE 5,000 UNIT/ML 1 ML VIAL SQ SCH ×2 (08:43→20:22)
[2019-07-04] MEDS: SERTRALINE 50 MG TAB PO SCH (08:44)
[2019-07-04] MEDS: FOLIC ACID 1 MG TAB PO SCH (08:44)
[2019-07-04] MEDS: AMIODARONE 200 MG TAB PO SCH (08:44)
--- NOTE | 2019-07-04 10:06 | P.PN ---
Subjective Progress Note Date: 07/04/19 Principal diagnosis: Fall, trauma, multiple rib fractures and right-sided pneumothorax This is an 88-year-old female who is a poor historian, patient was admitted to the ICU yesterday after she sustained multiple rib fractures secondary to falling when she tripped over a toy. Patient apparently landed on her right side of the chest, and she came into the ER mostly complaining of pain in the right flank region, right paraspinal region and thoracic area. Workup was done in the ER, and her workup revealed a 20% right-sided pneumothorax, it also revealed multiple rib fractures on the right side, fifth through eighth ribs were noted to have fractures. CT of the head and cervical spine showed no acute abnormality. Follow-up chest x-ray this morning showed a 20% right-sided pneumothorax, unchanged much from an earlier chest x-ray done a few hours ago. Patient denies any significant shortness of breath, she does have mostly right sided chest wall pain. Patient was admitted to the ICU and I was asked to see her on consultation. On 07/03/2019 patient seen in follow-up in intensive care unit, she is currently awake and alert, in no acute distress, she is answering questions appropriately, she is on her percent nonrebreather mask pulse ox of 98%, low grade fever T-max of 99.2, hemodynamic patient is stable, IV maintenance fluids 0.9 normal saline at a rate of 75 ML per hour, patient is unable to deep breathing cough related to right-sided chest wall discomfort related to multiple rib fractures on the right, today's chest x-ray has been reviewed showing small right apical pneumothorax Florinda slightly diminished in size from prior, and cardiomegaly and small bilateral pleural effusions and associated atelectasis. Her labs have been reviewed, showing white blood cell count of 6.2, hemoglobin of 11.4, sodium of 137, potassium is 4.2, chloride is 109, CO2 21, B1 is 37, and creatinine is 2.40. Urinalysis showed evidence of urinary tract infection, culture is pending. Antibiotic coverage is in the form of Rocephin. Lung sounds reveal diminished air entry bilateral lower lobes. No wheezing, no rhonchi, patient does have difficulty with deep breathing and coughing, we will hold her oral anticoagulation request anesthesia consultation for possible placement of epidural catheter for pain management. On 07/04/2019 patient seen in follow-up in the intensive care unit, she is awake and alert, oriented 3, her FiO2 is down to 11 L per high flow nasal cannula, epidural is infusing at a rate of 4 ML per hour, maintenance IV fluid is 0.9 normal saline at a rate of 20 mL an hour. patient's incentive spirometer effort is improved, she is able to pull 600-700 mL on the today, her pain is a lot better controlled. Sounds reveal diminished breath sounds over bilateral lower bases, rhonchi, no wheezing, no rales, no signs of delirium. Patient did have a temp of 101F last night at 2000, afebrile this morning, antibiotic coverage is in the form of Rocephin continues for evidence of gram-negative bacilli in the urine culture, final cultures pending, blood culture showed no growth. Labs have been reviewed, showing white blood cell count of 6.0, hemoglobin of 10.8, serum sodium of 139, potassium is 4.0, chloride is 109, CO2 is 21, BUN is 43, cr eatinine is 2.74. Her chest x-ray has been reviewed with Dr. Huerta, showing stable multiple right-sided rib fractures with small right apical pneumothorax, unchanged from prior exam, small bilateral pleural effusions and adjacent atelectasis. Objective - Vital Signs Vital signs: Vital Signs Temp 97.7 F 07/04/19 00:00 Pulse 64 07/04/19 07:00 Resp 12 07/04/19 07:00 BP 155/73 07/04/19 07:00 Pulse Ox 88 L 07/04/19 07:00 Intake & Output 07/03/19 07/04/19 07/04/19 18:59 06:59 18:59 Intake Total 965 375 75 Output Total 175 600 75 Balance 790 -225 0 Weight 73 kg Intake: IV 125 75 75 Sodium Chloride 0.9% 1, 75 000 ml @ 75 mls/hr IV . [id number] [facility] Rx#:[id number] cefTRIAXone 1 gm In 50 75 75 Sodium Chloride 0.9% 50 ml @ 100 mls/hr IVPB Q24HR [facility] Rx#:[id number] Intake, IV Titration 640 300 Amount Sodium Chloride 0.9% 1, 640 300 000 ml @ 75 mls/hr IV . [id number] [facility] Rx#:[id number] Oral 200 Output: Urine 175 400 75 Stool 200 Other: Voiding Method Toilet # Voids 1 # Bowel Movements 1 - Exam GENERAL EXAM: Alert, pleasant, 88-year-old white female, on high flow nasal cannula at 11 L/min, comfortable in no apparent distress. HEAD: Normocephalic/atraumatic. EYES: Normal reaction of pupils, equal size. Conjunctiva pink, sclera white. NOSE: Clear with pink turbinates. THROAT: No erythema or exudates. NECK: No masses, no JVD, no thyroid enlargement, no adenopathy. CHEST: No chest wall deformity. Symmetrical expansion. LUNGS: Equal air entry with no crackles, wheeze, rhonchi or dullness. CVS: Regular rate and rhythm, normal S1 and S2, no gallops, no murmurs, no rubs ABDOMEN: Soft, nontender. No hepatosplenomegaly, normal bowel sounds, no guarding or rigidity. EXTREMITIES: No clubbing, no edema, no cyanosis, 2+ pulses and upper and lower extremities. MUSCULOSKELETAL: Muscle strength and tone normal. SPINE: No scoliosis or deformity SKIN: No rashes CENTRAL NERVOUS SYSTEM: Alert and oriented -3. No focal deficits, tone is normal in all 4 extremities. PSYCHIATRIC: Alert and oriented -3. Appropriate affect. Intact judgment and insight. - Labs CBC & Chem 7: 07/04/19 03:57 07/04/19 03:57 Labs: Abnormal Lab Results - Last 24 Hours (Table) 07/04/19 07/04/19 Range/Units 03:57 03:57 RBC 3.61 L (3.80-5.40) m/uL Hgb 10.8 L (11.4-16.0) gm/dL MCHC 30.7 L (31.0-37.0) g/dL Chloride 109 H (98-107) mmol/L Carbon Dioxide 21 L (22-30) mmol/L BUN 43 H (7-17) mg/dL Creatinine 2.74 H (0.52-1.04) mg/dL Calcium 8.2 L (8.4-10.2) mg/dL Microbiology - Last 24 Hours (Table) 07/02/19 14:54 Blood Culture - Preliminary Blood No Growth after 24 hours 07/01/19 04:37 Urine Culture - Preliminary Urine,Voided Gram Neg Bacilli Assessment and Plan Plan: Assessment: 1 status post fall and multiple right-sided rib fractures including rib 5,6,7 and 8 2 right sided pneumothorax secondary to trauma and rib fractures presently about 20-30%. 3 chronic atrial fibrillation 4 chronic kidney disease stage III 5 history of ileostomy 6 suspect underlying osteoporosis 7 history of mild dementia 8 history of benign essential hypertension 9 history of total colectomy and diverting ileostomy secondary to ulcerative colitis 10 history of hiatal hernia 11 history of peripheral vessel occlusive disease/lower extremities. Plan: Today's chest x-ray has been reviewed showing stable right apical pneumothorax, small, not require insertion of a Thoravent. Patient's reports improved pain control, and deep breathing and coughing abilities, incentive spirometer effort has improved, vital signs are stable, she had a isolated episode of fever of 101, she is on Rocephin for gram-negative rods in the urine culture, blood cultures are negative, continue working on deep breathing and coughing. GI and DVT prophylaxis, will follow I performed a history & physical examination of the patient and discussed their management with my nurse practitioner, Carmne Isaac. I reviewed the nurse practitioner's note and agree with the documented findings and plan of care. Lung sounds are positive for diminished breath sounds. The findings and the impression was discussed with the patient. I attest to the documentation by the nurse practitioner. Time with Patient: Less than 30
--- NOTE | 2019-07-04 10:47 | P.GSCN ---
History of Present Illness Consult date: 07/04/19 Reason for Consult: Status post fall, rib fractures, small right apical traumatic pneumothorax, recommendations for thoravent placement Requesting physician: Breonna Willard History of present illness: This is an 88-year-old woman who follows on an outpatient basis with Dr. Thurston. She has a previous medical history of dementia, chronic atrial fibrillation on chronic Eliquis for anticoagulation, hypertension, hyperlipidemia, chronic renal failure, gastric ulcer, and ulcerative colitis status post colectomy with diverting ileostomy. She reported to [facility] emergency room on July 01 after a fall at home where she tripped over a toy resulting in significant right-sided chest pain. Chest x-ray completed in the emergency room demonstrated multiple right-sided rib fractures. In addition she was noted to have some subcu emphysema and a computed tomography scan of the chest was completed confirming multiple rib fractures with small 10-20% right- sided pneumothorax. She was admitted to the intensive care unit for close monitoring was consultations placed to pulmonology, nephrology, and primary care. Eliquis was placed on hold. She was noted to have gram-negative bacilli in the urine and was placed on IV antibiotics per primary care. Over the next several days serial chest x-rays were completed with pneumothorax remaining stable, possibly decreased in size. The patient's oxygen demands have remained high although continue to trend downwards. She was not taking deep breaths due to pain and an epidural was placed yesterday by anesthesia. The pulmonary team has been monitoring her very closely, and do not feel a chest tube is warranted. Due to her continued pneumothorax consultation was placed to Dr. Fulton from cardiothoracic surgery for recommendations for thoravent placement. Review of Systems Review of systems was completed and was negative except as noted. - Cardiovascular Reports as per HPI, Reports chest pain Past Medical History Past Medical History: Atrial Fibrillation, Dementia, Hyperlipidemia, Hypertension Additional Past Medical History / Comment(s): Chronic renal failure, gastric ulcer, dementia, mild gastritis, small hiatal hernia, peripheral vascular disease, history of ulcerative colitis and the patient has undergone a total colectomy with a diverting ileostomy, History of Any Multi-Drug Resistant Organisms: None Reported Past Surgical History: Bladder Surgery, Hernia Repair, Hysterectomy Additional Past Surgical History / Comment(s): colonoscopy/egd,ileostomy , abd hernia repair Past Anesthesia/Blood Transfusion Reactions: No Reported Reaction Past Psychological History: Anxiety, Depression Additional Psychological History / Comment(s): 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 PT DOES HAVE MILD DEMENTIA BUT ABLE TO CARE FOR SELF AT HOME. SHE CURRENTLY RESIDES WITH HER DAUGHTER BREONNA AND HER FAMILY. PT IS ABLE TO AMBULATE ON HER OWN. Smoking Status: Never smoker Past Alcohol Use History: None Reported Past Drug Use History: None Reported - Past Family History Father Additional Family Medical History / Comment(s): IN HIS 80'S NATURAL CAUSES Mother Family Medical History: [place]) Additional Family Medical History / Comment(s): [place] AGE 58 FROM [place] Medications and Allergies Home Medications Medication Instructions Recorded Confirmed Type Donepezil HCl 23 mg PO HS 06/06/15 07/01/19 History Omeprazole [PriLOSEC] 20 mg PO AC-BRKFST 06/06/15 07/01/19 History Pravastatin Sodium 40 mg PO HS 06/06/15 07/01/19 History Sertraline HCl 50 mg PO DAILY 06/06/15 07/01/19 History Folic Acid 1 mg PO DAILY #1 tablet 08/30/17 07/01/19 Rx Sodium Bicarbonate Tab 650 mg PO TID 10/15/17 07/01/19 History Amiodarone [Cordarone] 100 mg PO DAILY 12/21/18 07/01/19 History Apixaban [Eliquis] 2.5 mg PO HS 07/01/19 07/01/19 History Vitamin B-1 250mg 250 mg PO DAILY 07/01/19 07/01/19 History Vitamin D3(Unknown Dose) Chew Tab 2 tab PO DAILY 07/01/19 07/01/19 History Allergies Allergy/AdvReac Type Severity Reaction Status Date / Time No Known Allergies Allergy Verified 07/01/19 17:56 Surgical - Exam Vital Signs Temp Pulse Resp BP Pulse Ox 98.8 F 55 L 18 138/62 98 07/01/19 14:58 07/01/19 14:58 07/01/19 14:58 07/01/19 14:58 07/01/19 14:58 - General Pain present with palpation of her right chest, otherwise appears comfortable well developed, well nourished, no distress - Eyes PERRL, normal ocular movement - ENT no hearing loss - Neck no masses, no bruits, trachea midline - Respiratory Lungs sounds diminished bilaterally, right greater than left. Respirations even, nonlabored. Currently on 11 L high flow nasal cannula with oxygen saturation 95%. Only able to achieve 500 mL on her incentive spirometry. - Cardiovascular S1, S2 present. Regular rate and rhythm, sinus rhythm on telemetry. Palpable peripheral pulses bilaterally. No edema present. No calf pain or tenderness noted. SCDs present. - Abdomen Abdomen: soft, non tender, bowel sounds - Genitourinary Patient has Pure-wick in place, continues to void clear, yellow urine. - Rectum Deferred - Integumentary no rash, no growths - Neurologic normal sensation, memory loss - Musculoskeletal normal posture - Psychiatric oriented to person, oriented to place, speech is normal Results - Labs 07/04/19 03:57 07/04/19 03:57 Abnormal Lab Results - Last 24 Hours (Table) 07/04/19 07/04/19 Range/Units 03:57 03:57 RBC 3.61 L (3.80-5.40) m/uL Hgb 10.8 L (11.4-16.0) gm/dL MCHC 30.7 L (31.0-37.0) g/dL Chloride 109 H (98-107) mmol/L Carbon Dioxide 21 L (22-30) mmol/L BUN 43 H (7-17) mg/dL Creatinine 2.74 H (0.52-1.04) mg/dL Calcium 8.2 L (8.4-10.2) mg/dL Microbiology - Last 24 Hours (Table) 07/02/19 14:54 Blood Culture - Preliminary Blood No Growth after 24 hours 07/01/19 04:37 Urine Culture - Preliminary Urine,Voided Gram Neg Bacilli Diabetes panel 07/04/19 Range/Units 03:57 Sodium 139 (137-145) mmol/L Potassium 4.0 (3.5-5.1) mmol/L Chloride 109 H (98-107) mmol/L Carbon Dioxide 21 L (22-30) mmol/L BUN 43 H (7-17) mg/dL Creatinine 2.74 H (0.52-1.04) mg/dL Glucose 81 (74-99) mg/dL Calcium 8.2 L (8.4-10.2) mg/dL Calcium panel 07/04/19 Range/Units 03:57 Calcium 8.2 L (8.4-10.2) mg/dL Pituitary panel 07/04/19 Range/Units 03:57 Sodium 139 (137-145) mmol/L Potassium 4.0 (3.5-5.1) mmol/L Chloride 109 H (98-107) mmol/L Carbon Dioxide 21 L (22-30) mmol/L BUN 43 H (7-17) mg/dL Creatinine 2.74 H (0.52-1.04) mg/dL Glucose 81 (74-99) mg/dL Calcium 8.2 L (8.4-10.2) mg/dL Adrenal panel 07/04/19 Range/Units 03:57 Sodium 139 (137-145) mmol/L Potassium 4.0 (3.5-5.1) mmol/L Chloride 109 H (98-107) mmol/L Carbon Dioxide 21 L (22-30) mmol/L BUN 43 H (7-17) mg/dL Creatinine 2.74 H (0.52-1.04) mg/dL Glucose 81 (74-99) mg/dL Calcium 8.2 L (8.4-10.2) mg/dL - Imaging Chest x-ray: report reviewed, image reviewed CT scan - chest: report reviewed, image reviewed Assessment and Plan Assessment: 1. Status post fall, resultant right-sided rib fractures, right apical traumatic pneumothorax 2. History of dementia 3. History of chronic atrial fibrillation on chronic Eliquis for anticoagulation, currently on hold 3. Hypertension 4. Hyperlipidemia 5. Chronic renal failure 6. History of gastric ulcer 7. History of ulcerative colitis status post colectomy with diverting ileostomy Plan: The patient was seen and examined at the bedside. The chart/diagnostics were reviewed. Case will be discussed in detail with Dr. Fulton. She is currently in no distress, her oxygen saturations are stable and her oxygen demands are being weaned down. The pneumothorax on her serial chest x-rays appears to be stable with no increase in size. Epidural was placed to help control patient's pain. Incentive spirometry is at bedside and she should be encouraged to use the incentive spirometry 10 times every hour while awake. Increase activity, out of bed as tolerated. Agree with pulmonology that Thoravent will not improve the patient's status, no surgical intervention is warranted at this time. Continued medical management per primary care, trauma, pulmonology, nephrology. Thank you Dr. Willard for this consult. Please call us with any further questions. Time with Patient: Greater than 30
--- NOTE | 2019-07-04 11:43 | P.PN ---
Subjective Patient is seen in follow-up for chronic kidney disease. Patient has chronic kidney disease stage IV secondary to nephrosclerosis. Renal function is a little worse today. IV fluids were discontinued this morning. Oral intake is good. She is nonoliguric. Vital signs are stable. General: The patient appeared well nourished and normally developed. HEENT: Head exam is unremarkable. Neck is without jugular venous distension. LUNGS: Lungs are clear to auscultation and percussion. Breath sounds decreased. HEART: Rate and Rhythm are regular. First and second heart sounds normal. No murmurs, rubs or gallops. ABDOMEN: Abdominal exam reveals normal bowel sounds. Non-tender and non- distended. No evidence of peritonitis. EXTREMITITES: No clubbing, cyanosis, or edema. Objective - Vital Signs Vital signs: Vital Signs Temp 98.9 F 07/04/19 08:00 Pulse 60 07/04/19 11:00 Resp 38 H 07/04/19 11:00 BP 110/67 07/04/19 11:00 Pulse Ox 94 L 07/04/19 11:00 Intake & Output 07/03/19 07/04/19 07/04/19 18:59 06:59 18:59 Intake Total 965 375 262.5 Output Total 175 600 225 Balance 790 -225 37.5 Weight 73 kg Intake: IV 125 75 125 Sodium Chloride 0.9% 1, 75 000 ml @ 75 mls/hr IV . [id number] [facility] Rx#:[id number] cefTRIAXone 1 gm In 50 75 125 Sodium Chloride 0.9% 50 ml @ 100 mls/hr IVPB Q24HR [facility] Rx#:[id number] Intake, IV Titration 640 300 137.5 Amount Ropivacaine 250 mg 12.5 fentaNYL (PF) 625 mcg In Sodium Chloride 0.9% 188 ml @ Per Protocol EPIDURAL .Q0M PRN Rx#: [id number] Sodium Chloride 0.9% 1, 640 300 125 000 ml @ 20 mls/hr IV . Q24H [facility] Rx#:[id number] Oral 200 Output: Urine 175 400 75 Stool 200 150 Other: Voiding Method Toilet # Voids 1 # Bowel Movements 1 - Labs CBC & Chem 7: 07/04/19 03:57 07/04/19 03:57 Labs: Abnormal Lab Results - Last 24 Hours (Table) 07/04/19 07/04/19 Range/Units 03:57 03:57 RBC 3.61 L (3.80-5.40) m/uL Hgb 10.8 L (11.4-16.0) gm/dL MCHC 30.7 L (31.0-37.0) g/dL Chloride 109 H (98-107) mmol/L Carbon Dioxide 21 L (22-30) mmol/L BUN 43 H (7-17) mg/dL Creatinine 2.74 H (0.52-1.04) mg/dL Calcium 8.2 L (8.4-10.2) mg/dL Microbiology - Last 24 Hours (Table) 07/01/19 04:37 Urine Culture - Preliminary Urine,Voided Proteus mirabilis Gram Neg Bacilli 07/02/19 14:54 Blood Culture - Preliminary Blood No Growth after 24 hours Assessment and Plan Plan: Assessment: 1. Chronic kidney disease stage IV secondary to nephrosclerosis with baseline creatinine near 2.5. GFR near baseline. 2. 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 Also component of IV fluids. Maintained on oral sodium bicarbonate. 3. Status post fall with right-sided rib fractures and pneumothorax. No surgical intervention planned. 4. History of Foster colitis status post colectomy. Has ileostomy. Plan: Off IV fluids. Oral intake is good. Continue to monitor renal function and urine output. No urgent need for renal replacement therapy at this time. Patient has refused renal replacement therapy in the past.
[2019-07-04] MEDS: ACETAMINOPHEN TAB 325 MG TAB PO PRN (11:44)
--- NOTE | 2019-07-04 14:08 | P.PN ---
<Naomy Sandy A - Last Filed: 07/04/19 13:35> Subjective Progress Note Date: 07/04/19 CHIEF COMPLAINT: Fall HISTORY OF PRESENT ILLNESS: Patient examined this morning in the ICU with Dr. Willard. No family present. Patient reports her pain is tolerable this morning. She had T5 epidural placed yesterday for pain management. CXR this morning reveals stable small pneumothorax. PHYSICAL EXAM: VITAL SIGNS: Reviewed. GENERAL: Well-developed in no acute distress. HEENT: No sclera icterus. Extraocular movements grossly intact. Moist buccal mucosa. Head is atraumatic, normocephalic. Hears conversational speech. No nasal drainage. NECK: Supple without lymphadenopathy. CHEST: Non-labored respirations and equal bilateral excursions. CARDIOVASCULAR: Irregular rhythm. Palpable 2+ radial pulses. ABDOMEN: Soft. Nondistended. Ileostomy noted. MUSCULOSKELETAL: No clubbing. Patient has chronic discoloration to extremities secondary to Raynauds. NEUROLOGIC: No focal or lateralizing signs. Cranial nerves II through XII grossly intact. PSYCH: Appropriate affect. Alert and oriented to person, place and time. SKIN: Well perfused. Good skin turgor. ASSESSMENT: 1. Status post fall ground-level 2. Multiple right-sided rib fractures 3. Chronic renal insufficiency 4. Chronic anticoagulant use 5. Right pneumothorax 6. Raynaud's PLAN: 1. Pulmonary on consult. 2. Repeat CXR ordered for tomorrow AM. 3. Dr. Willard would like cardiothoracic surgery to evaluate patient to see how she would benefit from thoravent insertion. Consult placed. 4. Continue to hold Eliquis 5. Incentive spirometry 6. Nephrology on consult. Input appreciated. 7. Continue epidural for pain management 8. Anticipate discharge later this week. Patient to return home at discharge. Lives with daughter. Daughter refusing home care at discharge. Nurse practitioner note has been reviewed by physician. Signing provider agrees with the documented findings, assessment, and plan of care. Objective - Vital Signs Vital signs: Vital Signs Temp 98.9 F 07/04/19 08:00 Pulse 60 07/04/19 11:00 Resp 38 H 07/04/19 11:00 BP 110/67 07/04/19 11:00 Pulse Ox 94 L 07/04/19 11:00 Intake & Output 09/07/04/19 07/04/19 18:59 06:59 18:59 Intake Total 965 375 262.5 Output Total 175 600 225 Balance 790 -225 37.5 Weight 73 kg Intake: IV 125 75 125 Sodium Chloride 0.9% 1, 75 000 ml @ 75 mls/hr IV . [id number] [facility] Rx#:[id number] cefTRIAXone 1 gm In 50 75 125 Sodium Chloride 0.9% 50 ml @ 100 mls/hr IVPB Q24HR [facility] Rx#:[id number] Intake, IV Titration 640 300 137.5 Amount Ropivacaine 250 mg 12.5 fentaNYL (PF) 625 mcg In Sodium Chloride 0.9% 188 ml @ Per Protocol EPIDURAL .Q0M PRN Rx#: [id number] Sodium Chloride 0.9% 1, 640 300 125 000 ml @ 20 mls/hr IV . Q24H [facility] Rx#:[id number] Oral 200 Output: Urine 175 400 75 Stool 200 150 Other: Voiding Method Toilet # Voids 1 # Bowel Movements 1 - Labs CBC & Chem 7: 07/04/19 03:57 07/04/19 03:57 Labs: Abnormal Lab Results - Last 24 Hours (Table) 07/04/19 07/04/19 Range/Units 03:57 03:57 RBC 3.61 L (3.80-5.40) m/uL Hgb 10.8 L (11.4-16.0) gm/dL MCHC 30.7 L (31.0-37.0) g/dL Chloride 109 H (98-107) mmol/L Carbon Dioxide 21 L (22-30) mmol/L BUN 43 H (7-17) mg/dL Creatinine 2.74 H (0.52-1.04) mg/dL Calcium 8.2 L (8.4-10.2) mg/dL Microbiology - Last 24 Hours (Table) 07/01/19 04:37 Urine Culture - Preliminary Urine,Voided Proteus mirabilis Gram Neg Bacilli 07/02/19 14:54 Blood Culture - Preliminary Blood No Growth after 24 hours Assessment and Plan (1) Anticoagulant long-term use Current Visit: Yes Status: Acute Code(s): Z79.01 - EXTRAS CASTING DIRECTOR (CURRENT) USE OF ANTICOAGULANTS SNOMED Code(s): 612524241 (2) Pneumothorax, right Current Visit: Yes Status: Acute Code(s): J93.9 - PNEUMOTHORAX, UNSPECIFIED SNOMED Code(s): 765686212 (3) Rib fractures Current Visit: Yes Status: Acute Code(s): S22.39XA - FRACTURE OF ONE RIB, UNSP SIDE, INIT FOR CLOS FX SNOMED Code(s): 74226129 (4) Traumatic pneumothorax Current Visit: Yes Status: Acute Code(s): S27.0XXA - TRAUMATIC PNEUMOTHORAX, INITIAL ENCOUNTER SNOMED Code(s): 25614932 <Breonna Willard N - Last Filed: 07/04/19 19:23> Subjective Pulmonary and thoracic surgery input appreciated. Will observe pneumothorax. May need rehab upon discharge. Objective - Vital Signs Vital signs: Vital Signs Temp 98.4 F 07/04/19 16:00 Pulse 49 L 07/04/19 17:00 Resp 22 07/04/19 17:00 BP 127/63 07/04/19 17:00 Pulse Ox 98 07/04/19 17:00 Intake & Output 07/04/19 07/04/19 07/05/19 06:59 18:59 06:59 Intake Total 375 597.5 Output Total 600 950 Balance -225 -352.5 Weight 73 kg Intake: IV 75 125 cefTRIAXone 1 gm In 75 125 Sodium Chloride 0.9% 50 ml @ 100 mls/hr IVPB Q24HR [facility] Rx#:[id number] Intake, IV Titration 300 272.5 Amount Ropivacaine 250 mg 27.5 fentaNYL (PF) 625 mcg In Sodium Chloride 0.9% 188 ml @ Per Protocol EPIDURAL .Q0M [facility] Rx#: [id number] Sodium Chloride 0.9% 1, 300 245 000 ml @ 20 mls/hr IV . Q24H [facility] Rx#:[id number] Oral 200 Output: Urine 400 450 Stool 200 500 Other: Voiding Method Toilet # Voids 1 - Labs CBC & Chem 7: 07/04/19 03:57 07/04/19 03:57 Labs: Abnormal Lab Results - Last 24 Hours (Table) 07/04/19 07/04/19 Range/Units 03:57 03:57 RBC 3.61 L (3.80-5.40) m/uL Hgb 10.8 L (11.4-16.0) gm/dL MCHC 30.7 L (31.0-37.0) g/dL Chloride 109 H (98-107) mmol/L Carbon Dioxide 21 L (22-30) mmol/L BUN 43 H (7-17) mg/dL Creatinine 2.74 H (0.52-1.04) mg/dL Calcium 8.2 L (8.4-10.2) mg/dL Microbiology - Last 24 Hours (Table) 07/02/19 14:54 Blood Culture - Preliminary Blood No Growth after 48 hours 07/01/19 04:37 Urine Culture - Preliminary Urine,Voided Proteus mirabilis Gram Neg Bacilli Assessment and Plan (1) Rib fractures Current Visit: Yes Status: Acute Code(s): S22.39XA - FRACTURE OF ONE RIB, UNSP SIDE, INIT FOR CLOS FX SNOMED Code(s): 11541226 (2) CHF (congestive heart failure) Current Visit: No Status: Acute Code(s): I50.9 - HEART FAILURE, UNSPECIFIED SNOMED Code(s): 73854563 (3) Chronic renal failure Current Visit: No Status: Acute Code(s): N18.9 - CHRONIC KIDNEY DISEASE, UNSPECIFIED SNOMED Code(s): 35838833 (4) Anticoagulant long-term use Current Visit: Yes Status: Acute Code(s): Z79.01 - LONG-TERM (CURRENT) USE OF ANTICOAGULANTS SNOMED Code(s): 126888211 (5) Traumatic pneumothorax Current Visit: Yes Status: Acute Code(s): S27.0XXA - TRAUMATIC PNEUMOTHORAX, INITIAL ENCOUNTER SNOMED Code(s): 66216593 (6) Pneumothorax, right Current Visit: Yes Status: Acute Code(s): J93.9 - PNEUMOTHORAX, UNSPECIFIED SNOMED Code(s): 202255530
--- NOTE | 2019-07-04 18:00 | PN ---
PROGRESS NOTE DATE OF SERVICE: 07/04/2019. This 88-year-old woman was admitted with a fall and right-sided pneumothorax is being closely monitored at this time. The most recent chest x-ray which was personally reviewed by me showed multiple right-sided rib fractures, underlying right small pneumothorax relatively unchanged and continued small bilateral pleural effusion also. The patient was previously on anticoagulation per Cardiology recommendations from Dr. Glover's office. Patient being closely monitored at this time. Multiple consultants are following the patient closely. The creatinine is at 2.74. PAST MEDICAL HISTORY: Reviewed. REVIEW OF SYSTEMS: CARDIOVASCULAR SYSTEM: No angina. Otherwise, as mentioned earlier. RESPIRATION as mentioned earlier. GI no nausea or vomiting. : No dysuria. CENTRAL NERVOUS SYSTEM: No numbness or weakness. CURRENT MEDICATIONS: Reviewed and include: 1. Tylenol 650 q.4 hours. 2. [place] p.r.n. 3. Cordarone 100 mg p.o. daily. 4. Rocephin 1 g daily. 5. Benadryl 25 q.6h. 6. Aricept 10 mg p.r.n. 7. Folic acid. 8. Heparin 5000 subcu b.i.d. 9. Dilaudid 1 mg b.i.d. 10.Narcan 0.2 q.2h p.r.n. 11.Zofran. 12.Protonix. 13.Pravachol. 14.Ropivacaine. 15.Zoloft. PHYSICAL EXAMINATION: Patient is alert, oriented x2. Pulse 59, blood pressure 142/105, respiration 20, temperature 98.4, pulse ox 94 percent on high-flow nasal cannula. HEENT: Conjunctivae normal. NECK: No jugular venous distention. CARDIOVASCULAR: S1, S2 muffled. RESPIRATORY: Breath sounds diminished in the bases. Scattered rhonchi and crackles. Breath sounds diminished in the bases. No bronchial breath sounds. ABDOMEN: Soft, nontender. No mass palpable. NERVOUS SYSTEM: Higher functions as mentioned earlier. Moves all four limbs. No focal motor or sensory deficits. SKIN: No ulcer, no rashes and no bleeding. JOINTS: No active deforming arthropathy. LABS: WBC 6, hemoglobin 10.2, sodium 139, potassium 4, creatinine is 2.74. ASSESSMENT: 1. Fall and right-sided multiple rib fractures as well as right-sided pneumothorax about 20-30 percent, stable. 2. Multiple rib fractures 5, 6, 7 and 8 on the right. 3. Severe chest pain secondary to fractures. 4. Acute hypoxic respiratory failure secondary to rib fractures. 5. Chronic atrial fibrillation. 6. Chronic kidney stage 3 possibly. 7. Acute urinary tract infection present on admission. 8. Metabolic encephalopathy, acute on chronic with change in mental status, multifactorial. 9. History of dementia. 10.Hyperlipidemia. 11.Hypertension. 12.History of gait dysfunction. 13.History of gastric ulcer. 14.Mild gastritis. 15.Small hiatal hernia. 16.History of peripheral vascular disease. 17.History of ulcerative colitis. 18.History of total colectomy with diverting ileostomy. 19.History of bladder surgery. 20.Hernia surgery. 21.History of anxiety, depression. RECOMMENDATIONS AND DISCUSSION: In this 88 -year-old woman who presented with multiple complex medical issues, we will monitor the patient closely, continue the current medications, management and symptomatic treatment. Otherwise, at this time, I recommend continue with current medications. Monitor creatinine closely. Symptomatic treatment of pain. Incentive spirometry. There is no plan for active intervention at this time and I would also recommend Cardiology evaluation for continuation of long-term anticoagulation because of the patient's risk of bleeding versus risk of strokes. Discussed with the family at length. Further recommendations to follow. We will continue to monitor. MMODL / IJN: [id number] /
[2019-07-04] MEDS: PRAVASTATIN SODIUM 40 MG TAB PO SCH (20:22)
[2019-07-04] MEDS: DONEPEZIL 10 MG TAB PO SCH (20:22)
[2019-07-04] MEDS: diphenhydrAMINE 50 MG/ML 1 ML VIAL IVP PRN (22:21)
[2019-07-05 05:03] LABS: Basophils % (A) 0 %; Eosinophils # (A) 0.1 k/uL (0-0.7); Eosinophils % (A) 1 %; HCT 35.3 % (34.0-46.0); HGB 11.9 gm/dL (11.4-16.0); Lymphocytes # (A) 0.9 k/uL (1.0-4.8); Lymphocytes % (A) 16 %; MCH 31.8 pg (25.0-35.0); MCHC 33.6 g/dL (31.0-37.0); MCV 94.6 fL (80.0-100.0); Mean Platelet Volume 6.8; Monocytes # (A) 0.3 k/uL (0-1.0); Monocytes % (A) 5 %; Neutrophils # (A) 4.5 k/uL (1.3-7.7); Neutrophils % (A) 77 %; Platelet Count 185 k/uL (150-450); RBC 3.73 m/uL (3.80-5.40); WBC 5.9 k/uL (3.8-10.6)
[2019-07-05 05:16] LABS: Calcium 8.6 mg/dL (8.4-10.2); Magnesium 1.7 mg/dL (1.6-2.3); Potassium 3.3 mmol/L (3.5-5.1)
[2019-07-05] MEDS ORDERED: Potassium Replacement Protocol 1 EACH MISC MISCELLANE PRN (05:36)
[2019-07-05] MEDS: POTASSIUM CHLORIDE ER 20 MEQ TAB.ER PO SCH ×2 (06:06→07:15)
--- NOTE | 2019-07-05 08:06 | XR ---
EXAMINATION TYPE: XR chest 1V portable DATE OF EXAM: 07/05/2019 CLINICAL HISTORY: Difficulty breathing progress study. TECHNIQUE: Single AP portable semiupright view of the chest is obtained. COMPARISON: Chest x-ray from one day earlier and older studies. FINDINGS: Background mild cardiomegaly with atherosclerotic and ectatic thoracic aorta. Chronic parenchymal change with bibasilar opacities. Overlying EKG leads are redemonstrated. Small ri ght apical pneumothorax. Slightly diminished in size from prior. Multiple right-sided rib fractures r edemonstrated. IMPRESSION: Small to tiny right apical pneumothorax felt improved from most recent x-ray. Multiple ri ght-sided rib fractures again seen. Persistent cardiomegaly and chronic parenchymal change with small bilateral pleural effusions and associated bibasilar atelectasis and/or infiltrate redemonstrated.
[2019-07-05] MEDS: PANTOPRAZOLE 40 MG TABLET PO SCH (08:47)
[2019-07-05] MEDS: AMIODARONE 200 MG TAB PO SCH (08:47)
[2019-07-05] MEDS: FOLIC ACID 1 MG TAB PO SCH (08:48)
[2019-07-05] MEDS: HEPARIN SODIUM,PORCINE 5,000 UNIT/ML 1 ML VIAL SQ SCH ×2 (08:48→21:04)
[2019-07-05] MEDS: SODIUM BICARBONATE TAB 650 MG TAB PO SCH ×3 (08:49→21:05)
[2019-07-05] MEDS: SERTRALINE 50 MG TAB PO SCH (08:49)
--- NOTE | 2019-07-05 10:54 | P.PN ---
Subjective Progress Note Date: 07/05/19 Principal diagnosis: Fall, trauma, multiple rib fractures and right-sided pneumothorax This is an 88-year-old female who is a poor historian, patient was admitted to the ICU yesterday after she sustained multiple rib fractures secondary to falling when she tripped over a toy. Patient apparently landed on her right side of the chest, and she came into the ER mostly complaining of pain in the right flank region, right paraspinal region and thoracic area. Workup was done in the ER, and her workup revealed a 20% right-sided pneumothorax, it also revealed multiple rib fractures on the right side, fifth through eighth ribs were noted to have fractures. CT of the head and cervical spine showed no acute abnormality. Follow-up chest x-ray this morning showed a 20% right-sided pneumothorax, unchanged much from an earlier chest x-ray done a few hours ago. Patient denies any significant shortness of breath, she does have mostly right sided chest wall pain. Patient was admitted to the ICU and I was asked to see her on consultation. On 07/03/2019 patient seen in follow-up in intensive care unit, she is currently awake and alert, in no acute distress, she is answering questions appropriately, she is on her percent nonrebreather mask pulse ox of 98%, low grade fever T-max of 99.2, hemodynamic patient is stable, IV maintenance fluids 0.9 normal saline at a rate of 75 ML per hour, patient is unable to deep breathing cough related to right-sided chest wall discomfort related to multiple rib fractures on the right, today's chest x-ray has been reviewed showing small right apical pneumothorax Florinda slightly diminished in size from prior, and cardiomegaly and small bilateral pleural effusions and associated atelectasis. Her labs have been reviewed, showing white blood cell count of 6.2, hemoglobin of 11.4, sodium of 137, potassium is 4.2, chloride is 109, CO2 21, B1 is 37, and creatinine is 2.40. Urinalysis showed evidence of urinary tract infection, culture is pending. Antibiotic coverage is in the form of Rocephin. Lung sounds reveal diminished air entry bilateral lower lobes. No wheezing, no rhonchi, patient does have difficulty with deep breathing and coughing, we will hold her oral anticoagulation request anesthesia consultation for possible placement of epidural catheter for pain management. On 07/04/2019 patient seen in follow-up in the intensive care unit, she is awake and alert, oriented 3, her FiO2 is down to 11 L per high flow nasal cannula, epidural is infusing at a rate of 4 ML per hour, maintenance IV fluid is 0.9 normal saline at a rate of 20 mL an hour. patient's incentive spirometer effort is improved, she is able to pull 600-700 mL on the today, her pain is a lot better controlled. Sounds reveal diminished breath sounds over bilateral lower bases, rhonchi, no wheezing, no rales, no signs of delirium. Patient did have a temp of 101F last night at 2000, afebrile this morning, antibiotic coverage is in the form of Rocephin continues for evidence of gram-negative bacilli in the urine culture, final cultures pending, blood culture showed no growth. Labs have been reviewed, showing white blood cell count of 6.0, hemoglobin of 10.8, serum sodium of 139, potassium is 4.0, chloride is 109, CO2 is 21, BUN is 43, cr eatinine is 2.74. Her chest x-ray has been reviewed with Dr. Huerta, showing stable multiple right-sided rib fractures with small right apical pneumothorax, unchanged from prior exam, small bilateral pleural effusions and adjacent atelectasis. On 07/05/2019 patient seen in follow-up in the intensive care unit, she is awake and alert, oriented 3, currently on 12 L of oxygen per high flow nasal cannula and her pulse ox is 95%. Denies any coffee breathing, she states her pain is reasonably controlled, remains on epidural which has been decreased to 25 ML per hour per anesthesia services, no fever or chills, today's chest x-ray has been reviewed. Showing small acute tiny right apical pneumothorax possibly improved from most recent chest x-ray, tibial multiple right-sided rib fractures, car diomegaly, and small bilateral pleural effusions and associated bibasilar atelectasis. Hemodynamically stable, she is working on incentive spirometer. No acute issues overnight. Today's labs have been reviewed CBC is unremarkable, serum potassium is 3.3, being replaced per protocol, BUN is 39 and creatinine is 2.45. She is tolerating oral diet, no nausea or vomiting, and patient is producing good amount of urine. Objective - Vital Signs Vital signs: Vital Signs Temp 98.2 F 07/05/19 08:00 Pulse 69 07/05/19 08:00 Resp 10 L 07/05/19 08:00 BP 154/87 07/05/19 08:00 Pulse Ox 95 07/05/19 09:49 Intake & Output 07/04/19 07/05/19 07/05/19 18:59 06:59 18:59 Intake Total 620.0 202.5 120 Output Total 950 1900 400 Balance -330.0 -1697.5 -280 Weight 70.5 kg Intake: IV 125 180 120 0.9 180 20 cefTRIAXone 1 gm In 125 100 Sodium Chloride 0.9% 50 ml @ 100 mls/hr IVPB Q24HR [facility] Rx#:[id number] Intake, IV Titration 295.0 22.5 Amount Ropivacaine 250 mg 30.0 2.5 fentaNYL (PF) 625 mcg In Sodium Chloride 0.9% 188 ml @ Per Protocol EPIDURAL .Q0M PRN Rx#: [id number] Sodium Chloride 0.9% 1, 265 20 000 ml @ 20 mls/hr IV . Q24H [facility] Rx#:[id number] Oral 200 Output: Urine 450 1700 400 Stool 500 200 Other: Voiding Method Toilet - Exam GENERAL EXAM: Alert, pleasant, 88-year-old white female, on high flow nasal cannula at 12 L/min, comfortable in no apparent distress. HEAD: Normocephalic/atraumatic. EYES: Normal reaction of pupils, equal size. Conjunctiva pink, sclera white. NOSE: Clear with pink turbinates. THROAT: No erythema or exudates. NECK: No masses, no JVD, no thyroid enlargement, no adenopathy. CHEST: No chest wall deformity. Symmetrical expansion. LUNGS: Equal air entry with no crackles, wheeze, rhonchi or dullness. CVS: Regular rate and rhythm, normal S1 and S2, no gallops, no murmurs, no rubs ABDOMEN: Soft, nontender. No hepatosplenomegaly, normal bowel sounds, no guarding or rigidity. EXTREMITIES: No clubbing, no edema, no cyanosis, 2+ pulses and upper and lower extremities. MUSCULOSKELETAL: Muscle strength and tone normal. SPINE: No scoliosis or deformity SKIN: No rashes CENTRAL NERVOUS SYSTEM: Alert and oriented -3. No focal deficits, tone is normal in all 4 extremities. PSYCHIATRIC: Alert and oriented -3. Appropriate affect. Intact judgment and insight. - Labs CBC & Chem 7: 07/05/19 04:34 07/05/19 04:27 Labs: Abnormal Lab Results - Last 24 Hours (Table) 07/05/19 07/05/19 Range/Units 04:27 04:34 RBC 3.73 L (3.80-5.40) m/uL Lymphocytes # 0.9 L (1.0-4.8) k/uL Potassium 3.3 L (3.5-5.1) mmol/L BUN 39 H (7-17) mg/dL Creatinine 2.45 H (0.52-1.04) mg/dL Microbiology - Last 24 Hours (Table) 07/01/19 04:37 Urine Culture - Final Urine,Voided Proteus mirabilis Escherichia coli 07/02/19 14:54 Blood Culture - Preliminary Blood No Growth after 48 hours Assessment and Plan Plan: Assessment: 1 status post fall and multiple right-sided rib fractures including rib 5,6,7 and 8 2 right sided pneumothorax secondary to trauma and rib fractures presently about 20-30%. 3 chronic atrial fibrillation 4 chronic kidney disease stage III 5 history of ileostomy 6 suspect underlying osteoporosis 7 history of mild dementia 8 history of benign essential hypertension 9 history of total colectomy and diverting ileostomy secondary to ulcerative colitis 10 history of hiatal hernia 11 history of peripheral vessel occlusive disease/lower extremities. Plan: Continue using the plan and coughing, today's chest x-ray has been reviewed showing stable tiny right apical pneumothorax, clinically patient remains stable, wean FiO2, continue aggressive pulmonary toileting, pain control, encourage the patient to sit up in the chair, ambulate as tolerated. Otherwise patient is stable to transfer out of the intensive care unit today to medical surgical floor with remote telemetry for 24 hours. I performed a history & physical examination of the patient and discussed their management with my nurse practitioner, Carmen Isaac. I reviewed the nurse practitioner's note and agree with the documented findings and plan of care. Lung sounds are positive for diminished breath sounds. The findings and the impression was discussed with the patient. I attest to the documentation by the nurse practitioner. Time with Patient: Less than 30
[2019-07-05] MEDS ORDERED: diphenhydrAMINE 25 MG CAP PO PRN (13:06)
--- NOTE | 2019-07-05 13:37 | P.PN ---
Subjective Patient is seen in follow-up for chronic kidney disease. Patient has chronic kidney disease stage IV secondary to nephrosclerosis. Renal function is better today. Patient is little bit more confused today. Oral intake is fair. She is nonoliguric. Vital signs are stable. General: The patient appeared well nourished and normally developed. HEENT: Head exam is unremarkable. Neck is without jugular venous distension. LUNGS: Lungs are clear to auscultation and percussion. Breath sounds decreased. HEART: Rate and Rhythm are regular. First and second heart sounds normal. No murmurs, rubs or gallops. ABDOMEN: Abdominal exam reveals normal bowel sounds. Non-tender and non- distended. No evidence of peritonitis. EXTREMITITES: No clubbing, cyanosis, or edema. Objective - Vital Signs Vital signs: Vital Signs Temp 98.2 F 07/05/19 08:00 Pulse 63 07/05/19 11:00 Resp 23 07/05/19 11:00 BP 101/91 07/05/19 11:00 Pulse Ox 95 07/05/19 11:00 Intake & Output 07/04/19 07/05/19 07/05/19 18:59 06:59 18:59 Intake Total 620.0 202.5 160 Output Total 950 1900 800 Balance -330.0 -1697.5 -640 Weight 70.5 kg Intake: IV 125 180 160 0.9 180 60 cefTRIAXone 1 gm In 125 100 Sodium Chloride 0.9% 50 ml @ 100 mls/hr IVPB Q24HR [facility] Rx#:[id number] Intake, IV Titration 295.0 22.5 Amount Ropivacaine 250 mg 30.0 2.5 fentaNYL (PF) 625 mcg In Sodium Chloride 0.9% 188 ml @ Per Protocol EPIDURAL .Q0M PR[facility] Rx#: [id number] Sodium Chloride 0.9% 1, 265 20 000 ml @ 20 mls/hr IV . Q24H [facility] Rx#:[id number] Oral 200 Output: Urine 450 1700 800 Stool 500 200 Other: Voiding Method Toilet # Voids 1 - Labs CBC & Chem 7: 07/05/19 04:34 07/05/19 04:27 Labs: Abnormal Lab Results - Last 24 Hours (Table) 07/05/19 07/05/19 Range/Units 04:27 04:34 RBC 3.73 L (3.80-5.40) m/uL Lymphocytes # 0.9 L (1.0-4.8) k/uL Potassium 3.3 L (3.5-5.1) mmol/L BUN 39 H (7-17) mg/dL Creatinine 2.45 H (0.52-1.04) mg/dL Microbiology - Last 24 Hours (Table) 07/01/19 04:37 Urine Culture - Final Urine,Voided Proteus mirabilis Escherichia coli 07/02/19 14:54 Blood Culture - Preliminary Blood No Growth after 48 hours Assessment and Plan Plan: Assessment: 1. Chronic kidney disease stage IV secondary to nephrosclerosis with baseline creatinine near 2.5. GFR near baseline. 2. 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 Also component of IV fluids. Maintained on oral sodium bicarbonate. 3. Status post fall with right-sided rib fractures and pneumothorax. No surgical intervention planned. 4. History of ulcerative colitis status post colectomy. Has ileostomy. 5. Hypokalemia due to poor oral intake and bicarb. 6. UTI. Urine culture positive for Proteus and E. coli. Maintained on antibiotics. Plan: Increase dose normal saline to 50 mL an hour. Replace potassium. 40 mEq today. Continue to monitor renal function and urine output. No urgent need for renal replacement therapy at this time. Patient has refused renal replacement therapy in the past.
--- NOTE | 2019-07-05 14:20 | P.PN ---
<Naomy Sandy A - Last Filed: 07/05/19 14:14> Subjective Progress Note Date: 07/05/19 CHIEF COMPLAINT: Fall HISTORY OF PRESENT ILLNESS: Patient examined in the ICU with Dr. Willard. Patient reports her pain is tolerable. Epidural infusing at 2.5cc. Encouraged use of incentive spirometer. Remains on 12L nasal cannula. Denies abdominal pain. Denies nausea or vomiting. PHYSICAL EXAM: VITAL SIGNS: Reviewed. GENERAL: Well-developed in no acute distress. HEENT: No sclera icterus. Extraocular movements grossly intact. Moist buccal mucosa. Head is atraumatic, normocephalic. Hears conversational speech. No nasal drainage. NECK: Supple without lymphadenopathy. CHEST: Non-labored respirations and equal bilateral excursions. CARDIOVASCULAR: Irregular rhythm. Palpable 2+ radial pulses. ABDOMEN: Soft. Nondistended. Ileostomy noted. MUSCULOSKELETAL: No clubbing. Patient has chronic discoloration to extremities secondary to Raynauds. NEUROLOGIC: No focal or lateralizing signs. Cranial nerves II through XII grossly intact. PSYCH: Appropriate affect. Alert and oriented to person, place and time. SKIN: Well perfused. Good skin turgor. ASSESSMENT: 1. Status post fall ground-level 2. Multiple right-sided rib fractures 3. Chronic renal insufficiency 4. Chronic anticoagulant use 5. Right pneumothorax 6. Raynaud's PLAN: 1. Pulmonary on consult. 2. Continue epidural for pain control. Anticipate removal tomorrow 3. Wean oxygen as tolerated 4. Continue diet as tolerated 5. Incentive spirometry 6. PT/OT on consult to evaluate for possible ECF placement 7. Cardiology has been consulted to evaluate anti-coagulation use. Risk VS benefit analysis in this patient. Await input. Nurse practitioner note has been reviewed by physician. Signing provider agrees with the documented findings, assessment, and plan of care. Objective - Vital Signs Vital signs: Vital Signs Temp 98.1 F 07/05/19 12:00 Pulse 59 L 07/05/19 13:00 Resp 21 07/05/19 13:00 BP 133/73 07/05/19 13:00 Pulse Ox 88 L 07/05/19 13:00 Intake & Output 07/04/19 07/05/19 07/05/19 18:59 06:59 18:59 Intake Total 620.0 202.5 160 Output Total 950 1900 800 Balance -330.0 -1697.5 -640 Weight 70.5 kg Intake: IV 125 180 160 0.9 180 60 cefTRIAXone 1 gm In 125 100 Sodium Chloride 0.9% 50 ml @ 100 mls/hr IVPB Q24HR [facility] Rx#:[id number] Intake, IV Titration 295.0 22.5 Amount Ropivacaine 250 mg 30.0 2.5 fentaNYL (PF) 625 mcg In Sodium Chloride 0.9% 188 ml @ Per Protocol EPIDURAL .Q0M PRN Rx#: [id number] Sodium Chloride 0.9% 1, 265 20 000 ml @ 20 mls/hr IV . Q24H [facility] Rx#:[id number] Oral 200 Output: Urine 450 1700 800 Stool 500 200 Other: Voiding Method Toilet # Voids 1 - Labs CBC & Chem 7: 07/05/19 04:34 07/05/19 04:27 Labs: Abnormal Lab Results - Last 24 Hours (Table) 07/05/19 07/05/19 Range/Units 04:27 04:34 RBC 3.73 L (3.80-5.40) m/uL Lymphocytes # 0.9 L (1.0-4.8) k/uL Potassium 3.3 L (3.5-5.1) mmol/L BUN 39 H (7-17) mg/dL Creatinine 2.45 H (0.52-1.04) mg/dL Microbiology - Last 24 Hours (Table) 07/01/19 04:37 Urine Culture - Final Urine,Voided Proteus mirabilis Escherichia coli 07/02/19 14:54 Blood Culture - Preliminary Blood No Growth after 48 hours Assessment and Plan (1) Anticoagulant long-term use Current Visit: Yes Status: Acute Code(s): Z79.01 - [employer]IC[employer] (CURRENT) USE OF ANTICOAGULANTS SNOMED Code(s): 455458316 (2) Pneumothorax, right Current Visit: Yes Status: Acute Code(s): J93.9 - PNEUMOTHORAX, UNSPECIFIED SNOMED Code(s): 602683835 (3) Rib fractures Current Visit: Yes Status: Acute Code(s): S22.39XA - FRACTURE OF ONE RIB, UNSP SIDE, INIT FOR CLOS FX SNOMED Code(s): 94158911 (4) Traumatic pneumothorax Current Visit: Yes Status: Acute Code(s): S27.0XXA - TRAUMATIC PNEUMOTHORAX, INITIAL ENCOUNTER SNOMED Code(s): 25250114 <Breonna Willard N - Last Filed: 07/05/19 19:36> Subjective Arrange for home health care. Discharge pending medical stability Objective - Vital Signs Vital signs: Vital Signs Temp 98.1 F 07/05/19 12:00 Pulse 57 L 07/05/19 14:00 Resp 22 07/05/19 14:00 BP 131/64 07/05/19 14:00 Pulse Ox 94 L 07/05/19 15:36 Intake & Output 07/05/19 07/05/19 07/06/19 06:59 18:59 06:59 Intake Total 202.5 210 460 Output Total 1900 1000 300 Balance -1697.5 -790 160 Weight 70.5 kg Intake: IV 180 160 100 0.9 180 60 100 cefTRIAXone 1 gm In 100 Sodium Chloride 0.9% 50 ml @ 100 mls/hr IVPB Q24HR [facility] Rx#:[id number] Intake, IV Titration 22.5 Amount Ropivacaine 250 mg 2.5 fentaNYL (PF) 625 mcg In Sodium Chloride 0.9% 188 ml @ Per Protocol EPIDURAL .Q0M PRN Rx#: [id number] Sodium Chloride 0.9% 1, 20 000 ml @ 50 mls/hr IV . Q20H [facility] Rx#:[id number] Oral 50 360 Output: Urine 1700 1000 100 Stool 200 200 Other: Voiding Method Toilet Toilet # Voids 1 - Labs CBC & Chem 7: 07/05/19 04:34 07/05/19 04:27 Labs: Abnormal Lab Results - Last 24 Hours (Table) 07/05/19 07/05/19 Range/Units 04:27 04:34 RBC 3.73 L (3.80-5.40) m/uL Lymphocytes # 0.9 L (1.0-4.8) k/uL Potassium 3.3 L (3.5-5.1) mmol/L BUN 39 H (7-17) mg/dL Creatinine 2.45 H (0.52-1.04) mg/dL Microbiology - Last 24 Hours (Table) 07/02/19 14:54 Blood Culture - Preliminary Blood No Growth after 72 hours 07/01/19 04:37 Urine Culture - Final Urine,Voided Proteus mirabilis Escherichia coli Assessment and Plan (1) Rib fractures Current Visit: Yes Status: Acute Code(s): S22.39XA - FRACTURE OF ONE RIB, UNSP SIDE, INIT FOR CLOS FX SNOMED Code(s): 14016500 (2) CHF (congestive heart failure) Current Visit: No Status: Acute Code(s): I50.9 - HEART FAILURE, UNSPECIFIED SNOMED Code(s): 53882438 (3) Chronic renal failure Current Visit: No Status: Acute Code(s): N18.9 - CHRONIC KIDNEY DISEASE, UNSPECIFIED SNOMED Code(s): 68368977 (4) Anticoagulant long-term use Current Visit: Yes Status: Acute Code(s): Z79.01 - [facility] (CURRENT) USE OF ANTICOAGULANTS SNOMED Code(s): 156995432 (5) Traumatic pneumothorax Current Visit: Yes Status: Acute Code(s): S27.0XXA - TRAUMATIC PNEUMOTHORAX, INITIAL ENCOUNTER SNOMED Code(s): 18571389 (6) Pneumothorax, right Current Visit: Yes Status: Acute Code(s): J93.9 - PNEUMOTHORAX, UNSPECIFIED SNOMED Code(s): 719245193
--- NOTE | 2019-07-05 14:23 | P.PN ---
Progress Note - Text Progress Note Date: 07/05/19 History taken from the daughter, the daughter states that her pain is under control and is happy with the epidural Denies headache or extremity weakness. VSS Back - epidural site clean and dry A/P POD#2 s/p thoracic epidural for rib fractures. - Continue epidural rate to 7 ml/hr -patient is having hallucinations
--- NOTE | 2019-07-05 15:08 | P.CRDCN ---
History of Present Illness Consult date: 07/05/19 History of present illness: This is a 88-year-old female with history of persistent atrial fibrillation on anticoagulation therapy, hypertension and hyperlipidemia and also chronic renal failure. Patient also has ulcerative colitis status post colectomy. She is admitted to the hospital with a fall and fracture of the ribs and also pneumothorax. She is being followed by multiple specialists. Patient also getting epidural treatment for pain. We're asked to see the patient regarding anticoagulation therapy. Patient is currently in sinus rhythm. From previous echocardiogram, it appears that LV function is preserved. It appears the patient is high-risk candidate for anticoagulation therapy. Patient also has chronic renal failure with creatinine the range of 2.7. At this point I'll hold off anticoagulation therapy. Discussion should be held with the family regarding long-term approach. 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 PT DOES HAVE MILD DEMENTIA BUT ABLE TO CARE FOR SELF AT HOME. SHE CURRENTLY RESIDES WITH HER DAUGHTER URIEL AND HER FAMILY. PT IS ABLE TO AMBULATE ON HER OWN. Smoking Status: Never smoker Past Alcohol Use History: None Reported Past Drug Use History: None Reported - Past Family History Father Additional Family Medical History / Comment(s): IN HIS 80'S NATURAL CAUSES Mother Family Medical History: Myocardial Infarction (PR) Additional Family Medical History / Comment(s): AT AGE 58 FROM [place] Medications and Allergies Home Medications Medication Instructions Recorded Confirmed Type Donepezil HCl 23 mg PO HS 06/06/15 07/01/19 History Omeprazole [PriLOSEC] 20 mg PO AC-BRKFST 06/06/15 07/01/19 History Pravastatin Sodium 40 mg PO HS 06/06/15 07/01/19 History Sertraline HCl 50 mg PO DAILY 06/06/15 07/01/19 History Folic Acid 1 mg PO DAILY #1 tablet 08/30/17 07/01/19 Rx Sodium Bicarbonate Tab 650 mg PO TID 10/15/17 07/01/19 History Amiodarone [Cordarone] 100 mg PO DAILY 12/21/18 07/01/19 History Apixaban [Eliquis] 2.5 mg PO HS 07/01/19 07/01/19 History Vitamin B-1 250mg 250 mg PO DAILY 07/01/19 07/01/19 History Vitamin D3(Unknown Dose) Chew Tab 2 tab PO DAILY 07/01/19 07/01/19 History Allergies Allergy/AdvReac Type Severity Reaction Status Date / Time No Known Allergies Allergy Verified 07/01/19 17:56 Physical Exam Vitals: Vital Signs Temp Pulse Resp BP Pulse Ox 07/05/19 13:00 59 L 21 133/73 88 L 07/05/19 12:00 98.1 F 61 20 130/87 85 L 07/05/19 11:00 63 23 101/91 95 07/05/19 10:00 65 38 H 07/05/19 09:49 95 07/05/19 09:00 60 27 H 109/76 95 07/05/19 08:00 98.2 F 69 10 L 154/87 07/05/19 07:00 64 16 145/74 93 L 07/05/19 06:00 63 26 H 144/63 94 L 07/05/19 05:00 68 18 135/79 91 L 07/05/19 04:00 98.6 F 79 34 H 124/113 94 L 07/05/19 03:00 73 17 153/73 80 L 07/05/19 02:00 79 22 127/99 93 L 07/05/19 01:00 64 15 142/58 85 L 07/05/19 00:00 98.8 F 69 33 H 145/94 91 L 07/04/19 23:42 74 10 L 145/94 91 L 07/04/19 23:00 95 19 112/80 77 L 07/04/19 22:00 66 26 H 176/72 72 L 07/04/19 21:00 74 27 H 123/104 85 L 07/04/19 20:00 98.1 F 52 L 24 144/63 94 L 07/04/19 19:00 57 L 23 131/70 93 L 07/04/19 18:00 55 L 16 141/68 96 07/04/19 17:00 49 L 22 127/63 98 07/04/19 16:00 98.4 F 49 L 12 107/75 94 L Intake and Output 07/05/19 07/05/19 07/05/19 06:59 14:59 22:59 Intake Total 140 160 Output Total 1400 800 Balance -1260 -640 Intake: IV 140 160 0.9 140 60 cefTRIAXone 1 gm In 100 Sodium Chloride 0.9% 50 ml @ 100 mls/hr IVPB Q24HR [facility] Rx#:[id number] Output: Urine 1200 800 Stool 200 Other: Voiding Method Toilet # Voids 1 Weight 70.5 kg GENERAL EXAM: Patient is alert HEENT: Normocephalic. Normal reaction of pupils, equal size, normal range of extraocular motion. No erythema or exudates in the throat. NECK: No masses, no nuchal rigidity. CHEST: No chest wall deformity. LUNGS: Diminished breath sounds especially on the left side HEART: S1 and S2 normal with no audible mumurs or gallops. Regular rhythm, femorals equal on both sides.. ABDOMEN: No hepatosplenomegaly, normal bowel sounds, no guarding or rigidity. SKIN: No rashes CENTRAL NERVOUS SYSTEM: No gross deficit EXTREMITIES: No cyanosis, clubbing or edema. Results 07/05/19 04:34 07/05/19 04:27 CBC 07/05/19 Range/Units 04:34 WBC 5.9 (3.8-10.6) k/uL RBC 3.73 L (3.80-5.40) m/uL Hgb 11.9 (11.4-16.0) gm/dL Hct 35.3 (34.0-46.0) % Plt Count 185 (150-450) k/uL Comprehensive Metabolic Panel 07/05/19 Range/Units 04:27 Sodium 137 (137-145) mmol/L Potassium 3.3 L (3.5-5.1) mmol/L Chloride 106 (98-107) mmol/L Carbon Dioxide 22 (22-30) mmol/L BUN 39 H (7-17) mg/dL Creatinine 2.45 H (0.52-1.04) mg/dL Glucose 98 (74-99) mg/dL Calcium 8.6 (8.4-10.2) mg/dL Current Medications Generic Name Dose Route Start Last Admin Trade Name Freq PRN Reason Stop Dose Admin Acetaminophen 650 mg 07/01/19 23:39 07/04/19 11:44 Tylenol Tab PO 650 mg Q4HR PRN Administration Fever and/or Mild Pain Hydrocodone Bitart/Acetaminophen 1 each 07/01/19 18:06 07/03/19 08:43 [place] 5-325 PO 1 each Q4HR PRN Administration Pain Scale 2 to 5 Amiodarone HCl 100 mg 07/02/19 09:00 07/05/19 08:47 Cordarone PO 100 mg DAILY [facility] Administration Diphenhydramine HCl 25 mg 07/05/19 13:06 Benadryl PO Q6HR PRN Itching Donepezil HCl 10 mg 07/02/19 21:00 07/04/19 20:22 Aricept PO 10 mg HS [facility] Administration Folic Acid 1 mg 07/02/19 09:00 07/05/19 08:48 Folic Acid PO 1 mg DAILY [facility] Administration Heparin Sodium (Porcine) 5,000 unit 07/02/19 09:00 07/05/19 08:48 Heparin SQ 5,000 unit Q12HR [facility] Administration Hydromorphone HCl 1 mg 07/01/19 23:39 07/03/19 14:37 Dilaudid IVP 1 mg Q2HR PRN Administration Pain Scale 6 to 7 Sodium Chloride 1,000 mls @ 50 mls/hr 07/02/19 11:00 07/04/19 17:45 Saline 0.9% IV Not Given .Q20H [facility] Ceftriaxone Sodium 1 gm/ 50 mls @ 100 mls/hr 07/02/19 15:00 07/05/19 08:47 Sodium Chloride IVPB 100 mls/hr Q24HR [facility] Administration Ropivacaine 250 mg/ Fentanyl 250 mls @ 0 mls/hr 07/04/19 08:30 07/04/19 08:45 Citrate 625 mcg/ Sodium EPIDURAL 2.5 mls/hr Chloride .Q0M PRN Administration Pain Control Protocol Per Protocol Miscellaneous Information 1 each 07/05/19 05:36 Potassium Per Protocol MISCELLANE DAILY PRN Per Protocol Protocol Multivitamins 1 each 07/06/19 12:00 Theragran PO DAILY@1200 [facility] Naloxone HCl 0.2 mg 07/01/19 18:06 Narcan IV Q2M PRN Opioid Reversal Ondansetron HCl 4 mg 07/03/19 14:58 Zofran IVP Q8HR PRN Nausea And Vomiting Pantoprazole Sodium 40 mg 07/02/19 07:30 07/05/19 08:47 Protonix PO 40 mg AC-BRKFST [facility] Administration Pravastatin Sodium 40 mg 07/02/19 21:00 07/04/19 20:22 Pravachol PO 40 mg HS [facility] Administration Sertraline HCl 50 mg 07/02/19 09:00 07/05/19 08:49 Zoloft PO 50 mg DAILY [facility] Administration Sodium Bicarbonate 650 mg 07/02/19 09:00 07/05/19 08:49 Sodium Bicarbonate Tab PO 650 mg TID [facility] Administration Thiamine HCl 100 mg 07/06/19 12:00 Vitamin B-1 PO DAILY@1200 [facility] Intake and Output 07/05/19 07/05/19 07/05/19 06:59 14:59 22:59 Intake Total 140 160 Output Total 1400 800 Balance -1260 -640 Intake: IV 140 160 0.9 140 60 cefTRIAXone 1 gm In 100 Sodium Chloride 0.9% 50 ml @ 100 mls/hr IVPB Q24HR [facility] Rx#:[id number] Output: Urine 1200 800 Stool 200 Other: Voiding Method Toilet # Voids 1 Weight 70.5 kg 07/05/19 04:34 07/05/19 04:27 EKG Interpretations (text) Sinus rhythm Assessment and Plan (1) Rib fractures Current Visit: Yes Status: Acute Code(s): S22.39XA - FRACTURE OF ONE RIB, UNSP SIDE, INIT FOR CLOS FX SNOMED Code(s): 06024388 (2) Traumatic pneumothorax Current Visit: Yes Status: Acute Code(s): S27.0XXA - TRAUMATIC PNEUMOTHORAX, INITIAL ENCOUNTER SNOMED Code(s): 95462198 (3) Chronic renal failure Current Visit: No Status: Acute Code(s): N18.9 - CHRONIC KIDNEY DISEASE, UNSPECIFIED SNOMED Code(s): 42376649 (4) Persistent atrial fibrillation Current Visit: Yes Status: Acute Code(s): I48.1 - PERSISTENT ATRIAL FIBRILLATION SNOMED Code(s): 644747526 Plan: Patient is maintaining sinus rhythm at this time. Her LV function is normal by echo from previous studies. Patient has had history of falls and major injuries. It appears that patient is high-risk candidate for anticoagulation. I will hold off anticoagulation and discussed with the family regarding long- term management.
--- NOTE | 2019-07-05 15:25 | PN ---
PROGRESS NOTE DATE OF SERVICE: 07/05/2019 This is an 88-year-old woman who was admitted with a fall and right-sided multiple fractures, is being closely monitored. Patient is confused today. The most recent chest x-ray which was reviewed personally by me showed evidence of multiple consultants following the patient. Chest x-ray demonstrates right apical pneumothorax, much improved from the previous x-rays. PT, OT evaluating the patient closely. PAST MEDICAL HISTORY: Reviewed. REVIEW OF SYSTEMS: CARDIOVASCULAR: No angina. RESPIRATION: As mentioned earlier. GI: As mentioned earlier. : No dysuria. NERVOUS SYSTEM: No focal deficits. CURRENT MEDICATIONS: Reviewed and include: 1. Tylenol 650 q.4 p.r.n. 2. [place] 5 mg q.4 p.r.n. 3. Cordarone 100 mg p.o. daily. 4. Rocephin 1 g daily. 5. Benadryl 25 mg q.6 p.r.n. 6. Aricept 10 mg q.h.s. 7. Folic acid 1 mg daily. 8. Heparin 5000 subcu b.i.d. 9. Dilaudid. 10.Narcan. 11.Zofran. 12.Protonix. 13.Pravachol. 14.Zoloft. Doses are reviewed. PHYSICAL EXAM: Patient is conscious, confused. Pulse is 59, blood pressure 133/70, respiration 21, temperature 98.1, pulse ox an 88% on 2 L nasal cannula. HEENT: Conjunctivae normal. Oral mucosa moist. NECK: No jugular venous distention. No lymph nodes enlargement. CARDIOVASCULAR SYSTEMS: S1, S2. RESPIRATION: Breath sounds diminished at the bases, a few scattered rhonchi, no crackles. ABDOMEN: Soft, nontender. LEGS: No edema. No swelling. LABS: WBC 5.2, hemoglobin 11.2, sodium 137, potassium 3.3, creatinine is 2.45. ASSESSMENT: 1. Fall and right-sided multiple rib fractures, status post right-sided pneumothorax, 20% to 30%, stable. 2. Multiple rib fractures 5, 6, 7, on the right. 3. Change in mental status, acute delirium. 4. Severe chest pain secondary to fractures. 5. Acute hypoxic respiratory failure secondary to rib fractures. 6. Chronic atrial fibrillation. 7. Chronic kidney disease stage III possibly. 8. Acute urinary tract infection present on admission. 9. Metabolic encephalopathy, acute on chronic. 10.Change in mental status, multifactorial. 11.History of dementia. 12.Hyperlipidemia. 13.Hypertension. 14.History of gait dysfunction. 15.history of gastric ulcer. 16.Mild gastritis. 17.Small hiatal hernia. 18.History of peripheral vascular disease. 19.History of ulcerative colitis. 20.History of total colectomy with diverting ileostomy. 21.History of bladder surgery. 22.Hernia surgery. 23.History of anxiety, depression. RECOMMENDATION: Recommend to continue current medications and monitor symptomatic treatment. At this time I recommend continue with IV antibiotics, also supplement vitamins, PT, OT evaluation. Closely monitor. DVT prophylaxis. Further recommendations to follow. The patient did have a CAT scan of the head done on 07/01, which showed no acute intracranial abnormality. Further recommendations to follow. Closely follow with multiple consultants. MAXIMILIANO / RAMIRO: [id number] /
[2019-07-05] MEDS: SODIUM CHLORIDE 0.9% 1,000 ML IV SCH (16:26)
[2019-07-05] MEDS: PRAVASTATIN SODIUM 40 MG TAB PO SCH (21:04)
[2019-07-05] MEDS: DONEPEZIL 10 MG TAB PO SCH (21:04)
[2019-07-06 06:10] LABS: Basophils # (A) 0.1 k/uL (0-0.2); Basophils % (A) 1 %; Eosinophils # (A) 0.2 k/uL (0-0.7); Eosinophils % (A) 3 %; HCT 35.9 % (34.0-46.0); Lymphocytes # (A) 0.9 k/uL (1.0-4.8); Lymphocytes % (A) 15 %; MCH 31.6 pg (25.0-35.0); MCHC 33.3 g/dL (31.0-37.0); MCV 94.7 fL (80.0-100.0); Mean Platelet Volume 6.9; Monocytes # (A) 0.5 k/uL (0-1.0); Monocytes % (A) 8 %; Neutrophils # (A) 4.3 k/uL (1.3-7.7); Neutrophils % (A) 72 %; Platelet Count 216 k/uL (150-450); RBC 3.79 m/uL (3.80-5.40); WBC 5.9 k/uL (3.8-10.6)
[2019-07-06 06:50] LABS: Calcium 8.7 mg/dL (8.4-10.2); Potassium 3.7 mmol/L (3.5-5.1)
--- NOTE | 2019-07-06 06:50 | P.PN ---
Progress Note - Text Progress Note Date: 07/06/19 Postoperative day # 3epidural catheter placed for pain secondary to rib fracture, patient doing well epidural site okay, patient currently on combination of epidural infusion solution of Ropivacaine 0.0625% and fentanyl per mL the infusion rate at 3.5 ml per hour , patient had no motor deficit epidural site okay , vital signs stable ,VAS 3 /10 , Assessment and plan= post operative day #3 patient doing well ,pain well controlled , there is no anesthesia related complications
[2019-07-06] MEDS: AMIODARONE 200 MG TAB PO SCH (09:04)
[2019-07-06] MEDS: FOLIC ACID 1 MG TAB PO SCH (09:04)
[2019-07-06] MEDS: SODIUM BICARBONATE TAB 650 MG TAB PO SCH ×3 (09:04→21:30)
[2019-07-06] MEDS: MULTIVITAMINS, THERA 1 EACH TAB PO SCH (09:04)
[2019-07-06] MEDS: THIAMINE 100 MG TAB PO SCH (09:04)
[2019-07-06] MEDS: HEPARIN SODIUM,PORCINE 5,000 UNIT/ML 1 ML VIAL SQ SCH ×2 (09:05→20:45)
[2019-07-06] MEDS: PANTOPRAZOLE 40 MG TABLET PO SCH (09:06)
[2019-07-06] MEDS: SERTRALINE 50 MG TAB PO SCH (09:07)
--- NOTE | 2019-07-06 10:11 | P.PN ---
Subjective Progress Note Date: 07/06/19 Principal diagnosis: Fall, trauma, multiple rib fractures and right-sided pneumothorax This is an 88-year-old female who is a poor historian, patient was admitted to the ICU yesterday after she sustained multiple rib fractures secondary to falling when she tripped over a toy. Patient apparently landed on her right side of the chest, and she came into the ER mostly complaining of pain in the right flank region, right paraspinal region and thoracic area. Workup was done in the ER, and her workup revealed a 20% right-sided pneumothorax, it also revealed multiple rib fractures on the right side, fifth through eighth ribs were noted to have fractures. CT of the head and cervical spine showed no acute abnormality. Follow-up chest x-ray this morning showed a 20% right-sided pneumothorax, unchanged much from an earlier chest x-ray done a few hours ago. Patient denies any significant shortness of breath, she does have mostly right sided chest wall pain. Patient was admitted to the ICU and I was asked to see her on consultation. On 07/03/2019 patient seen in follow-up in intensive care unit, she is currently awake and alert, in no acute distress, she is answering questions appropriately, she is on her percent nonrebreather mask pulse ox of 98%, low grade fever T-max of 99.2, hemodynamic patient is stable, IV maintenance fluids 0.9 normal saline at a rate of 75 ML per hour, patient is unable to deep breathing cough related to right-sided chest wall discomfort related to multiple rib fractures on the right, today's chest x-ray has been reviewed showing small right apical pneumothorax Florinda slightly diminished in size from prior, and cardiomegaly and small bilateral pleural effusions and associated atelectasis. Her labs have been reviewed, showing white blood cell count of 6.2, hemoglobin of 11.4, sodium of 137, potassium is 4.2, chloride is 109, CO2 21, B1 is 37, and creatinine is 2.40. Urinalysis showed evidence of urinary tract infection, culture is pending. Antibiotic coverage is in the form of Rocephin. Lung sounds reveal diminished air entry bilateral lower lobes. No wheezing, no rhonchi, patient does have difficulty with deep breathing and coughing, we will hold her oral anticoagulation request anesthesia consultation for possible placement of epidural catheter for pain management. On 07/04/2019 patient seen in follow-up in the intensive care unit, she is awake and alert, oriented 3, her FiO2 is down to 11 L per high flow nasal cannula, epidural is infusing at a rate of 4 ML per hour, maintenance IV fluid is 0.9 normal saline at a rate of 20 mL an hour. patient's incentive spirometer effort is improved, she is able to pull 600-700 mL on the today, her pain is a lot better controlled. Sounds reveal diminished breath sounds over bilateral lower bases, rhonchi, no wheezing, no rales, no signs of delirium. Patient did have a temp of 101F last night at 2000, afebrile this morning, antibiotic coverage is in the form of Rocephin continues for evidence of gram-negative bacilli in the urine culture, final cultures pending, blood culture showed no growth. Labs have been reviewed, showing white blood cell count of 6.0, hemoglobin of 10.8, serum sodium of 139, potassium is 4.0, chloride is 109, CO2 is 21, BUN is 43, cr eatinine is 2.74. Her chest x-ray has been reviewed with Dr. Huerta, showing stable multiple right-sided rib fractures with small right apical pneumothorax, unchanged from prior exam, small bilateral pleural effusions and adjacent atelectasis. On 07/05/2019 patient seen in follow-up in the intensive care unit, she is awake and alert, oriented 3, currently on 12 L of oxygen per high flow nasal cannula and her pulse ox is 95%. Denies any coffee breathing, she states her pain is reasonably controlled, remains on epidural which has been decreased to 25 ML per hour per anesthesia services, no fever or chills, today's chest x-ray has been reviewed. Showing small acute tiny right apical pneumothorax possibly improved from most recent chest x-ray, tibial multiple right-sided rib fractures, car diomegaly, and small bilateral pleural effusions and associated bibasilar atelectasis. Hemodynamically stable, she is working on incentive spirometer. No acute issues overnight. Today's labs have been reviewed CBC is unremarkable, serum potassium is 3.3, being replaced per protocol, BUN is 39 and creatinine is 2.45. She is tolerating oral diet, no nausea or vomiting, and patient is producing good amount of urine. On 07/06/2019 patient seen in follow-up in intensive care unit, she is awake and alert, in no acute distress, oriented 3, denies any shortness of breath, she remains however on 8 L of oxygen. She has been working on incentive spirometer, she is only achieving 500 on the today, her pain is reasonably controlled, epidural remains in place at half ML per hour, anesthesia services are following and managing the epidural with the plan of possible discontinuation today. Lung sounds are clear, no cough or congestion, increase activity as tolerated, up in the chair today, discharge planning is in progress for possibility of discharge to subacute rehabilitation center today, no new chest x-ray today. Today's labs have been reviewed, showing white blood cell count of 5.9, hemoglobin of 12.0, electrolytes are within normal range, BUN of 36 and a creatinine of 2.30 Objective - Vital Signs Vital signs: Vital Signs Temp 98.4 F 07/05/19 23:00 Pulse 66 07/05/19 23:00 Resp 20 07/05/19 23:00 BP 126/80 07/05/19 23:00 Pulse Ox 92 L 07/05/19 23:00 Intake & Output 07/05/19 07/06/19 07/06/19 18:59 06:59 18:59 Intake Total 210 713.75 Output Total 1000 1500 Balance -790 -786.25 Intake: IV 160 250 0.9 60 250 cefTRIAXone 1 gm In 100 Sodium Chloride 0.9% 50 ml @ 100 mls/hr IVPB Q24HR COUNT INCLUDES THE [facility] Rx#:[id number] Intake, IV Titration 103.75 Amount Ropivacaine 250 mg 103.75 fentaNYL (PF) 625 mcg In Sodium Chloride 0.9% 188 ml @ Per Protocol EPIDURAL .Q0M PRN Rx#: [id number] Oral 50 360 Output: Urine 1000 1300 Stool 200 Other: Voiding Method Toilet Toilet Toilet # Voids 1 - Exam GENERAL EXAM: Alert, pleasant, 88-year-old white female, on high flow nasal cannula at 8 L/min, comfortable in no apparent distress. HEAD: Normocephalic/atraumatic. EYES: Normal reaction of pupils, equal size. Conjunctiva pink, sclera white. NOSE: Clear with pink turbinates. THROAT: No erythema or exudates. NECK: No masses, no JVD, no thyroid enlargement, no adenopathy. CHEST: No chest wall deformity. Symmetrical expansion. LUNGS: Equal air entry with no crackles, wheeze, rhonchi or dullness. CVS: Regular rate and rhythm, normal S1 and S2, no gallops, no murmurs, no rubs ABDOMEN: Soft, nontender. No hepatosplenomegaly, normal bowel sounds, no guarding or rigidity. EXTREMITIES: No clubbing, no edema, no cyanosis, 2+ pulses and upper and lower extremities. MUSCULOSKELETAL: Muscle strength and tone normal. SPINE: No scoliosis or deformity SKIN: No rashes CENTRAL NERVOUS SYSTEM: Alert and oriented -3. No focal deficits, tone is normal in all 4 extremities. PSYCHIATRIC: Alert and oriented -3. Appropriate affect. Intact judgment and insight. - Labs CBC & Chem 7: 07/06/19 05:21 07/06/19 05:21 Labs: Abnormal Lab Results - Last 24 Hours (Table) 07/06/19 07/06/19 Range/Units 05:21 05:21 RBC 3.79 L (3.80-5.40) m/uL Lymphocytes # 0.9 L (1.0-4.8) k/uL BUN 36 H (7-17) mg/dL Creatinine 2.30 H (0.52-1.04) mg/dL Microbiology - Last 24 Hours (Table) 07/02/19 14:54 Blood Culture - Preliminary Blood No Growth after 72 hours 07/01/19 04:37 Urine Culture - Final Urine,Voided Proteus mirabilis Escherichia coli Assessment and Plan Plan: Assessment: 1 status post fall and multiple right-sided rib fractures including rib 5,6,7 and 8 2 right sided pneumothorax secondary to trauma and rib fractures presently about 20-30%. 3 chronic atrial fibrillation 4 chronic kidney disease stage III 5 history of ileostomy 6 suspect underlying osteoporosis 7 history of mild dementia 8 history of benign essential hypertension 9 history of total colectomy and diverting ileostomy secondary to ulcerative colitis 10 history of hiatal hernia 11 history of peripheral vessel occlusive disease/lower extremities. Plan: Continue encouraging deep breathing and coughing, patient is stable from pulmonary perspective, pain is reasonably controlled, anticipate removal of epidural today, increase activity, up in the chair, wean FiO2, from pulmonary perspective patient is stable for discharge to subacute rehabilitation center today. I performed a history & physical examination of the patient and discussed their management with my nurse practitioner, Carmen Isaac. I reviewed the nurse practitioner's note and agree with the documented findings and plan of care. Lung sounds are positive for diminished breath sounds. The findings and the impression was discussed with the patient. I attest to the documentation by the nurse practitioner. Time with Patient: Less than 30
--- NOTE | 2019-07-06 10:34 | P.PN ---
<Naomy Sandy A - Last Filed: 07/06/19 10:27> Subjective Progress Note Date: 07/06/19 CHIEF COMPLAINT: Fall HISTORY OF PRESENT ILLNESS: Patient examined in the ICU with Dr. Willard. Patient reports her pain is tolerable. Epidural infusing. Encouraged use of incentive spirometer. Remains on 8L nasal cannula. Denies abdominal pain. Denies nausea or vomiting. Eating breakfast during examination. PT evaluated patient yesterday and recommending MARCELINO at discharge. PHYSICAL EXAM: VITAL SIGNS: Reviewed. GENERAL: Well-developed in no acute distress. HEENT: No sclera icterus. Extraocular movements grossly intact. Moist buccal mucosa. Head is atraumatic, normocephalic. Hears conversational speech. No nasal drainage. NECK: Supple without lymphadenopathy. CHEST: Non-labored respirations and equal bilateral excursions. CARDIOVASCULAR: Irregular rhythm. Palpable 2+ radial pulses. ABDOMEN: Soft. Nondistended. Ileostomy noted. MUSCULOSKELETAL: No clubbing. No edema. NEUROLOGIC: No focal or lateralizing signs. Cranial nerves II through XII g rossly intact. PSYCH: Appropriate affect. Alert and oriented to person, place and time. SKIN: Well perfused. Good skin turgor. ASSESSMENT: 1. Status post fall ground-level 2. Multiple right-sided rib fractures 3. Chronic renal insufficiency 4. Chronic anticoagulant use 5. Right pneumothorax 6. Raynaud's PLAN: 1. Pulmonary on consult. 2. Discontinue epidural. Continue Tylenol PO for pain PRN. 3. Wean oxygen as tolerated 4. Continue diet as tolerated 5. Incentive spirometry 6. PT/OT on consult. Recommending [facility]CF at discharge. Social work has been consulted. 7. Cardiology has been consulted to evaluate anti-coagulation use. Await decision from cardiology regarding Eliquis. 8. Stable for discharge when cleared by pulmonary and cardiology Nurse practitioner note has been reviewed by physician. Signing provider agrees with the documented findings, assessment, and plan of care. Objective - Vital Signs Vital signs: Vital Signs Temp 98.4 F 07/05/19 23:00 Pulse 66 07/05/19 23:00 Resp 20 07/05/19 23:00 BP 126/80 07/05/19 23:00 Pulse Ox 92 L 07/05/19 23:00 Intake & Output 07/05/19 07/06/19 07/06/19 18:59 06:59 18:59 Intake Total 210 713.75 Output Total 1000 1500 Balance -790 -786.25 Intake: IV 160 250 0.9 60 250 cefTRIAXone 1 gm In 100 Sodium Chloride 0.9% 50 ml @ 100 mls/hr IVPB Q24HR [facility] Rx#:[id number] Intake, IV Titration 103.75 Amount Ropivacaine 250 mg 103.75 fentaNYL (PF) 625 mcg In Sodium Chloride 0.9% 188 ml @ Per Protocol EPIDURAL .Q0M PRN Rx#: [id number] Oral 50 360 Output: Urine 1000 1300 Stool 200 Other: Voiding Method Toilet Toilet Toilet # Voids 1 - Labs CBC & Chem 7: 07/06/19 05:21 07/06/19 05:21 Labs: Abnormal Lab Results - Last 24 Hours (Table) 07/06/19 07/06/19 Range/Units 05:21 05:21 RBC 3.79 L (3.80-5.40) m/uL Lymphocytes # 0.9 L (1.0-4.8) k/uL BUN 36 H (7-17) mg/dL Creatinine 2.30 H (0.52-1.04) mg/dL Microbiology - Last 24 Hours (Table) 07/02/19 14:54 Blood Culture - Preliminary Blood No Growth after 72 hours 07/01/19 04:37 Urine Culture - Final Urine,Voided Proteus mirabilis Escherichia coli Assessment and Plan (1) Anticoagulant long-term use Current Visit: Yes Status: Acute Code(s): 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 Discharge when stable from a medical standpoint. Objective - Vital Signs Vital signs: Vital Signs Temp 98.6 F 07/06/19 16:00 Pulse 64 07/06/19 16:00 Resp 24 07/06/19 16:00 BP 127/62 07/06/19 16:00 Pulse Ox 97 07/06/19 16:00 Intake & Output 07/06/19 07/06/19 07/07/19 06:59 18:59 06:59 Intake Total 713.75 150 Output Total 1500 400 Balance -786.25 -250 Intake: IV 250 150 0.9 250 150 Intake, IV Titration 103.75 Amount Ropivacaine 250 mg 103.75 fentaNYL (PF) 625 mcg In Sodium Chloride 0.9% 188 ml @ Per Protocol EPIDURAL .Q0M PRN Rx#: [id number] Oral 360 Output: Urine 1300 400 Stool 200 Other: Voiding Method Toilet Bedside Commode - Labs CBC & Chem 7: 07/06/19 05:21 07/06/19 05:21 Labs: Abnormal Lab Results - Last 24 Hours (Table) 07/06/19 07/06/19 Range/Units 05:21 05:21 RBC 3.79 L (3.80-5.40) m/uL Lymphocytes # 0.9 L (1.0-4.8) k/uL BUN 36 H (7-17) mg/dL Creatinine 2.30 H (0.52-1.04) mg/dL Microbiology - Last 24 Hours (Table) 07/02/19 14:54 Blood Culture - Preliminary Blood No Growth after 96 hours Assessment and Plan (1) Rib fractures Current Visit: Yes Status: Acute Code(s): S22.39XA - FRACTURE OF ONE RIB, UNSP SIDE, INIT FOR CLOS FX SNOMED Code(s): 06897752 (2) CHF (congestive heart failure) Current Visit: No Status: Acute Code(s): I50.9 - HEART FAILURE, UNSPECIFIED SNOMED Code(s): 10685268 (3) Chronic renal failure Current Visit: No Status: Acute Code(s): N18.9 - CHRONIC KIDNEY DISEASE, UNSPECIFIED SNOMED Code(s): 35149526 (4) Anticoagulant long-term use Current Visit: Yes Status: Acute Code(s): Z79.01 - SKILLED NURSING (CURRENT) USE OF ANTICOAGULANTS SNOMED Code(s): 920632641 (5) Traumatic pneumothorax Current Visit: Yes Status: Acute Code(s): S27.0XXA - TRAUMATIC PNEUMOTHORAX, INITIAL ENCOUNTER SNOMED Code(s): 83372440 (6) Pneumothorax, right Current Visit: Yes Status: Acute Code(s): J93.9 - PNEUMOTHORAX, UNSPECIFIED SNOMED Code(s): 195378723
[2019-07-06] MEDS: HYDROcodone/APAP 5-325MG 1 EACH TAB PO PRN ×2 (13:53→18:02)
--- NOTE | 2019-07-06 17:11 | PN ---
PROGRESS NOTE DATE OF SERVICE: 07/06/2019 This 88-year-old woman who was admitted with a fall and right-sided multiple fractures was confused yesterday, but currently the patient is improving significantly. Patient is being closely monitored. Multiple consultants are following the patient closely, including Pulmonology, Surgery and Cardiology. Conservative line of management is being pursued. Cardiology has seen the patient for persistent atrial fibrillation. No chest pain. No palpitations. Past medical history reviewed. REVIEW OF SYSTEMS: CARDIOVASCULAR SYSTEM: As mentioned earlier. RESPIRATORY SYSTEM: As mentioned earlier. GI: No nausea, vomiting. : No dysuria or retention. NERVOUS SYSTEM: No numbness, weakness. CURRENT MEDICATIONS: Reviewed. They include: 1. Tylenol 650 q.4 p.r.n. 2. Crockett 5 mg q.4 p.r.n. 3. Cordarone 100 mg p.o. daily. 4. Rocephin 1 gram daily. 5. Benadryl 25 mg q.6. 6. Aricept 10 mg at bedtime. 7. Folic acid 1 mg p.o. daily. 8. Heparin 5000 units subcutaneously b.i.d. 9. Dilaudid 1 mg q.2 p.r.n. 10.Multivitamins 1 p.o. daily. 11.Narcan. 12.Zofran. 13.Protonix 40 mg daily. 14.Pravachol 40 mg. 15.Fentanyl. 16.Zoloft 50 mg p.o. daily. 17.Sodium bicarb. 18.Vitamin B1 100 mg p.o. daily. PHYSICAL EXAMINATION: Patient is alert, oriented x3. Pulse is 66, blood pressure 126/80, respiration 20, temperature 98.4, pulse ox 92% on 5 L. HEENT: Conjunctivae normal. NECK: No jugular venous distention. CARDIOVASCULAR SYSTEM: S1, S2 muffled. RESPIRATORY SYSTEM: Breath sounds diminished at the bases. Bilateral scattered rhonchi and crackles. Expiratory wheezing also present. ABDOMEN: Soft, non-tender. No mass palpable. LEGS: No edema. No swelling. NERVOUS SYSTEM: No focal deficit. LABS: Labs at this time show WBC 5.9, hemoglobin 12. Sodium 139, potassium 3.7. Creatinine is 2.30. ASSESSMENT: 1. Fall and right-sided multiple rib fractures with right-sided traumatic pneumothorax, 20% to 30%, stable. 2. Multiple fractures of the ribs 5, 6, 7 on the right. 3. Change in mental status; acute delirium. 4. Severe chest pain secondary to fractures. 5. Acute hypoxic respiratory failure secondary to rib fractures. 6. Chronic atrial fibrillation. 7. Chronic kidney disease, stage III possibly. 8. Acute urinary tract infection, present on admission. 9. Metabolic encephalopathy, acute on chronic. 10.Change in mental status, multifactorial. 11.History of dementia. 12.Hyperlipidemia. 13.Hypertension. 14.History of gait dysfunction. 15.History of gastric ulcer. 16.Mild gastritis history. 17.History of small hiatal hernia. 18.History of peripheral vascular disease. 19.History of ulcerative colitis. 20.History of total colectomy and diverting ileostomy. 21.History of bladder surgery. 22.History of hernia surgery. 23.History of anxiety, depression. 24.FULL CODE. RECOMMENDATIONS AND DISCUSSION: In this 88-year-old woman who presented with multiple medical issues, I would recommend to continue the current management, continue symptomatic treatment. Monitor creatinine closely. Creatinine is elevated at 2.3 but is rather stable at this time. I recommend to avoid nephrotoxic medication. Monitor closely. Otherwise, pain medications. DVT prophylaxis. I would also recommend PT/OT evaluation. Continue to monitor in the outpatient setting. Further recommendations to follow. Closely follow with multiple consultants . Prognosis guarded. Discussed with the patient. Currently the patient and the family would like the patient to return home, per staff. MAXIMILIANO / RAMIRO: [id number] / MTDD
[2019-07-06] MEDS: SODIUM CHLORIDE 0.9% 1,000 ML IV SCH (18:02)
--- NOTE | 2019-07-06 18:41 | PN ---
PROGRESS NOTE Patient is seen for followup for CKD. She is currently sitting up in bed. She is comfortable. Patient denies any significant complaints. Her renal function is at baseline. On examination today, blood pressure was 126/80, heart rate of 66 per minute. Patient is afebrile. EXAMINATION OF THE HEART: S1 and S2. EXAMINATION OF LUNGS: Bilateral breath sounds are heard. ABDOMEN: Soft, non-tender. Examination of lower extremities shows no significant edema. Labs show sodium 139, potassium 3.7, BUN 36, serum creatinine 2.3, hemoglobin 12.0 g/dL. ASSESSMENT: 1. Chronic kidney disease, NKF stage IV to V. Renal function stable. 2. 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 3. Status post fall with right-sided rib fractures and pneumothorax. 4. History of ulcerative colitis. 5. Urinary tract infection with urine culture positive for Proteus and Escherichia coli. PLAN: Continue to encourage increased oral intake. Continue to monitor labs. MMODL / IJN: [id number] /
[2019-07-06] MEDS: HYDROmorphone 1 MG/ML 1 ML SYRINGE IVP PRN ×2 (18:53→23:21)
[2019-07-06] MEDS: DONEPEZIL 10 MG TAB PO SCH (20:44)
[2019-07-06] MEDS: PRAVASTATIN SODIUM 40 MG TAB PO SCH (20:44)
[2019-07-07] MEDS: HYDROcodone/APAP 5-325MG 1 EACH TAB PO PRN ×2 (03:21→15:57)
[2019-07-07] MEDS: HYDROmorphone 1 MG/ML 1 ML SYRINGE IVP PRN ×2 (05:29→10:09)
[2019-07-07] MEDS: SODIUM CHLORIDE 0.9% 1,000 ML IV SCH (05:32)
[2019-07-07] MEDS: PANTOPRAZOLE 40 MG TABLET PO SCH (07:01)
[2019-07-07] MEDS: MULTIVITAMINS, THERA 1 EACH TAB PO SCH (08:20)
[2019-07-07] MEDS: AMIODARONE 200 MG TAB PO SCH (08:20)
[2019-07-07] MEDS: SERTRALINE 50 MG TAB PO SCH (08:20)
[2019-07-07] MEDS: SODIUM BICARBONATE TAB 650 MG TAB PO SCH ×2 (08:20→15:57)
[2019-07-07] MEDS: FOLIC ACID 1 MG TAB PO SCH (08:20)
[2019-07-07] MEDS: THIAMINE 100 MG TAB PO SCH (08:21)
[2019-07-07] MEDS: HEPARIN SODIUM,PORCINE 5,000 UNIT/ML 1 ML VIAL SQ SCH (08:21)
--- NOTE | 2019-07-07 09:01 | P.PN ---
Subjective Progress Note Date: 07/07/19 Principal diagnosis: Fall, trauma, multiple rib fractures and right-sided pneumothorax This is an 88-year-old female who is a poor historian, patient was admitted to the ICU yesterday after she sustained multiple rib fractures secondary to falling when she tripped over a toy. Patient apparently landed on her right side of the chest, and she came into the ER mostly complaining of pain in the right flank region, right paraspinal region and thoracic area. Workup was done in the ER, and her workup revealed a 20% right-sided pneumothorax, it also revealed multiple rib fractures on the right side, fifth through eighth ribs were noted to have fractures. CT of the head and cervical spine showed no acute abnormality. Follow-up chest x-ray this morning showed a 20% right-sided pneumothorax, unchanged much from an earlier chest x-ray done a few hours ago. Patient denies any significant shortness of breath, she does have mostly right sided chest wall pain. Patient was admitted to the ICU and I was asked to see her on consultation. On 07/03/2019 patient seen in follow-up in intensive care unit, she is currently awake and alert, in no acute distress, she is answering questions appropriately, she is on her percent nonrebreather mask pulse ox of 98%, low grade fever T-max of 99.2, hemodynamic patient is stable, IV maintenance fluids 0.9 normal saline at a rate of 75 ML per hour, patient is unable to deep breathing cough related to right-sided chest wall discomfort related to multiple rib fractures on the right, today's chest x-ray has been reviewed showing small right apical pneumothorax [place] slightly diminished in size from prior, and cardiomegaly and small bilateral pleural effusions and associated atelectasis. Her labs have been reviewed, showing white blood cell count of 6.2, hemoglobin of 11.4, sodium of 137, potassium is 4.2, chloride is 109, CO2 21, B1 is 37, and creatinine is 2.40. Urinalysis showed evidence of urinary tract infection, culture is pending. Antibiotic coverage is in the form of Rocephin. Lung sounds reveal diminished air entry bilateral lower lobes. No wheezing, no rhonchi, patient does have difficulty with deep breathing and coughing, we will hold her oral anticoagulation request anesthesia consultation for possible placement of epidural catheter for pain management. On 07/04/2019 patient seen in follow-up in the intensive care unit, she is awake and alert, oriented 3, her FiO2 is down to 11 L per high flow nasal cannula, epidural is infusing at a rate of 4 ML per hour, maintenance IV fluid is 0.9 normal saline at a rate of 20 mL an hour. patient's incentive spirometer effort is improved, she is able to pull 600-700 mL on the today, her pain is a lot better controlled. Sounds reveal diminished breath sounds over bilateral lower bases, rhonchi, no wheezing, no rales, no signs of delirium. Patient did have a temp of 101F last night at 2000, afebrile this morning, antibiotic coverage is in the form of Rocephin continues for evidence of gram-negative bacilli in the urine culture, final cultures pending, blood culture showed no growth. Labs have been reviewed, showing white blood cell count of 6.0, hemoglobin of 10.8, serum sodium of 139, potassium is 4.0, chloride is 109, CO2 is 21, BUN is 43, cr eatinine is 2.74. Her chest x-ray has been reviewed with Dr. Huerta, showing stable multiple right-sided rib fractures with small right apical pneumothorax, unchanged from prior exam, small bilateral pleural effusions and adjacent atelectasis. On 07/05/2019 patient seen in follow-up in the intensive care unit, she is awake and alert, oriented 3, currently on 12 L of oxygen per high flow nasal cannula and her pulse ox is 95%. Denies any coffee breathing, she states her pain is reasonably controlled, remains on epidural which has been decreased to 25 ML per hour per anesthesia services, no fever or chills, today's chest x-ray has been reviewed. Showing small acute tiny right apical pneumothorax possibly improved from most recent chest x-ray, tibial multiple right-sided rib fractures, car diomegaly, and small bilateral pleural effusions and associated bibasilar atelectasis. Hemodynamically stable, she is working on incentive spirometer. No acute issues overnight. Today's labs have been reviewed CBC is unremarkable, serum potassium is 3.3, being replaced per protocol, BUN is 39 and creatinine is 2.45. She is tolerating oral diet, no nausea or vomiting, and patient is producing good amount of urine. On 07/06/2019 patient seen in follow-up in intensive care unit, she is awake and alert, in no acute distress, oriented 3, denies any shortness of breath, she remains however on 8 L of oxygen. She has been working on incentive spirometer, she is only achieving 500 on the today, her pain is reasonably controlled, epidural remains in place at half ML per hour, anesthesia services are following and managing the epidural with the plan of possible discontinuation today. Lung sounds are clear, no cough or congestion, increase activity as tolerated, up in the chair today, discharge planning is in progress for possibility of discharge to subacute rehabilitation center today, no new chest x-ray today. Today's labs have been reviewed, showing white blood cell count of 5.9, hemoglobin of 12.0, electrolytes are within normal range, BUN of 36 and a creatinine of 2.30 On 07/07/2019 patient seen in follow-up in the intensive care unit, yesterday who cleared the patient for discharge to subacute rehab, her epidural has been discontinued, and patient is having more pain, and difficulty with deep breathing and coughing, and repositioning in bed, she is currently on a combin ation of [place] and dilated which she has been receiving. A bit more lethargic today, but in no acute distress, currently FiO2 is down to 3 L and her pulse ox is 94%, patient is afebrile, hemodynamically stable, lung sounds are positive for a few scattered rhonchi, repeat chest x-ray, no acute events overnight, just some increased pain since the removal of epidural. Currently patient's son has declined subacute rehab, however at this point patient will probably need increased amount of care related to her overall status, decreased mobility, and difficulty completing her ADLs including feeding. Objective - Vital Signs Vital signs: Vital Signs Temp 98.2 F 07/07/19 08:00 Pulse 66 07/07/19 08:00 Resp 17 07/07/19 08:00 BP 149/77 07/07/19 08:00 Pulse Ox 94 L 07/07/19 08:00 Intake & Output 07/06/19 07/07/19 07/07/19 18:59 06:59 18:59 Intake Total 150 800 Output Total 400 850 Balance -250 -50 Intake: IV 150 800 0.9 150 800 Output: Urine 400 850 Other: Voiding Method Bedside Commode Bedside Commode Bedside Commode - Exam GENERAL EXAM: Slightly somnolent, but arousable, pleasant, 88-year-old white female, on high flow nasal cannula at 3 L/min, comfortable in no apparent distress. HEAD: Normocephalic/atraumatic. EYES: Normal reaction of pupils, equal size. Conjunctiva pink, sclera white. NOSE: Clear with pink turbinates. THROAT: No erythema or exudates. NECK: No masses, no JVD, no thyroid enlargement, no adenopathy. CHEST: No chest wall deformity. Symmetrical expansion. LUNGS: Equal air entry with scattered rhonchi CVS: Regular rate and rhythm, normal S1 and S2, no gallops, no murmurs, no rubs ABDOMEN: Soft, nontender. No hepatosplenomegaly, normal bowel sounds, no guarding or rigidity. EXTREMITIES: No clubbing, no edema, no cyanosis, 2+ pulses and upper and lower extremities. MUSCULOSKELETAL: Muscle strength and tone normal. SPINE: No scoliosis or deformity SKIN: No rashes CENTRAL NERVOUS SYSTEM: Somnolent, arousable and oriented -2. No focal deficits, tone is normal in all 4 extremities. - Labs CBC & Chem 7: 07/06/19 05:21 07/06/19 05:21 Labs: Microbiology - Last 24 Hours (Table) 07/02/19 14:54 Blood Culture - Preliminary Blood No Growth after 96 hours Assessment and Plan Plan: Assessment: 1 status post fall and multiple right-sided rib fractures including rib 5,6,7 and 8 2 right sided pneumothorax secondary to trauma and rib fractures presently about 20-30%. 3 chronic atrial fibrillation 4 chronic kidney disease stage III 5 history of ileostomy 6 suspect underlying osteoporosis 7 history of mild dementia 8 history of benign essential hypertension 9 history of total colectomy and diverting ileostomy secondary to ulcerative colitis 10 history of hiatal hernia 11 history of peripheral vessel occlusive disease/lower extremities. Plan: Maintain pain control, deep breathing and coughing, patient is having some increased amount of pain, and difficulty with mobility. She is stable for discharge, however the family refused subacute rehab placement. Patient is in need of increased support at home, in view of limited mobility, risk for falls and repeated injury, and difficulty with ADLs. Would recommend subacute rehab placement. I performed a history & physical examination of the patient and discussed their management with my nurse practitioner, Carmen Isaac. I reviewed the nurse practitioner's note and agree with the documented findings and plan of care. Lung sounds are positive for diminished breath sounds. The findings and the impression was discussed with the patient. I attest to the documentation by the nurse practitioner. Time with Patient: Less than 30
[2019-07-07 11:18] VITALS: BMI 26.6
--- NOTE | 2019-07-07 15:28 | P.PN ---
Subjective Progress Note Date: 07/07/19 07/07/2019 patient seen in follow-up in the intensive care unit, yesterday who cleared the patient for discharge to subacute rehab, her epidural has been discontinued, and patient is having more pain, and difficulty with deep breathing and coughing, and repositioning in bed, she is currently on a combination of [place] and dilated which she has been receiving. A bit more lethargic today, but in no acute distress, currently FiO2 is down to 3 L and her pulse ox is 94%, patient is afebrile, hemodynamically stable, lung sounds are positive for a few scattered rhonchi, repeat chest x-ray, no acute events overnight, just some increased pain since the removal of epidural. Currently patient's son has declined subacute rehab, however at this point patient will probably need increased amount of care related to her overall status, decreased mobility, and difficulty completing her ADLs including feeding. Objective - Vital Signs Vital signs: Vital Signs Temp 98.2 F 07/07/19 08:00 Pulse 66 07/07/19 08:00 Resp 17 07/07/19 08:00 BP 149/77 07/07/19 08:00 Pulse Ox 94 L 07/07/19 08:00 Intake & Output 07/06/19 07/07/19 07/07/19 18:59 06:59 18:59 Intake Total 150 800 Output Total 400 850 Balance -250 -50 Intake: IV 150 800 0.9 150 800 Output: Urine 400 850 Other: Voiding Method Bedside Commode Bedside Commode Bedside Commode - Exam GENERAL EXAM: Slightly somnolent, but arousable, pleasant, 88-year-old white female, on high flow nasal cannula at 3 L/min, comfortable in no apparent distress. HEAD: Normocephalic/atraumatic. EYES: Normal reaction of pupils, equal size. Conjunctiva pink, sclera white. NOSE: Clear with pink turbinates. THROAT: No erythema or exudates. NECK: No masses, no JVD, no thyroid enlargement, no adenopathy. CHEST: No chest wall deformity. Symmetrical expansion. LUNGS: Equal air entry with scattered rhonchi CVS: Regular rate and rhythm, normal S1 and S2, no gallops, no murmurs, no rubs ABDOMEN: Soft, nontender. No hepatosplenomegaly, normal bowel sounds, no guarding or rigidity. EXTREMITIES: No clubbing, no edema, no cyanosis, 2+ pulses and upper and lower extremities. MUSCULOSKELETAL: Muscle strength and tone normal. - Labs CBC & Chem 7: 07/06/19 05:21 07/06/19 05:21 Labs: Microbiology - Last 24 Hours (Table) 07/02/19 14:54 Blood Culture - Preliminary Blood No Growth after 96 hours Assessment and Plan Assessment: 1. Status post fall/ multiple right-sided rib fractures/ right-sided pneumothorax 20-30%; stable 2. Altered mental status; acute delirium; resolved 3. Acute hypoxic respiratory failure secondary to rib fractures; patient remains on O2 at 3 L per nasal cannula keeping SpO2 greater than 94% 4. Chronic atrial fibrillation; continue with Cordarone 100 mg by mouth daily 5. Acute UTI; present on admission; continue with Rocephin 1 g IV daily 6. Chronic kidney disease stage III; at baseline 7. Depression; Zoloft 50 mg by mouth daily at bedtime 8. Hyperlipidemia; Pravachol 40 mg by mouth daily at bedtime 9. DVT prophylaxis; subcu heparin CODE STATUS; full code
[2019-07-07] MEDS ORDERED: ACETAMINOPHEN TAB 325 MG TAB PO SCH (16:00)
--- NOTE | 2019-07-07 16:16 | P.PN ---
Subjective Progress Note Date: 07/07/19 CHIEF COMPLAINT: Right pneumothorax HISTORY OF PRESENT ILLNESS: The patient is a 88-year-old female admitted for pneumothorax and right rib fractures. Her oxygen level has improved to 92% on 3 L of oxygen from on 8 L of oxygen. Her daughter is at bedside and does not want rehab. The patient is tolerating oral pain medications currently on [place] and occasional Dilaudid once discontinued from epidural. ROS: No reports of nausea and vomiting. No bowel movements. No fevers or chills. PHYSICAL EXAM: VITAL SIGNS: Reviewed CONSTITUTIONAL: Well developed and in no acute distress. EYES: Conjuctivae without sclera icterus. Extraocular movements grossly intact. HEAD, EARS, NOSE, THROAT: Moist buccal mucosa. Head is atraumatic, normocephalic. Hears conversational speech. No nasal drainage. NECK: Supple. No thyroidomegaly. RESPIRATORY: Non-labored respirations and equal bilateral excursions. CARDIOVASCULAR: Palpable 2+ radial pulses. Regular rate. Regular rhythm. ABDOMEN: Soft. No peritonitis. MUSCULOSKELETAL: No gross deformity of the lower extremities noted. No clubbing. No cyanosis. SKIN: Good skin turgor. Well perfused. NEUROLOGIC: Cranial nerves I through XII grossly intact. No focal or lateralizing signs. PSYCH: Appropriate affect. Alert and oriented to person, place and time. CLINCAL LABS: White blood cell count normal ASSESSMENT: 1. Right rib fractures 2. Right pneumothorax PLAN: 1. Clinically, her oxygen level has improved. 2. She is stable for discharge with home oxygen. 3. All questions were addressed Objective - Vital Signs Vital signs: Vital Signs Temp 98.2 F 07/07/19 12:00 Pulse 53 L 07/07/19 12:00 Resp 16 07/07/19 12:00 BP 142/75 07/07/19 12:00 Pulse Ox 94 L 07/07/19 12:00 Intake & Output 07/06/19 07/07/19 07/07/19 18:59 06:59 18:59 Intake Total 150 800 450 Output Total 400 850 450 Balance -250 -50 0 Weight 70.5 kg Intake: IV 150 800 450 0.9 150 800 400 cefTRIAXone 1 gm In 50 Sodium Chloride 0.9% 50 ml @ 100 mls/hr IVPB Q24HR [facility] Rx#:[id number] Output: Urine 400 850 450 Other: Voiding Method Bedside Commode Bedside Commode Bedside Commode - Labs CBC & Chem 7: 07/06/19 05:21 07/06/19 05:21 Labs: Microbiology - Last 24 Hours (Table) 07/02/19 14:54 Blood Culture - Preliminary Blood No Growth after 96 hours Assessment and Plan (1) Rib fractures Status: Acute Code(s): S22.39XA - FRACTURE OF ONE RIB, UNSP SIDE, INIT FOR CLOS FX SNOMED Code(s): 18980148 (2) CHF (congestive heart failure) Status: Acute Code(s): I50.9 - HEART FAILURE, UNSPECIFIED SNOMED Code(s): 4 8370358 (3) Chronic renal failure Status: Acute Code(s): N18.9 - CHRONIC KIDNEY DISEASE, UNSPECIFIED SNOMED Code(s): 56478121 (4) Anticoagulant long-term use Status: Acute Code(s): Z79.01 - BACON SLICER (CURRENT) USE OF ANTICOAGULANTS SNOMED Code(s): 336332910 (5) Traumatic pneumothorax Status: Acute Code(s): S27.0XXA - TRAUMATIC PNEUMOTHORAX, INITIAL ENCOUNTER SNOMED Code(s): 71324919 (6) Pneumothorax, right Status: Acute Code(s): J93.9 - PNEUMOTHORAX, UNSPECIFIED SNOMED Code(s): 746846624
--- NOTE | 2019-07-07 16:18 | XR ---
EXAMINATION TYPE: XR chest 1V portable DATE OF EXAM: 07/07/2019 COMPARISON: Prior chest x-ray 07/05/2019 HISTORY: Pneumothorax TECHNIQUE: Single frontal view of the chest is obtained. FINDINGS: Patient is rotated. Bibasilar increased density persists, the right hemidiaphragm is obscu red. There are overlying cardiac leads. The minimal right apical pneumothorax may be present. There i s an overlying snap which obscures detail. Heart size is likely stable. IMPRESSION: Suspect a persistent minimal apical pneumothorax on the right. Probable bibasilar atelec tasis and associated effusions, correlate to exclude pneumonia. Rotated exam.
[2019-07-07 17:44] VITALS: BP 138/72; PULSE 68; RESP 20; TEMP 98.1
--- NOTE | 2019-07-07 19:13 | P.DS ---
Providers Date of admission: 07/01/19 18:06 Expected date of discharge: 07/07/19 Attending physician: Breonna Willard Consults: 07/01/19 18:06 Consult Physician Stat Consulting Provider: Steph Nunes Consult Reason/Comments: pulmonary/critical care consult Do you want consulting provider notified?: Already Contacted 07/01/19 21:31 Consult Physician Routine Consulting Provider: Michelle Davidson Consult Reason/Comments: renal insufficiency Do you want consulting provider notified?: Yes, Notify in am 07/02/19 11:37 Consult Physician Routine Consulting Provider: Vera Macias Consult Reason/Comments: medical management Do you want consulting provider notified?: Yes 07/03/19 10:03 Consult Physician Urgent Consulting Provider: Marisa Morse Consult Reason/Comments: trauma/rib FX/pneumothorax, pain management Do you want consulting provider notified?: Yes 07/04/19 09:09 Consult Physician Routine Consulting Provider: Mervin Fulton Consult Reason/Comments: pneumothorax, eval if thoravent needed Do you want consulting provider notified?: Yes 07/04/19 15:19 Consult Physician Routine Consulting Provider: Medina Schumacher Consult Reason/Comments: afib anticoag?? Do you want consulting provider notified?: Yes Primary care physician: Denise Carmona - Discharge Diagnosis(es) (1) Rib fractures Status: Acute (2) CHF (congestive heart failure) Status: Acute (3) Chronic renal failure Status: Acute (4) Anticoagulant long-term use Status: Acute (5) Traumatic pneumothorax Status: Acute (6) Pneumothorax, right Status: Acute Hospital Course: CHIEF COMPLAINT: Right pneumothorax HOSPITAL COURSE: The patient is a 88-year-old female who was admitted for pneumothorax and right rib fractures. She had initial 20% pneumothorax that resolved from conservative measures. She had epidural placement for pain management. She has pre-existing kidney disease that improved with nephrology consultation. Subacute rehab was offered to the family who had declined this care and opted for discharge home with rehab. She was clinically stable for discharge on oral pain medications. PHYSICAL EXAM: VITAL SIGNS: Reviewed CONSTITUTIONAL: Well developed and in no acute distress. EYES: Conjuctivae without sclera icterus. Extraocular movements grossly intact. HEAD, EARS, NOSE, THROAT: Moist buccal mucosa. Head is atraumatic, normocephalic. Hears conversational speech. No nasal drainage. NECK: Supple. No thyroidomegaly. RESPIRATORY: Non-labored respirations and equal bilateral excursions. CARDIOVASCULAR: Palpable 2+ radial pulses. Regular rate. Regular rhythm. ABDOMEN: Soft. No peritonitis. MUSCULOSKELETAL: No gross deformity of the lower extremities noted. No clubbing. No cyanosis. SKIN: Good skin turgor. Well perfused. NEUROLOGIC: Cranial nerves I through XII grossly intact. No focal or lateralizing signs. PSYCH: Appropriate affect. Alert and oriented to person, place and time. CLINCAL LABS: White blood cell count normal ASSESSMENT: 1. Right rib fractures 2. Right pneumothorax Patient Condition at Discharge: Stable Plan - Discharge Summary Discharge Rx Participant: Yes New Discharge Prescriptions: New Acetaminophen Tab [Tylenol Tab] 650 mg PO Q4H PRN #30 tablet PRN Reason: Pain HYDROcodone/APAP 5-325MG [[place] 5-325] 1 tab PO Q4HR PRN 3 Days #18 tab PRN Reason: Pain Continue Sertraline HCl 50 mg PO DAILY Omeprazole [PriLOSEC] 20 mg PO AC-BRKFST Pravastatin Sodium 40 mg PO HS Donepezil HCl 23 mg PO HS Folic Acid 1 mg PO DAILY #1 tablet Sodium Bicarbonate Tab 650 mg PO TID Amiodarone [Cordarone] 100 mg PO DAILY Vitamin D3(Unknown Dose) Chew Tab 2 tab PO DAILY Vitamin B-1 250mg 250 mg PO DAILY Discontinued Apixaban [Eliquis] 2.5 mg PO HS Discharge Medication List Donepezil HCl 23 mg PO HS 06/06/15 [History] Omeprazole [PriLOSEC] 20 mg PO AC-BRKFST 06/06/15 [History] Pravastatin Sodium 40 mg PO HS 06/06/15 [History] Sertraline HCl 50 mg PO DAILY 06/06/15 [History] Folic Acid 1 mg PO DAILY #1 tablet 08/30/17 [Rx] Sodium Bicarbonate Tab 650 mg PO TID 10/15/17 [History] Amiodarone [Cordarone] 100 mg PO DAILY 12/21/18 [History] Vitamin B-1 250mg 250 mg PO DAILY 07/01/19 [History] Vitamin D3(Unknown Dose) Chew Tab 2 tab PO DAILY 07/01/19 [History] Acetaminophen Tab [Tylenol Tab] 650 mg PO Q4H PRN #30 tablet 07/06/19 [Rx] HYDROcodone/APAP 5-325MG [[place] 5-325] 1 tab PO Q4HR PRN 3 Days #18 tab 07/07/19 [Rx] Follow up Appointment(s)/Referral(s): [facility] [NON-STAFF] - 1-2 Days Breonna Willard MD [STAFF PHYSICIAN] - As Needed Garrett Huerta DO [Doctor of Osteopathic Medicine] - 1 Week Denise Carmona MD [Primary Care Provider] - 1-2 days [facility] [NON-[facility]FF] - 1-2 Days Patient Instructions/Handouts: Rib Fracture (DC), Fall Prevention (ED) Discharge Disposition: HOME WITH HOME HEALTH SERVICES
--- NOTE | 2019-07-07 20:36 | PN ---
PROGRESS NOTE Patient is seen for followup for chronic kidney disease. She is complaining of pain, for which patient is receiving Dilaudid. She has had a fair amount of oral intake and good urine output. On examination this morning, blood pressure was 149/77, heart rate 66 per minute. She is afebrile. EXAMINATION OF THE HEART: S1 and S2. EXAMINATION OF LUNGS: Bilateral breath sounds are heard. ABDOMEN: Soft, non-tender. Examination of lower extremities shows trace edema bilaterally. [employer] exam is grossly intact. Labs show sodium 139, potassium 3.7, BUN 36, serum creatinine 2.3. ASSESSMENT: 1. Chronic kidney disease, stage IV. Renal function at baseline. Etiology is nephrosclerosis. 2. Status post fall and right rib fractures. 3. Metabolic acidosis; maintained on sodium bicarb. 4. Urinary tract infection with urine culture growing Proteus mirabilis and Escherichia coli, maintained on antibiotics in the form of ceftriaxone. PLAN: Continue to encourage increased oral intake. Repeat labs in a.m. MMODL / IJN: [id number] /
== END 2019-07-07 18:05 | disposition home health service (06) | DRG 199 ==
LOC: EC 14:23 → 2SICU 18:06
PROVIDERS: ADMIT Surgery Plastic and Reconstructive Surgery; ATTEND Surgery Plastic and Reconstructive Surgery
PROC: 05HD33Z Insertion of Infusion Device into Right Cephalic Vein, Percutaneous Approach (ICD-10-PCS; 2019-07-03)
PROC: 00HU33Z Insertion of Infusion Device into Spinal Canal, Percutaneous Approach (ICD-10-PCS; principal; 2019-07-03 12:40)
PROC: 3E0R3BZ Introduction of Anesthetic Agent into Spinal Canal, Percutaneous Approach (ICD-10-PCS; 2019-07-03 12:40)
DX: S27.0XXA Traumatic pneumothorax, initial encounter (principal); G93.41 Metabolic encephalopathy; J96.01 Acute respiratory failure with hypoxia; S22.41XA Multiple fractures of ribs, right side, initial encounter for closed fracture; N18.4 Chronic kidney disease, stage 4 (severe); K51.90 Ulcerative colitis, unspecified, without complications; I43 Cardiomyopathy in diseases classified elsewhere; I13.0 Hypertensive heart and chronic kidney disease with heart failure and stage 1 through stage 4 chronic kidney disease, or unspecified chronic kidney disease; N17.9 Acute kidney failure, unspecified; N39.0 Urinary tract infection, site not specified; I48.1 Persistent atrial fibrillation; E87.2 Acidosis; J98.11 Atelectasis; I50.9 Heart failure, unspecified; E86.0 Dehydration; S09.90XA Unspecified injury of head, initial encounter; N25.89 Other disorders resulting from impaired renal tubular function; B96.4 Proteus (mirabilis) (morganii) as the cause of diseases classified elsewhere; D63.1 Anemia in chronic kidney disease; F03.90 Unspecified dementia, unspecified severity, without behavioral disturbance, psychotic disturbance, mood disturbance, and anxiety; B96.20 Unspecified Escherichia coli [E. coli] as the cause of diseases classified elsewhere; E87.6 Hypokalemia; I73.00 Raynaud's syndrome without gangrene; K21.9 Gastro-esophageal reflux disease without esophagitis; K29.70 Gastritis, unspecified, without bleeding; M81.0 Age-related osteoporosis without current pathological fracture; F32.9 Major depressive disorder, single episode, unspecified; F41.9 Anxiety disorder, unspecified; E78.5 Hyperlipidemia, unspecified; K44.9 Diaphragmatic hernia without obstruction or gangrene; R26.9 Unspecified abnormalities of gait and mobility; Z93.2 Ileostomy status; Z79.01 Long term (current) use of anticoagulants; Z79.899 Other long term (current) drug therapy; Z90.6 Acquired absence of other parts of urinary tract; Z87.11 Personal history of peptic ulcer disease; Z90.49 Acquired absence of other specified parts of digestive tract; Z90.710 Acquired absence of both cervix and uterus; Z98.890 Other specified postprocedural states; W01.0XXA Fall on same level from slipping, tripping and stumbling without subsequent striking against object, initial encounter; Y92.009 Unspecified place in unspecified non-institutional (private) residence as the place of occurrence of the external cause; Z82.49 Family history of ischemic heart disease and other diseases of the circulatory system
CPT/HCPCS: 36410; 70450; 71045; 71046; 71250; 72125; 76937; 80048; 80053; 81001; 83605; 83735; 84100; 85025; 85610; 85730; 87040; 87077; 87086; 87186; 94760; 96361; 96374; 96375; 99285

== ENCOUNTER 2019-07-16 10:36 | Inpatient (IN) | payer MEDICARE, OTHER ==
--- NOTE | 2019-07-16 10:44 | ED ---
Fall HPI <Constantino Nicole - Last Filed: 07/16/19 17:19> - General Source: patient, family Mode of arrival: wheelchair <Luz Elena Jimenez - Last Filed: 07/16/19 18:28> - General Chief Complaint: Fall Stated Complaint: fall, right hand, right rib pain Time Seen by Provider: 07/16/19 10:42 - History of Present Illness Initial Comments: 88-year-old female pleasantly demented AAOx2 presenting with her guardian and daughter for evaluation of right wrist pain. Daughter states the patient was recently admitted to the ICU for multiple rib fractures and a pneumothorax. She states that she did fall at that time due to mechanical reasons. Daughter denies any other known injuries from the previous admission aside from the rib fractures. Patient was discharged on home oxygen 2L per mother since rib fractures. Daughter states yesterday patient was ambulating without her walker which patient has poor baseline balance and 2 heard a commotion in another room and patient was on the ground on the right side. Patient was complaining at that time of her right wrist and there was a skin avulsion on the right elbow. She states she placed a bandage. When patient was complaining of right wrist pain and patient daughter noticed a lot of bruising and swelling with protective posturing she was concerned of fracture. Patient also was complaining of right rib and mid back. Patient denies any difficulty breathing, headache, neck pain, patient admits to low back pain, denies LE pain. Denies left UE pain. Patient admits to right elbow pain/skin tear and right wrist pain, Denies numbmess loss of sensation of the limb. Famity denies cognitive changes, speech changes. Remaining ROS (-). Upon arrival patient appears well there is no signs of respiratory distress, flail chest. (Luz Elena Jimenez) - Related Data Home Medications Medication Instructions Recorded Confirmed Donepezil HCl 23 mg PO HS 06/06/15 07/16/19 Omeprazole [PriLOSEC] 20 mg PO AC-BRKFST 06/06/15 07/16/19 Pravastatin Sodium 40 mg PO HS 06/06/15 07/16/19 Sertraline HCl 50 mg PO DAILY 06/06/15 07/16/19 Sodium Bicarbonate Tab 650 mg PO TID 10/15/17 07/16/19 Amiodarone [Cordarone] 100 mg PO DAILY 12/21/18 07/16/19 Vitamin B-1 250mg 250 mg PO DAILY 07/01/19 07/16/19 Vitamin D3(Unknown Dose) Chew Tab 2 tab PO DAILY 07/01/19 07/16/19 Previous Rx's Medication Instructions Recorded Folic Acid 1 mg PO DAILY #1 tablet 08/30/17 Acetaminophen Tab [Tylenol Tab] 650 mg PO Q4H PRN #30 tablet 07/06/19 HYDROcodone/APAP 5-325MG [Watson 1 tab PO Q4HR PRN 3 Days #18 tab 07/07/19 5-325] Allergies Allergy/AdvReac Type Severity Reaction Status Date / Time No Known Allergies Allergy Verified 07/16/19 10:49 Review of Systems ROS Other: All systems not noted in ROS Statement are negative. <Constantino Nicole - Last Filed: 07/16/19 17:19> ROS Other: All systems not noted in ROS Statement are negative. <Luz Elena Jimenez - Last Filed: 07/16/19 18:28> ROS Statement: Those systems with pertinent positive or pertinent negative responses have been documented in the HPI. 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, History of Any Multi-Drug Resistant Organisms: None Reported Past Surgical History: Bladder Surgery, Hernia Repair, Hysterectomy Additional Past Surgical History / Comment(s): colonoscopy/egd,ileostomy , abd hernia repair Past Anesthesia/Blood Transfusion Reactions: No Reported Reaction Past Psychological History: Anxiety, Depression Smoking Status: Never smoker Past Alcohol Use History: None Reported Past Drug Use History: None Reported - Past Family History Father Additional Family Medical History / Comment(s): IN HIS 80'S NATURAL CAUSES Mother Family Medical History: Myocardial Infarction ([place]) Additional Family Medical History / Comment(s): AT AGE 58 FROM [place] <Luz Elena Jimenez - Last Filed: 07/16/19 18:28> General Exam Limitations: no limitations <Luz Elena Jimenez - Last Filed: 07/16/19 18:28> - General Exam Comments Initial Comments: General: The patient is awake and alert, in no distress Eye: +3 mm pupils are equal, round and reactive to light, extra-ocular movements are intact. No nystagmus. There is normal conjunctiva bilaterally. No signs of icterus. No scalp lacerations/abrasions, hematomas. No raccoon or Deleon sign. No blood in the tympanic membranes. No bruising of the neck. Ears, nose, mouth and throat: There are moist mucous membranes and no oral lesions. Neck: The neck is supple, there is no tenderness or JVD. Patient has no mi dline or paravertebral tenderness of the sacral spine patient is able for flex extend and flex and rotate the cervical spine without difficulty. Cardiovascular: There is a regular rate and rhythm. No murmur, rub or gallop is appreciated. Respiratory: Lungs are clear to auscultation, respirations are non-labored, breath sounds are equal. No wheezes, stridor, rales, or rhonchi. Cannot appreciate any loss of lung barrera, sounds appears present, difficult auscultation at the apices b/l. Gastrointestinal: Soft, non-distended, non-tender abdomen without masses or organomegaly noted. There is no rebound or guarding present. No CVA tenderness. Bowel sounds are unremarkable.Ostomy in place, light brown loose stool in bag. No blood. Musculoskeletal: Bruising and swelling note of the right UE distal to the elboww near dista right wrist. Thumb flex in toward palm. Point localized tenderness. Refuses to ROM at the right wrist, no wrist drop noted. Patient is able to wiggle the digits of the right hand aside from thumb. Strength unable to test at the right wrists secondary to pain. Patinet is able to full range at the LE b/l, no rotation or shortening is noted of the LE b/l. Sensation intact proximal and distal to injury site equal when compared to the unaffected side, intact sensation of the LE b/l. Radial and DP pulses equal bilaterally 2+. Neurological: A&O x 2. CN II-XII intact, There are no obvious motor or sensory deficits. Coordination appears grossly intact. Speech is normal. Skin: Skin is warm and dry and no rashes. Large skin tear on the right elbow, no surrounding cellulitic process, no redness, drainage. Psychiatric: Cooperative, appropriate mood & affect (Luz Elena Jimenez) Course Vital Signs 07/16/19 07/16/19 07/16/19 10:37 14:17 16:12 Temperature 98.2 F Pulse Rate 84 74 75 Respiratory 18 18 18 Rate Blood Pressure 105/69 126/88 165/92 O2 Sat by Pulse 94 L 94 L 2 L Oximetry 07/16/19 07/16/19 16:32 17:46 Temperature Pulse Rate 70 65 Respiratory 18 18 Rate Blood Pressure 167/79 142/73 O2 Sat by Pulse 94 L 94 L Oximetry Procedures - Chest Tube Insertion Consent Obtained: written consent Side of Procedure: right Indication: Pneumothorax Placed on monitor/pulse oximetry: Yes Site Prep: Povidone-Iodine, Sterile Drape Applied Local Anesthesia: Lidocaine 1% Amount (mLs): 3 Insertion Site: Other (2nd intercostal space midclavicular) Open into Pleural Space Using: Trocar Tube Size (Serbian): Other (Thoravent catheter) Sutured in Place: No (secured in place w/ Thoravent adhesive backing) Attached to Suction: No Repeat X-ray Results: Other (Improvement in right pneumothorax) Patient Tolerated Procedure: well Complications: Other (none) <Constantino Nicole - Last Filed: 07/16/19 17:19> Medical Decision Making - Lab Data Result diagrams: 07/16/19 14:22 07/16/19 14:22 <Constantino Nicole - Last Filed: 07/16/19 17:19> - Lab Data Result diagrams: 07/16/19 14:22 07/16/19 14:22 <Luz Elena Jimenez - Last Filed: 07/16/19 18:28> - Medical Decision Making Case was reviewed and staffed with ED FRANCISCA Jimenez. Case was discussed with trauma surgeon Dr. Willard, and she recommended admitting the patient to the ICU under care of the medical service. She recommended bench assembler consultation, as well as orthopedic surgery consultation. She also stated that she would see the patient in consultation herself. Case was discussed with Dr. Stone, and he has accepted the patient for admission to the ICU. I also discussed the pt's case with the bench assembler Dr. Graves, and he recommended that I place a Thoravent catheter in the emergency room. After discussing this with Dr. Willard, she was okay with this plan, and a Thoravent catheter was placed myself in the emergency department (please refer to my procedure note). Follow-up chest x-ray shows improvement in right pneumothorax. FRANCISCA Jimenez has discussed the patient's case with orthopedic surgery, and they have agreed to see the patient in consultation. (Constantino Nicole) 88 year female presenting for fall x 1 day prior. Family's concern or wrist fracture patient is also complaining of sided back pain. Denies abdominal/neck pain, appears to be reliable in regards to expressing symptoms. Imaging studies revealed a compression fracture at T5 as well as a pneumothorax right-sided apices approximately 30%. Upon patient's most recent discharge there was resolution of the pneumothorax. There is no evidence of tension pneumothorax. No flail chest or difficulty in breathing stable oxygen saturations on 2L which patient was on home O2 after most recent discharge. Patient has no acute fractures of the lumbar spine. There is an acute distal radial fracture that is slightly displaced as well as impacted. I contacted orthopedic surgery for the distal radius fracture trauma surgeon was contacted in regards to the PTX. Automation Driver was contacted who recommend Thoravent placement by ER physician Dr. Nicole who was the attending of the case. patinet was slinted to comfort per orthopedic recommendation, NV intact after. New bandage applied to the right elbow. Patient admitted to the ICU per Dr. Willard/Star. (Luz Elena Jimenez) Disposition <Constantino Nicole - Last Filed: 07/16/19 17:19> Is patient prescribed a controlled substance at d/c from ED?: No Time of Disposition: 15:58 Decision to Admit Reason: Admit from EC Decision Date: 07/16/19 Decision Time: 15:58 <Luz Elena Jimenez - Last Filed: 07/16/19 18:28> Clinical Impression: Pneumothorax, Distal radius fracture, Fall, Compression fracture of T5 vertebra Disposition: ADMITTED IP TO THIS [facility] Condition: Serious
--- NOTE | 2019-07-16 12:17 | XR ---
EXAMINATION TYPE: XR chest 2V DATE OF EXAM: 07/16/2019 HISTORY: fall. REFERENCE: Previous study dated 07/07/2019. FINDINGS: There are bilateral pleural effusions, greater on the right left. There is a right apical p neumothorax chest progressed from previous and is now approximately 30% by volume. Heart size is obsc ured. There is minimal atelectatic changes in the left lung base. There are displaced fractures of th e right fifth and sixth ribs. IMPRESSION: 1. ACUTE, DISPLACED FRACTURES OF THE RIGHT FIFTH AND SIXTH RIBS. 2. 30% BY VOLUME RIGHT APICAL THORAX.
--- NOTE | 2019-07-16 12:19 | XR ---
EXAMINATION TYPE: XR thoracic spine complete , 3 VIEWS DATE OF EXAM ORDERED: 07/16/2019 HISTORY: fall. COMPARISON: None. FINDINGS: There is a moderate kyphosis of the thoracic spine. There is mild wedging of the T5 verteb ral body. The age of this is not determined. There is diffuse degenerative disc disease and hypertrop hic spondylosis. There is diffuse osteopenia, likely on the basis of osteoporosis. There is increased opacity of the right lung base. IMPRESSION: 1. 50-20% WEDGE COMPRESSION FRACTURE OF T5, AGE UNDETERMINED. 2. DIFFUSE DEGENERATIVE
--- NOTE | 2019-07-16 12:20 | XR ---
EXAMINATION TYPE: XR pelvis AP view , ONE VIEW DATE OF EXAM ORDERED: 07/16/2019 HISTORY: fall . COMPARISON: None. FINDINGS: There appears to be healed fracture of the superior pubic ramus on the right. No other fra cture or dislocation is seen. There are surgical clips in the right lower quadrant. There is degenera tive change in both hips. IMPRESSION: 1. NO DEFINITE ACUTE FRACTURE. 2. OLD FRACTURE OF THE SUPERIOR PUBIC RAMUS ON THE RIGHT.
--- NOTE | 2019-07-16 12:22 | XR ---
EXAMINATION TYPE: XR lumbar spine 2 or 3V , 3 VIEWS DATE OF EXAM ORDERED: 07/16/2019 HISTORY: fall. COMPARISON: None. FINDINGS: There is been previous right lower quadrant surgery. There is a gentle levoscoliosis. There is a grade 2 degenerative spondylolisthesis of L5 on S1. Alignment is otherwise maintained. The re is diffuse degenerative disc disease and hypertrophic spondylosis throughout the lumbar spine thro ughout with sparing at L4-5. The pedicles are intact. IMPRESSION: 1. 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 2. DIFFUSE DEGENERATIVE CHANGE. 3. NO DEFINITE ACUTE ABNORMALITY.
--- NOTE | 2019-07-16 13:18 | CT ---
EXAMINATION TYPE: CT brain nancy walden con DATE OF EXAM: 07/16/2019 COMPARISON: Previous study dated 07/01/2019. HISTORY: Fall. Right sided pain. CT DLP: 1322.5 mGycm Automated exposure control for dose reduction was used. TECHNIQUE: CT scan of the head and cervical spine are performed without contrast. FINDINGS: BRAIN: There are generalized changes of sulcal prominence and ventriculomegaly, compatible with atrop hy. There is diffuse periventricular white matter lucency, compatible with chronic white matter ische marko change. There is no acute focal lesion, mass effect or midline shift identified. I do not see lennox dence of intracranial blood. Visualized portions of the paranasal sinuses and mastoids are clear. The bony calvarium is intact. IMPRESSION: 1. NO ACUTE INTRACRANIAL ABNORMALITY. CERVICAL SPINE: There is a large right-sided pleural effusion. Visualized portions of the lungs are clear. Prevertebral soft tissues are normal. There are minimal antegrade listhesis of C4 on C5, C5 on C6 and C6-C7 as well as C7 on T1 atlantoaxia l relationships are normal. There is degenerative disc disease most marked at C5-6 and C6-7. There is uncovertebral joint disease at these levels. There is bilateral facet hypertrophy at the C3-4 level as well as the C4-5 level. No fractures are se en. IMPRESSION: 1. NO ACUTE OSSEOUS LESION. 2. LARGE RIGHT PLEURAL EFFUSION. 3. DEGENERATIVE CHANGE WITHIN THE CERVICAL SPINE.
--- NOTE | 2019-07-16 13:22 | XR ---
EXAMINATION TYPE: XR elbow complete RT , 3 VIEWS DATE OF EXAM ORDERED: 07/16/2019 HISTORY: fall. COMPARISON: None. FINDINGS: There is a soft tissue defect about the elbow joint. No fracture, dislocation or elbow alli nt effusion is seen. IMPRESSION: NO ACUTE OSSEOUS LESION.
--- NOTE | 2019-07-16 13:27 | XR ---
EXAMINATION TYPE: XR wrist limited RT , 2 VIEWS DATE OF EXAM ORDERED: 07/16/2019 HISTORY: fall injury. COMPARISON: None. FINDINGS: There are marked degenerative changes within the right first MTP joint as well as the bety caphe joint on the right. There is an acute fracture involving the distal radius with moderate angula tion and displacement of half width of the radial shaft. A definite ulnar fracture is not seen. This fracture extends intra-articularly. IMPRESSION: 1. INTRA-ARTICULAR FRACTURE OF THE DISTAL RADIUS WITH MODERATE ANGULATION AND DISPLACEMENT. 2. DEGENERATIVE CHANGE. CODE A: INITIAL ENCOUNTER FOR CLOSED FRACTURE.
--- NOTE | 2019-07-16 13:31 | XR ---
EXAMINATION TYPE: XR hand complete RT , 3 VIEWS DATE OF EXAM ORDERED: 07/16/2019 HISTORY: fall hand swelling. COMPARISON: None. FINDINGS: Once again a fracture of the distal radial metaphysis is again identified. This fracture e xtends intra-articularly.. There is mild angulation and displacement. There are degenerative changes at the base of the thumb involving the first carpal metacarpal joint a s well as the triscaphe joint. There are degenerative changes in the DIP joints of 4 fingers. No othe r fracture is seen. IMPRESSION: 1. FRACTURE OF THE DISTAL RADIUS. 2. DEGENERATIVE CHANGE. CODE A: INITIAL ENCOUNTER FOR CLOSED FRACTURE.
[2019-07-16] MEDS ORDERED: MORPHINE SULFATE 4 MG/ML SYRINGE IVP STA (14:13)
[2019-07-16 14:30] LABS: Basophils # (A) 0.1 k/uL (0-0.2); Basophils % (A) 1 %; Eosinophils # (A) 0.3 k/uL (0-0.7); Eosinophils % (A) 3 %; HCT 37.9 % (34.0-46.0); HGB 12.3 gm/dL (11.4-16.0); Lymphocytes # (A) 1.2 k/uL (1.0-4.8); Lymphocytes % (A) 11 %; MCH 30.5 pg (25.0-35.0); MCHC 32.4 g/dL (31.0-37.0); MCV 94.2 fL (80.0-100.0); Mean Platelet Volume 6.3; Monocytes # (A) 0.6 k/uL (0-1.0); Monocytes % (A) 6 %; Neutrophils # (A) 7.8 k/uL (1.3-7.7); Neutrophils % (A) 77 %; Platelet Count 418 k/uL (150-450); RBC 4.02 m/uL (3.80-5.40); WBC 10.1 k/uL (3.8-10.6)
[2019-07-16 14:39] LABS: Albumin 3.6 g/dL (3.5-5.0); Calcium 8.9 mg/dL (8.4-10.2); Potassium 4.7 mmol/L (3.5-5.1); Total Bilirubin 0.4 mg/dL (0.2-1.3); Total Protein 6.4 g/dL (6.3-8.2)
[2019-07-16 14:40] LABS: INR 0.9 (<1.2); Partial Thromboplastin Time 24.4 sec (22.0-30.0); Prothrombin Time 9.9 sec (9.0-12.0)
[2019-07-16] MEDS ORDERED: LIDOCAINE 1% INJ 10MG/ML (20 ML MDV) SQ ONE (15:28)
--- NOTE | 2019-07-16 15:47 | P.GSCN ---
History of Present Illness Consult date: 07/16/19 History of present illness: CHIEF COMPLAINT: Status post fall ground-level HISTORY OF PRESENT ILLNESS: The patient is a 88-year-old female who was recently discharged 2 weeks ago for fall with right-sided rib fractures and pneumothorax. Patient fell again in her home, unwitnessed. She is unaware of the events that caused her fall. "I don't know how I fell, I just did!" She now comes in with a broken right wrist as she fell onto her right side again. She denies any shortness of breath. In fact, she is more comfortable than her last hospitalization and since her last discharge. Incidentally, repeat chest x-ray demonstrates now 30% right pneumothorax. PAST MEDICAL HISTORY: See list. PAST SURGICAL HISTORY: See list. MEDICATIONS: See list. ALLERGIES: See list. SOCIAL HISTORY: See list. FAMILY HISTORY: See list. REVIEW OF ORGAN SYSTEMS: CONSTITUTIONAL: No fevers or chills. No recent weight loss. EYES: Denies any trouble with vision. No glasses. HEENT: No difficulties with hearing. No nosebleeds. No difficulty swallowing. RESPIRATORY: Past pneumonia. Denies any troubles with breathing or dyspnea on exertion. CARDIOVASCULAR: Hypertensive cardiomyopathy. Has heart arrhythmia GASTROINTESTINAL: Denies fatty food intolerance. Denies change in bowel habits and gas bloat. Has gastroesophageal reflux disease GENITOURINARY: Has chronic renal insufficiency NEUROLOGICAL: Denies any numbness or tingling along the distal extremities. No seizure disorders or headaches. MUSCULOSKELETAL: Has any back pain, stiffness or joint arthritis. SKIN: No current skin cancer. No rash. PSYCHIATRIC: Has depression. Has anxiety Has memory impairment ENDOCRINE: Denies current thyroid disorders. Denies any blood sugar glucose intolerance. HEME/LYMPHATIC: On chronic blood thinners ALLERGY/IMMUNOLOGY: No immunoglobulin therapy. No immune deficiencies. BREAST: Denies current breast lumps, pain or nipple discharge. PHYSICAL EXAM: VITALS: Reviewed CONSTITUTIONAL: Well developed and in no acute distress. EYES: Conjuctivae without sclera icterus. Pupils are equally round and reactive to light. Extraocular movements grossly intact. HEAD, EARS, NOSE, THROAT: Moist buccal mucosa. Head is atraumatic, normocephalic. Hears conversational speech. No nasal drainage. NECK: Supple. No JV distention. No thyroidomegaly. RESPIRATORY: Non-labored respirations and equal bilateral excursions. CARDIOVASCULAR: Irregular rate and rhythm. Palpable 2+ radial pulses. ABDOMEN: No hepatomegaly. Soft. Non-tender. Nondistended. LYMPH: No neck lymphadenopathy. No axillary lymphadenopathy. MUSCULOSKELETAL: Nail and fingers with good capillary refill. SKIN: Warm and well perfused with good skin turgor. NEUROLOGIC: Cranial nerves I through XII grossly intact. Sensation upper and extremities intact. No focal or lateralizing signs. PSYCH: Appropriate affect. Alert and oriented to person. CLINCAL LABS: Reviewed. White blood cell count 10.1 normal and hemoglobin normal 12.3. Creatinine improved from 2.5 to 2.11. Prior baseline of 2.9. RADIOLOGY: Report reviewed confirming new increased right pneumothorax for Chest Xray. Hand shows distal radius fracture of the right hand. CT with degenerative changes. IMAGING: Independently reviewed by with right pneumothorax of chest xray. CT head also reviewed without hemorrhage of the brain. ASSESSMENT: 1. Status post fall ground-level with right wrist fracture 2. Multiple right-sided rib fractures with right pneumothorax 3. Chronic renal insufficiency 4. Recurrent falls with high risk for re-admission. PLAN: 1. Care plan described to the patient's daughter including ER provider where patient will be admitted to the ICU. 2. Thoravent right chest tube is being placed per ED provider. 3. Additional consultants including orthopedic on board for right fractured wrist. 4. She has history of chronic kidney disease which has improved. 5. We will follow. Past Medical History Past Medical History: Atrial Fibrillation, Dementia, Hyperlipidemia, Hypertension Additional Past Medical History / Comment(s): Chronic renal failure, gastric ulcer, dementia, mild gastritis, small hiatal hernia, peripheral vascular disease, history of ulcerative colitis and the patient has undergone a total colectomy with a diverting ileostomy, History of Any Multi-Drug Resistant Organisms: None Reported Past Surgical History: Bladder Surgery, Hernia Repair, Hysterectomy Additional Past Surgical History / Comment(s): colonoscopy/egd,ileostomy , abd hernia repair Past Anesthesia/Blood Transfusion Reactions: No Reported Reaction Past Psychological History: Anxiety, Depression Smoking Status: Never smoker Past Alcohol Use History: None Reported Past Drug Use History: None Reported - Past Family History Father Additional Family Medical History / Comment(s): IN HIS 80'S NATURAL CAUSES Mother Family Medical History: Myocardial Infarction ([place]) Additional Family Medical History / Comment(s): AT AGE 58 FROM [place] Medications and Allergies Home Medications Medication Instructions Recorded Confirmed Type Donepezil HCl 23 mg PO HS 06/06/15 07/16/19 History Omeprazole [PriLOSEC] 20 mg PO AC-BRKFST 06/06/15 07/16/19 History Pravastatin Sodium 40 mg PO HS 06/06/15 07/16/19 History Sertraline HCl 50 mg PO DAILY 06/06/15 07/16/19 History Folic Acid 1 mg PO DAILY #1 tablet 08/30/17 07/16/19 Rx Sodium Bicarbonate Tab 650 mg PO TID 10/15/17 07/16/19 History Amiodarone [Cordarone] 100 mg PO DAILY 12/21/18 07/16/19 History Vitamin B-1 250mg 250 mg PO DAILY 07/01/19 07/16/19 History Vitamin D3(Unknown Dose) Chew Tab 2 tab PO DAILY 07/01/19 07/16/19 History Acetaminophen Tab [Tylenol Tab] 650 mg PO Q4H PRN #30 tablet 07/06/19 07/16/19 Rx HYDROcodone/APAP 5-325MG [[place] 1 tab PO Q4HR PRN 3 Days #18 tab 07/07/19 07/16/19 Rx 5-325] Allergies Allergy/AdvReac Type Severity Reaction Status Date / Time No Known Allergies Allergy Verified 07/16/19 10:49 Surgical - Exam Vital Signs Temp Pulse Resp BP Pulse Ox 98.2 F 84 18 105/69 94 L 07/16/19 10:37 07/16/19 10:37 07/16/19 10:37 07/16/19 10:37 07/16/19 10:37 Results - Labs 07/16/19 14:22 07/16/19 14:22 Abnormal Lab Results - Last 24 Hours (Table) 07/16/19 07/16/19 Range/Units 14:22 14:22 Neutrophils # 7.8 H (1.3-7.7) k/uL BUN 33 H (7-17) mg/dL Creatinine 2.11 H (0.52-1.04) mg/dL Glucose 118 H (74-99) mg/dL Diabetes panel 07/16/19 Range/Units 14:22 Sodium 138 (137-145) mmol/L Potassium 4.7 (3.5-5.1) mmol/L Chloride 104 (98-107) mmol/L Carbon Dioxide 24 (22-30) mmol/L BUN 33 H (7-17) mg/dL Creatinine 2.11 H (0.52-1.04) mg/dL Glucose 118 H (74-99) mg/dL Calcium 8.9 (8.4-10.2) mg/dL AST 22 (14-36) U/L ALT 12 (9-52) U/L Alkaline Phosphatase 107 (38-126) U/L Total Protein 6.4 (6.3-8.2) g/dL Albumin 3.6 (3.5-5.0) g/dL Calcium panel 07/16/19 Range/Units 14:22 Calcium 8.9 (8.4-10.2) mg/dL Albumin 3.6 (3.5-5.0) g/dL Pituitary panel 07/16/19 Range/Units 14:22 Sodium 138 (137-145) mmol/L Potassium 4.7 (3.5-5.1) mmol/L Chloride 104 (98-107) mmol/L Carbon Dioxide 24 (22-30) mmol/L BUN 33 H (7-17) mg/dL Creatinine 2.11 H (0.52-1.04) mg/dL Glucose 118 H (74-99) mg/dL Calcium 8.9 (8.4-10.2) mg/dL Adrenal panel 07/16/19 Range/Units 14:22 Sodium 138 (137-145) mmol/L Potassium 4.7 (3.5-5.1) mmol/L Chloride 104 (98-107) mmol/L Carbon Dioxide 24 (22-30) mmol/L BUN 33 H (7-17) mg/dL Creatinine 2.11 H (0.52-1.04) mg/dL Glucose 118 H (74-99) mg/dL Calcium 8.9 (8.4-10.2) mg/dL Total Bilirubin 0.4 (0.2-1.3) mg/dL AST 22 (14-36) U/L ALT 12 (9-52) U/L Alkaline Phosphatase 107 (38-126) U/L Total Protein 6.4 (6.3-8.2) g/dL Albumin 3.6 (3.5-5.0) g/dL Assessment and Plan (1) Distal radius fracture Current Visit: Yes Status: Acute Code(s): S52.509A - UNSP FRACTURE OF THE LOWER END OF UNSP RADIUS, INIT SNOMED Code(s): 793201468 (2) Fall Current Visit: Yes Status: Acute Code(s): W19.XXXA - UNSPECIFIED FALL, INITIAL ENCOUNTER SNOMED Code(s): 0454707 (3) Pneumothorax Current Visit: Yes Status: Acute Code(s): J93.9 - PNEUMOTHORAX, UNSPECIFIED SNOMED Code(s): 17539424 (4) Pneumothorax, right Current Visit: No Status: Acute Code(s): J93.9 - PNEUMOTHORAX, UNSPECIFIED SNOMED Code(s): 865997435 (5) Rib fractures Current Visit: No Status: Acute Code(s): S22.39XA - FRACTURE OF ONE RIB, UNSP SIDE, INIT FOR CLOS FX SNOMED Code(s): 57060322
[2019-07-16] MEDS ORDERED: NALOXONE 0.4 MG/ML 1 ML VIAL IV PRN (15:53)
[2019-07-16] MEDS ORDERED: MORPHINE SULFATE 4 MG/ML SYRINGE IV PRN (15:53)
[2019-07-16] MEDS ORDERED: LORazepam 2 MG/ML INJ IV STA (16:43)
--- NOTE | 2019-07-16 17:15 | XR ---
EXAMINATION TYPE: XR chest 2V DATE OF EXAM: 07/16/2019 COMPARISON: Today HISTORY: Right side chest tube TECHNIQUE: Frontal and lateral views of the chest are obtained. FINDINGS: There is blunting of the costophrenic angles more on the right side. There is moderate siz e right pleural effusion and right basilar pulmonary consolidation. There is no heart failure. There is right-sided chest tube. No pneumothorax. Left lung is fairly clear of infiltrate. IMPRESSION: There is clearing of the right side apical pneumothorax compared to exam earlier today. Right pleural effusion and right lower lobe consolidation unchanged. Small left pleural effusion.
[2019-07-16] MEDS ORDERED: LOSARTAN 25 MG TAB PO STA (17:39)
[2019-07-16 18:15] LABS: Glucose,Whole Blood 140 mg/dL (75-99)
[2019-07-16] MEDS ORDERED: HYDROcodone/APAP 5-325MG 1 EACH TAB PO PRN (18:20)
[2019-07-16] MEDS ORDERED: ACETAMINOPHEN TAB 325 MG TAB PO PRN (18:20)
--- NOTE | 2019-07-16 18:28 | P.HPIM ---
History of Present Illness this is a pleasant 88 yo F with pmh of total colectomy and diverting ileostomy secondary to ulcerative colitis, demetia, chronic atrial fibrillation , hypertension , hyperlipidemia , chronic kidney disease, gastric ulcer , peripheral artery disease , she was recently discharge from [facility] for fall and right side rib fracture 5 through 8 ribs, with 20-30% right side pneumothorax, that has been treated conservatively , upon discharge pt went home because family did want to take her home as lakesha at bed side was telling me, pt is poor historian and most of information was taken from daughter at bed side with whom pt lives. as per lakesha pt fell about two days ago when they found her on the floor, family are not sure how this happened. pt herself has no memory of the event. pt denies chest pain , no abd pain , no dyspnea , pt did not complain from her bowel or urinary systems, she reports no fever, but she feels cold and she was shivering during the encounter. vitals are stable and pt is saturating 94% on room air, CBC, BMP and LFT were unremarkable, except for creatinine of 2.0 which is at baseline right hand and wrist xray: right radius fracture with displacement right elbow fracture : no fracture lumbar and pelvic xray: no acute fracture , but thoracic spine xray: wedge fracture of T5, age undetermined CXR: right rib fracture of 5th and 6th ribs with displacement with 30% right apical pneumonthorax orthopedic team are consulted and informed by emergency team thoravent chest tube was placed in the emergency room Review of Systems CONSTITUTIONAL: No fever HEENT: No recent visual problems or hearing problems. Denied any sore throat. CARDIOVASCULAR: No orthopnea, PND, no palpitations, no syncope. PULMONARY: no cough, no hemoptysis. GASTROINTESTINAL: No diarrhea, no nausea, no vomiting, no abdominal pain. Normoactive bowel sounds. NEUROLOGICAL: No headaches, no weakness, no numbness. HEMATOLOGICAL: Denies any bleeding or petechiae. GENITOURINARY: Denies any burning micturition, frequency, or urgency. MUSCULOSKELETAL/RHEUMATOLOGICAL: Denies any muscle pain. ENDOCRINE: Denies any polyuria or polydipsia. 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, History of Any Multi-Drug Resistant Organisms: None Reported Past Surgical History: Bladder Surgery, Hernia Repair, Hysterectomy Additional Past Surgical History / Comment(s): colonoscopy/egd,ileostomy , abd hernia repair Past Anesthesia/Blood Transfusion Reactions: No Reported Reaction Past Psychological History: Anxiety, Depression Smoking Status: Never smoker Past Alcohol Use History: None Reported Past Drug Use History: None Reported - Past Family History Father Additional Family Medical History / Comment(s): IN HIS 80'S NATURAL CAUSES Mother Family Medical History: Myocardial Infarction ([place]) Additional Family Medical History / Comment(s): AT AGE 58 FROM [place] Medications and Allergies Home Medications Medication Instructions Recorded Confirmed Type Donepezil HCl 23 mg PO HS 06/06/15 07/16/19 History Omeprazole [PriLOSEC] 20 mg PO AC-BRKFST 06/06/15 07/16/19 History Pravastatin Sodium 40 mg PO HS 06/06/15 07/16/19 History Sertraline HCl 50 mg PO DAILY 06/06/15 07/16/19 History Folic Acid 1 mg PO DAILY #1 tablet 08/30/17 07/16/19 Rx Sodium Bicarbonate Tab 650 mg PO TID 10/15/17 07/16/19 History Amiodarone [Cordarone] 100 mg PO DAILY 12/21/18 07/16/19 History Vitamin B-1 250mg 250 mg PO DAILY 07/01/19 07/16/19 History Vitamin D3(Unknown Dose) Chew Tab 2 tab PO DAILY 07/01/19 07/16/19 History Acetaminophen Tab [Tylenol Tab] 650 mg PO Q4H PRN #30 tablet 07/06/19 07/16/19 Rx HYDROcodone/APAP 5-325MG [[place] 1 tab PO Q4HR PRN 3 Days #18 tab 07/07/19 07/16/19 Rx 5-325] Allergies Allergy/AdvReac Type Severity Reaction Status Date / Time No Known Allergies Allergy Verified 07/16/19 10:49 Physical Exam Vitals: Vital Signs Temp Pulse Resp BP Pulse Ox 07/16/19 10:37 98.2 F 84 18 105/69 94 L Intake and Output 07/15/19 07/16/19 07/16/19 22:59 06:59 14:59 Other: Weight 70.76 kg -GENERAL: The patient is alert and oriented x0-1, in acute distress due to pain. Well developed, well nourished. HEENT: Pupils are round and equally reacting to light. EOMI. No scleral icterus. No conjunctival pallor. Normocephalic, atraumatic. No pharyngeal erythema. No thyromegaly. CARDIOVASCULAR: S1 and S2 present. No murmurs, rubs, or gallops. -PULMONARY: Chest is clear to auscultation, no wheezing or crackles. right side chest wall tenderness -ABDOMEN: Soft, suprapubic tender, nondistended, normoactive bowel sounds. No palpable organomegaly. colostomy bag is in place MUSCULOSKELETAL: No joint swelling or deformity. -EXTREMITIES: No cyanosis, clubbing, or pedal edema. right wrist swelling with fluctuating hematoma and bruise NEUROLOGICAL: Gross neurological examination did not reveal any focal deficits. SKIN: No rashes. No petechiae Results CBC & Chem 7: 07/16/19 14:22 07/16/19 14:22 Assessment and Plan Assessment: recurrent falls Status post fall and distal radial fracture, with hematoma and bruise at the site worsened right pneumothorax in view of her recent right pneumothorax about 10 days prior to admission to the hospital Dementia with probable some elements of acute delirium recent history of right rib fractures (5-8 ribs) Chronic atrial fibrillation Hyperlipidemia Hypertension Chronic kidney disease History of total colectomy and diverting ileostomy secondary to ulcerative colitis Hiatal hernia Plan: This is a pleasant 88 years old female who presents with multiple falls and rib fracture with pneumothorax, right distal radius fracture. Pain management, fall precautions. Consult cardiothoracic team and pulmonary/critical care team. orthopedic team was consulted by emergency toAnd follow-up their r ecommendations.Labs and medication were reviewed.. Continue same treatment. Continue with symptomatic treatment. Resume home medication. Monitor lytes and vitals. DVT and GI prophylaxis. Further recommendations of the clinical course of the patient DVT prophylaxis: Subcutaneous heparin GI Prophylaxis: Pepcid PT/OT: Pending Prognosis is guarded
[2019-07-16 18:30] LABS: Amorphous Sediment,Urine Moderate /hpf; Appearance,Urine Cloudy (Clear); Bacteria,Urine Rare /hpf; Bilirubin,Urine Negative (Negative); Blood,Urine Trace (Negative); Color,Urine Yellow; Glucose,Urine (UA) Negative (Negative); Hyaline Casts,Urine 6 /lpf (0-2); Ketones,Urine Negative (Negative); Leukocyte Esterase,Urine Large (Negative); Mucus,Urine Rare /hpf; Nitrite,Urine Negative (Negative); PH, Urine 5.5 (5.0-8.0); Protein,Urine 1+ (Negative); RBC,Urine 5 /hpf (0-5); Specific Gravity,Urine 1.024 (1.001-1.035); Squamous Epithelial Cell,Urine <1 /hpf (0-4); Urobilinogen,Urine <2.0 mg/dL (<2.0)
[2019-07-16] MEDS ORDERED: FAMOTIDINE 20 MG/2 ML VIAL IV SCH (21:00)
[2019-07-16] MEDS: HYDROcodone/APAP 7.5-325MG 1 EACH TAB PO PRN (21:33)
[2019-07-16] MEDS: PRAVASTATIN SODIUM 40 MG TAB PO SCH (21:34)
[2019-07-16] MEDS: SODIUM BICARBONATE TAB 650 MG TAB PO SCH (21:34)
[2019-07-16] MEDS: FAMOTIDINE 20 MG/2 ML VIAL IV SCH (21:35)
[2019-07-16] MEDS: HEPARIN SODIUM,PORCINE 5,000 UNIT/ML 1 ML VIAL SQ SCH (21:35)
[2019-07-16] MEDS: DONEPEZIL 10 MG TAB PO SCH (21:35)
[2019-07-17] MEDS: SODIUM CHLORIDE 0.9% 250 ML IV SCH ×3 (01:35→03:22)
[2019-07-17 05:06] LABS: Basophils % (A) 0 %; Eosinophils # (A) 0.3 k/uL (0-0.7); Eosinophils % (A) 3 %; HCT 37.4 % (34.0-46.0); HGB 11.9 gm/dL (11.4-16.0); Hypochromasia Moderate; Lymphocytes # (A) 1.3 k/uL (1.0-4.8); Lymphocytes % (A) 15 %; MCH 30.8 pg (25.0-35.0); MCHC 31.9 g/dL (31.0-37.0); MCV 96.5 fL (80.0-100.0); Mean Platelet Volume 5.5; Monocytes # (A) 0.5 k/uL (0-1.0); Monocytes % (A) 6 %; Neutrophils % (A) 73 %; Platelet Count 406 k/uL (150-450); RBC 3.88 m/uL (3.80-5.40); RDW 12.7 % (11.5-15.5); WBC 8.2 k/uL (3.8-10.6)
[2019-07-17 05:18] LABS: Calcium 8.4 mg/dL (8.4-10.2); Potassium 4.4 mmol/L (3.5-5.1)
[2019-07-17] MEDS: HYDROcodone/APAP 7.5-325MG 1 EACH TAB PO PRN ×3 (05:19→20:46)
[2019-07-17] MEDS ORDERED: SODIUM CHLORIDE 0.9% 250 ML IV SCH (07:15)
--- NOTE | 2019-07-17 08:24 | XR ---
EXAMINATION TYPE: XR chest 1V DATE OF EXAM: 07/17/2019 COMPARISON: 07/16/2019 HISTORY: 88-year-old female pneumothorax status post Thoravent placement TECHNIQUE: Single frontal view of the chest is obtained. FINDINGS: Multiple right-sided rib fractures are redemonstrated with a moderate right effusion and extensive op acities throughout the right hemithorax. Small left pleural effusion with adjacent left basilar opaci ty. Rightward patient rotation alters the normal cardiac and mediastinal contours. Ectatic/elongated thoracic aorta. The right-sided Thoravent in place. Pneumothorax not clearly identified though the patient's chin pro jects over the right apex. IMPRESSION: 1. Rotated exam. 2. Right-sided Thoravent with multiple right-sided rib fractures. Patient's chin covers the right ape x. No visualized pneumothorax at this time. 3. Moderate right and small left pleural effusions with adjacent atelectasis and/or consolidation per sist. Asymmetrically greater opacities on the right are similar as well.
[2019-07-17] MEDS: CHOLECALCIFEROL 1,000 UNIT TAB PO SCH (09:46)
[2019-07-17] MEDS: SERTRALINE 50 MG TAB PO SCH (09:46)
[2019-07-17] MEDS: AMIODARONE 100 MG TAB PO SCH (09:46)
[2019-07-17] MEDS: SODIUM BICARBONATE TAB 650 MG TAB PO SCH ×3 (09:46→22:58)
[2019-07-17] MEDS: HEPARIN SODIUM,PORCINE 5,000 UNIT/ML 1 ML VIAL SQ SCH ×2 (09:51→20:54)
--- NOTE | 2019-07-17 10:01 | P.PN ---
Subjective this is a pleasant 88 yo F with pmh of total colectomy and diverting ileostomy secondary to ulcerative colitis, demetia, chronic atrial fibrillation , hypertension , hyperlipidemia , chronic kidney disease, gastric ulcer , peripheral artery disease , she was recently discharge from [facility] for fall and right side rib fracture 5 through 8 ribs, with 20-30% right side pneumothorax, that has been treated conservatively , upon discharge pt went home because family did want to take her home as lakesha at bed side was telling me, pt is poor historian and most of information was taken from daughter at bed side with whom pt lives. as per lakesha pt fell about two days ago when they found her on the floor, family are not sure how this happened. pt herself has no memory of the event. pt denies chest pain , no abd pain , no dyspnea , pt did not complain from her bowel or urinary systems, she reports no fever, but she feels cold and she was shivering during the encounter. vitals are stable and pt is saturating 94% on room air, CBC, BMP and LFT were unremarkable, except for creatinine of 2.0 which is at baseline right hand and wrist xray: right radius fracture with displacement right elbow fracture : no fracture lumbar and pelvic xray: no acute fracture , but thoracic spine xray: wedge fracture of T5, age undetermined CXR: right rib fracture of 5th and 6th ribs with displacement with 30% right apical pneumonthorax orthopedic team are consulted and informed by emergency team thoravent chest tube was placed in the emergency room 07/17/2019 Today patient is more awake however she is still confused which could be part of her dementia with associated elements of acute delirium. However she denies chest pain or abdominal pain. No dyspnea, her pain at her right forearm fracture is controlled. And she has less suprapubic tenderness with no abdominal pain. She is mildly tachypneic, she needed help for eating, vitals are stable. CBC is remarkable with a stable hemoglobin and WBC, creatinine is slightly improved from 2.1 down to 1.9, sodium 135, urine culture still pending. Chest x-ray showed right-sided Serevent with no pneumothorax and improved. Moderate right pleural effusion with adjacent atelectasis versus infiltrates per radiologist. Patient remains on ceftriaxone for her UTI Review of systems CONSTITUTIONAL: No fever, no malaise, no fatigue. HEENT: No recent visual problems or hearing problems. Denied any sore throat. CARDIOVASCULAR: No orthopnea, PND, no palpitations, no syncope. PULMONARY: no cough, no hemoptysis. GASTROINTESTINAL: No diarrhea, no nausea, no vomiting, no abdominal pain. Normoactive bowel sounds. NEUROLOGICAL: No headaches, no weakness, no numbness. HEMATOLOGICAL: Denies any bleeding or petechiae. GENITOURINARY: Denies any burning micturition, frequency, or urgency. ENDOCRINE: Denies any polyuria or polydipsia. Active Medications Generic Name Dose Route Start Last Admin Trade Name Freq PRN Reason Stop Dose Admin Acetaminophen 650 mg 07/16/19 18:20 Tylenol Tab PO Q4H PRN Pain Hydrocodone Bitart/Acetaminophen 1 each 07/16/19 18:29 07/17/19 09:45 [place] 7.5-325 PO 1 each Q4H PRN Administration Pain Amiodarone HCl 100 mg 07/17/19 09:00 07/17/19 09:46 Cordarone PO 100 mg DAILY LASHON Administration Cholecalciferol 1,000 unit 07/17/19 09:00 07/17/19 09:46 Vitamin D3 (25 Mcg = 1000 Iu) PO 1,000 unit DAILY LASHON Administration Donepezil HCl 10 mg 07/16/19 21:00 07/16/19 21:35 Aricept PO 10 mg HS LASHON Administration Famotidine 20 mg 07/16/19 18:45 07/16/19 21:35 Pepcid IV 20 mg Q24H LASHON Administration Folic Acid 1 mg 07/17/19 12:00 Folic Acid PO 1200 LASHON Heparin Sodium (Porcine) 5,000 unit 07/16/19 21:00 07/17/19 09:51 Heparin SQ Not Given Q12HR [facility] Ceftriaxone Sodium 1 gm/ 50 mls @ 100 mls/hr 07/17/19 15:00 Sodium Chloride IVPB Q24H LASHON Morphine Sulfate 3 mg 07/16/19 15:53 Morphine Sulfate (Inj) IV Q2HR PRN Pain Scale 6 to 7 Naloxone HCl 0.2 mg 07/16/19 15:53 Narcan IV Q2M PRN Opioid Reversal Pravastatin Sodium 40 mg 07/16/19 21:00 07/16/19 21:34 Pravachol PO 40 mg HS LASHON Administration Sertraline HCl 50 mg 07/17/19 09:00 07/17/19 09:46 Zoloft PO 50 mg DAILY LASHON Administration Sodium Bicarbonate 650 mg 07/16/19 22:00 07/17/19 09:46 Sodium Bicarbonate Tab PO 650 mg TID LASHON Administration Objective - Vital Signs Vital signs: Vital Signs Temp 98.2 F 07/17/19 04:00 Pulse 70 07/17/19 09:00 Resp 12 07/17/19 09:00 BP 115/62 07/17/19 09:00 Pulse Ox 95 07/17/19 09:00 Intake & Output 07/16/19 07/17/19 07/17/19 18:59 06:59 18:59 Intake Total 40 470 270 Output Total 65 323 0 Balance -25 147 270 Weight 70.76 kg 70.9 kg Intake: IV 40 470 270 KVO 40 220 20 Sodium Chloride 0.9% 250 250 250 ml @ 999 mls/hr IV .Q16M LASHON Rx#:[id number] Output: Chest Tube Drainage 73 Thora-Vent Right Upper 73 Anterior Chest Urine 65 250 0 Other: Voiding Method Indwelling Catheter Indwelling Catheter - Exam -GENERAL: The patient is alert and oriented x0-1, no acute distress. Well developed, well nourished. HEENT: Pupils are round and equally reacting to light. EOMI. No scleral icterus. No conjunctival pallor. Normocephalic, atraumatic. No pharyngeal erythema. No thyromegaly. CARDIOVASCULAR: S1 and S2 present. No murmurs, rubs, or gallops. -PULMONARY: Chest is clear to auscultation, no wheezing or crackles. right side chest wall tenderness, chest tube in the right upper chest -ABDOMEN: Soft, improving suprapubic tender, nondistended, normoactive bowel sounds. No palpable organomegaly. colostomy bag is in place MUSCULOSKELETAL: No joint swelling or deformity. -EXTREMITIES: No cyanosis, clubbing, or pedal edema. right forearm in splint and dressing, compressive examination is deferred to the surgical team. NEUROLOGICAL: Gross neurological examination did not reveal any focal deficits. SKIN: No rashes. No petechiae - Labs CBC & Chem 7: 07/17/19 04:31 07/17/19 04:26 Labs: Abnormal Lab Results - Last 24 Hours (Table) 07/16/19 07/16/19 07/16/19 Range/Units 14:22 14:22 18:03 Neutrophils # 7.8 H (1.3-7.7) k/uL Sodium (137-145) mmol/L BUN 33 H (7-17) mg/dL Creatinine 2.11 H (0.52-1.04) mg/dL Glucose 118 H (74-99) mg/dL POC Glucose (mg/dL) 140 H (75-99) mg/dL Urine Appearance (Clear) Urine Protein (Negative) Urine Blood (Negative) Ur Leukocyte Esterase (Negative) Urine WBC (0-5) /hpf Amorphous Sediment (None) /hpf Urine Bacteria (None) /hpf Hyaline Casts (0-2) /lpf Urine Mucus (None) /hpf 07/16/19 07/17/19 Range/Units 18:10 04:26 Neutrophils # (1.3-7.7) k/uL Sodium 135 L (137-145) mmol/L BUN 30 H (7-17) mg/dL Creatinine 1.92 H (0.52-1.04) mg/dL Glucose (74-99) mg/dL POC Glucose (mg/dL) (75-99) mg/dL Urine Appearance Cloudy H (Clear) Urine Protein 1+ H (Negative) Urine Blood Trace H (Negative) Ur Leukocyte Esterase Large H (Negative) Urine WBC 27 H (0-5) /hpf Amorphous Sediment Moderate H (None) /hpf Urine Bacteria Rare H (None) /hpf Hyaline Casts 6 H (0-2) /lpf Urine Mucus Rare H (None) /hpf Microbiology - Last 24 Hours (Table) 07/16/19 18:10 Urine Culture - Preliminary Urine,Catheterized Assessment and Plan Assessment: recurrent falls Status post fall and distal radial fracture, with hematoma and bruise at the site worsened right pneumothorax in view of her recent right pneumothorax about 10 days prior to admission to the hospital Dementia with probable some elements of acute delirium recent history of right rib fractures (5-8 ribs) Wedge fracture of the T5 vertebra seen on CAT scan. Chronic atrial fibrillation Hyperlipidemia Hypertension Chronic kidney disease History of total colectomy and diverting ileostomy secondary to ulcerative colitis Hiatal hernia Plan: This is a pleasant 88 years old female who presents with multiple falls and rib fracture with pneumothorax, right distal radius fracture. Pain management, fall precautions. Appreciated Consult cardiothoracic team and pulmonary/critical care team and follow the recommendation. orthopedic team was consulted by emergency to And follow-up their recommendations.continue with ceftriaxone follow-up culture results. Labs and medication were reviewed.. Continue same treatment. Continue with symptomatic treatment. Resume home medication. Monitor lytes and vitals. DVT and GI prophylaxis. Further recommendations of the clinical course of the patient DVT prophylaxis: Subcutaneous heparin GI Prophylaxis: Pepcid PT/OT: Pending Prognosis is guarded
[2019-07-17] MEDS ORDERED: SODIUM CHLORIDE 0.9% 500 ML 500 ML IV ONE (10:08)
--- NOTE | 2019-07-17 11:32 | P.PN ---
Subjective Progress Note Date: 07/17/19 CHIEF COMPLAINT: Fall HISTORY OF PRESENT ILLNESS: Patient examined at the bedside this morning in the ICU. She reports generalized discomfort from her fall, but reports it is tolerable. Thoravent to right chest noted. She denies abdominal pain. Denies nausea or vomiting. WBC 8.2. Hemoglobin 11.9 PHYSICAL EXAM: VITAL SIGNS: Reviewed GENERAL: Well-developed in no acute distress. HEENT: No sclera icterus. Extraocular movements grossly intact. Moist buccal mucosa. Head is atraumatic, normocephalic. Hears conversational speech. No nasal drainage. NECK: Supple without lymphadenopathy. CHEST: Non-labored respirations and equal bilateral excursions. Thoravent to right chest noted. CARDIOVASCULAR: Regular rate with regular rhythm. Palpable 2+ radial pulses. ABDOMEN: Soft. Nondistended. Nontender. Positive bowel sounds. MUSCULOSKELETAL: No clubbing or cyanosis. Splint noted to right arm. NEUROLOGIC: No focal or lateralizing signs. Cranial nerves II through XII grossly intact. PSYCH: Appropriate affect. Alert and oriented to person, place and time. SKIN: Well perfused. Good skin turgor. ASSESSMENT: 1. Status post fall ground-level with right wrist fracture 2. Multiple right-sided rib fractures with right pneumothorax 3. Chronic renal insufficiency 4. Recurrent falls with high risk for re-admission. PLAN: 1. Management of thoravent and pneumothorax per pulmonary and cardiothoracic surgery 2. Orthopedics on consult. Plan is for OR this afternoon 3. Patient will require MARCELINO at discharge Nurse practitioner note has been reviewed by physician. Signing provider agrees with the documented findings, assessment, and plan of care. Objective - Vital Signs Vital signs: Vital Signs Temp 98.2 F 07/17/19 04:00 Pulse 68 07/17/19 10:00 Resp 27 H 07/17/19 10:00 BP 119/64 07/17/19 10:00 Pulse Ox 95 07/17/19 10:00 Intake & Output 07/16/19 07/17/19 07/17/19 18:59 06:59 18:59 Intake Total 40 470 330 Output Total 65 323 50 Balance -25 147 280 Weight 70.76 kg 70.9 kg Intake: IV 40 470 330 KVO 40 220 80 Sodium Chloride 0.9% 250 250 250 ml @ 999 mls/hr IV .Q16M [facility] Rx#:[id number] Output: Chest Tube Drainage 73 Thora-Vent Right Upper 73 Anterior Chest Urine 65 250 50 Other: Voiding Method Indwelling Catheter Indwelling Catheter - Labs CBC & Chem 7: 07/17/19 04:31 07/17/19 04:26 Labs: Abnormal Lab Results - Last 24 Hours (Table) 07/16/19 07/16/19 07/16/19 Range/Units 14:22 14:22 18:03 Neutrophils # 7.8 H (1.3-7.7) k/uL Sodium (137-145) mmol/L BUN 33 H (7-17) mg/dL Creatinine 2.11 H (0.52-1.04) mg/dL Glucose 118 H (74-99) mg/dL POC Glucose (mg/dL) 140 H (75-99) mg/dL Urine Appearance (Clear) Urine Protein (Negative) Urine Blood (Negative) Ur Leukocyte Esterase (Negative) Urine WBC (0-5) /hpf Amorphous Sediment (None) /hpf Urine Bacteria (None) /hpf Hyaline Casts (0-2) /lpf Urine Mucus (None) /hpf 07/16/19 07/17/19 Range/Units 18:10 04:26 Neutrophils # (1.3-7.7) k/uL Sodium 135 L (137-145) mmol/L BUN 30 H (7-17) mg/dL Creatinine 1.92 H (0.52-1.04) mg/dL Glucose (74-99) mg/dL POC Glucose (mg/dL) (75-99) mg/dL Urine Appearance Cloudy H (Clear) Urine Protein 1+ H (Negative) Urine Blood Trace H (Negative) Ur Leukocyte Esterase Large H (Negative) Urine WBC 27 H (0-5) /hpf Amorphous Sediment Moderate H (None) /hpf Urine Bacteria Rare H (None) /hpf Hyaline Casts 6 H (0-2) /lpf Urine Mucus Rare H (None) /hpf Microbiology - Last 24 Hours (Table) 07/16/19 18:10 Urine Culture - Preliminary Urine,Catheterized Assessment and Plan (1) Distal radius fracture Current Visit: Yes Status: Acute Code(s): S52.509A - UNSP FRACTURE OF THE LOWER END OF UNSP RADIUS, INIT SNOMED Code(s): 718297791 (2) Fall Current Visit: Yes Status: Acute Code(s): W19.XXXA - UNSPECIFIED FALL, INITIAL ENCOUNTER SNOMED Code(s): 8006205 (3) Pneumothorax Current Visit: Yes Status: Acute Code(s): J93.9 - PNEUMOTHORAX, UNSPECIFIED SNOMED Code(s): 94238633
--- NOTE | 2019-07-17 13:24 | P.CNPUL ---
History of Present Illness Consult date: 07/17/19 Requesting physician: Kj E Sheet Reason for consult: other (Right-sided pneumothorax) Chief complaint: Status post fall, ground level. History of present illness: This is an 88-year-old female recently discharged from the hospital about 2 weeks ago. Patient presented initially with fall and right-sided rib fractures as well as right sided small apical pneumothorax. Her fall was mostly at home and it was unwitnessed. Since her discharge, the patient apparently fell again, and this time sustained a broken right wrist. Being addressed by orthopedics on the case. And she was also noted to have a 50% right-sided pneumothorax has a thoravent was placed by the ER physician upon admission. Patient was admitted to the ICU, and I was asked to see her on consultation for her right sided pneumothorax which has resolved since the chest tube was placed by the ER physician on admission. Her wrist fracture is being addressed by orthopedics. All her labs were reviewed since admission patient was noted to have elevated creatinine, and the patient is known to have history of chronic renal failure stage III. Her urinalysis was noted to be abnormal showing evidence of bacteriuria and pyuria, culture is pending, in the meantime the patient is receiving Rocephin. Ultrasound of the chest showed very minimal right-sided pleural effusion not large enough to consider right-sided thoracentesis. Review of Systems CONSTITUTIONAL: Denies fever chills, or weight loss. EYES: Denies blurred vision, and denies any photophobia or eye pain. HEENT: Denies any sore throat, denies any earache, denies any vertigo. Denies any dizziness. RESPIRATORY: Right-sided chest pain, denies any shortness of breath cough or wheezing. CARDIOVASCULAR: Denies any chest pain, no palpitations, no diaphoresis GASTROINTESTINAL: Denies nausea vomiting abdominal pain melena or hematemesis. GENITOURINARY: Denies any dysuria frequency urgency or hematuria NEUROLOGICAL: Denies any headache blurred vision or dizziness. MUSCULOSKELETAL: Right wrist pain secondary to fall and this fracture. SKIN: Denies any rashes PSYCHIATRIC: Denies any symptoms of active depression ENDOCRINE: Denies any heat or cold intolerance HEME/LYMPHATIC: Denies any clotting bleeding or bruising Past Medical History Past Medical History: Atrial Fibrillation, Dementia, Hyperlipidemia, Hypertension Additional Past Medical History / Comment(s): Chronic renal failure, gastric ulcer, dementia, mild gastritis, small hiatal hernia, peripheral vascular disease, history of ulcerative colitis and the patient has undergone a total colectomy with a diverting ileostomy, History of Any Multi-Drug Resistant Organisms: None Reported Past Surgical History: Bladder Surgery, Hernia Repair, Hysterectomy Additional Past Surgical History / Comment(s): colonoscopy/egd,ileostomy , abd hernia repair Past Anesthesia/Blood Transfusion Reactions: No Reported Reaction Past Psychological History: Anxiety, Depression Smoking Status: Never smoker Past Alcohol Use History: None Reported Past Drug Use History: None Reported - Past Family History Father Additional Family Medical History / Comment(s): IN HIS 80'S NATURAL CAUSES Mother Family Medical History: Myocardial Infarction ([place]) Additional Family Medical History / Comment(s): AT AGE 58 FROM [place] Medications and Allergies Home Medications Medication Instructions Recorded Confirmed Type Donepezil HCl 23 mg PO HS 06/06/15 07/16/19 History Omeprazole [PriLOSEC] 20 mg PO AC-BRKFST 06/06/15 07/16/19 History Pravastatin Sodium 40 mg PO HS 06/06/15 07/16/19 History Sertraline HCl 50 mg PO DAILY 06/06/15 07/16/19 History Folic Acid 1 mg PO DAILY #1 tablet 08/30/17 07/16/19 Rx Sodium Bicarbonate Tab 650 mg PO TID 10/15/17 07/16/19 History Amiodarone [Cordarone] 100 mg PO DAILY 12/21/18 07/16/19 History Vitamin B-1 250mg 250 mg PO DAILY 07/01/19 07/16/19 History Vitamin D3(Unknown Dose) Chew Tab 2 tab PO DAILY 07/01/19 07/16/19 History Acetaminophen Tab [Tylenol Tab] 650 mg PO Q4H PRN #30 tablet 07/06/19 07/16/19 Rx HYDROcodone/APAP 5-325MG [[place] 1 tab PO Q4HR PRN 3 Days #18 tab 07/07/19 07/16/19 Rx 5-325] Allergies Allergy/AdvReac Type Severity Reaction Status Date / Time No Known Allergies Allergy Verified 07/16/19 10:49 Physical Exam Vitals: Vital Signs Temp Pulse Resp BP Pulse Ox 07/17/19 10:00 68 27 H 119/64 95 07/17/19 09:00 70 12 115/62 95 07/17/19 08:00 64 16 112/77 96 07/17/19 07:00 62 18 103/61 95 07/17/19 06:00 63 15 117/80 95 07/17/19 05:00 61 18 143/80 07/17/19 04:00 98.2 F 62 14 140/125 07/17/19 03:00 61 16 135/78 07/17/19 02:00 65 18 146/72 95 07/17/19 01:00 66 18 126/64 93 L 07/17/19 00:00 98.6 F 74 20 126/61 97 07/16/19 23:00 75 20 121/71 93 L 07/16/19 22:00 68 21 107/83 95 07/16/19 21:00 98 25 H 127/76 07/16/19 20:00 98.9 F 77 28 H 146/74 93 L 07/16/19 19:00 77 18 145/68 95 07/16/19 18:40 74 14 145/68 07/16/19 18:30 71 22 07/16/19 18:20 71 27 H 07/16/19 18:16 99.5 F 07/16/19 18:10 70 25 H 171/84 07/16/19 18:00 99.5 F 75 22 165/97 95 07/16/19 17:46 65 18 142/73 94 L 07/16/19 16:32 70 18 167/79 94 L 07/16/19 16:12 75 18 165/92 2 L 07/16/19 14:17 74 18 126/88 94 L Intake and Output 07/16/19 07/17/19 07/17/19 22:59 06:59 14:59 Intake Total 100 410 330 Output Total 145 243 50 Balance -45 167 280 Intake: IV 100 410 330 KVO 100 160 80 Sodium Chloride 0.9% 250 250 250 ml @ 999 mls/hr IV .Q16M [facility] Rx#:[id number] Output: Chest Tube Drainage 73 Thora-Vent Right Upper 73 Anterior Chest Urine 145 170 50 Other: Voiding Method Indwelling Catheter Indwelling Catheter Weight 70.9 kg Gen.: Revealed 88-year-old female in no distress. EYES: PERRLA, EOMI, no icterus. No lid lagging noted. HEAD, atraumatic, normocephalic. NECK: Supple. No JV distention. No thyroidomegaly. RESPIRATORY: Symmetrical chest expansion, diminished breath sounds on the right side, right sided chest tube is noted anteriorly. Placed by ER physician. CARDIOVASCULAR: Irregular irregular rhythm, no S3 gallop, 2/6 systolic murmur thought the precordium. ABDOMEN: Soft nontender no megaly no rebound no guarding. LYMPH: No cervical lymphadenopathy. SKIN: Good skin turgor, no cyanosis. NEUROLOGIC: Alert and oriented to person, and place,, no gross focal deficits. PSYCH: Normal mood, affect. Questionable mental status. Extremities: Right wrist is in an Naga wrap, otherwise unremarkable. Results All studies done on admission were reviewed and noted. - Laboratory Findings CBC and BMP: 07/17/19 04:31 07/17/19 04:26 PT/INR, D-dimer PT 9.9 sec (9.0-12.0) 07/16/19 14:22 INR 0.9 (<1.2) 07/16/19 14:22 Abnormal lab findings: Abnormal Labs 07/16/19 07/16/19 07/16/19 14:22 14:22 18:03 Neutrophils # 7.8 H Sodium BUN 33 H Creatinine 2.11 H Glucose 118 H POC Glucose (mg/dL) 140 H Urine Appearance Urine Protein Urine Blood Ur Leukocyte Esterase Urine WBC Amorphous Sediment Urine Bacteria Hyaline Casts Urine Mucus 07/16/19 07/17/19 18:10 04:26 Neutrophils # Sodium 135 L BUN 30 H Creatinine 1.92 H Glucose POC Glucose (mg/dL) Urine Appearance Cloudy H Urine Protein 1+ H Urine Blood Trace H Ur Leukocyte Esterase Large H Urine WBC 27 H Amorphous Sediment Moderate H Urine Bacteria Rare H Hyaline Casts 6 H Urine Mucus Rare H Assessment and Plan Assessment: 1 history of fall and multiple right-sided rib fractures including rib 5,6,7 and 8 2 right sided pneumothorax secondary to trauma and rib fractures, status post chest tube placement by ER physician/pavan 3 chronic atrial fibrillation 4 chronic kidney disease stage III 5 history of ileostomy 6 suspect underlying osteoporosis 7 history of mild dementia 8 history of benign essential hypertension 9 history of total colectomy and diverting ileostomy secondary to ulcerative colitis 10 history of hiatal hernia 11 history of peripheral vessel occlusive disease/lower extremities. 12 right wrist fracture, being addressed by orthopedics. Recommendation: Continue present treatment plan, continue chest tube in place, thoracic surgery will be consulted for follow-up on the chest tube, and decide as went to have it removed. Orthopedics to address the wrist fracture. Ultrasound of the chest was reviewed, there isn't enough fluid for thoracentesis. We'll continue to follow. Possibly transfer out of the ICU to a regular medical floor in the next 24 hours. Time with Patient: Greater than 30
--- NOTE | 2019-07-17 14:08 | US ---
EXAMINATION TYPE: US chest DATE OF EXAM: 07/17/2019 COMPARISON: 07/17/2019 CLINICAL HISTORY: 88-year-old female Markings for thoracentesis by pulmonary staff. RIGHT pleural eff usion TECHNIQUE: Targeted ultrasound of the posterior lower right hemithorax. FINDINGS: EXAM MEASUREMENTS: *Patient has a chest tube in place draining* Right Pleural Effusion pocket size: 2.3 cm Right side NOT marked Pulmonologists are able to review the images in the patient?s EMR. IMPRESSIONS: Small right pleural effusion pocket measuring 2.3 cm. Marking not performed.
--- NOTE | 2019-07-17 15:00 | P.GSCN ---
<Kirit Antoine - Last Filed: 07/17/19 14:51> History of Present Illness Consult date: 07/17/19 Reason for Consult: Right-sided hydropneumothorax with Thoravent in place. Requesting physician: Steph Nunes History of present illness: This is an 88-year-old female patient who is followed by Dr. Thurston on an outpatient basis. She is a past medical history significant for chronic atrial fibrillation and was on Eliquis [place] anticoagulation which has been on hold for the last 2 weeks, history of dementia, hypertension, hyperlipidemia, chronic renal failure, home oxygen use 2 L/m, gastric ulcer and history of ulcerative colitis status post colectomy with diverting ileostomy. She presented to the emergency department here at [facility] yesterday 07/16/2019 after sustaining a fall at home. Her past medical history was obtained from the patient's son-in-law due to the patient being a poor historian. The patient had a recent admission to the intensive care unit here at [facility] after having a fall with multiple rib fractures and a right-sided pneumothorax. A right Thoravent chest tube was placed during that admission which was removed prior to her discharge home. The patient's son-in-law reports that the patient was ambulating to the bathroom without her walker during the middle of the night on 07/15/2019 and sustained an unwitnessed fall. The patient subsequently after the fall was complaining of right wrist pain with significant bruising, sustained a skin avulsion on the right elbow and was complaining of right posterior chest pain. Due to the above-mentioned comp laints she was brought to the emergency department. The patient's son-in-law reports that she denied any complaints of shortness of breath, nausea, vomiting, numbness to her lower extremities, loss of bowel or bladder function or recent fever. In the emergency department a 2 view chest x-ray was completed which the report shows an acute displaced fractures of the right fifth and sixth ribs, and a 30% by volume right apical pneumothorax. Subsequently a right chest Thoravent was placed by the emergency room physician. Status post Thoravent placement chest x-ray was completed which showed a clearing of the right sided apical pneumothorax and a moderate right pleural effusion. Due to the placement of the Thoravent a consult was placed to Dr. Mervin Fulton from cardiothoracic surgery for further evaluation and treatment recommendations. Review of Systems A 14 point review of systems was completed and was negative except as mentioned in HPI. Past Medical History Past Medical History: Atrial Fibrillation, Dementia, Hyperlipidemia, Hypertension Additional Past Medical History / Comment(s): Chronic renal failure, gastric ulcer, dementia, mild gastritis, small hiatal hernia, peripheral vascular d isease, history of ulcerative colitis and the patient has undergone a total colectomy with a diverting ileostomy, History of Any Multi-Drug Resistant Organisms: None Reported Past Surgical History: Bladder Surgery, Hernia Repair, Hysterectomy Additional Past Surgical History / Comment(s): colonoscopy/egd,ileostomy , abd hernia repair Past Anesthesia/Blood Transfusion Reactions: No Reported Reaction Past Psychological History: Anxiety, Depression Smoking Status: Never smoker Past Alcohol Use History: None Reported Past Drug Use History: None Reported - Past Family History Father Additional Family Medical History / Comment(s): IN HIS 80'S NATURAL CAUSES Mother Family Medical History: Myocardial Infarction (MD) Additional Family Medical History / Comment(s): AT AGE 58 FROM [place] Medications and Allergies Home Medications Medication Instructions Recorded Confirmed Type Donepezil HCl 23 mg PO HS 06/06/15 07/16/19 History Omeprazole [PriLOSEC] 20 mg PO AC-BRKFST 06/06/15 07/16/19 History Pravastatin Sodium 40 mg PO HS 06/06/15 07/16/19 History Sertraline HCl 50 mg PO DAILY 06/06/15 07/16/19 History Folic Acid 1 mg PO DAILY #1 tablet 08/30/17 07/16/19 Rx Sodium Bicarbonate Tab 650 mg PO TID 10/15/17 07/16/19 History Amiodarone [Cordarone] 100 mg PO DAILY 12/21/18 07/16/19 History Vitamin B-1 250mg 250 mg PO DAILY 07/01/19 07/16/19 History Vitamin D3(Unknown Dose) Chew Tab 2 tab PO DAILY 07/01/19 07/16/19 History Acetaminophen Tab [Tylenol] 650 mg PO Q4H PRN #30 tablet 07/06/19 07/16/19 Rx HYDROcodone/APAP 5-325MG [[place] 1 tab PO Q4HR PRN 3 Days #18 tab 07/07/19 07/16/19 Rx 5-325] HYDROcodone/APAP 7.5-325MG [[place] 1 each PO Q6H PRN 2 Days #8 tab 07/20/19 Rx 7.5-325] Allergies Allergy/AdvReac Type Severity Reaction Status Date / Time No Known Allergies Allergy Verified 07/16/19 10:49 Surgical - Exam Vital Signs Temp Pulse Resp BP Pulse Ox 98.2 F 84 18 105/69 94 L 07/16/19 10:37 07/16/19 10:37 07/16/19 10:37 07/16/19 10:37 07/16/19 10:37 - General no distress, moderate pain (To her right chest.), cachectic, chronically ill - Eyes PERRL, normal ocular movement - ENT normal pinna, normal nares, normal mucosa, no hearing loss, no congestion, poor chcf - Neck No lymphadenopathy, neck is supple. no masses, no bruits, trachea midline, no venous distension - Respiratory Essentially clear throughout, diminished bilateral bases right greater than left. Respirations are symmetrical and nonlabored. Oxygen saturation is 93% on 2 L nasal cannula. No wheezes, rhonchi or crackles appreciated. - Cardiovascular Regular rhythm and rate. S1 and S2 present, negative for S3, gallop or murmur. Bedside telemetry showing normal sinus rhythm heart rate 66. No edema present. - Abdomen Abdomen is soft, nontender and nondistended. Right lower quadrant ileostomy bag in place. No guarding or rigidity. Active bowel sounds present all 4 abdominal quadrants. No organomegaly appreciated. - Genitourinary Holman catheter in place for accurate I&O. Draining clear yellow urine. - Rectum Deferred - Integumentary Ecchymosis to her right hand and wrist. Skin tear to her right elbow, dressing is clean, dry and in place.. no rash, no growths - Neurologic No focal deficits. Cranial nerves II through XII intact. normal coordination, normal sensation - Musculoskeletal Generalized weakness. Right upper extremity weakness with swelling and pain with movement. - Psychiatric Disoriented to time and place. oriented to person Results - Labs 07/17/19 04:31 07/17/19 04:26 Abnormal Lab Results - Last 24 Hours (Table) 07/16/19 07/16/19 07/16/19 Range/Units 14:22 14:22 18:03 Neutrophils # 7.8 H (1.3-7.7) k/uL Sodium (137-145) mmol/L BUN 33 H (7-17) mg/dL Creatinine 2.11 H (0.52-1.04) mg/dL Glucose 118 H (74-99) mg/dL POC Glucose (mg/dL) 140 H (75-99) mg/dL Urine Appearance (Clear) Urine Protein (Negative) Urine Blood (Negative) Ur Leukocyte Esterase (Negative) Urine WBC (0-5) /hpf Amorphous Sediment (None) /hpf Urine Bacteria (None) /hpf Hyaline Casts (0-2) /lpf Urine Mucus (None) /hpf 07/16/19 07/17/19 Range/Units 18:10 04:26 Neutrophils # (1.3-7.7) k/uL Sodium 135 L (137-145) mmol/L BUN 30 H (7-17) mg/dL Creatinine 1.92 H (0.52-1.04) mg/dL Glucose (74-99) mg/dL POC Glucose (mg/dL) (75-99) mg/dL Urine Appearance Cloudy H (Clear) Urine Protein 1+ H (Negative) Urine Blood Trace H (Negative) Ur Leukocyte Esterase Large H (Negative) Urine WBC 27 H (0-5) /hpf Amorphous Sediment Moderate H (None) /hpf Urine Bacteria Rare H (None) /hpf Hyaline Casts 6 H (0-2) /lpf Urine Mucus Rare H (None) /hpf Microbiology - Last 24 Hours (Table) 07/16/19 18:10 Urine Culture - Preliminary Urine,Catheterized Diabetes panel 07/16/19 07/17/19 Range/Units 14:22 04:26 Sodium 138 135 L (137-145) mmol/L Potassium 4.7 4.4 (3.5-5.1) mmol/L Chloride 104 104 (98-107) mmol/L Carbon Dioxide 24 23 (22-30) mmol/L BUN 33 H 30 H (7-17) mg/dL Creatinine 2.11 H 1.92 H (0.52-1.04) mg/dL Glucose 118 H 97 (74-99) mg/dL Calcium 8.9 8.4 (8.4-10.2) mg/dL AST 22 (14-36) U/L ALT 12 (9-52) U/L Alkaline Phosphatase 107 (38-126) U/L Total Protein 6.4 (6.3-8.2) g/dL Albumin 3.6 (3.5-5.0) g/dL Calcium panel 07/16/19 07/17/19 Range/Units 14:22 04:26 Calcium 8.9 8.4 (8.4-10.2) mg/dL Albumin 3.6 (3.5-5.0) g/dL Pituitary panel 07/16/19 07/17/19 Range/Units 14:22 04:26 Sodium 138 135 L (137-145) mmol/L Potassium 4.7 4.4 (3.5-5.1) mmol/L Chloride 104 104 (98-107) mmol/L Carbon Dioxide 24 23 (22-30) mmol/L BUN 33 H 30 H (7-17) mg/dL Creatinine 2.11 H 1.92 H (0.52-1.04) mg/dL Glucose 118 H 97 (74-99) mg/dL Calcium 8.9 8.4 (8.4-10.2) mg/dL Adrenal panel 07/16/19 07/17/19 Range/Units 14:22 04:26 Sodium 138 135 L (137-145) mmol/L Potassium 4.7 4.4 (3.5-5.1) mmol/L Chloride 104 104 (98-107) mmol/L Carbon Dioxide 24 23 (22-30) mmol/L BUN 33 H 30 H (7-17) mg/dL Creatinine 2.11 H 1.92 H (0.52-1.04) mg/dL Glucose 118 H 97 (74-99) mg/dL Calcium 8.9 8.4 (8.4-10.2) mg/dL Total Bilirubin 0.4 (0.2-1.3) mg/dL AST 22 (14-36) U/L ALT 12 (9-52) U/L Alkaline Phosphatase 107 (38-126) U/L Total Protein 6.4 (6.3-8.2) g/dL Albumin 3.6 (3.5-5.0) g/dL - Imaging Chest x-ray: report reviewed, image reviewed Assessment and Plan Assessment: 1. History of fall from standing and multiple right-sided rib fractures including ribs 5, 6, 7 and 8 2. Right-sided pneumothorax secondary to fall from standing, and rib fractures, status post right Thoravent chest tube placement placed by the ER physician 3. Right wrist fracture, status post fall from standing. 4. Chronic atrial fibrillation 5. Chronic kidney disease stage III 6. History of ulcerative colitis, status post total colectomy and diverting ileostomy placement 7. History of dementia 8. History of hypertension 9. History of hiatal hernia 10. Hyperlipidemia 11. History of gastric ulcer Plan: Patient was seen and examined at the bedside in the intensive care unit. Her chart and diagnostics were reviewed. She was seen and examined by Dr. Mervin Fulton from cardiothoracic surgery. Currently she is in no distress and her oxygen saturations are stable on 2 L nasal cannula with her oxygen saturations 95%. A right chest Thoravent was placed in the emergency department by the emergency room physician and her follow-up chest x-ray shows a clearing of her right sided apical pneumothorax. Recommendations are to encourage use of her incentive spirometry every hour while awake. Maintain her Thoravent chest tube in place to low continuous wall suction as she had a demonstration of a right sided pleural effusion. We will continue to monitor her daily chest x-rays and Thoravent chest tube. Medical management and other comorbidities per primary care service. Bronchodilators per pulmonary management. Orthopedics is following her right wrist fracture. Pain management per current as needed orders. More recommendations to follow based on patient's clinical course. Thank you Dr. Nunes for this consult and we look forward to working with you in the care of this patient. Time with Patient: Greater than 30 <Mervin Fulton - Last Filed: 08/09/19 11:54> Surgical - Exam Vital Signs Temp Pulse Resp BP Pulse Ox 98.2 F 84 18 105/69 94 L 07/16/19 10:37 07/16/19 10:37 07/16/19 10:37 07/16/19 10:37 07/16/19 10:37 Results - Labs 07/19/19 06:56 07/19/19 06:56 Assessment and Plan Plan: The patient was seen and examined. The history and physical findings were v erified. I agree with the above assessment and plan. The patient is an 88-year-old female who presented to the emergency department after a fall at home. She was noted to have a right-sided pneumothorax for which a Thora vent was placed in the emergency department. The lung is nearly completely expanded. She still has a small pleural effusion on the right side. I would recommend continuing the Thora vent to suction for now. We will obtain a follow-up chest x-ray in the morning.
[2019-07-17] MEDS: FOLIC ACID 1 MG TAB PO SCH (15:27)
--- NOTE | 2019-07-17 15:31 | P.CNOR ---
History of Present Illness - [facility] Consult date: 07/17/19 Consult reason: fracture History of present illness: Patient is an 88-year-old female who presented to [facility] yesterday after a fall. She was recently admitted to [facility] about 2 weeks ago with a fall, she spent some time in the hospital. At that time showed multiple right-sided rib fractures. Yesterday's recent fall resulted in a displaced right distal radius fracture. I was contacted by the emergency room staff regarding the patient, she was then admitted to the hospital under internal medicine will most medical specialty consults place. She was evaluated in the ICU today, she'll family at bedside. She does have a history of dementia, she was able to answer most my questions. Family was there to help assist with history. She notes discomfort in the right wrist and right rib area. She has no other orthopedic complaints at this time. Review of Systems Constitutional: Reports as per HPI Past Medical History Past Medical History: Atrial Fibrillation, Dementia, Hyperlipidemia, Hyp ertension Additional Past Medical History / Comment(s): Chronic renal failure, gastric ulcer, dementia, mild gastritis, small hiatal hernia, peripheral vascular disease, history of ulcerative colitis and the patient has undergone a total colectomy with a diverting ileostomy, History of Any Multi-Drug Resistant Organisms: None Reported Past Surgical History: Bladder Surgery, Hernia Repair, Hysterectomy Additional Past Surgical History / Comment(s): colonoscopy/egd,ileostomy , abd hernia repair Past Anesthesia/Blood Transfusion Reactions: No Reported Reaction Past Psychological History: Anxiety, Depression Smoking Status: Never smoker Past Alcohol Use History: None Reported Past Drug Use History: None Reported - Past Family History Father Additional Family Medical History / Comment(s): IN HIS 80'S NATURAL CAUSES Mother Family Medical History: Myocardial Infarction ([place]) Additional Family Medical History / Comment(s): AT AGE 58 FROM [place] Medications and Allergies Home Medications Medication Instructions Recorded Confirmed Type Donepezil HCl 23 mg PO HS 06/06/15 07/16/19 History Omeprazole [PriLOSEC] 20 mg PO AC-BRKFST 06/06/15 07/16/19 History Pravastatin Sodium 40 mg PO HS 06/06/15 07/16/19 History Sertraline HCl 50 mg PO DAILY 06/06/15 07/16/19 History Folic Acid 1 mg PO DAILY #1 tablet 08/30/17 07/16/19 Rx Sodium Bicarbonate Tab 650 mg PO TID 10/15/17 07/16/19 History Amiodarone [Cordarone] 100 mg PO DAILY 12/21/18 07/16/19 History Vitamin B-1 250mg 250 mg PO DAILY 07/01/19 07/16/19 History Vitamin D3(Unknown Dose) Chew Tab 2 tab PO DAILY 07/01/19 07/16/19 History Acetaminophen Tab [Tylenol Tab] 650 mg PO Q4H PRN #30 tablet 07/06/19 07/16/19 Rx HYDROcodone/APAP 5-325MG [[place] 1 tab PO Q4HR PRN 3 Days #18 tab 07/07/19 07/16/19 Rx 5-325] Allergies Allergy/AdvReac Type Severity Reaction Status Date / Time No Known Allergies Allergy Verified 07/16/19 10:49 Physical Examination Right upper extremity: Splint was removed at bedside today, there is obvious ecchymosis and soft tissue swelling noted about the hand and wrist. She is able to wiggle the fingers and minimal difficulty. Sensation to light touch is intact at the extremity. Radial pulses 2+. Results - Labs Labs: Abnormal Lab Results - Last 24 Hours (Table) 07/16/19 07/16/19 07/17/19 Range/Units 18:03 18:10 04:26 Sodium 135 L (137-145) mmol/L BUN 30 H (7-17) mg/dL Creatinine 1.92 H (0.52-1.04) mg/dL POC Glucose (mg/dL) 140 H (75-99) mg/dL Urine Appearance Cloudy H (Clear) Urine Protein 1+ H (Negative) Urine Blood Trace H (Negative) Ur Leukocyte Esterase Large H (Negative) Urine WBC 27 H (0-5) /hpf Amorphous Sediment Moderate H (None) /hpf Urine Bacteria Rare H (None) /hpf Hyaline Casts 6 H (0-2) /lpf Urine Mucus Rare H (None) /hpf Microbiology - Last 24 Hours (Table) 07/16/19 18:10 Urine Culture - Preliminary Urine,Catheterized H & H 07/16/19 07/17/19 Range/Units 14:22 04:31 Hgb 12.3 11.9 (11.4-16.0) gm/dL Hct 37.9 37.4 (34.0-46.0) % Coagulation 07/16/19 Range/Units 14:22 INR 0.9 (<1.2) Result Diagrams: 07/17/19 04:31 07/17/19 04:26 - Diagnostic results Wrist/Hand MRI: report reviewed, image reviewed Assessment and Plan Plan: Imaging: Multiple images were done of the wrist, they do demonstrate displaced fracture of the distal radius. 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 Assessment: 1. Displaced right distal radius fracture 2. History of multiple right-sided rib fractures 3. Pneumothorax 4. Multiple medical comorbidities Plan: I was able to discuss the case, including most physical exam findings and imaging studies with my attending Dr. Blackwell. We did recommend surgical intervention for this fracture, discuss that with the patient and family at bedside. They agree with her treatment option would like to proceed. Obtain consent Nothing by mouth Other medical van driver recommendations Further recommendations to follow Time with Patient: Less than 30
[2019-07-17] MEDS ORDERED: SUCCINYLCHOLINE CHLORIDE 100 MG/5 ML SYR IV ONE (15:45)
[2019-07-17] MEDS ORDERED: fentaNYL (PF) 50 MCG/ML 2 ML AMP ONE (15:45)
[2019-07-17] MEDS ORDERED: LIDOCAINE 1% INJ 10MG/ML (20 ML MDV) ONE (15:45)
[2019-07-17] MEDS ORDERED: PROPOFOL 10 MG/ML 20 ML VIAL IV ONE (15:45)
[2019-07-17] MEDS ORDERED: LACTATED RINGERS 1,000 ML IV ONE (15:55)
[2019-07-17] MEDS ORDERED: BUPIVACAINE (PF) 0.25% 30 ML VIAL SQ ONE (16:44)
[2019-07-17] MEDS ORDERED: BACITRACIN 500 UNIT/GM OINT 28.4 GM TUBE TOPICAL ONE (16:45)
--- NOTE | 2019-07-17 17:04 | P.OP ---
Date of Procedure: 07/17/19 Preoperative Diagnosis: Displaced right distal radius fracture Postoperative Diagnosis: Comminuted/displaced right distal radius fracture Procedure(s) Performed: Open reduction and internal fixation right distal radius fracture Implants: Synthes distal volar wrist plate with appropriate length distal pegs and 2 proximal screws Anesthesia: NITA local Surgeon: Tk Blackwell Rn Admission #1: Abe Drake Estimated Blood Loss (ml): 2 Pathology: none sent Condition: stable Disposition: PACU Indications for Procedure: 88-year-old patient seen with a displaced right distal radius fracture. I recommended open reduction and internal fixation. The procedure, risks, benefits and recovery were discussed with her son. Consent was obtained. Operative Findings: See description of procedure Description of Procedure: Patient was taken to the operative suite. The patient underwent a general anesthetic by the department of anesthesia. She did receive antibiotics. A wel l-padded tourniquet placed proximal right upper extremity. The right upper extremity was prepped and draped in the normal sterile orthopedic fashion. The extremity is elevated and the tourniquet was insufflated to 250. A standard distal volar radial incision was made. Careful dissection was taken down to the fracture site. Blunt retractors were positioned. There was some comminution noted. The fracture was reduced. I chose appropriate size plate. That was secured. A preliminary hole was drilled and a preliminary screw was introduced for preliminary placement of the plate. C-arm brought in confirming adequate position. William ESPINOSA Nicholas the fracture and adequate alignment was drilled for the distal peg holes and inserted for appropriate length distal locking pegs. Additional proximal screw was inserted for fixation and stability. The C-arm was brought back into the operative field confirming adequate position of both plate and the fracture. Spot films were obtained to document this. The C- arm was pulled back. Wound was irrigated. The skin was approximated nylon suture. Infiltrated subcu soft tissues with quarter percent plain Marcaine totaling 20 mL for postoperative pain management. Sterile dressings were applied. Tourniquet was released with immediate capillary refill the entire hand and all digits noted. A volar splint was applied. The patient was ana kened and transferred to recovery stable condition. William ESPINOSA assisted with the procedure.
[2019-07-17] MEDS: FAMOTIDINE 20 MG/2 ML VIAL IV SCH (19:13)
[2019-07-17] MEDS: PRAVASTATIN SODIUM 40 MG TAB PO SCH (20:46)
[2019-07-17] MEDS: DONEPEZIL 10 MG TAB PO SCH (20:46)
[2019-07-18] MEDS: HYDROcodone/APAP 7.5-325MG 1 EACH TAB PO PRN ×4 (01:19→21:07)
[2019-07-18 05:20] LABS: Basophils # (A) 0.2 k/uL (0-0.2); Basophils % (A) 3 %; Eosinophils # (A) 0.2 k/uL (0-0.7); Eosinophils % (A) 3 %; HCT 35.6 % (34.0-46.0); HGB 11.7 gm/dL (11.4-16.0); Lymphocytes # (A) 0.9 k/uL (1.0-4.8); Lymphocytes % (A) 13 %; MCH 30.6 pg (25.0-35.0); MCHC 32.9 g/dL (31.0-37.0); MCV 93.2 fL (80.0-100.0); Mean Platelet Volume 6.5; Monocytes # (A) 0.5 k/uL (0-1.0); Monocytes % (A) 7 %; Neutrophils # (A) 5.2 k/uL (1.3-7.7); Neutrophils % (A) 73 %; Platelet Count 366 k/uL (150-450); RBC 3.82 m/uL (3.80-5.40); RDW 12.9 % (11.5-15.5); WBC 7.1 k/uL (3.8-10.6)
[2019-07-18 06:08] LABS: Calcium 8.4 mg/dL (8.4-10.2); Potassium 4.2 mmol/L (3.5-5.1)
[2019-07-18] MEDS: CHOLECALCIFEROL 1,000 UNIT TAB PO SCH (08:19)
[2019-07-18] MEDS: SERTRALINE 50 MG TAB PO SCH (08:19)
[2019-07-18] MEDS: SODIUM BICARBONATE TAB 650 MG TAB PO SCH ×3 (08:19→21:08)
[2019-07-18] MEDS: AMIODARONE 100 MG TAB PO SCH (08:19)
[2019-07-18] MEDS: HEPARIN SODIUM,PORCINE 5,000 UNIT/ML 1 ML VIAL SQ SCH ×2 (08:20→21:07)
--- NOTE | 2019-07-18 08:41 | XR ---
EXAMINATION TYPE: XR chest 1V DATE OF EXAM: 07/18/2019 COMPARISON: 07/17/2019 HISTORY: SOB, Follow Up FINDINGS: Indwelling tubes and catheters are unchanged. No change in diffuse opacity right lung and left basilar opacity. Stable appearance of the cardio-mediastinal structures at this time. Pleural effusion unchanged. IMPRESSION: 1. Stable portable chest. Clinical correlation and follow up until resolution is recommended.
--- NOTE | 2019-07-18 09:38 | XR ---
Fluoroscopy History: RT WRIST ORIF RT wrist ORIF. 2 images saved. [address] Blackwell[address]
--- NOTE | 2019-07-18 09:55 | P.PN ---
Subjective this is a pleasant 88 yo F with pmh of total colectomy and diverting ileostomy secondary to ulcerative colitis, demetia, chronic atrial fibrillation , hypertension , hyperlipidemia , chronic kidney disease, gastric ulcer , peripheral artery disease , she was recently discharge from [facility] for fall and right side rib fracture 5 through 8 ribs, with 20-30% right side pneumothorax, that has been treated conservatively , upon discharge pt went home because family did want to take her home as lakesha at bed side was telling me, pt is poor historian and most of information was taken from daughter at bed side with whom pt lives. as per lakesha pt fell about two days ago when they found her on the floor, family are not sure how this happened. pt herself has no memory of the event. pt denies chest pain , no abd pain , no dyspnea , pt did not complain from her bowel or urinary systems, she reports no fever, but she feels cold and she was shivering during the encounter. vitals are stable and pt is saturating 94% on room air, CBC, BMP and LFT were unremarkable, except for creatinine of 2.0 which is at baseline right hand and wrist xray: right radius fracture with displacement right elbow fracture : no fracture lumbar and pelvic xray: no acute fracture , but thoracic spine xray: wedge fracture of T5, age undetermined CXR: right rib fracture of 5th and 6th ribs with displacement with 30% right apical pneumonthorax orthopedic team are consulted and informed by emergency team thoravent chest tube was placed in the emergency room 07/17/2019 Today patient is more awake however she is still confused which could be part of her dementia with associated elements of acute delirium. However she denies chest pain or abdominal pain. No dyspnea, her pain at her right forearm fracture is controlled. And she has less suprapubic tenderness with no abdominal pain. She is mildly tachypneic, she needed help for eating, vitals are stable. CBC is remarkable with a stable hemoglobin and WBC, creatinine is slightly improved from 2.1 down to 1.9, sodium 135, urine culture still pending. Chest x-ray showed right-sided Serevent with no pneumothorax and improved. Moderate right pleural effusion with adjacent atelectasis versus infiltrates per radiologist. Patient remains on ceftriaxone for her UTI 07/18/2019 Patient remains in the ICU. Patient status post open reduction and internal fixation for her right radial fracture. Today is postop day #1. She still confused with looks like her baseline as she has history of dementia. She doesn't tachypneic with thorough workup vent still in her right chest Jessica fistul a in May. Her chest showing started crepitation. Right hand is in cast and pain is controlled. Still have some suprapubic tenderness. Vitals are stable. Labs are remarkable with creatinine with slight improvement down to 1.8. Chest x-ray from today showing stable findings. Patient remains on ceftriaxone for her UTI. Patient might be transferred to the general medical floor showing Review of systems CONSTITUTIONAL: No fever, no malaise, no fatigue. HEENT: No recent visual problems or hearing problems. Denied any sore throat. CARDIOVASCULAR: No orthopnea, PND, no palpitations, no syncope. PULMONARY: no cough, no hemoptysis. GASTROINTESTINAL: No diarrhea, no nausea, no vomiting, no abdominal pain. Normoactive bowel sounds. NEUROLOGICAL: No headaches, no weakness, no numbness. HEMATOLOGICAL: Denies any bleeding or petechiae. GENITOURINARY: Denies any burning micturition, frequency, or urgency. ENDOCRINE: Denies any polyuria or polydipsia. Active Medications Generic Name Dose Route Start Last Admin Trade Name Freq PRN Reason Stop Dose Admin Acetaminophen 650 mg 07/16/19 18:20 Tylenol Tab PO Q4H PRN Pain Hydrocodone Bitart/Acetaminophen 1 each 07/16/19 18:29 07/17/19 09:45 Aurora 7.5-325 PO 1 each Q4H PRN Administration Pain Amiodarone HCl 100 mg 07/17/19 09:00 07/17/19 09:46 Cordarone PO 100 mg DAILY LASHON Administration Cholecalciferol 1,000 unit 07/17/19 09:00 07/17/19 09:46 Vitamin D3 (25 Mcg = 1000 Iu) PO 1,000 unit DAILY LASHON Administration Donepezil HCl 10 mg 07/16/19 21:00 07/16/19 21:35 Aricept PO 10 mg HS LASHON Administration Famotidine 20 mg 07/16/19 18:45 07/16/19 21:35 Pepcid IV 20 mg Q24H LASHON Administration Folic Acid 1 mg 07/17/19 12:00 Folic Acid PO 1200 LASHON Heparin Sodium (Porcine) 5,000 unit 07/16/19 21:00 07/17/19 09:51 Heparin SQ Not Given Q12HR [facility] Ceftriaxone Sodium 1 gm/ 50 mls @ 100 mls/hr 07/17/19 15:00 Sodium Chloride IVPB Q24H [facility] Morphine Sulfate 3 mg 07/16/19 15:53 Morphine Sulfate (Inj) IV Q2HR PRN Pain Scale 6 to 7 Naloxone HCl 0.2 mg 07/16/19 15:53 Narcan IV Q2M PRN Opioid Reversal Pravastatin Sodium 40 mg 07/16/19 21:00 07/16/19 21:34 Pravachol PO 40 mg HS LASHON Administration Sertraline HCl 50 mg 07/17/19 09:00 07/17/19 09:46 Zoloft PO 50 mg DAILY LASHON Administration Sodium Bicarbonate 650 mg 07/16/19 22:00 07/17/19 09:46 Sodium Bicarbonate Tab PO 650 mg TID LASHON Administration Objective - Vital Signs Vital signs: Vital Signs Temp 98 F 07/18/19 04:00 Pulse 65 07/18/19 06:00 Resp 13 07/18/19 06:00 BP 147/109 07/18/19 06:00 Pulse Ox 93 L 07/18/19 06:00 Intake & Output 07/17/19 07/18/19 07/18/19 18:59 06:59 18:59 Intake Total 630 220 Output Total 612 635 Balance 18 -415 Weight 71.3 kg Intake: IV 630 220 KVO 180 220 Sodium Chloride 0.9% 250 250 ml @ 999 mls/hr IV .Q16M [facility] Rx#:[id number] Output: Chest Tube Drainage 0 Thora-Vent Right Upper 0 Anterior Chest Urine 610 635 Estimated Blood Loss 2 Other: Voiding Method Indwelling Catheter Indwelling Catheter - Exam -GENERAL: The patient is alert and oriented x0-1, no acute distress. Well developed, well nourished. HEENT: Pupils are round and equally reacting to light. EOMI. No scleral icterus. No conjunctival pallor. Normocephalic, atraumatic. No pharyngeal erythema. No th yromegaly. CARDIOVASCULAR: S1 and S2 present. No murmurs, rubs, or gallops. -PULMONARY: Chest is clear to auscultation, no wheezing or crackles. right side chest wall tenderness, chest tube in the right upper chest -ABDOMEN: Soft, improving suprapubic tender, nondistended, normoactive bowel sounds. No palpable organomegaly. colostomy bag is in place MUSCULOSKELETAL: No joint swelling or deformity. -EXTREMITIES: No cyanosis, clubbing, or pedal edema. right forearm in splint and dressing, compressive examination is deferred to the surgical team. NEUROLOGICAL: Gross neurological examination did not reveal any focal deficits. SKIN: No rashes. No petechiae - Labs CBC & Chem 7: 07/18/19 04:45 07/18/19 04:45 Labs: Abnormal Lab Results - Last 24 Hours (Table) 07/18/19 07/18/19 Range/Units 04:45 04:45 Lymphocytes # 0.9 L (1.0-4.8) k/uL Sodium 135 L (137-145) mmol/L BUN 28 H (7-17) mg/dL Creatinine 1.80 H (0.52-1.04) mg/dL Microbiology - Last 24 Hours (Table) 07/16/19 18:10 Urine Culture - Final Urine,Catheterized Assessment and Plan Assessment: recurrent falls Status post fall and distal radial fracture, status post ORIF worsened right pneumothorax in view of her recent right pneumothorax about 10 days prior to admission to the hospital Dementia with probable some elements of acute delirium recent history of right rib fractures (5-8 ribs) Wedge fracture of the T5 vertebra seen on CAT scan. Chronic atrial fibrillation Hyperlipidemia Hypertension Chronic kidney disease History of total colectomy and diverting ileostomy secondary to ulcerative colitis Hiatal hernia Plan: This is a pleasant 88 years old female who presents with multiple falls and rib fracture with pneumothorax, right distal radius fracture. Pain management, fall precautions. Appreciated Consult cardiothoracic team and pulmonary/critical care team and follow the recommendation. orthopedic team was consulted by emergency to And follow-up their recommendations.continue with ceftriaxone follow-up culture results. Labs and medication were reviewed.. Continue same treatment. Continue with symptomatic treatment. Resume home medication. Monitor lytes and vitals. DVT and GI prophylaxis. Further recommendations of the clinical course of the patient DVT prophylaxis: Subcutaneous heparin GI Prophylaxis: Pepcid PT/OT: Pending Prognosis is guarded
--- NOTE | 2019-07-18 11:14 | P.PN ---
Subjective Progress Note Date: 07/18/19 Principal diagnosis: Recent fall from standing and multiple right-sided fractures including ribs 5, 6, 7 and 8, right-sided pneumothorax secondary to fall from standing and rib fra ctures, right wrist fracture, status post fall. Past medical history of chronic atrial fibrillation on Eliquis at home for anticoagulation, chronic kidney disease stage III, history of ulcerative colitis status post total colectomy and diverting ileostomy placement, history of dementia, hypertension, hyperlipidemia, hiatal hernia, and history of gastric ulcer. POD #1 right wrist ORIF performed by Dr. Blackwell The patient is laying in bed in the intensive care unit. She is in no acute distress. She is complaining of right-sided chest pain 10 out of 10 on the pain scale. She denies any complaints of shortness of breath. Her son-in-law is present at her bedside. Oxygen saturation is 93% on room air. Right anterior chest Thoravent tube in place and connected to low continuous wall suction -20 cm H2O. No air leak is present. Draining thin serosanguineous drainage. She is alert and oriented [address] She is hemodynamically stable and is currently on no inotropic or pressor support. She is afebrile in the last 24 hours. Bedside telemetry showing normal sinus rhythm heart rate 90. Objective - Vital Signs Vital signs: Vital Signs Temp 98 F 07/18/19 04:00 Pulse 65 07/18/19 06:00 Resp 13 07/18/19 06:00 BP 147/109 07/18/19 06:00 Pulse Ox 93 L 07/18/19 06:00 Intake & Output 07/17/19 07/18/19 07/18/19 18:59 06:59 18:59 Intake Total 630 220 Output Total 612 635 Balance 18 -415 Weight 71.3 kg Intake: IV 630 220 KVO 180 220 Sodium Chloride 0.9% 250 250 ml @ 999 mls/hr IV .Q16M [facility] Rx#:[id number] Output: Chest Tube Drainage 0 Thora-Vent Right Upper 0 Anterior Chest Urine 610 635 Estimated Blood Loss 2 Other: Voiding Method Indwelling Catheter Indwelling Catheter - Constitutional Constitutional Comment(s): She appears chronically ill and cachectic. General appearance: Present: cooperative, no acute distress - Respiratory Details: Essentially clear to her left lobes, diminished throughout her right lobes. Respirations are symmetrical and nonlabored. Oxygen saturation are 93% on 3 L nasal cannula. Right anterior chest Thoravent chest tube in place to low continuous wall suction -20 cm H2O. No air leak is present. Draining thin serosanguineous drainage. - Cardiovascular Details: Regular rhythm and rate. S1 and S2 present, negative for S3, gallop or murmur. No edema present. Knee-high sequential compression devices in place to bilateral lower extremities. - Gastrointestinal Gastrointestinal Comment(s): Abdomen is soft, nontender and nondistended. Active bowel sounds present all 4 abdominal quadrants. Right lower quadrant ileostomy. No guarding or rigidity. No organomegaly appreciated. - Genitourinary Genitourinary Comment(s): Holman catheter for accurate I&O. Draining clear yellow urine. - Integumentary Integumentary Comment(s): Skin is warm and dry. No clubbing or cyanosis is present. Right arm splint in place, ecchymosis to her right fingers. - Neurologic Neurologic Comment(s): No focal deficits. Neurologic: Present: CNII-XII intact - Musculoskeletal Musculoskeletal Comment(s): Right upper extremity weakness status post fall. Musculoskeletal: Present: generalized weakness - Psychiatric Psychiatric Comment(s): Oriented times [address]. Psychiatric: Present: appropriate affect, intact judgment & insight - Allied health notes Allied health notes reviewed: nursing - Labs CBC & Chem 7: 07/18/19 04:45 07/18/19 04:45 Labs: Abnormal Lab Results - Last 24 Hours (Table) 07/18/19 07/18/19 Range/Units 04:45 04:45 Lymphocytes # 0.9 L (1.0-4.8) k/uL Sodium 135 L (137-145) mmol/L BUN 28 H (7-17) mg/dL Creatinine 1.80 H (0.52-1.04) mg/dL Microbiology - Last 24 Hours (Table) 07/16/19 18:10 Urine Culture - Final Urine,Catheterized - Imaging and Cardiology Chest x-ray: report reviewed, image reviewed Assessment and Plan Assessment: 1. History of fall from standing and multiple right-sided rib fractures including ribs 5, 6, 7 and 8 2. Right-sided pneumothorax secondary to fall from standing, and rib fractures, status post right Thoravent chest tube placement placed by the ER physician 3. Right wrist fracture, status post fall from standing. 4. Chronic atrial fibrillation 5. Chronic kidney disease stage III 6. History of ulcerative colitis, status post total colectomy and diverting ileostomy placement 7. History of dementia 8. History of hypertension 9. History of hiatal hernia 10. Hyperlipidemia 11. History of gastric ulcer Plan: 1. Keep right Thoravent chest tube in place. We will remove her Thoravent from wall suction and cap the Thoravent. 2. Encourage use of her incentive spirometry every hour while awake. 3. Bronchodilators, antibiotic management and oxygen management per pulmonary medicine recommendations. 5. GI and DVT prophylaxis. 6. Increase activity as tolerated. 7. Medical management and other comorbid disease per primary care service. 8. More recommendations to follow based on patient's clinical course. Time with Patient: Greater than 30
--- NOTE | 2019-07-18 11:28 | P.PN ---
Subjective Progress Note Date: 07/18/19 Principal diagnosis: Status post ORIF right distal radius fracture Patient evaluated at bedside today, she is resting comfortably. She notes some discomfort in the right wrist. Postop splint is in good position and condition. Naga bandages present around the skin tears that were noted on the elbow. This was addressed surgery yesterday, we placed Adaptic and a large amount of bacitracin ointment. We'll plan to change in the next day or 2. Objective - Vital Signs Vital signs: Vital Signs Temp 100.0 F H 07/18/19 08:00 Pulse 68 07/18/19 10:00 Resp 13 07/18/19 10:00 BP 111/84 07/18/19 10:00 Pulse Ox 93 L 07/18/19 08:00 Intake & Output 07/17/19 07/18/19 07/18/19 18:59 06:59 18:59 Intake Total 630 240 80 Output Total 612 675 160 Balance 18 -435 -80 Weight 71.3 kg Intake: IV 630 240 80 KVO 180 240 80 Sodium Chloride 0.9% 250 250 ml @ 999 mls/hr IV .Q16M [facility] Rx#:[id number] Output: Chest Tube Drainage 0 0 Thora-Vent Right Upper 0 0 Anterior Chest Urine 610 675 160 Estimated Blood Loss 2 Other: Voiding Method Indwelling Catheter Indwelling Catheter Indwelling Catheter - Exam Right upper extremity: Postop splint is in good position and condition. Obvious soft tissue swelling in the fingers. She is able to move the fingers with minimal difficulty. Her sensation to light touch both proximal distal to splint are intact. Naga bandage on the elbow is in good position and condition. - Labs CBC & Chem 7: 07/18/19 04:45 07/18/19 04:45 Labs: Abnormal Lab Results - Last 24 Hours (Table) 07/18/19 07/18/19 Range/Units 04:45 04:45 Lymphocytes # 0.9 L (1.0-4.8) k/uL Sodium 135 L (137-145) mmol/L BUN 28 H (7-17) mg/dL Creatinine 1.80 H (0.52-1.04) mg/dL Microbiology - Last 24 Hours (Table) 07/16/19 18:10 Urine Culture - Final Urine,Catheterized Assessment and Plan Plan: Assessment: Postop day #1 status post ORIF right distal radius fracture Skin tears right elbow Plan: Continue use splint, do not remove. Recommend ice and elevation often Leave bandage in place around elbow, we will redress in the next day or 2 Other biomedical service engineer and recommendations We'll continue to follow during inpatient stay Time with Patient: Less than 30
--- NOTE | 2019-07-18 11:31 | P.PN ---
<Naomy Sandy A - Last Filed: 07/18/19 11:25> Subjective Progress Note Date: 07/18/19 CHIEF COMPLAINT: Fall HISTORY OF PRESENT ILLNESS: Patient examined at the bedside this morning in the ICU. She is s/p ORIF right distal radius. Thoravent remains in place. She denies abdominal pain. Tolerating diet. Pain is controlled on current regimen. PHYSICAL EXAM: VITAL SIGNS: Reviewed GENERAL: Well-developed in no acute distress. HEENT: No sclera icterus. Extraocular movements grossly intact. Moist buccal mucosa. Head is atraumatic, normocephalic. Hears conversational speech. No nasal drainage. NECK: Supple without lymphadenopathy. CHEST: Non-labored respirations and equal bilateral excursions. Thoravent to right chest noted. CARDIOVASCULAR: Regular rate with regular rhythm. Palpable 2+ radial pulses. ABDOMEN: Soft. Nondistended. Nontender. Positive bowel sounds. MUSCULOSKELETAL: No clubbing or cyanosis. Cast noted to right arm. NEUROLOGIC: No focal or lateralizing signs. Cranial nerves II through XII grossly intact. PSYCH: Appropriate affect. Alert and oriented to person. SKIN: Well perfused. Good skin turgor. ASSESSMENT: 1. Status post fall ground-level with right wrist fracture 2. Multiple right-sided rib fractures with right pneumothorax, preexisting due to recent fall and hospitalization 3. Chronic renal insufficiency 4. Recurrent falls with high risk for re-admission, possibly due to syncopal episodes and/or dementia PLAN: 1. Management of thoravent and pneumothorax per pulmonary and cardiothoracic surgery 2. Continue further medical management and evaluation of recurrent falls per Dr. Sheet 3. Patient will require MARCELINO at discharge Nurse practitioner note has been reviewed by physician. Signing provider agrees with the documented findings, assessment, and plan of care. Objective - Vital Signs Vital signs: Vital Signs Temp 100.0 F H 07/18/19 08:00 Pulse 68 07/18/19 10:00 Resp 13 07/18/19 10:00 BP 111/84 07/18/19 10:00 Pulse Ox 93 L 07/18/19 08:00 Intake & Output 07/17/19 07/18/19 07/18/19 18:59 06:59 18:59 Intake Total 630 240 80 Output Total 612 675 160 Balance 18 -435 -80 Weight 71.3 kg Intake: IV 630 240 80 KVO 180 240 80 Sodium Chloride 0.9% 250 250 ml @ 999 mls/hr IV .Q16M [facility] Rx#:[id number] Output: Chest Tube Drainage 0 0 Thora-Vent Right Upper 0 0 Anterior Chest Urine 610 675 160 Estimated Blood Loss 2 Other: Voiding Method Indwelling Catheter Indwelling Catheter Indwelling Catheter - Labs CBC & Chem 7: 07/18/19 04:45 07/18/19 04:45 Labs: Abnormal Lab Results - Last 24 Hours (Table) 07/18/19 07/18/19 Range/Units 04:45 04:45 Lymphocytes # 0.9 L (1.0-4.8) k/uL Sodium 135 L (137-145) mmol/L BUN 28 H (7-17) mg/dL Creatinine 1.80 H (0.52-1.04) mg/dL Microbiology - Last 24 Hours (Table) 07/16/19 18:10 Urine Culture - Final Urine,Catheterized Assessment and Plan (1) Distal radius fracture Current Visit: Yes Status: Acute Code(s): S52.509A - UNSP FRACTURE OF THE LOWER END OF UNSP RADIUS, INIT SNOMED Code(s): 280206041 (2) Fall Current Visit: Yes Status: Acute Code(s): W19.XXXA - UNSPECIFIED FALL, INITIAL ENCOUNTER SNOMED Code(s): 8704577 (3) Pneumothorax Current Visit: Yes Status: Acute Code(s): J93.9 - PNEUMOTHORAX, UNSPECIFIED SNOMED Code(s): 66719100 <Breonna Willard N - Last Filed: 07/18/19 20:18> Subjective She has had recurrent falls in less than 2-3 weeks. High likelihood of syncopal episodes. Recommend workup for potential syncopal episodes including worsening dementia. Agree with subacute rehab. Management of her thoravent per pulmonary. Management of wrist fracture per orthopedic team. May benefit from assessment for syncopal episodes as patient is high risk for readmission. Objective - Vital Signs Vital signs: Vital Signs Temp 99.2 F 07/18/19 15:00 Pulse 65 07/18/19 15:00 Resp 18 07/18/19 15:00 BP 115/83 07/18/19 15:00 Pulse Ox 94 L 07/18/19 15:00 Intake & Output 07/18/19 07/18/19 07/19/19 06:59 18:59 06:59 Intake Total 240 100 Output Total 675 410 Balance -435 -310 Weight 71.3 kg Intake: IV 240 100 KVO 240 100 Output: Chest Tube Drainage 0 0 Thora-Vent Right Upper 0 0 Anterior Chest Urine 675 410 Other: Voiding Method Indwelling Catheter Indwelling Catheter - Labs CBC & Chem 7: 07/18/19 04:45 07/18/19 04:45 Labs: Abnormal Lab Results - Last 24 Hours (Table) 07/18/19 07/18/19 Range/Units 04:45 04:45 Lymphocytes # 0.9 L (1.0-4.8) k/uL Sodium 135 L (137-145) mmol/L BUN 28 H (7-17) mg/dL Creatinine 1.80 H (0.52-1.04) mg/dL Microbiology - Last 24 Hours (Table) 07/16/19 18:10 Urine Culture - Final Urine,Catheterized Assessment and Plan (1) Distal radius fracture Current Visit: Yes Status: Acute Code(s): S52.509A - UNSP FRACTURE OF THE LOWER END OF UNSP RADIUS, INIT SNOMED Code(s): 247293603 (2) Fall Current Visit: Yes Status: Acute Code(s): W19.XXXA - UNSPECIFIED FALL, INITIAL ENCOUNTER SNOMED Code(s): 5933042 (3) Pneumothorax Current Visit: Yes Status: Acute Code(s): J93.9 - PNEUMOTHORAX, UNSPECIFIED SNOMED Code(s): 35713725 (4) Pneumothorax, right Current Visit: No Status: Acute Code(s): J93.9 - PNEUMOTHORAX, UNSPECIFIED SNOMED Code(s): 068063742 (5) Rib fractures Current Visit: No Status: Acute Code(s): S22.39XA - FRACTURE OF ONE RIB, UNSP SIDE, INIT FOR CLOS FX SNOMED Code(s): 22610849
--- NOTE | 2019-07-18 11:52 | XR ---
EXAMINATION TYPE: XR chest 1V portable DATE OF EXAM: 07/18/2019 HISTORY: Righ Thoravent chest tube capped. COMPARISON: July 18, 2019 TECHNIQUE: Single view of the chest is submitted. FINDINGS: Right sided Thora vent redemonstrated. No evidence for pneumothorax at this time. Multiple right-side d rib fractures with bibasilar atelectasis and hazy opacity overlying the right chest which may refle ct underlying effusion The heart is stable. Hilar and mediastinal structures are within normal limits. Degenerative changes are seen of the dorsal spine. IMPRESSION: 1. Essentially stable chest although there may be slightly improved aeration right upper lobe.
--- NOTE | 2019-07-18 15:05 | P.PN ---
Subjective Progress Note Date: 07/18/19 Principal diagnosis: Status post fall with right wrist fracture and right sided pneumothorax. This is an 88-year-old female recently discharged from the hospital about 2 weeks ago. Patient presented initially with fall and right-sided rib fractures as well as right sided small apical pneumothorax. Her fall was mostly at home and it was unwitnessed. Since her discharge, the patient apparently fell again, and this time sustained a broken right wrist. Being addressed by orthopedics on the case. And she was also noted to have a 50% right-sided pneumothorax has a thoravent was placed by the ER physician upon admission. Patient was admitted to the ICU, and I was asked to see her on consultation for her right sided pneumothorax which has resolved since the chest tube was placed by the ER physician on admission. Her wrist fracture is being addressed by orthopedics. All her labs were reviewed since admission patient was noted to have elevated creatinine, and the patient is known to have history of chronic renal failure stage III. Her urinalysis was noted to be abnormal showing evidence of bacteriuria and pyuria, culture is pending, in the meantime the patient is receiving Rocephin. Ultrasound of the chest showed very minimal right-sided pleural effusion not large enough to consider right-sided thoracentesis. Reevaluated today on 07/18/2019, patient remains in the ICU, continues to have that thoravent in the same place/right chest. There is no evidence of pneumothorax, and the lung is fully expanded. Minimal fluid accumulation and the pleural VAC overnight. Hence we will likely The chest tube, and possibly consider removing it in the next 24 hours. Patient does not have any specific pulmonary complaints. CBC is relatively normal left lites are normal creatinine is down to 1.80. Objective - Vital Signs Vital signs: Vital Signs Temp 100.0 F H 07/18/19 08:00 Pulse 68 07/18/19 10:00 Resp 13 07/18/19 10:00 BP 111/84 07/18/19 10:00 Pulse Ox 96 07/18/19 13:14 Intake & Output 07/17/19 07/18/19 07/18/19 18:59 06:59 18:59 Intake Total 630 240 80 Output Total 612 675 160 Balance Weight 71.3 kg Intake: IV 630 240 80 KVO 180 240 80 Sodium Chloride 0.9% 250 250 ml @ 999 mls/hr IV .Q16M [facility] Rx#:[id number] Output: Chest Tube Drainage 0 0 Thora-Vent Right Upper 0 0 Anterior Chest Urine 610 675 160 Estimated Blood Loss 2 Other: Voiding Method Indwelling Catheter Indwelling Catheter Indwelling Catheter - Exam Gen.: Revealed 88-year-old female on room air, asymptomatic. EYES: PERRLA, EOMI, no icterus. No lid lagging noted. HEAD, atraumatic, normocephalic. NECK: Supple. No JV distention. No thyroidomegaly. RESPIRATORY: Symmetrical chest expansion, diminished breath sounds on the right side, right sided chest tube is noted anteriorly. Placed by ER physician. CARDIOVASCULAR: Irregular irregular rhythm, no S3 gallop, 2/6 systolic murmur thought the precordium. ABDOMEN: Soft nontender no megaly no rebound no guarding. LYMPH: No cervical lymphadenopathy. SKIN: Good skin turgor, no cyanosis. NEUROLOGIC: Alert and oriented to person, and place,, no gross focal deficits. PSYCH: Normal mood, affect. Questionable mental status. Extremities: Right wrist is in an Naga wrap, otherwise unremarkable. - Labs CBC & Chem 7: 07/18/19 04:45 07/18/19 04:45 Labs: Abnormal Lab Results - Last 24 Hours (Table) 07/18/19 07/18/19 Range/Units 04:45 04:45 Lymphocytes # 0.9 L (1.0-4.8) k/uL Sodium 135 L (137-145) mmol/L BUN 28 H (7-17) mg/dL Creatinine 1.80 H (0.52-1.04) mg/dL Microbiology - Last 24 Hours (Table) 07/16/19 18:10 Urine Culture - Final Urine,Catheterized Assessment and Plan Assessment: 1 history of fall and multiple right-sided rib fractures including rib 5,6,7 and 8 2 right sided pneumothorax secondary to trauma and rib fractures, status post chest tube placement by ER physician/pavan 3 chronic atrial fibrillation 4 chronic kidney disease stage III 5 history of ileostomy 6 suspect underlying osteoporosis 7 history of mild dementia 8 history of benign essential hypertension 9 history of total colectomy and diverting ileostomy secondary to ulcerative colitis 10 history of hiatal hernia 11 history of peripheral vessel occlusive disease/lower extremities. 12 right wrist fracture, being addressed by orthopedics. Recommendation: Continue present supportive care measures, consider capping the chest tube and possibly remove the next 24 hours. Continue incentive spirometry, bronchodilators, consider transferring the patient out of the ICU to a regular medical floor, no need for telemetry. We'll continue to follow. Discussed her condition with thoracic surgery on the case Time with Patient: Less than 30
[2019-07-18] MEDS: FOLIC ACID 1 MG TAB PO SCH (15:06)
[2019-07-18] MEDS: FAMOTIDINE 20 MG TAB PO SCH (15:57)
[2019-07-18] MEDS: PRAVASTATIN SODIUM 40 MG TAB PO SCH (21:10)
[2019-07-18] MEDS: DONEPEZIL 10 MG TAB PO SCH (21:10)
[2019-07-19] MEDS: HYDROcodone/APAP 7.5-325MG 1 EACH TAB PO PRN ×2 (06:06→10:29)
[2019-07-19 07:51] LABS: Calcium 8.4 mg/dL (8.4-10.2); Potassium 4.2 mmol/L (3.5-5.1)
--- NOTE | 2019-07-19 07:51 | XR ---
EXAMINATION TYPE: XR chest 1V portable DATE OF EXAM: 07/19/2019 CLINICAL HISTORY: Right-sided pneumothorax progress study. TECHNIQUE: Single AP portable upright view of the chest is obtained. COMPARISON: Chest x-ray from one day earlier and older studies. FINDINGS: Persistent right apical pleural drainage catheter near the level of multiple right lateral displaced rib fractures. No measurable pneumothorax. Diffuse right lung opacity slightly more promin ent. Persistent bilateral pleural fluid collections with more dense opacity right lung base. Cardiac silhouette size is stable and upper limits of normal with atherosclerotic aorta. IMPRESSION: Overall stable findings, no measurable pneumothorax with right apical chest tube. Persi stent small bilateral pleural fluid collections with right greater than left bibasilar atelectasis an d/or infiltrate and diffuse right lung edema and/or infiltrate all thought present.
[2019-07-19 07:56] LABS: Basophils # (A) 0.1 k/uL (0-0.2); Basophils % (A) 2 %; Eosinophils # (A) 0.2 k/uL (0-0.7); Eosinophils % (A) 3 %; HCT 34.9 % (34.0-46.0); HGB 10.7 gm/dL (11.4-16.0); Lymphocytes % (A) 17 %; MCH 30.1 pg (25.0-35.0); MCHC 30.8 g/dL (31.0-37.0); MCV 97.9 fL (80.0-100.0); Mean Platelet Volume 6.6; Monocytes # (A) 0.4 k/uL (0-1.0); Monocytes % (A) 7 %; Neutrophils # (A) 4.1 k/uL (1.3-7.7); Neutrophils % (A) 70 %; Platelet Count 355 k/uL (150-450); RBC 3.56 m/uL (3.80-5.40); WBC 5.9 k/uL (3.8-10.6)
--- NOTE | 2019-07-19 08:49 | P.PN ---
Subjective this is a pleasant 88 yo F with pmh of total colectomy and diverting ileostomy secondary to ulcerative colitis, demetia, chronic atrial fibrillation , hypertension , hyperlipidemia , chronic kidney disease, gastric ulcer , peripheral artery disease , she was recently discharge from [facility] for fall and right side rib fracture 5 through 8 ribs, with 20-30% right side pneumothorax, that has been treated conservatively , upon discharge pt went home because family did want to take her home as lakesha at bed side was telling me, pt is poor historian and most of information was taken from daughter at bed side with whom pt lives. as per lakesha pt fell about two days ago when they found her on the floor, family are not sure how this happened. pt herself has no memory of the event. pt denies chest pain , no abd pain , no dyspnea , pt did not complain from her bowel or urinary systems, she reports no fever, but she feels cold and she was shivering during the encounter. vitals are stable and pt is saturating 94% on room air, CBC, BMP and LFT were unremarkable, except for creatinine of 2.0 which is at baseline right hand and wrist xray: right radius fracture with displacement right elbow fracture : no fracture lumbar and pelvic xray: no acute fracture , but thoracic spine xray: wedge fracture of T5, age undetermined CXR: right rib fracture of 5th and 6th ribs with displacement with 30% right apical pneumonthorax orthopedic team are consulted and informed by emergency team thoravent chest tube was placed in the emergency room 07/17/2019 Today patient is more awake however she is still confused which could be part of her dementia with associated elements of acute delirium. However she denies chest pain or abdominal pain. No dyspnea, her pain at her right forearm fracture is controlled. And she has less suprapubic tenderness with no abdominal pain. She is mildly tachypneic, she needed help for eating, vitals are stable. CBC is remarkable with a stable hemoglobin and WBC, creatinine is slightly improved from 2.1 down to 1.9, sodium 135, urine culture still pending. Chest x-ray showed right-sided Serevent with no pneumothorax and improved. Moderate right pleural effusion with adjacent atelectasis versus infiltrates per radiologist. Patient remains on ceftriaxone for her UTI 07/18/2019 Patient remains in the ICU. Patient status post open reduction and internal fixation for her right radial fracture. Today is postop day #1. She still confused with looks like her baseline as she has history of dementia. She doesn't tachypneic with thorough workup vent still in her right chest Jessica fistul a in May. Her chest showing started crepitation. Right hand is in cast and pain is controlled. Still have some suprapubic tenderness. Vitals are stable. Labs are remarkable with creatinine with slight improvement down to 1.8. Chest x-ray from today showing stable findings. Patient remains on ceftriaxone for her UTI. Patient might be transferred to the general medical floor showing 07/19/2019 Patient is awake and comfortable in bed, she is confused at baseline to time place and person. She cannot tell when she is in the hospital but she follows commands and answer some questions appropriately. Her thoravent is in a Place in the right upper chest, right forearm is in cast. Patient, stomach back is working and she has mild suprapubic tenderness. Orthopedic team are planning to address her right arm inspection tomorrow. Cardiothoracic and pulmonary team are following the case closely. Vitals are stable. No Padilla versus yesterday, and review of her UTI. Her labs are stable, with creatinine is 2.0 at baseline. Objective - Vital Signs Vital signs: Vital Signs Temp 98.1 F 07/19/19 01:13 Pulse 71 07/19/19 01:13 Resp 15 07/19/19 01:13 BP 153/65 07/19/19 01:13 Pulse Ox 94 L 07/19/19 01:13 Intake & Output 07/18/19 07/19/19 07/19/19 18:59 06:59 18:59 Intake Total 100 240 Output Total 410 275 Balance -310 -35 Intake: IV 100 140 KVO 100 140 Oral 100 Output: Chest Tube Drainage 0 Thora-Vent Right Upper 0 Anterior Chest Urine 410 175 Stool 100 Other: Voiding Method Indwelling Catheter Diaper Incontinent # Voids 1 - Exam -GENERAL: The patient is alert and oriented x0-1, no acute distress. Well developed, well nourished. HEENT: Pupils are round and equally reacting to light. EOMI. No scleral icterus. No conjunctival pallor. Normocephalic, atraumatic. No pharyngeal erythema. No thyromegaly. CARDIOVASCULAR: S1 and S2 present. No murmurs, rubs, or gallops. -PULMONARY: Chest is clear to auscultation, no wheezing or crackles. right side chest wall tenderness, chest tube in the right upper chest -ABDOMEN: Soft, improving suprapubic tender, nondistended, normoactive bowel sounds. No palpable organomegaly. colostomy bag is in place MUSCULOSKELETAL: No joint swelling or deformity. -EXTREMITIES: No cyanosis, clubbing, or pedal edema. right forearm in splint and dressing, compressive examination is deferred to the surgical team. NEUROLOGICAL: Gross neurological examination did not reveal any focal deficits. SKIN: No rashes. No petechiae - Labs CBC & Chem 7: 07/19/19 06:56 07/19/19 06:56 Labs: Abnormal Lab Results - Last 24 Hours (Table) 07/19/19 07/19/19 Range/Units 06:56 06:56 RBC 3.56 L (3.80-5.40) m/uL Hgb 10.7 L (11.4-16.0) gm/dL MCHC 30.8 L (31.0-37.0) g/dL Carbon Dioxide 21 L (22-30) mmol/L BUN 39 H (7-17) mg/dL Creatinine 2.04 H (0.52-1.04) mg/dL Assessment and Plan Assessment: recurrent falls Status post fall and distal radial fracture, status post ORIF worsened right pneumothorax in view of her recent right pneumothorax about 10 days prior to admission to the hospital Dementia with probable some elements of acute delirium recent history of right rib fractures (5-8 ribs) Wedge fracture of the T5 vertebra seen on CAT scan. Chronic atrial fibrillation Hyperlipidemia Hypertension Chronic kidney disease History of total colectomy and diverting ileostomy secondary to ulcerative colitis Hiatal hernia Plan: This is a pleasant 88 years old female who presents with multiple falls and rib fracture with pneumothorax, right distal radius fracture. Pain management, fall precautions. Appreciated Consult cardiothoracic team and pulmonary/critical care team and follow the recommendation. orthopedic team was consulted by emerge ncy to And follow-up their recommendations.continue with ceftriaxone follow-up culture results. Labs and medication were reviewed.. Continue same treatment. Continue with symptomatic treatment. Resume home medication. Monitor lytes and vitals. DVT and GI prophylaxis. Further recommendations of the clinical course of the patient DVT prophylaxis: Subcutaneous heparin GI Prophylaxis: Pepcid PT/OT: Pending Prognosis is guarded
[2019-07-19] MEDS: CHOLECALCIFEROL 1,000 UNIT TAB PO SCH (08:53)
[2019-07-19] MEDS: SERTRALINE 50 MG TAB PO SCH (08:53)
[2019-07-19] MEDS: FAMOTIDINE 20 MG TAB PO SCH (08:53)
[2019-07-19] MEDS: SODIUM BICARBONATE TAB 650 MG TAB PO SCH ×3 (08:53→21:27)
[2019-07-19] MEDS: AMIODARONE 100 MG TAB PO SCH (08:53)
[2019-07-19] MEDS: HEPARIN SODIUM,PORCINE 5,000 UNIT/ML 1 ML VIAL SQ SCH ×2 (08:53→21:29)
[2019-07-19] MEDS: FOLIC ACID 1 MG TAB PO SCH (10:29)
--- NOTE | 2019-07-19 11:23 | P.PN ---
Subjective Progress Note Date: 07/19/19 Principal diagnosis: Status post fall with right wrist fracture and right-sided pneumothorax Status post fall with right wrist fracture and right sided pneumothorax. This is an 88-year-old female recently discharged from the hospital about 2 weeks ago. Patient presented initially with fall and right-sided rib fractures as well as right sided small apical pneumothorax. Her fall was mostly at home and it was unwitnessed. Since her discharge, the patient apparently fell again, and this time sustained a broken right wrist. Being addressed by orthopedics on the case. And she was also noted to have a 50% right-sided pneumothorax has a thoravent was placed by the ER physician upon admission. Patient was admitted to the ICU, and I was asked to see her on consultation for her right sided pneumothorax which has resolved since the chest tube was placed by the ER physician on admission. Her wrist fracture is being addressed by orthopedics. All her labs were reviewed since admission patient was noted to have elevated creatinine, and the patient is known to have history of chronic renal failure stage III. Her urinalysis was noted to be abnormal showing evidence of b acteriuria and pyuria, culture is pending, in the meantime the patient is receiving Rocephin. Ultrasound of the chest showed very minimal right-sided pleural effusion not large enough to consider right-sided thoracentesis. Reevaluated today on 07/18/2019, patient remains in the ICU, continues to have that thoravent in the same place/right chest. There is no evidence of pneumothorax, and the lung is fully expanded. Minimal fluid accumulation and the pleural VAC overnight. Hence we will likely The chest tube, and possibly consider removing it in the next 24 hours. Patient does not have any specific pulmonary complaints. CBC is relatively normal left lites are normal creatinine is down to 1.80. On 07/19/2019 patient seen in follow-up on medical surgical floor. She has been transferred out of the ICU last night, she seen resting in bed, and patient is in moderate amount of discomfort in her right chest that's exacerbated with movement and deep breathing. Thoravent remains in place, remains capped, today's chest x-ray shows no measurable pneumothorax, bilateral pleural effusion that are small, and right greater than left bibasilar atelectasis and diffuse right lung edema or infiltrate. Incentive spirometry effort is poor, patient is only achieving 500 mL is on the today, with much encouragement, she is afebrile, hemodynamically patient is stable, lung sounds reveal equal air entry bilaterally, with diminished breath sounds and bilateral bases. Today's labs have been reviewed, showing white blood cell count of 5.9, hemoglobin of 10.7, electrolytes fairly unremarkable, CO2 is 21, B1 is 39, and creatinine is 2.04. Antibiotic coverage is with Rocephin. Objective - Vital Signs Vital signs: Vital Signs Temp 98.0 F 07/19/19 08:59 Pulse 70 07/19/19 08:59 Resp 16 07/19/19 08:59 BP 131/71 07/19/19 08:59 Pulse Ox 94 L 07/19/19 01:13 Intake & Output 07/18/19 07/19/19 07/19/19 18:59 06:59 18:59 Intake Total 100 240 Output Total 410 275 Balance -310 -35 Intake: IV 100 140 KVO 100 140 Oral 100 Output: Chest Tube Drainage 0 Thora-Vent Right Upper 0 Anterior Chest Urine 410 175 Stool 100 Other: Voiding Method Indwelling Catheter Diaper Incontinent # Voids 1 - Exam GENERAL EXAM: Alert, pleasant female 88-year-old, on 3 L of oxygen, and moderate amount of chest discomfort on the right side with moving and deep breathing and coughing comfortable in no apparent distress. HEAD: Normocephalic/atraumatic. EYES: Normal reaction of pupils, equal size. Conjunctiva pink, sclera white. NOSE: Clear with pink turbinates. THROAT: No erythema or exudates. NECK: No masses, no JVD, no thyroid enlargement, no adenopathy. CHEST: No chest wall deformity. Symmetrical expansion. Right upper chest Thoravent in place, capped LUNGS: Equal air entry with no crackles, wheeze, rhonchi or dullness. CVS: Regular rate and rhythm, normal S1 and S2, no gallops, no murmurs, no rubs ABDOMEN: Soft, nontender. No hepatosplenomegaly, normal bowel sounds, no guarding or rigidity. EXTREMITIES: No clubbing, no edema, no cyanosis, 2+ pulses and upper and lower extremities. MUSCULOSKELETAL: Muscle strength and tone normal. SPINE: No scoliosis or deformity SKIN: No rashes CENTRAL NERVOUS SYSTEM: Alert and oriented -3. No focal deficits, tone is normal in all 4 extremities. PSYCHIATRIC: Alert and oriented -3. Appropriate affect. Intact judgment and insight. - Labs CBC & Chem 7: 07/19/19 06:56 07/19/19 06:56 Labs: Abnormal Lab Results - Last 24 Hours (Table) 07/19/19 07/19/19 Range/Units 06:56 06:56 RBC 3.56 L (3.80-5.40) m/uL Hgb 10.7 L (11.4-16.0) gm/dL MCHC 30.8 L (31.0-37.0) g/dL Carbon Dioxide 21 L (22-30) mmol/L BUN 39 H (7-17) mg/dL Creatinine 2.04 H (0.52-1.04) mg/dL Assessment and Plan Plan: Assessment: 1 history of fall and multiple right-sided rib fractures including rib 5,6,7 and 8 2 right sided pneumothorax secondary to trauma and rib fractures, status post chest tube placement by ER physician/thoravent 3 chronic atrial fibrillation 4 chronic kidney disease stage III 5 history of ileostomy 6 suspect underlying osteoporosis 7 history of mild dementia 8 history of benign essential hypertension 9 history of total colectomy and diverting ileostomy secondary to ulcerative colitis 10 history of hiatal hernia 11 history of peripheral vessel occlusive disease/lower extremities. 12 right wrist fracture, being addressed by orthopedics. Plan: Consult physical therapy, mobilize the patient, patient needs to sit up in the chair, maintain pain control, switch [place] to scheduled administration patient's pain is poorly controlled. Encourage deep breathing and coughing, incentive spirometry use, today's chest x-ray shows no signs of pneumothorax, but right greater than left lung atelectasis or infiltrate involving the right lung. Continue current antibiotic coverage. I performed a history & physical examination of the patient and discussed their management with my nurse practitioner, Carmen Isaac. I reviewed the nurse practitioner's note and agree with the documented findings and plan of care. Lung sounds are positive for equal breath sounds bilaterally, with diminished breath sounds at the bases. The findings and the impression was discussed with the patient. I attest to the documentation by the nurse practitioner. Time with Patient: Less than 30
--- NOTE | 2019-07-19 12:42 | P.PN ---
Subjective Progress Note Date: 07/19/19 Principal diagnosis: Status post ORIF right distal radius fracture Patient evaluated at bedside today, she is resting comfortably. She notes some discomfort in the right wrist. Postop splint is in good position and condition. Naga bandages present around the skin tears that were noted on the elbow. Objective - Vital Signs Vital signs: Vital Signs Temp 98.0 F 07/19/19 08:59 Pulse 70 07/19/19 08:59 Resp 16 07/19/19 08:59 BP 131/71 07/19/19 08:59 Pulse Ox 94 L 07/19/19 01:13 Intake & Output 07/18/19 07/19/19 07/19/19 18:59 06:59 18:59 Intake Total 100 240 Output Total 410 275 Balance -310 -35 Intake: IV 100 140 KVO 100 140 Oral 100 Output: Chest Tube Drainage 0 Thora-Vent Right Upper 0 Anterior Chest Urine 410 175 Stool 100 Other: Voiding Method Indwelling Catheter Diaper Incontinent # Voids 1 - Exam Right upper extremity: Postop splint is in good position and condition. Obvious soft tissue swelling in the fingers. She is able to move the fingers with minimal difficulty. Her sensation to light touch both proximal distal to splint are intact. Naga bandage on the elbow is in good position and condition. - Labs CBC & Chem 7: 07/19/19 06:56 07/19/19 06:56 Labs: Abnormal Lab Results - Last 24 Hours (Table) 07/19/19 07/19/19 Range/Units 06:56 06:56 RBC 3.56 L (3.80-5.40) m/uL Hgb 10.7 L (11.4-16.0) gm/dL MCHC 30.8 L (31.0-37.0) g/dL Carbon Dioxide 21 L (22-30) mmol/L BUN 39 H (7-17) mg/dL Creatinine 2.04 H (0.52-1.04) mg/dL Assessment and Plan Plan: Assessment: Postop day #2 status post ORIF right distal radius fracture Skin tears right elbow Plan: Continue use splint, do not remove. Recommend ice and elevation often Leave bandage in place around elbow, will change dressing tomorrow Other medical management specialist and recommendations We'll continue to follow during inpatient stay Time with Patient: Less than 30
--- NOTE | 2019-07-19 13:13 | P.PN ---
Subjective Progress Note Date: 07/19/19 CHIEF COMPLAINT: S/p fall HISTORY OF PRESENT ILLNESS: The patient is a 88-year-old female status post fall ground level. Family, son at bedside adding additional history for fall. She is tolerating regular diet. No chest pain or shortness of breath. She has moderate dementia and unaware of events leading to fall. No new complaints. ROS: No reports of nausea and vomiting. No fevers or chills. PHYSICAL EXAM: VITAL SIGNS: Reviewed CONSTITUTIONAL: Well developed and in no acute distress. EYES: Conjuctivae without sclera icterus. Extraocular movements grossly intact. HEAD, EARS, NOSE, THROAT: Moist buccal mucosa. Head is atraumatic, normocephalic. Hears conversational speech. No nasal drainage. NECK: Supple. No thyroidomegaly. RESPIRATORY: Non-labored respirations and equal bilateral excursions. Right thoravent intact. CARDIOVASCULAR: Palpable 2+ radial pulses. ABDOMEN: Ostomy pink, patent with stool. Non-tender MUSCULOSKELETAL: Right forearm cast present with edema along the fingers. SKIN: Good skin turgor. Well perfused. NEUROLOGIC: Cranial nerves I through XII grossly intact. No focal or lateralizing signs. PSYCH: Alert and oriented to person. CLINCAL LABS: White blood cell count 5,900. Creatinine 2.11 down to 1.80 now up to 2.04 ASSESSMENT: 1. Status post fall ground level 2. Pre-existing right pneumothorax 3. Pre-existing multiple right rib fractures 4. Dementia, moderate to severe 5. Chronic renal insufficiency, stage III, stable PLAN: 1. Agreeable to for transfer to [facility] when medically stable. 2. Recommend medical work-up for syncope Objective - Vital Signs Vital signs: Vital Signs Temp 98.0 F 07/19/19 08:59 Pulse 70 07/19/19 08:59 Resp 16 07/19/19 08:59 BP 131/71 07/19/19 08:59 Pulse Ox 94 L 07/19/19 01:13 Intake & Output 07/18/19 07/19/19 07/19/19 18:59 06:59 18:59 Intake Total 100 240 Output Total 410 275 Balance -310 -35 Intake: IV 100 140 KVO 100 140 Oral 100 Output: Chest Tube Drainage 0 Thora-Vent Right Upper 0 Anterior Chest Urine 410 175 Stool 100 Other: Voiding Method Indwelling Catheter Diaper Diaper Incontinent Incontinent # Voids 1 - Labs CBC & Chem 7: 07/19/19 06:56 07/19/19 06:56 Labs: Abnormal Lab Results - Last 24 Hours (Table) 07/19/19 07/19/19 Range/Units 06:56 06:56 RBC 3.56 L (3.80-5.40) m/uL Hgb 10.7 L (11.4-16.0) gm/dL MCHC 30.8 L (31.0-37.0) g/dL Carbon Dioxide 21 L (22-30) mmol/L BUN 39 H (7-17) mg/dL Creatinine 2.04 H (0.52-1.04) mg/dL Assessment and Plan (1) Distal radius fracture Current Visit: Yes Status: Acute Code(s): S52.509A - UNSP FRACTURE OF THE LOWER END OF UNSP RADIUS, INIT SNOMED Code(s): 841755454 (2) Fall Current Visit: Yes Status: Acute Code(s): W19.XXXA - UNSPECIFIED FALL, INITIAL ENCOUNTER SNOMED Code(s): 3578025 (3) Pneumothorax Current Visit: Yes Status: Acute Code(s): J93.9 - PNEUMOTHORAX, UNSPECIFIED SNOMED Code(s): 16038491 (4) Pneumothorax, right Current Visit: No Status: Acute Code(s): J93.9 - PNEUMOTHORAX, UNSPECIFIED SNOMED Code(s): 029105869 (5) Rib fractures Current Visit: No Status: Acute Code(s): S22.39XA - FRACTURE OF ONE RIB, UNSP SIDE, INIT FOR CLOS FX SNOMED Code(s): 99051649 (6) Stage 3 chronic kidney disease Current Visit: Yes Status: Acute Code(s): N18.3 - CHRONIC KIDNEY DISEASE, STAGE 3 (MODERATE) SNOMED Code(s): 003228427
[2019-07-19] MEDS: HYDROcodone/APAP 7.5-325MG 1 EACH TAB PO SCH ×4 (14:47→23:47)
--- NOTE | 2019-07-19 15:46 | P.PN ---
Subjective Progress Note Date: 07/19/19 Principal diagnosis: Recent fall from standing and multiple right-sided fractures including ribs 5, 6, 7 and 8, right-sided pneumothorax secondary to fall from standing and rib fra ctures, right wrist fracture, status post fall. Past medical history of chronic atrial fibrillation on Eliquis at home for anticoagulation, chronic kidney disease stage III, history of ulcerative colitis status post total colectomy and diverting ileostomy placement, history of dementia, hypertension, hyperlipidemia, hiatal hernia, and history of gastric ulcer. POD #2 right wrist ORIF performed by Dr. Blackwell The patient is laying in bed in the fourth floor medical surgical unit. She is in no acute distress. She is complaining of right-sided chest pain 10 out of 10 on the pain scale when taking deep breaths. She denies any complaints of shortness of breath. She remains with a right anterior chest Thoravent in place which was capped yesterday, remains with intermittent air leak. Oxygen saturation is 94% on 3 L nasal cannula. Achieving 750 mL on her incentive spirometry with encouragement. She is alert and oriented [address] T-max temperature in the last 24 hours is 100F. Objective - Vital Signs Vital signs: Vital Signs Temp 98.0 F 07/19/19 08:59 Pulse 70 07/19/19 08:59 Resp 16 07/19/19 08:59 BP 131/71 07/19/19 08:59 Pulse Ox 94 L 07/19/19 01:13 Intake & Output 07/18/19 07/19/19 07/19/19 18:59 06:59 18:59 Intake Total 100 240 Output Total 410 275 Balance -310 -35 Intake: IV 100 140 KVO 100 140 Oral 100 Output: Chest Tube Drainage 0 Thora-Vent Right Upper 0 Anterior Chest Urine 410 175 Stool 100 Other: Voiding Method Indwelling Catheter Diaper Incontinent # Voids 1 - Constitutional Constitutional Comment(s): Cachectic General appearance: Present: cooperative, no acute distress - Respiratory Details: Lung sounds essentially clear throughout, diminished to her right lower lobe. Respirations are symmetrical and nonlabored. Oxygen saturation are 93% on 3 L nasal cannula. Achieving 750 mL on her incentive spirometry. Right anterior chest Thoravent in place and is capped. Intermittent air leak is present. - Cardiovascular Details: Regular rhythm and rate. S1 and S2 present, negative for S3, gallop or murmur. Knee-high sequential compression devices in place to bilateral lower extremities. - Gastrointestinal Gastrointestinal Comment(s): Abdomen is soft, nontender and nondistended. Hypoactive bowel sounds present all 4 abdominal quadrants. No guarding or rigidity. No organomegaly appreciated. - Integumentary Integumentary Comment(s): Skin is warm and dry. No clubbing or cyanosis is present. Dressing clean dry and intact her right elbow, splint intact to her right forearm and wrist. Ecchymotic areas to her fingers on her right hand. - Neurologic Neurologic Comment(s): No focal deficits. Neurologic: Present: CNII-XII intact - Musculoskeletal Musculoskeletal Comment(s): Splint to her right arm Musculoskeletal: Present: generalized weakness, strength equal bilaterally - Psychiatric Psychiatric Comment(s): Alert and oriented [address]. Psychiatric: Present: appropriate affect - Allied health notes Allied health notes reviewed: nursing - Labs CBC & Chem 7: 07/19/19 06:56 07/19/19 06:56 Labs: Abnormal Lab Results - Last 24 Hours (Table) 07/19/19 07/19/19 Range/Units 06:56 06:56 RBC 3.56 L (3.80-5.40) m/uL Hgb 10.7 L (11.4-16.0) gm/dL MCHC 30.8 L (31.0-37.0) g/dL Carbon Dioxide 21 L (22-30) mmol/L BUN 39 H (7-17) mg/dL Creatinine 2.04 H (0.52-1.04) mg/dL - Imaging and Cardiology Chest x-ray: report reviewed, image reviewed Assessment and Plan Assessment: 1. History of fall from standing and multiple right-sided rib fractures including ribs 5, 6, 7 and 8 2. Right-sided pneumothorax secondary to fall from standing, and rib fractures, status post right Thoravent chest tube placement placed by the ER physician 3. Right wrist fracture, status post fall from standing. 4. Chronic atrial fibrillation 5. Chronic kidney disease stage III 6. History of ulcerative colitis, status post total colectomy and diverting ileostomy placement 7. History of dementia 8. History of hypertension 9. History of hiatal hernia 10. Hyperlipidemia 11. History of gastric ulcer Plan: 1. Keep right Thoravent chest tube in place, we will plug her Thoravent tube today in anticipation for removal of her Thoravent tomorrow. 2. Encourage use of her incentive spirometry every hour while awake. 3. Bronchodilators, antibiotic management and oxygen management per pulmonary medicine recommendations. 5. GI and DVT prophylaxis. 6. Increase activity as tolerated. 7. Medical management and other comorbid disease per primary care service. 8. More recommendations to follow based on patient's clinical course. Time with Patient: Greater than 30
[2019-07-19] MEDS: PRAVASTATIN SODIUM 40 MG TAB PO SCH (21:27)
[2019-07-19] MEDS: DONEPEZIL 10 MG TAB PO SCH (21:27)
[2019-07-20] MEDS: HYDROcodone/APAP 7.5-325MG 1 EACH TAB PO SCH ×5 (05:00→20:27)
--- NOTE | 2019-07-20 08:25 | XR ---
EXAMINATION TYPE: XR chest 1V portable DATE OF EXAM: 07/20/2019 Comparison: 07/19/2019 Clinical History: 88-year-old female Right pneumothorax with Thoravent Findings: The right heart margin remains obscured by adjacent pleural parenchymal opacity. Right-sided Thoraven t remains in place. No appreciable pneumothorax. Continued moderate right and small left pleural effu sions with adjacent bibasilar opacities. Hazy density extends up throughout the right lung. Impression: Overall stable exam with right-sided Thoravent. No appreciable pneumothorax. Moderate right and small left pleural effusions with adjacent atelectasis and/or consolidation. Possible edema throughout the right lung is similar.
[2019-07-20] MEDS: CHOLECALCIFEROL 1,000 UNIT TAB PO SCH (08:27)
[2019-07-20] MEDS: AMIODARONE 100 MG TAB PO SCH (08:27)
[2019-07-20] MEDS: HEPARIN SODIUM,PORCINE 5,000 UNIT/ML 1 ML VIAL SQ SCH ×2 (08:27→20:28)
[2019-07-20] MEDS: SERTRALINE 50 MG TAB PO SCH (08:27)
[2019-07-20] MEDS: FAMOTIDINE 20 MG TAB PO SCH (08:27)
[2019-07-20] MEDS: SODIUM BICARBONATE TAB 650 MG TAB PO SCH ×3 (08:27→20:27)
--- NOTE | 2019-07-20 09:13 | P.PN ---
Subjective Progress Note Date: 07/20/19 Principal diagnosis: Recent fall from standing and multiple right-sided fractures including ribs 5, 6, 7 and 8, right-sided pneumothorax secondary to fall from standing and rib fra ctures, right wrist fracture, status post fall. Past medical history of chronic atrial fibrillation on Eliquis at home for anticoagulation, chronic kidney disease stage III, history of ulcerative colitis status post total colectomy and diverting ileostomy placement, history of dementia, hypertension, hyperlipidemia, hiatal hernia, and history of gastric ulcer. POD #3 right wrist ORIF performed by Dr. Blackwell The patient is laying in bed in the fourth floor medical surgical unit. She is in no acute distress. She is complaining of right-sided chest pain 6 out of 10 on the pain scale when taking deep breaths. She denies any complaints of shortness of breath. She remains with a right anterior chest Thoravent in place which was plugged yesterday. Oxygen saturations is 96% on 3 L nasal cannula. Achieving 750-1000 mL on her incentive spirometry with encouragement. She is alert and oriented [address] She has been afebrile in the last 24 hours. Chest x-ray this morning shows no appreciable pneumothorax. Objective - Vital Signs Vital signs: Vital Signs Temp 98.1 F 07/20/19 07:00 Pulse 65 07/20/19 07:00 Resp 16 07/20/19 07:00 BP 117/67 07/20/19 07:00 Pulse Ox 96 07/20/19 07:00 Intake & Output 07/19/19 07/20/19 07/20/19 18:59 06:59 18:59 Output Total 2 200 Balance -2 -200 Output: Urine 100 Stool 2 100 Other: Voiding Method Diaper Bedpan Incontinent Diaper Incontinent # Voids 1 - Constitutional Constitutional Comment(s): Cachectic General appearance: Present: cooperative, no acute distress - Respiratory Details: Lung sounds essentially clear throughout, diminished to her right lower lobe. Respirations are symmetrical and nonlabored. Oxygen saturation are 96% on 3 L nasal cannula. Achieving 750-1000 mL on her incentive spirometry. Right anterior chest Thoravent in place and is plugged. - Gastrointestinal Gastrointestinal Comment(s): Regular rhythm and rate. S1 and S2 present, negative for S3, gallop or murmur. Knee-high sequential compression devices in place to bilateral lower extremities. - Integumentary Integumentary Comment(s): Skin is warm and dry. No clubbing or cyanosis is present. No rash or abnormal presentation is present. Right forearm splint in place, scattered ecchymosis to her right fingers. - Neurologic Neurologic Comment(s): No focal deficits. Neurologic: Present: CNII-XII intact - Musculoskeletal Musculoskeletal Comment(s): Right forearm splint in place. Musculoskeletal: Present: generalized weakness - Psychiatric Psychiatric Comment(s): Alert and oriented [address] and person. Psychiatric: Present: appropriate affect - Allied health notes Allied health notes reviewed: nursing - Labs CBC & Chem 7: 07/19/19 06:56 07/19/19 06:56 - Imaging and Cardiology Chest x-ray: report reviewed, image reviewed Assessment and Plan Assessment: 1. History of fall from standing and multiple right-sided rib fractures includ ing ribs 5, 6, 7 and 8 2. Right-sided pneumothorax secondary to fall from standing, and rib fractures, status post right Thoravent chest tube placement placed by the ER physician 3. Right wrist fracture, status post fall from standing. 4. Chronic atrial fibrillation 5. Chronic kidney disease stage III 6. History of ulcerative colitis, status post total colectomy and diverting ileostomy placement 7. History of dementia 8. History of hypertension 9. History of hiatal hernia 10. Hyperlipidemia 11. History of gastric ulcer Plan: 1. Right Thoravent chest tube was discontinued at 8:40 AM today without incident. 2. Encourage use of her incentive spirometry every hour while awake. 3. Bronchodilators, antibiotic management and oxygen management per pulmonary medicine recommendations. 5. GI and DVT prophylaxis. 6. Increase activity as tolerated. 7. Medical management and other comorbid disease per primary care service. 8. Okay to discharge to extended care facility when okay with primary care and pulmonary care services. 9. We will follow the patient on an as-needed basis. Time with Patient: Greater than 30
--- NOTE | 2019-07-20 11:38 | P.PN ---
Subjective Progress Note Date: 07/20/19 Principal diagnosis: Status post fall with right wrist fracture and right-sided pneumothorax Status post fall with right wrist fracture and right sided pneumothorax. This is an 88-year-old female recently discharged from the hospital about 2 weeks ago. Patient presented initially with fall and right-sided rib fractures as well as right sided small apical pneumothorax. Her fall was mostly at home and it was unwitnessed. Since her discharge, the patient apparently fell again, and this time sustained a broken right wrist. Being addressed by orthopedics on the case. And she was also noted to have a 50% right-sided pneumothorax has a thoravent was placed by the ER physician upon admission. Patient was admitted to the ICU, and I was asked to see her on consultation for her right sided pneumothorax which has resolved since the chest tube was placed by the ER physician on admission. Her wrist fracture is being addressed by orthopedics. All her labs were reviewed since admission patient was noted to have elevated creatinine, and the patient is known to have history of chronic renal failure stage III. Her urinalysis was noted to be abnormal showing evidence of b acteriuria and pyuria, culture is pending, in the meantime the patient is receiving Rocephin. Ultrasound of the chest showed very minimal right-sided pleural effusion not large enough to consider right-sided thoracentesis. Reevaluated today on 07/18/2019, patient remains in the ICU, continues to have that thoravent in the same place/right chest. There is no evidence of pneumothorax, and the lung is fully expanded. Minimal fluid accumulation and the pleural VAC overnight. Hence we will likely The chest tube, and possibly consider removing it in the next 24 hours. Patient does not have any specific pulmonary complaints. CBC is relatively normal left lites are normal creatinine is down to 1.80. On 07/19/2019 patient seen in follow-up on medical surgical floor. She has been transferred out of the ICU last night, she seen resting in bed, and patient is in moderate amount of discomfort in her right chest that's exacerbated with movement and deep breathing. Thoravent remains in place, remains capped, today's chest x-ray shows no measurable pneumothorax, bilateral pleural effusion that are small, and right greater than left bibasilar atelectasis and diffuse right lung edema or infiltrate. Incentive spirometry effort is poor, patient is only achieving 500 mL is on the today, with much encouragement, she is afebrile, hemodynamically patient is stable, lung sounds reveal equal air entry bilaterally, with diminished breath sounds and bilateral bases. Today's labs have been reviewed, showing white blood cell count of 5.9, hemoglobin of 10.7, electrolytes fairly unremarkable, CO2 is 21, B1 is 39, and creatinine is 2.04. Antibiotic coverage is with Rocephin. On 07/20/2019 patient seen in follow-up on medical surgical floor. She is drowsy, but arousable, she states her pain is better controlled today, right- sided Thoravent has been removed this morning, today's chest x-ray prior to the removal of the chest tube showed no appreciable pneumothorax, and moderate right and small left pleural effusions and adjacent atelectasis, possibility of edema throughout the right lung similar to previous exam. Incentive spirometry effort today is slightly improved, 500-750. Remains on 3 L of oxygen with a pulse ox of 96%. No fever or chills, equal breath sounds noted bilaterally, mesh breath sounds at bilateral bases. Vital signs are stable, patient was up in the chair yesterday, tolerated activity well, still has pain with moving in the right upper chest, but seems to be better on today's exam. Still on oral [place] as [id number], in view of her lethargy we'll decrease the frequency to every 6 hours. Objective - Vital Signs Vital signs: Vital Signs Temp 98.1 F 07/20/19 07:00 Pulse 65 07/20/19 08:00 Resp 16 07/20/19 08:00 BP 117/67 07/20/19 07:00 Pulse Ox 96 07/20/19 07:00 Intake & Output 07/19/19 07/20/19 07/20/19 18:59 06:59 18:59 Output Total 2 200 Balance -2 -200 Output: Urine 100 Stool 2 100 Other: Voiding Method Diaper Bedpan Bedpan Incontinent Diaper Diaper Incontinent Incontinent # Voids 1 - Exam GENERAL EXAM: Drowsy but arousable, pleasant female 88-year-old, on 3 L of oxygen, and moderate amount of chest discomfort on the right side with moving and deep breathing and coughing comfortable in no apparent distress. HEAD: Normocephalic/atraumatic. EYES: Normal reaction of pupils, equal size. Conjunctiva pink, sclera white. NOSE: Clear with pink turbinates. THROAT: No erythema or exudates. NECK: No masses, no JVD, no thyroid enlargement, no adenopathy. CHEST: No chest wall deformity. Symmetrical expansion. Interval removal of right upper chest Thoravent in place LUNGS: Equal air entry with no crackles, wheeze, rhonchi or dullness. CVS: Regular rate and rhythm, normal S1 and S2, no gallops, no murmurs, no rubs ABDOMEN: Soft, nontender. No hepatosplenomegaly, normal bowel sounds, no guarding or rigidity. EXTREMITIES: No clubbing, no edema, no cyanosis, 2+ pulses and upper and lower extremities. MUSCULOSKELETAL: Muscle strength and tone normal. SPINE: No scoliosis or deformity SKIN: No rashes CENTRAL NERVOUS SYSTEM: Alert and oriented -3. No focal deficits, tone is normal in all 4 extremities. PSYCHIATRIC: Alert and oriented -3. Appropriate affect. Intact judgment and insight. - Labs CBC & Chem 7: 07/19/19 06:56 07/19/19 06:56 Assessment and Plan Plan: Assessment: 1 history of fall and multiple right-sided rib fractures including rib 5,6,7 and 8 2 right sided pneumothorax secondary to trauma and rib fractures, status post chest tube placement by ER physician/thoravent, removed on 07/20/2019 3 chronic atrial fibrillation 4 chronic kidney disease stage III 5 history of ileostomy 6 suspect underlying osteoporosis 7 history of mild dementia 8 history of benign essential hypertension 9 history of total colectomy and diverting ileostomy secondary to ulcerative colitis 10 history of hiatal hernia 11 history of peripheral vessel occlusive disease/lower extremities. 12 right wrist fracture, being addressed by orthopedics. Plan: Right thoravent removed, breathing is stable, remains on 3 L, continue encouraging deep breathing and coughing, a bit drowsy today, we'll decrease the [place] to every 6 hours. Encouraged patient to set up in the chair, therapy is following, follow-up chest x-ray tomorrow, continue current antibiotics I performed a history & physical examination of the patient and discussed their management with my nurse practitioner, Carmen Isaac. I reviewed the nurse practitioner's note and agree with the documented findings and plan of care. Lung sounds are positive for equal breath sounds bilaterally, with diminished breath sounds at the bases. The findings and the impression was discussed with the patient. I attest to the documentation by the nurse practitioner. Time with Patient: Less than 30
--- NOTE | 2019-07-20 12:37 | P.PN ---
Subjective Progress Note Date: 07/20/19 Principal diagnosis: Status post ORIF right distal radius fracture Patient evaluated at bedside today, she is resting comfortably. She notes some discomfort in the right wrist. Postop splint is in good position and condition. A Objective - Vital Signs Vital signs: Vital Signs Temp 98.1 F 07/20/19 07:00 Pulse 65 07/20/19 08:00 Resp 16 07/20/19 08:00 BP 117/67 07/20/19 07:00 Pulse Ox 96 07/20/19 07:00 Intake & Output 07/19/19 07/20/19 07/20/19 18:59 06:59 18:59 Output Total 2 200 Balance -2 -200 Output: Urine 100 Stool 2 100 Other: Voiding Method Diaper Bedpan Bedpan Incontinent Diaper Diaper Incontinent Incontinent # Voids 1 - Exam Right upper extremity: Postop splint is in good position and condition. Obvious soft tissue swelling in the fingers. She is able to move the fingers with minimal difficulty. Her sensation to light touch both proximal distal to splint are intact. Naga bandage on the elbow is in good position and condition. - Labs CBC & Chem 7: 07/19/19 06:56 07/19/19 06:56 Assessment and Plan Plan: Assessment: Postop day #3 status post ORIF right distal radius fracture Skin tears right elbow Plan: Continue use splint, do not remove. Recommend ice and elevation often Dressing on elbow changed, bacitracin applied Other medical lab technologist and recommendations We'll continue to follow during inpatient stay Time with Patient: Less than 30
--- NOTE | 2019-07-20 12:41 | P.PN ---
Subjective this is a pleasant 88 yo F with pmh of total colectomy and diverting ileostomy secondary to ulcerative colitis, demetia, chronic atrial fibrillation , hypertension , hyperlipidemia , chronic kidney disease, gastric ulcer , peripheral artery disease , she was recently discharge from [facility] for fall and right side rib fracture 5 through 8 ribs, with 20-30% right side pneumothorax, that has been treated conservatively , upon discharge pt went home because family did want to take her home as lakesha at bed side was telling me, pt is poor historian and most of information was taken from daughter at bed side with whom pt lives. as per lakesha pt fell about two days ago when they found her on the floor, family are not sure how this happened. pt herself has no memory of the event. pt denies chest pain , no abd pain , no dyspnea , pt did not complain from her bowel or urinary systems, she reports no fever, but she feels cold and she was shivering during the encounter. vitals are stable and pt is saturating 94% on room air, CBC, BMP and LFT were unremarkable, except for creatinine of 2.0 which is at baseline right hand and wrist xray: right radius fracture with displacement right elbow fracture : no fracture lumbar and pelvic xray: no acute fracture , but thoracic spine xray: wedge fracture of T5, age undetermined CXR: right rib fracture of 5th and 6th ribs with displacement with 30% right apical pneumonthorax orthopedic team are consulted and informed by emergency team thoravent chest tube was placed in the emergency room 07/17/2019 Today patient is more awake however she is still confused which could be part of her dementia with associated elements of acute delirium. However she denies chest pain or abdominal pain. No dyspnea, her pain at her right forearm fracture is controlled. And she has less suprapubic tenderness with no abdominal pain. She is mildly tachypneic, she needed help for eating, vitals are stable. CBC is remarkable with a stable hemoglobin and WBC, creatinine is slightly improved from 2.1 down to 1.9, sodium 135, urine culture still pending. Chest x-ray showed right-sided Serevent with no pneumothorax and improved. Moderate right pleural effusion with adjacent atelectasis versus infiltrates per radiologist. Patient remains on ceftriaxone for her UTI 07/18/2019 Patient remains in the ICU. Patient status post open reduction and internal fixation for her right radial fracture. Today is postop day #1. She still confused with looks like her baseline as she has history of dementia. She doesn't tachypneic with thorough workup vent still in her right chest Jessica lia a in May. Her chest showing started crepitation. Right hand is in cast and pain is controlled. Still have some suprapubic tenderness. Vitals are stable. Labs are remarkable with creatinine with slight improvement down to 1.8. Chest x-ray from today showing stable findings. Patient remains on ceftriaxone for her UTI. Patient might be transferred to the general medical floor showing 07/19/2019 Patient is awake and comfortable in bed, she is confused at baseline to time place and person. She cannot tell when she is in the hospital but she follows commands and answer some questions appropriately. Her thoravent is in a Place in the right upper chest, right forearm is in cast. Patient, stomach back is working and she has mild suprapubic tenderness. Orthopedic team are planning to address her right arm inspection tomorrow. Cardiothoracic and pulmonary team are following the case closely. Vitals are stable. No Padilla versus yesterday, and review of her UTI. Her labs are stable, with creatinine is 2.0 at baseline. 07/20/2019 Patient is doing well clinically she is more awake and comfortable, she is confused at baseline. She remains on antibiotics for her UTI and possible soft tissue infection. Cardiothoracic team are planning to take the thoravent out today. Percocet. It team are going to reassess her fracture site. Status post ORIF. Patient looks improving and getting close to be ready to going for ECF to quit physical therapy, we will discharge patient was she got cleared by pulmonary and orthopedic team's. Objective - Vital Signs Vital signs: Vital Signs Temp 98.1 F 07/20/19 07:00 Pulse 65 07/20/19 08:00 Resp 16 07/20/19 08:00 BP 117/67 07/20/19 07:00 Pulse Ox 96 07/20/19 07:00 Intake & Output 07/19/19 07/20/19 07/20/19 18:59 06:59 18:59 Output Total 2 200 Balance -2 -200 Output: Urine 100 Stool 2 100 Other: Voiding Method Diaper Bedpan Bedpan Incontinent Diaper Diaper Incontinent Incontinent # Voids 1 - Exam -GENERAL: The patient is alert and oriented x0-1, no acute distress. Well developed, well nourished. HEENT: Pupils are round and equally reacting to light. EOMI. No scleral icterus. No conjunctival pallor. Normocephalic, atraumatic. No pharyngeal erythema. No thyromegaly. CARDIOVASCULAR: S1 and S2 present. No murmurs, rubs, or gallops. -PULMONARY: Chest is clear to auscultation, no wheezing or crackles. right side chest wall tenderness, chest tube in the right upper chest -ABDOMEN: Soft, improving suprapubic tender, nondistended, normoactive bowel ting nds. No palpable organomegaly. colostomy bag is in place MUSCULOSKELETAL: No joint swelling or deformity. -EXTREMITIES: No cyanosis, clubbing, or pedal edema. right forearm in splint and dressing, compressive examination is deferred to the surgical team. NEUROLOGICAL: Gross neurological examination did not reveal any focal deficits. SKIN: No rashes. No petechiae - Labs CBC & Chem 7: 07/19/19 06:56 07/19/19 06:56 Assessment and Plan Assessment: recurrent falls Status post fall and distal radial fracture, status post ORIF worsened right pneumothorax in view of her recent right pneumothorax about 10 days prior to admission to the hospital . Improved Dementia with probable some elements of acute delirium on admission, improving recent history of right rib fractures (5-8 ribs), her fractures are displaced Wedge fracture of the T5 vertebra seen on CAT scan. Chronic atrial fibrillation Hyperlipidemia Hypertension Chronic kidney disease History of total colectomy and diverting ileostomy secondary to ulcerative colitis Hiatal hernia Plan: This is a pleasant 88 years old female who presents with multiple falls and rib fracture with pneumothorax, right distal radius fracture. Pain management, fall precautions. Appreciated Consult cardiothoracic team and pulmonary/critical care team and follow the recommendation. orthopedic team follow-up is appreciated.continue with ceftriaxone follow-up culture results. Labs and medication were reviewed.. Continue same treatment. Continue with symptomatic treatment. Resume home medication. Monitor lytes and vitals. DVT and GI prophylaxis. Further recommendations of the clinical course of the patient DVT prophylaxis: Subcutaneous heparin GI Prophylaxis: Pepcid PT/OT: PCF upon discharge for MARCELINO Prognosis is guarded We will discharge patient to the ECF once she got cleared by pulmonary and orthopedic team's
[2019-07-20] MEDS: FOLIC ACID 1 MG TAB PO SCH (15:09)
[2019-07-20] MEDS: PRAVASTATIN SODIUM 40 MG TAB PO SCH (20:27)
[2019-07-20] MEDS: DONEPEZIL 10 MG TAB PO SCH (20:28)
[2019-07-20 23:31] LABS: Appearance,Urine Cloudy (Clear); Bacteria,Urine Occasional /hpf; Bilirubin,Urine Negative (Negative); Blood,Urine Trace (Negative); Budding Yeast,Urine Few /hpf; Color,Urine Light Yellow; Glucose,Urine (UA) Negative (Negative); Ketones,Urine Negative (Negative); Leukocyte Esterase,Urine Large (Negative); Mucus,Urine Rare /hpf; Nitrite,Urine Negative (Negative); Protein,Urine Negative (Negative); RBC,Urine 2 /hpf (0-5); Specific Gravity,Urine 1.008 (1.001-1.035); Squamous Epithelial Cell,Urine 2 /hpf (0-4); Urobilinogen,Urine <2.0 mg/dL (<2.0); WBC,Urine 54 /hpf (0-5)
[2019-07-21] MEDS: HYDROcodone/APAP 7.5-325MG 1 EACH TAB PO SCH ×3 (03:04→15:29)
[2019-07-21 07:48] VITALS: RESP 17
--- NOTE | 2019-07-21 08:32 | XR ---
EXAMINATION TYPE: XR chest 1V portable DATE OF EXAM: 07/21/2019 COMPARISON: 07/20/2019 INDICATION: Follow-up hydropneumothorax TECHNIQUE: Single frontal view of the chest is obtained in the upright view. FINDINGS: The heart size is normal. The pulmonary vasculature is normal. There is increased opacity over the right lung. A small right pleural effusion is present. No pneumot horax is evident. Multiple right-sided rib fractures are present. The chest tube is been removed. Res idual pneumothorax is not evident. IMPRESSION: 1. Small to moderate right pleural fluid, stable. 2. No pneumothorax post chest tube removal. 3. Multiple right-sided rib fractures
[2019-07-21] MEDS: FOLIC ACID 1 MG TAB PO SCH (08:44)
[2019-07-21] MEDS: CHOLECALCIFEROL 1,000 UNIT TAB PO SCH (08:44)
[2019-07-21] MEDS: HEPARIN SODIUM,PORCINE 5,000 UNIT/ML 1 ML VIAL SQ SCH (08:44)
[2019-07-21] MEDS: AMIODARONE 100 MG TAB PO SCH (08:44)
[2019-07-21] MEDS: SODIUM BICARBONATE TAB 650 MG TAB PO SCH (08:44)
[2019-07-21] MEDS: FAMOTIDINE 20 MG TAB PO SCH (08:44)
[2019-07-21] MEDS: SERTRALINE 50 MG TAB PO SCH (08:44)
--- NOTE | 2019-07-21 10:32 | P.PN ---
Subjective Progress Note Date: 07/21/19 Principal diagnosis: Status post ORIF right distal radius fracture Patient evaluated at bedside today, she is resting comfortably. Postop splint is in good position and condition. A Objective - Vital Signs Vital signs: Vital Signs Temp 98.0 F 07/21/19 07:00 Pulse 58 L 07/21/19 07:00 Resp 17 07/21/19 07:00 BP 123/72 07/21/19 07:00 Pulse Ox 96 07/21/19 07:00 Intake & Output 07/20/19 07/21/19 07/21/19 18:59 06:59 18:59 Intake Total 50 240 200 Balance 50 240 200 Intake: Intake, IV Titration 50 Amount cefTRIAXone 1 gm In 50 Sodium Chloride 0.9% 50 ml @ 100 mls/hr IVPB Q24H [facility] Rx#:[id number] Oral 240 200 Other: Voiding Method Bedpan Bedpan Diaper Diaper Incontinent Incontinent # Voids 1 - Exam Right upper extremity: Postop splint is in good position and condition. Obvious soft tissue swelling in the fingers. She is able to move the fingers with minimal difficulty. Her sensation to light touch both proximal distal to splint are intact. Naga bandage on the elbow is in good position and condition. - Labs CBC & Chem 7: 07/19/19 06:56 07/19/19 06:56 Labs: Abnormal Lab Results - Last 24 Hours (Table) 07/20/19 Range/Units 20:53 Urine Appearance Cloudy H (Clear) Urine Blood Trace H (Negative) Ur Leukocyte Esterase Large H (Negative) Urine WBC 54 H (0-5) /hpf Urine WBC Clumps Few H (None) /hpf Urine Bacteria Occasional H (None) /hpf Urine Mucus Rare H (None) /hpf Urine Yeast (Budding) Few H (None) /hpf Assessment and Plan Plan: Assessment: Postop day #34 status post ORIF right distal radius fracture Skin tears right elbow Plan: Continue use splint, do not remove. Recommend ice and elevation often Continue dressing changes every 3 days Other medical front desk specialist and recommendations stable for discharge to rehab, plan for follow-up in 2 weeks Time with Patient: Less than 30
[2019-07-21 11:31] VITALS: BMI 26.9
--- NOTE | 2019-07-21 12:23 | P.PN ---
Subjective Progress Note Date: 07/21/19 Principal diagnosis: Status post fall with right wrist fracture and right-sided pneumothorax Status post fall with right wrist fracture and right sided pneumothorax. This is an 88-year-old female recently discharged from the hospital about 2 weeks ago. Patient presented initially with fall and right-sided rib fractures as well as right sided small apical pneumothorax. Her fall was mostly at home and it was unwitnessed. Since her discharge, the patient apparently fell again, and this time sustained a broken right wrist. Being addressed by orthopedics on the case. And she was also noted to have a 50% right-sided pneumothorax has a thoravent was placed by the ER physician upon admission. Patient was admitted to the ICU, and I was asked to see her on consultation for her right sided pneumothorax which has resolved since the chest tube was placed by the ER physician on admission. Her wrist fracture is being addressed by orthopedics. All her labs were reviewed since admission patient was noted to have elevated creatinine, and the patient is known to have history of chronic renal failure stage III. Her urinalysis was noted to be abnormal showing evidence of b acteriuria and pyuria, culture is pending, in the meantime the patient is receiving Rocephin. Ultrasound of the chest showed very minimal right-sided pleural effusion not large enough to consider right-sided thoracentesis. Reevaluated today on 07/18/2019, patient remains in the ICU, continues to have that thoravent in the same place/right chest. There is no evidence of pneumothorax, and the lung is fully expanded. Minimal fluid accumulation and the pleural VAC overnight. Hence we will likely The chest tube, and possibly consider removing it in the next 24 hours. Patient does not have any specific pulmonary complaints. CBC is relatively normal left lites are normal creatinine is down to 1.80. On 07/19/2019 patient seen in follow-up on medical surgical floor. She has been transferred out of the ICU last night, she seen resting in bed, and patient is in moderate amount of discomfort in her right chest that's exacerbated with movement and deep breathing. Thoravent remains in place, remains capped, today's chest x-ray shows no measurable pneumothorax, bilateral pleural effusion that are small, and right greater than left bibasilar atelectasis and diffuse right lung edema or infiltrate. Incentive spirometry effort is poor, patient is only achieving 500 mL is on the today, with much encouragement, she is afebrile, hemodynamically patient is stable, lung sounds reveal equal air entry bilaterally, with diminished breath sounds and bilateral bases. Today's labs have been reviewed, showing white blood cell count of 5.9, hemoglobin of 10.7, electrolytes fairly unremarkable, CO2 is 21, B1 is 39, and creatinine is 2.04. Antibiotic coverage is with Rocephin. On 07/20/2019 patient seen in follow-up on medical surgical floor. She is drowsy, but arousable, she states her pain is better controlled today, right- sided Thoravent has been removed this morning, today's chest x-ray prior to the removal of the chest tube showed no appreciable pneumothorax, and moderate right and small left pleural effusions and adjacent atelectasis, possibility of edema throughout the right lung similar to previous exam. Incentive spirometry effort today is slightly improved, 500-750. Remains on 3 L of oxygen with a pulse ox of 96%. No fever or chills, equal breath sounds noted bilaterally, mesh breath sounds at bilateral bases. Vital signs are stable, patient was up in the chair yesterday, tolerated activity well, still has pain with moving in the right upper chest, but seems to be better on today's exam. Still on oral Crosby as [id number], in view of her lethargy we'll decrease the frequency to every 6 hours. On 07/21/2019 patient is seen in follow-up on medical surgical floor. She drowsy, but easily arousable, denies any distress, today's chest x-ray shows small to his right pleural effusion, no pneumothorax, clinical stable, she is on 3 L of oxygen with a pulse ox of 96%, afebrile, lung sounds reveal equal air entry bilaterally, with diminished breath sounds at the bases, patient is working on her incentive spirometer, able to achieve about 500 on it. Patient has been get not to the chair with assistance, no acute events overnight, today's labs have been reviewed, recheck urinalysis was sent yesterday, and patient is on Rocephin for urinary tract infection, urinalysis revealed ongoing pyuria. We'll continue with IV antibiotics. Charge planning is in progress for discharge to subacute rehab today, from pulmonary perspective patient is stable for discharge Objective - Vital Signs Vital signs: Vital Signs Temp 98.0 F 07/21/19 07:00 Pulse 58 L 07/21/19 07:00 Resp 17 07/21/19 07:00 BP 123/72 07/21/19 07:00 Pulse Ox 96 07/21/19 07:00 Intake & Output 07/20/19 07/21/19 07/21/19 18:59 06:59 18:59 Intake Total 50 240 200 Balance 50 240 200 Weight 71.3 kg Intake: Intake, IV Titration 50 Amount cefTRIAXone 1 gm In 50 Sodium Chloride 0.9% 50 ml @ 100 mls/hr IVPB Q24H [facility] Rx#:[id number] Oral 240 200 Other: Voiding Method Bedpan Bedpan Bedpan Diaper Diaper Diaper Incontinent Incontinent Incontinent # Voids 1 - Exam GENERAL EXAM: Drowsy but arousable, pleasant female 88-year-old, on 3 L of oxygen, and moderate amount of chest discomfort on the right side with moving and deep breathing and coughing comfortable in no apparent distress. HEAD: Normocephalic/atraumatic. EYES: Normal reaction of pupils, equal size. Conjunctiva pink, sclera white. NOSE: Clear with pink turbinates. THROAT: No erythema or exudates. NECK: No masses, no JVD, no thyroid enlargement, no adenopathy. CHEST: No chest wall deformity. Symmetrical expansion. Interval removal of right upper chest Thoravent in place LUNGS: Equal air entry with no crackles, wheeze, rhonchi or dullness. CVS: Regular rate and rhythm, normal S1 and S2, no gallops, no murmurs, no rubs ABDOMEN: Soft, nontender. No hepatosplenomegaly, normal bowel sounds, no guarding or rigidity. EXTREMITIES: No clubbing, no edema, no cyanosis, 2+ pulses and upper and lower extremities. MUSCULOSKELETAL: Muscle strength and tone normal. SPINE: No scoliosis or deformity SKIN: No rashes CENTRAL NERVOUS SYSTEM: Alert and oriented -3. No focal deficits, tone is normal in all 4 extremities. PSYCHIATRIC: Alert and oriented -3. Appropriate affect. Intact judgment and insight. - Labs CBC & Chem 7: 07/19/19 06:56 07/19/19 06:56 Labs: Abnormal Lab Results - Last 24 Hours (Table) 07/20/19 Range/Units 20:53 Urine Appearance Cloudy H (Clear) Urine Blood Trace H (Negative) Ur Leukocyte Esterase Large H (Negative) Urine WBC 54 H (0-5) /hpf Urine WBC Clumps Few H (None) /hpf Urine Bacteria Occasional H (None) /hpf Urine Mucus Rare H (None) /hpf Urine Yeast (Budding) Few H (None) /hpf Assessment and Plan Plan: Assessment: 1 history of fall and multiple right-sided rib fractures including rib 5,6,7 and 8 2 right sided pneumothorax secondary to trauma and rib fractures, status post chest tube placement by ER physician/pavan, removed on 07/20/2019 3 chronic atrial fibrillation 4 chronic kidney disease stage III 5 history of ileostomy 6 suspect underlying osteoporosis 7 history of mild dementia 8 history of benign essential hypertension 9 history of total colectomy and diverting ileostomy secondary to ulcerative colitis 10 history of hiatal hernia 11 history of peripheral vessel occlusive disease/lower extremities. 12 right wrist fracture, being addressed by orthopedics. Plan: Continue encouraging deep breathing and coughing, today's chest x-ray has been reviewed, no pneumothorax, small to moderate-sized pleural effusion, encouraged patient to sit up in the chair, ambulate, physical therapy is following the patient, no acute events overnight, vitals are stable, pain is better controlled, patient is stable for discharge to subacute rehab today I performed a history & physical examination of the patient and discussed their management with my nurse practitioner, Carmen Isaac. I reviewed the nurse practitioner's note and agree with the documented findings and plan of care. Lung sounds are positive for equal breath sounds bilaterally, with diminished breath sounds at the bases. The findings and the impression was discussed with the patient. I attest to the documentation by the nurse practitioner. Time with Patient: Less than 30
[2019-07-21 15:46] VITALS: BP 123/81; PULSE 67; TEMP 98.4
--- NOTE | 2019-07-21 15:52 | P.DS ---
Providers Date of admission: 07/16/19 14:16 Attending physician: Kj Stone MD Consults: 07/16/19 15:53 Consult Physician Stat Consulting Provider: Regina Graves Consult Reason/Comments: pneumonthorax Do you want consulting provider notified?: Already Contacted Consult Physician Stat Consulting Provider: Tk Blackwell Consult Reason/Comments: impacted displaced distal radius fracture Do you want consulting provider notified?: Already Contacted Consult Physician Stat Consulting Provider: Breonna Willard Consult Reason/Comments: pneumothorax, old rib fracture Do you want consulting provider notified?: Already Contacted 07/17/19 09:14 Consult Physician Routine Consulting Provider: Darius Lei Consult Reason/Comments: rt sided hydro pneumothorax Do you want consulting provider notified?: Yes Primary care physician: [facility] Course: 88-year-old female recently discharged from the hospital about 2 weeks ago. Patient presented initially with fall and right-sided rib fractures as well as right sided small apical pneumothorax. Her fall was mostly at home and it was unwitnessed. Since her discharge, the patient apparently fell again, and this time sustained a broken right wrist. Being addressed by orthopedics on the case. And she was also noted to have a 50% right-sided pneumothorax has a thoravent was placed by the ER physician upon admission. Patient was admitted to the ICU, and I was asked to see her on consultation for her right sided pneumothorax which has resolved since the chest tube was placed by the ER physician on admission. Her wrist fracture is being addressed by orthopedics. All her labs were reviewed since admission patient was noted to have elevated creatinine, and the patient is known to have history of chronic renal failure stage III. Her urinalysis was noted to be abnormal showing evidence of bacteriuria and pyuria, culture is pending, in the meantime the patient is receiving Rocephin. Ultrasound of the chest showed very minimal right-sided pleural effusion not large enough to consider right-sided thoracentesis. Reevaluated today on 07/18/2019, patient remains in the ICU, continues to have that thoravent in the same place/right chest. There is no evidence of pneumothorax, and the lung is fully expanded. Minimal fluid accumulation and the pleural VAC overnight. Hence we will likely The chest tube, and possibly consider removing it in the next 24 hours. Patient does not have any specific pulmonary complaints. CBC is relatively normal left lites are normal creatinine is down to 1.80. On 07/19/2019 patient seen in follow-up on medical surgical floor. She has been transferred out of the ICU last night, she seen resting in bed, and patient is in moderate amount of discomfort in her right chest that's exacerbated with movement and deep breathing. Thoravent remains in place, remains capped, today's chest x-ray shows no measurable pneumothorax, bilateral pleural effusion that are small, and right greater than left bibasilar atelectasis and diffuse right lung edema or infiltrate. Incentive spirometry effort is poor, patient is only achieving 500 mL is on the today, with much encouragement, she is afebrile, hemodynamically patient is stable, lung sounds reveal equal air entry bilaterally, with diminished breath sounds and bilateral bases. Today's labs have been reviewed, showing white blood cell count of 5.9, hemoglobin of 10.7, electrolytes fairly unremarkable, CO2 is 21, B1 is 39, and creatinine is 2.04. Antibiotic coverage is with Rocephin. On 07/20/2019 patient seen in follow-up on medical surgical floor. She is drowsy, but arousable, she states her pain is better controlled today, right- sided Thoravent has been removed this morning, today's chest x-ray prior to the removal of the chest tube showed no appreciable pneumothorax, and moderate right and small left pleural effusions and adjacent atelectasis, possibility of edema throughout the right lung similar to previous exam. Incentive spirometry effort today is slightly improved, 500-750. Remains on 3 L of oxygen with a pulse ox of 96%. No fever or chills, equal breath sounds noted bilaterally, mesh breath sounds at bilateral bases. Vital signs are stable, patient was up in the chair yesterday, tolerated activity well, still has pain with moving in the right upper chest, but seems to be better on today's exam. Still on oral Henrietta as [id number], in view of her lethargy we'll decrease the frequency to every 6 hours. On 07/21/2019 patient is seen in follow-up on medical surgical floor. She drowsy, but easily arousable, denies any distress, today's chest x-ray shows small to his right pleural effusion, no pneumothorax, clinical stable, she is on 3 L of oxygen with a pulse ox of 96%, afebrile, lung sounds reveal equal air entry bilaterally, with diminished breath sounds at the bases, patient is working on her incentive spirometer, able to achieve about 500 on it. Patient has been get not to the chair with assistance, no acute events overnight, today's labs have been reviewed, recheck urinalysis was sent yesterday, and patient is on Rocephin for urinary tract infection, urinalysis revealed ongoing pyuria. We'll continue with IV antibiotics. Charge planning is in progress for discharge to subacute rehab today, from pulmonary perspective patient is stable for discharge Patient Condition at Discharge: Serious Plan - Discharge Summary Discharge Rx Participant: Yes New Discharge Prescriptions: New HYDROcodone/APAP 7.5-325MG [Henrietta 7.5-325] 1 each PO Q6H PRN 2 Days #8 tab PRN Reason: Pain Continue Sertraline HCl 50 mg PO DAILY Omeprazole [PriLOSEC] 20 mg PO AC-BRKFST Pravastatin Sodium 40 mg PO HS Donepezil HCl 23 mg PO HS Folic Acid 1 mg PO DAILY #1 tablet Sodium Bicarbonate Tab 650 mg PO TID Amiodarone [Cordarone] 100 mg PO DAILY Vitamin D3(Unknown Dose) Chew Tab 2 tab PO DAILY Vitamin B-1 250mg 250 mg PO DAILY Acetaminophen Tab [Tylenol] 650 mg PO Q4H PRN #30 tablet PRN Reason: Pain HYDROcodone/APAP 5-325MG [Henrietta 5-325] 1 tab PO Q4HR PRN 3 Days #18 tab PRN Reason: Pain Discharge Medication List Donepezil HCl 23 mg PO HS 06/06/15 [History] Omeprazole [PriLOSEC] 20 mg PO AC-BRKFST 06/06/15 [History] Pravastatin Sodium 40 mg PO HS 06/06/15 [History] Sertraline HCl 50 mg PO DAILY 06/06/15 [History] Folic Acid 1 mg PO DAILY #1 tablet 08/30/17 [Rx] Sodium Bicarbonate Tab 650 mg PO TID 10/15/17 [History] Amiodarone [Cordarone] 100 mg PO DAILY 12/21/18 [History] Vitamin B-1 250mg 250 mg PO DAILY 07/01/19 [History] Vitamin D3(Unknown Dose) Chew Tab 2 tab PO DAILY 07/01/19 [History] Acetaminophen Tab [Tylenol] 650 mg PO Q4H PRN #30 tablet 07/06/19 [Rx] HYDROcodone/APAP 5-325MG [Henrietta 5-325] 1 tab PO Q4HR PRN 3 Days #18 tab 07/07/19 [Rx] HYDROcodone/APAP 7.5-325MG [Henrietta 7.5-325] 1 each PO Q6H PRN 2 Days #8 tab 07/20/19 [Rx] Follow up Appointment(s)/Referral(s): [facility], [NON-STAFF] - As Needed Denise Carmona MD [Primary Care Provider] - 1-2 days Abe Drake PAC [PHYSICIAN STUDIO TECHNICIAN VIDEO OPERATOR] - 2 Weeks Activity/Diet/Wound Care/Special Instructions: Orthopedic discharge instructions: 1. Do not remove splint, keep covered 2. Utilize arm sling as needed 3. Please apply new dressings to right elbow every 3 days, apply nonadherent bandage and packs adjacent 2 skin tears 4. Plan for [facility]-up at [facility] 2 weeks Discharge Disposition: TRANSFER TO SNF/ECF
[2019-07-21] MEDS ORDERED: BACITRACIN 500 UNIT/GM OINT 28.4 GM TUBE TOPICAL SCH (21:00)
== END 2019-07-21 17:02 | disposition home health service (06) | DRG 982 ==
LOC: EC 10:36 → 2SICU 14:16 → 4SSUR 07-18 21:33
PROVIDERS: ADMIT Internal Medicine; ATTEND Internal Medicine
PROC: 0W9930Z Drainage of Right Pleural Cavity with Drainage Device, Percutaneous Approach (ICD-10-PCS; 2019-07-16)
PROC: 0PSH04Z Reposition Right Radius with Internal Fixation Device, Open Approach (ICD-10-PCS; principal; 2019-07-17 12:30)
DX: S27.0XXA Traumatic pneumothorax, initial encounter (principal); S22.41XA Multiple fractures of ribs, right side, initial encounter for closed fracture; S52.501A Unspecified fracture of the lower end of right radius, initial encounter for closed fracture; K51.90 Ulcerative colitis, unspecified, without complications; N39.0 Urinary tract infection, site not specified; I43 Cardiomyopathy in diseases classified elsewhere; I48.20 Chronic atrial fibrillation, unspecified; W18.30XA Fall on same level, unspecified, initial encounter; Y92.009 Unspecified place in unspecified non-institutional (private) residence as the place of occurrence of the external cause; E78.5 Hyperlipidemia, unspecified; F03.90 Unspecified dementia, unspecified severity, without behavioral disturbance, psychotic disturbance, mood disturbance, and anxiety; F32.9 Major depressive disorder, single episode, unspecified; F41.9 Anxiety disorder, unspecified; I70.209 Unspecified atherosclerosis of native arteries of extremities, unspecified extremity; K44.9 Diaphragmatic hernia without obstruction or gangrene; N18.3 Chronic kidney disease, stage 3 (moderate); R29.6 Repeated falls; Z79.01 Long term (current) use of anticoagulants; Z79.899 Other long term (current) drug therapy; Z82.49 Family history of ischemic heart disease and other diseases of the circulatory system; Z87.11 Personal history of peptic ulcer disease; Z90.49 Acquired absence of other specified parts of digestive tract; Z90.710 Acquired absence of both cervix and uterus; Z93.2 Ileostomy status; Z99.81 Dependence on supplemental oxygen; M81.0 Age-related osteoporosis without current pathological fracture; I13.10 Hypertensive heart and chronic kidney disease without heart failure, with stage 1 through stage 4 chronic kidney disease, or unspecified chronic kidney disease; Z91.81 History of falling
CPT/HCPCS: 32551; 36415; 70450; 71045; 71046; 72072; 72100; 72125; 72170; 76604; 80048; 80053; 81001; 85025; 85610; 85730; 87086; 96365; 96375; 99285